=== PATIENT | male | born 1940 | race Caucasian/White ===

== ENCOUNTER 2018-05-28 14:21 | Inpatient (IN) | payer MEDICARE, OTHER, SELFPAY ==
[2018-05-28] VITALS (13 sets, daily range): BP systolic 114–212; BP diastolic 67–89; PULSE 78–106; RESP 18–28; TEMP 36.4–36.9; O2SAT 95–98; BMI 54.1
--- NOTE | 2018-05-28 14:39 | EKG12_ITS ---
Test Reason : SOB Blood Pressure : / mmHG Vent. Rate : 101 BPM Atrial Rate : 101 BPM P-R Int : 192 ms QRS Dur : 128 ms QT Int : 370 ms P-R-T Axes : 026 229 013 degrees QTc Int : 479 ms Sinus tachycardia Right bundle branch block Possible Lateral infarct , age undetermined Inferior infarct , age undetermined Abnormal ECG Confirmed by PAULINA HAMMOND, MATT ([id number]), news editor JUAN R ALLEN ([id number]) on 06/01/2018 1:22:56 PM Referred By: Burke Avitia Confirmed By:MATT GALLARDO MD
--- NOTE | 2018-05-28 14:51 | ED.DCSUM_ITS ---
- ER Visit Summary Date of Service: 05/28/18 Chief Complaint: Shortness of breath History of Present Illness: The patient is a [address] of CAD with prior MS. Patient states that he fell approximately 8 days ago. He slipped on ice on his steps injuring his right rib cage. He was actually doing okay and then 4 days ago he fell again injuring now his left rib cage and since that time is been more short of breath. Denies any chest pain other than the rib cage pain. No history of DVT or PE. No recent hospitalization or surgery. He has chronic swelling in both legs and is not new. He denies any fever or new cough. No hemoptysis. He has never had a DVT or PE. Physical Examination: Older male. Vital signs are stable. Pulse ox 96% on room air no hypoxia. HEENT exam unremarkable atraumatic. Neck nontender. Lungs clear to auscultation. Heart regular rhythm rate about 100. No murmur. Abdomen morbidly obese but soft. Nontender normal bowel sounds no peritoneal signs. Patient moving all 4 extremities. His chronic lymphedema both lower extremities. Calves are nontender. Peripheral edema is equal symmetrical. Neurologically he is awake and alert with no focal motor deficits. Moving all 4 extremities. He does have bruising on his right lower chest and upper abdomen. Test Results: Obvious rib fractures. No pneumothorax. There is a small left pleural effusion. With atelectasis. Cannot rule out infiltrate. Read both by myself and the radiologist. CBC shows a white count of 7. H&H of 13 and 42. No bands. Electrolytes are unremarkable other than creatinine 1.35. Patient has not been to this hospital for years I have no old labs or old EKG available for comparison. His troponin is normal. 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 Again I have no old EKG available for comparison. Emergency Department Course and Treatment: Patient be worked up for dyspnea. Multiple repeat exams patient is resting comfortable in bed. He will be ambulated to see how his pulse ox does without oxygen. He will also undergo a CTA of his chest clinically my suspicion for PE is very low. He does have risk factors due to his body habitus. I am more concerned with his shortness of breath and his left lower lobe pleural effusion on hope and the CAT scan can clarify that issue. Treatment Plan: I reviewed the patient's CT of his chest. He is got a moderate left pleural effusion most likely need to be drained. We are awaiting the official read to be turned over to him on the afternoon physicians. I will speak to the hospitalist about admission. Disposition: Admission Impression: Acute dyspnea Left lower pleural effusion This note was generated with [employer] dictation software. It may contain incorrect words, spelling, and punctuation that were not noted in review of the chart prior to signing ED Disposition - Plan for ED Patient: Chief Complaint: Shortness of Breath Referrals: [facility] Doctor,Out of [NON-STAFF] -
--- NOTE | 2018-05-28 15:00 | RAD_ITS ---
STUDY: X-RAY CHEST REASON FOR EXAM: Male, 77 years old. Chest pain. TECHNIQUE: PA and lateral views of the chest. COMPARISON: None. FINDINGS: Small left pleural effusion with left basilar atelectasis and/or infiltrate. Blunting of the right costophrenic angle. There is borderline cardiomegaly. Normal mediastinum and mary jane. Normal visualized pulmonary arteries. Normal visualized aortic arch and descending thoracic aorta. Normal visualized thoracic spine. Normal visualized ribs, clavicles, and shoulders. There is no demonstrated abnormality of the visualized soft tissue structures of the upper abdomen. RAD/Chest PA and Lateral IMPRESSION: Small left pleural effusion with underlying left basilar infiltration and/or atelectasis. Blunting of the right costophrenic angle. Electronically Signed: Grayson Keith MD at 15:18 EST Tel [phone], Service support ,
[2018-05-28 15:26] LABS: Absolute Lymphocyte Count 1.85 X10^3/ul (0.83-4.51); Absolute Neutrophil Count 4.7 X10^3/uL (2.0-7.7); Basophil# 0.02 X10^3/uL; Basophil% 0.3 % (0-1); Eosinophils% 7.7 % (0-5); Hematocrit 42.8 % (40-54); Hemoglobin 13.9 g/dl (13.0-16.5); Lymphocyte # 1.85 X10^3/ul (4.0); Lymphocyte % 23.8 % (19-41); Mean Corp Hgb Conc 32.5 g/gl (32-36); Mean Corpuscular Volume 107.8 fL (80-94); Mean Platelet Vol. 8.8 fl (6.2-12.0); Monocyte# 0.62 X10^3/uL; Neutrophil # 4.66 X10^3/uL (2.7-7.7); Neutrophil % 59.9 % (47-70); Platelet Count 201 K/mm3 (150-450); RBC Distribution Width CV 13.3 % (11.6-14.6); Red Blood Count 3.97 M/mm3 (4.6-6.2); White Blood Count 7.8 K/mm3 (4.4-11.0)
[2018-05-28 15:27] LABS: POSITIVE COUNT NO; POSITIVE DIFFERENTIAL NO; POSITIVE MORPHOLOGY NO
[2018-05-28 15:49] LABS: Anion Gap 3 (5-15); BUN 23 mg/dL (7-18); Calcium,Total 8.3 mg/dL (8.5-10.1); Chloride 106 mmol/L (98-107); Creatinine, Serum 1.35 mg/dL (0.70-1.30); EST Glomerular Filtration Rate 55 mL/min (>60); Est Glom Filt Rate - Afr Amer 66 mL/min (>60); Estimated Creatinine Clearance 45.04 ml/min; Glucose 116 mg/dL (74-106); Potassium 4.5 mmol/L (3.5-5.1); Sodium Level 139 mmol/L (136-145)
--- NOTE | 2018-05-28 15:55 | CT_ITS ---
STUDY: CTA CHEST REASON FOR EXAM: Male, 77 years old. Shortness of breath, left pleural effusion left-sided rib pain RADIATION DOSAGE (If Supplied By Facility): CTDIvol = ( 16.72 ) mGy, DLP = ( 657.99 ) mGycm TECHNIQUE: The examination was performed with the intravenous administration of 100CC ml of Isovue 370 contrast material. Post-processing of the angiographic images was performed, with multiplanar reformation and 3D reconstruction. Individualized dose optimization techniques were used for this CT. COMPARISON: None. FINDINGS: There is limited enhancement of the main pulmonary artery and right and left pulmonary arteries. There is limited enhancement of the bilateral peripheral pulmonary arteries. There is no demonstrated pulmonary embolism however, a filling defect could be present and overlooked in the distal vessels due to the suboptimal contrast.. Normal thoracic aorta and visualized great vessels. There is no demonstrated aortic dissection. Normal heart and pericardium. Normal mediastinum. Normal hilar regions. There is peribronchial thickening. The lungs are well expanded. Chronic interstitial changes noted in both lung robles with nonspecific left pleural thickening, and a free-flowing left pleural effusion. There is minimal bibasilar atelectasis. There is likely chronic elevation of the right hemidiaphragm. There are degenerative changes of thoracic spine. Limited cuts through the upper abdomen do not show a suspicious abnormality CT/CTA Chest W/WO Contrast IMPRESSION: No demonstrated PE, however, contrast bolus within the pulmonary arteries is not optimal No thoracic aortic aneurysm or dissection Chronic interstitial changes in both lung robles with nonspecific pleural thickening, free flowing left pleural effusion and minimal bibasilar atelectasis Degenerative bony changes Electronically Signed: Ruben Lieberman MD at 16:47 EST , Service support ,
[2018-05-28 15:59] LABS: BNP,B-Type NATRIURETIC PEPTIDE 40.2 pg/mL (0-100)
--- NOTE | 2018-05-28 18:10 | PCM.HP.STD ---
Problem List (1) Pleural effusion Status: Acute (2) Chronic venous stasis Status: Chronic (3) Morbid obesity Status: Chronic (4) MEGHANA (obstructive sleep apnea) Status: Chronic (5) Osteoarthritis Status: Chronic (6) NSAID-induced gastric ulcer Status: Chronic History of Present Illness Date of Admission: 05/28/18 Chief Complaint: SOB The patient is a 77 year old M with past medical history of morbid obesity, CAD with OK in 1994, osteoarthritis, NSAID-induced ulcer, obstructive sleep apnea, who presented to the emergency room with chief complaint of shortness of breath. He was found to be hypoxic with ambulation into the 80s, and found to have left-sided pleural effusion on chest x-ray. He denies history of congestive heart failure or cardiac disease. He has been progressively more short of breath times 3-4 days. He also has chest pain that started after falling. He states he fell slipping on ice on his right side about 9 days ago, and has left-sided chest pain from falling on steps onto his left side about 4 days ago. The shortness of breath started after the fall. He is short of breath with conversation and his O2 declines to 87% with conversation. He does not have a vendor relationship manager. He is compliant with nightly CPAP. He does have some BL LE swelling and stasis changes however he says this has been chronic for 15 years. Past Medical History Past Medical History (Chronic Problems): Chronic Problems Chronic venous stasis (Chronic) Morbid obesity (Chronic) MEGHANA (obstructive sleep apnea) (Chronic) Osteoarthritis (Chronic) NSAID-induced gastric ulcer (Chronic) Allergies cephalexin [From Keflex] Allergy (Verified 05/28/18 14:22) Rash Home Medications: Ambulatory Orders Medication Instructions Recorded Amoxicillin [Amoxil] 500 mg PO Q6H 05/28/18 Glucosamine/Chondr Gallardo A Sod 1 each PO BID 05/28/18 [Glucosamine-Chondroitin Tablet] Magnesium 500 mg PO DAILY 05/28/18 Multivitamins,Therapeutic 1 tablet PO DAILY 05/28/18 [Multivitamin] Naproxen Sodium [Aleve] 220 mg PO Q12H PRN PRN 05/28/18 buPROPion SR [Wellbutrin SR (150mg 150 mg PO DAILY 05/28/18 tablets)] Surgical History: total hip arthroplasty Psychiatric History: No pertinent psych hx Lives: Alone Smoking Status: Never smoker Tobacco Use: Non-smoker Alcohol: None Drugs: None - *Family History Maternal History Items: Diabetes Paternal History Items: Cancer - bladder Review of Systems Constitutional: Denies: Chills, Fever, Weight Change HEENT: Denies: Head Aches, Sinus Congestion, Sinus Drainage Cardiovascular: Reports: Chest Pain. Denies: Palpitations Respiratory: Reports: Shortness of Breath, Shortness of breath at rest, Shortness of breath upon exertion. Denies: Cough, Sputum production Gastrointestinal: Denies: Abdominal Pain, Nausea, Vomiting Genitourinary: Denies: Dysuria Musculoskeletal: Denies: Joint Pain, Joint Tenderness Skin: Denies: Rash, Wounds Neurological: Denies: Numbness, Tingling, Focal weakness Psychiatric: Denies: Anxiety, Depression, Homicidal Ideations, Suicidal Ideations Hematologic/ Lymphatic: Denies: Easy Bruising, Easy Bleeding VTE Information - Inpt Only VTE Present on Admission: No VTE Mechan Device Prophylaxis: SCD's VTE Pharm Prophylaxis ordered?: No Reason prophylaxis not ordered:: Medical Contraindication Patient Problems: Active and Suspected Problems Pleural effusion (Acute) - Physical Exam General: Alert, Oriented x3, Cooperative HEENT: Atraumatic, PERRLA, EOMI, Normocephalic Neck: Supple, No JVD, Negative Carotid Bruits Lungs: Diminished, Rales, Wheezes Cardiovascular: Regular rate, No murmurs Abdomen: Bowel Sounds Present, Soft, Non Tender, Obese Extremities: Capillary Refill Less than 3 Seconds, Edema Skin: No rashes, No breakdown, - - hyperpigmentation BL LE ankles Musculoskeletal: No Tenderness to Palpation of Joints or Extremities Neurological: Cranial nerves II-XII grossly intact Psych/Mental Status: Normal Affect, Appropriate Vital Signs Temp Pulse Resp BP Pulse Ox 97.6 F L 95 28 H 164/88 H 96 05/28/18 14:23 05/28/18 16:38 05/28/18 16:38 05/28/18 16:38 05/28/18 16:38 Oxygen Flow Rate (L/min) 2 Oxygen Delivery Method Nasal Cannula Weight: 356 lb Body Mass Index (BMI) 54.1 Laboratory Tests Past 24 Hrs 05/28/18 05/28/18 05/28/18 15:15 15:15 15:15 WBC 7.8 RBC 3.97 L Hgb 13.9 Hct 42.8 MCV 107.8 H MCH 35.0 H MCHC 32.5 RDW 13.3 RDW Differential 53.0 H Plt Count 201 MPV 8.8 Immature Gran % (Auto) 0.300 Neut % (Auto) 59.9 Lymph % (Auto) 23.8 [place] % (Auto) 8.0 Eos % (Auto) 7.7 H Baso % (Auto) 0.3 Absolute Neuts (auto) 4.7 Absolute Lymphs (auto) 1.85 Total Counted Not Reportable Sodium 139 Potassium 4.5 Chloride 106 Carbon Dioxide 30.0 Anion Gap 3 L BUN 23 H Creatinine 1.35 H Estim Creat Clear Calc 45.04 Est GFR (MDRD) Af Amer 66 Est GFR (MDRD) Non-Af 55 L BUN/Creatinine Ratio 17.0 Glucose 116 H Calcium 8.3 L Troponin I < 0.015 B-Natriuretic Peptide 40.2 Assessment/Plan All Active Problems Pleural effusion (Acute) 1. Pleural effusion - unclear etiology. May be post traumatic 2/2 fall onto that side 4 days ago when his symptoms started. He does become hypoxic with conversation and activity in the room. Pulmonary medicine will be consulted. Echocardiogram will be obtained in the AM. He will have a thoracentesis in the AM. Check serum LDH/protein, and fluid panel. Check AM PT and APTT. BNP is negative. Troponin is negative. 2. Hx CAD, OK 1994. He does not take asa or plavix. 3. HTN - severely elevated on arrival, trending down. prn hydralazine, trend and begin therapy if indicated. 4. MEGHANA - continue CPAP qhs he thinks his setting is 15. 5. Chronic venous stasis - compression hoses. 6. Morbid obesity - dietary eval 7. Osteoarthritis - still taking nsaids despite hx nsaid ulcer. Hold while here, no blood thinning agents with thora. 8. Depression - wellbutrin 9. Elevated BNP/Cr - probably some degree of CKD but we do not know what his baseline is. DVT ppx: SCDs, hold anticoagulation with plan for thora in AM. Discharge planning: Patient will undergo thoracentesis in the morning and may need to be held overnight for repeat chest x-ray the following morning. Will attempt to wean him off of oxygen after draining his pleural effusion, but he may need to go home with home oxygen. This patient was seen by Bharat Pelayo PA-C under the supervision of Doctor Avitia.
--- NOTE | 2018-05-28 18:35 | ECHOCS_ITS ---
Reason For Study: DYSPNEA/SOB Procedure This was a 2D Doppler, Color Flow transthoracic echocardiogram. The study was technically difficult. Exam performed portable in patient room. Left Ventricle Normal size and thickness. The estimated ejection fraction is 50-55 %. Stage 1 diastolic dysfunction. Septal motion consistent with IVCD. Mid-Lateral : Mildly hypokinetic. Right Ventricle Normal size and thickness. Normal systolic function. Atria Normal left atrium. Normal right atrium. Normal atrial septum. Mitral Valve The mitral valve is structurally normal. No prolapse or stenosis seen. Tricuspid Valve Normal tricuspid valve. Trivial tricuspid valve insufficiency. Right ventricular systolic pressure estimated to be 29 mmHg. Aortic Valve Normal aortic valve. Trisinus/trileaflet aortic valve. Pulmonic Valve Normal pulmonic valve. Great Vessels Normal aortic root. Mild atherosclerosis of the aortic arch. Normal inferior vena cava. Pericardium/Pleural No pericardial effusion. Medication Diluted definity 3ml given slow IV push to enhance endocardial definition. MMode/2D Measurements & Calculations Ao root diam: 3.6 cm LAV(MOD-bp): 24.2 ml LA dimension: 3.4 cm LVAd ap4: 25.0 cm2 LAV(MOD-bp) Indexed: 9.3 ml/m2 EDV(MOD-sp4): 67.5 ml LAV(MOD-sp2): 19.1 ml EDV(sp4-el): 70.2 ml LAV(MOD-sp4): 24.5 ml LVAs ap4: 13.9 cm2 ESV(MOD-sp4): 23.6 ml ESV(sp4-el): 24.8 ml EF(MOD-sp4): 65.0 % EF(sp4-el): 64.6 % SV(MOD-sp4): 43.9 ml SV(sp4-el): 45.4 ml LA A4 area: 12.2 cm2 RA A4 area: 10.6 cm2 Time Measurements MV dec time: 0.22 sec Doppler Measurements & Calculations MV E max rowdy: 64.8 cm/sec Lat Peak E' Rowdy: 8.4 cm/sec Med Peak E' Rowdy: 6.5 cm/sec MV A max rowdy: 119.3 cm/sec E/E' lat: 7.7 E/E' med: 10.0 MV E/A: 0.54 Ao V2 max: 146.4 cm/sec LV V1 max: 93.0 cm/sec PA V2 max: 102.1 cm/sec Ao max P.6 mmHg LV V1 max P.5 mmHg TR max rowdy: 245.6 cm/sec TR max P.1 mmHg Interpretation Summary The estimated ejection fraction is 50-55 %. Stage 1 diastolic dysfunction. Mid-Lateral : Mildly hypokinetic Trivial tricuspid valve insufficiency. Right ventricular systolic pressure estimated to be 29 mmHg. The study was technically difficult. Contrast injection was performed. There is no comparison study available. Ordering Physician: Burke Avitia Referring Physician: Burke Avitia Performed By: Kayce Bradley RDCS
[2018-05-28 19:16] LABS: International Normalized Ratio 1.1; Prothrombin Time (Protime)PT. 14.3 SECONDS (11.7-14.9)
[2018-05-28 19:17] LABS: Partial Thromboplast Time 33.6 Seconds (24.1-36.2)
--- NOTE | 2018-05-28 20:13 | CPS ---
Pt started on CPAP 15 which pt states is his home PAP setting
[2018-05-28] MEDS: Acetaminophen 325 MG Tablet 650 MG PO (21:39)
[2018-05-29] VITALS (16 sets, daily range): BP systolic 126–166; BP diastolic 38–82; PULSE 82–107; RESP 16–24; TEMP 36.8–37.2; O2SAT 94–98
--- NOTE | 2018-05-29 | ASPIG_PTH ---
PATIENT: AZAEL MAR LOC: MS3 U#:[id number] AGE/SX: 77/M ROOM: MS311 RE05/29/[address]: Dr. Brandi Jenkins DO : 1940 BED: 1 DIS: 05/30/2018 SPEC #: [id number] RECD: 05/29/18 10:27 STATUS: GEETHA KRISTY #: [id number] CROW: 05/29/18 00:[address]: Brandi Jenkins DEPT: CYTOLOGY RECD BY: Kvng Duncan ENTERED: 05/29/18 11:50 SP TYPE: ASP OUT OTHR DR: Dr. Prieto Shrestha, DO Dr. Burke Avitia, DO No Primary Care Phys Tissues: THORACIC FLUID Procedures: FNA Specimen Adequacy Pap Stain (control) Special Stain Group II Surgery Specimen Level IV Cell Block Cytology Other HEADER OPERATION: Ultrasound-guided left thoracentesis PRE-OP DIAGNOSIS: COPD TISSUE SUBMITTED: Thoracentesis fluid for cytology DIAGNOSIS CYTOLOGY Thoracentesis fluid for cytology (cytospin): Negative for malignant cells. Acute inflammation. AM:jo-ann 05/31/18 CYTOLOGY STUDY Slides are reviewed. CYTOLOGY GROSS Received is 65 ml of cloudy red fluid labeled with the patient's name and and designated per the requisition as thoracentesis. Submitted for cytology preparation including cell block. / 05/29/18 TC:2 CPT: 49734 , 42155
[2018-05-29] MEDS: Nystatin Powder 15gm Bottle 1 APPLIC TOPICAL ×2 (05:08→20:31)
[2018-05-29] MEDS: 0.9% NaCl Peripheral Flush Adult/Peds IV (05:09)
[2018-05-29] MEDS: buPROPion (XL) 300 MG TABLET.XL PO (09:17)
--- NOTE | 2018-05-29 10:10 | RAD_ITS ---
STUDY: X-RAY CHEST REASON FOR EXAM: Male, 77 years old. Status post left thoracentesis. TECHNIQUE: Inspiration expiration views. COMPARISON: Comparison is made with prior study dated May 28, 2018. FINDINGS: The patient is status post left thoracentesis. No evidence of pneumothorax. Mild residual pleural-parenchymal changes at the left lung base. RAD/Chest Insp/Exp 2 View IMPRESSION: Status post left thoracentesis. There is no evidence of pneumothorax. Mild residual pleural parenchymal changes at the left lung base. Electronically Signed: Grayson Keith MD at 13:56 EST Tel [phone], Service support ,
[2018-05-29 10:31] LABS: Cytology, Body Fluid / CSF SEE PATHOLOGY REPORT
--- NOTE | 2018-05-29 10:40 | CASEMGMT ---
RN CARMINA Face to Face with patient for initial transition planning/care coordination assessment. RN CM introduced self and role at [facility]. Patient lying in bed, alert and oriented. Patient willing to participate in assessment and is able to answer all questions appropriately. Care providers, pharmacy, and demographics verified. Patient wishes to discharge home, denies need for home health at this time. Patient states he has no further needs or concerns at this time. CM to follow for discharge planning needs that may arise. PCP: No PCP, CARMINA to provide list Specialists: None [facility]erred [facility]: [facility] Prescription Benefit: None Living Will/HPOA: None LNOK: Friend Living Arrangements: Patient lives alone in house with bed and bath on first floor. Independent at home. Has person to cook and clean. Transportation: Self/friend DME/HHC: Patient has cane, walker, and cpap. Will montior for need for home oxygen and nebulizer. Disposition Plan: Patient to discharge home with follow-up plans in place. Makayla MULLER, RN, CM
[2018-05-29 11:03] LABS: Body Fluid Mononuclear WBC # 1.172 10^3/uL; Body Fluid Mononuclear WBC % 40.2 %; Body Fluid Polynuclear WBC # 1.745 10^3/uL; Body Fluid Polynuclear WBC % 59.8 %; Body Fluid Total Cells Counted 2.918 10^3/ul; White Blood Count/Body Fluid 2.917 10^3/uL
[2018-05-29 11:28] LABS: Glucose, Body Fluid 88 mg/dL (40-70)
[2018-05-29 11:31] LABS: Appearance/Body Fluid TURBID; Auto B Fluid Analyzer BKGD Ct COUNTS W/IN LIMITS (W/IN LIMITS); Color/Body Fluid RED; Source- Body Fluid THORACENTESIS
[2018-05-29 11:45] LABS: LDH,Body Fluid 1535 Units/l (Not Establ.); Protein, Body Fluid 4.7 g/dL (Not Establ.)
--- NOTE | 2018-05-29 11:55 | CON.PCM_ITS ---
Reason for Consult Date of Consultation: 05/29/18 Reason for Consultation: Pleural effusion and obstructive sleep apnea History of Present Illness: The patient is a 77-year-old male, with a history as outlined below, who presented to the emergency department on May 28 with progressive shortness of breath after sustaining 2 separate falls on ice earlier in the week. The patient reports that he once fell on his left side and once on his right side. He states that his dyspnea began to worsen shortly after those falls. He denies the presence of a cough, fevers or chills. He does report a history of obstructive sleep apnea, for which he currently utilizes nocturnal CPAP therapy. He does believe that he has a pressure support of 15 cm of water. He does report compliance with its use. He does not currently follow with a dedicated sleep medicine specialist. He reports that his last polysomnogram occurred 3-4 years ago. On presentation to the emergency department, the patient was noted to be afebrile and hypertensive with a blood pressure of 212/89. He was, nevertheless, maintaining appropriate oxygen saturations on room air. Laboratory evaluation revealed no evidence of a leukocytosis. Chemistry profile did reveal an elevated creatinine of 1.35. Troponin and BNP were both negative. A CTA chest was obtained which revealed no evidence for PE. There was evidence of a moderate sized left sided pleural effusion. The patient was subsequently admitted to the medical surgical floor for further workup of his shortness of breath. Past Medical History Past Medical History (Chronic Problems): Chronic Problems Chronic venous stasis (Chronic) Morbid obesity (Chronic) MEGHANA (obstructive sleep apnea) (Chronic) Osteoarthritis (Chronic) NSAID-induced gastric ulcer (Chronic) Allergies cephalexin [From Keflex] Allergy (Verified 05/28/18 14:22) Rash Home Medications: Ambulatory Orders Medication Instructions Recorded Amoxicillin [Amoxil] 500 mg PO Q6H 05/28/18 Glucosamine/Chondr Gallardo A Sod 2 each PO DAILY 05/28/18 [Glucosamine-Chondroitin Tablet] Magnesium 500 mg PO DAILY 05/28/18 Multivitamins,Therapeutic 1 tablet PO DAILY 05/28/18 [Multivitamin] Naproxen Sodium [Aleve] 220 mg PO Q12H PRN PRN 05/28/18 buPROPion XL [Wellbutrin Xl] 300 mg PO DAILY 05/29/18 Surgical History: total hip arthroplasty Psychiatric History: No pertinent psych hx Lives: Alone Smoking Status: Never smoker Tobacco Use: Non-smoker Alcohol: None Drugs: None - *Family History Maternal History Items: Diabetes Paternal History Items: Cancer - bladder Review of Systems Constitutional: Denies: Chills, Fever, Night Sweats Eyes: Denies: Blurred vision, Double vision HEENT: Denies: Head Aches, Sinus Congestion, Sinus Drainage Cardiovascular: Denies: Chest Pain, Palpitations Respiratory: Reports: Shortness of Breath. Denies: Cough, Sputum production Gastrointestinal: Denies: Abdominal Pain, Nausea, Vomiting Genitourinary: Denies: Dysuria Musculoskeletal: Denies: Joint Pain, Joint Tenderness Skin: Denies: Rash, Wounds Neurological: Denies: Numbness, Tingling, Focal weakness Psychiatric: Denies: Anxiety, Depression, Homicidal Ideations, Suicidal Ideations Hematologic/ Lymphatic: Denies: Easy Bruising, Easy Bleeding Patient Problems: Active and Suspected Problems Pleural effusion (Acute) Objective: The patient's most recent lab work, culture data and imaging studies have all been personally reviewed. - Physical Exam General: Alert, Oriented x3, Cooperative, No apparent distress, - - Morbidly obese. Seated upright in bed. HEENT: Atraumatic, PERRLA, Normocephalic Oral: No Gingival or Mucosal Lesions/ Ulcerations Neck: Supple, No Nodes, Trachea Midline Lungs: No rhonchi, No wheeze, No rales, Diminished Cardiovascular: Regular rate, Regular Rhythm, Normal S1, Normal S2, No murmurs Abdomen: Bowel Sounds Present, Soft, Non Tender, Obese Extremities: No clubbing, No cyanosis, Edema Skin: No breakdown, - - Venous stasis dermatitis of the lower extremities present Musculoskeletal: No Muscle Wasting Lymphatic: No Cervical, Supraclavicular, or Inguinal Adenopathy Neurological: Cranial nerves II-XII grossly intact, Neuro grossly intact Psych/Mental Status: Alert and oriented to time, place, person, mood and affect Vital Signs Temp Pulse Resp BP Pulse Ox 37.1 C 85 18 141/74 H 94 05/29/18 11:44 05/29/18 11:44 05/29/18 11:44 05/29/18 11:44 05/29/18 11:44 Oxygen Flow Rate (L/min) [3] 1 Oxygen Flow Rate (L/min) [2] 1 Oxygen Flow Rate (L/min) [1 ( 1 Initial Baseline)] Oxygen Flow Rate (L/min) 1 Oxygen Delivery Method [3] Nasal Cannula Oxygen Delivery Method [2] Nasal Cannula Oxygen Delivery Method [1 ( Nasal Cannula Initial Baseline)] Oxygen Delivery Method Nasal Cannula Weight: 356 lb 0.745 oz Body Mass Index (BMI) 54.1 Intake and Output for Last 24 Hours 05/27/18 05/28/18 05/29/18 23:59 23:59 23:59 Intake Total 200 / 200 Balance 200 / 200 Laboratory Tests Past 24 Hrs 05/28/18 05/28/18 05/28/18 15:15 15:15 15:15 WBC 7.8 RBC 3.97 L Hgb 13.9 Hct 42.8 MCV 107.8 H MCH 35.0 H MCHC 32.5 RDW 13.3 RDW Differential 53.0 H Plt Count 201 MPV 8.8 Immature Gran % (Auto) 0.300 Neut % (Auto) 59.9 Lymph % (Auto) 23.8 [place] % (Auto) 8.0 Eos % (Auto) 7.7 H Baso % (Auto) 0.3 Absolute Neuts (auto) 4.7 Absolute Lymphs (auto) 1.85 Total Counted Not Reportable PT INR APTT Sodium 139 Potassium 4.5 Chloride 106 Carbon Dioxide 30.0 Anion Gap 3 L BUN 23 H Creatinine 1.35 H Estim Creat Clear Calc 45.04 Est GFR (MDRD) Af Amer 66 Est GFR (MDRD) Non-Af 55 L BUN/Creatinine Ratio 17.0 Glucose 116 H Calcium 8.3 L Troponin I < 0.015 B-Natriuretic Peptide 40.2 Fluid Source Fluid Color Fluid Appearance Fluid pH Fluid WBC Fluid RBC Fluid Tot Cell Count Fld Polynuclear WBCs # Fld Polynuclear WBCs % Fluid Mononuclear WBCs Fld Mononuclear WBCs % Fl Pathologist Comment Fluid Glucose Fluid Total Protein Fluid LDH Fluid Comment 2 Miscellaneous Cytology 05/28/18 05/29/18 05/29/18 15:15 09:50 09:50 WBC RBC Hgb Hct MCV MCH MCHC RDW RDW Differential Plt Count MPV Immature Gran % (Auto) Neut % (Auto) Lymph % (Auto) [place] % (Auto) Eos % (Auto) Baso % (Auto) Absolute Neuts (auto) Absolute Lymphs (auto) Total Counted PT 14.3 INR 1.1 APTT 33.6 Sodium Potassium Chloride Carbon Dioxide Anion Gap BUN Creatinine Estim Creat Clear Calc Est GFR (MDRD) Af Amer Est GFR (MDRD) Non-Af BUN/Creatinine Ratio Glucose Calcium Troponin I B-Natriuretic Peptide Fluid Source Fluid Color Fluid Appearance Fluid pH Pending Fluid WBC Fluid RBC Fluid Tot Cell Count Fld Polynuclear WBCs # Fld Polynuclear WBCs % Fluid Mononuclear WBCs Fld Mononuclear WBCs % Fl Pathologist Comment Fluid Glucose 88 H Fluid Total Protein Fluid LDH Fluid Comment 2 Miscellaneous Cytology 05/29/18 05/29/18 05/29/18 09:50 09:50 09:50 WBC RBC Hgb Hct MCV MCH MCHC RDW RDW Differential Plt Count MPV Immature Gran % (Auto) Neut % (Auto) Lymph % (Auto) [place] % (Auto) Eos % (Auto) Baso % (Auto) Absolute Neuts (auto) Absolute Lymphs (auto) Total Counted PT INR APTT Sodium Potassium Chloride Carbon Dioxide Anion Gap BUN Creatinine Estim Creat Clear Calc Est GFR (MDRD) Af Amer Est GFR (MDRD) Non-Af BUN/Creatinine Ratio Glucose Calcium Troponin I B-Natriuretic Peptide Fluid Source THORACENTESIS Fluid Color RED Fluid Appearance TURBID Fluid pH Fluid WBC 2.917 Fluid RBC 0.45481 Fluid Tot Cell Count 2.918 Fld Polynuclear WBCs # 1.745 Fld Polynuclear WBCs % 59.8 Fluid Mononuclear WBCs 1.172 Fld Mononuclear WBCs % 40.2 Fl Pathologist Comment May follow Fluid Glucose Fluid Total Protein 4.7 Fluid LDH 1535 Fluid Comment 2 SEE COMMENT Miscellaneous Cytology Pending Clinical Impression(s) from Imaging Studies Chest X-Ray 05/28/18 15:00 IMPRESSION: Small left pleural effusion with underlying left basilar infiltration and/or atelectasis. Blunting of the right costophrenic angle. Electronically Signed: Grayson Keith MD at 15:18 EST Tel [phone], Service support , Chest CTA 05/28/18 15:55 IMPRESSION: No demonstrated PE, however, contrast bolus within the pulmonary arteries is not optimal No thoracic aortic aneurysm or dissection Chronic interstitial changes in both lung robles with nonspecific pleural thickening, free flowing left pleural effusion and minimal bibasilar atelectasis Degenerative bony changes Electronically Signed: Ruben Lieberman MD at 16:47 EST , Service support , Thoracentesis Ultrasound 05/29/18 18:35 IMPRESSION: Ultrasound-guided left thoracentesis. Electronically Signed: Grayson Keith MD at 10:52 EST Tel [phone], Service support , Assessment/Plan All Active Problems Pleural effusion (Acute) RECOMMENDATIONS: 1. Agree with obtaining ultrasound-guided thoracentesis. 2. Wean supplemental oxygen to maintain saturations at or above 90%. 3. Encourage incentive spirometer use and mobilize patient as tolerated. 4. Continue nocturnal CPAP therapy. 5. Perform walking oximetry study prior to consideration for discharge from the hospital. IMPRESSIONS: 1. Shortness of breath/acute hypoxic respiratory insufficiency Likely secondary to underlying moderate sized left-sided pleural effusion. The patient did report 2 separate falls earlier in the week. This effusion may be related to trauma sustained as a consequence of those falls. Agree with obtaining an ultrasound-guided thoracentesis for further evaluation. No clinical suspicion for underlying pulmonary infectious process. Continue to wean supplemental oxygen as tolerated. Encourage aggressive incentive spirometer use and mobilize patient as tolerated. Perform walking oximetry study prior to consideration for discharge from the hospital. 2. History of obstructive sleep apnea The patient does report that his last polysomnogram occurred 3-4 years ago. He does report compliance with use of nocturnal CPAP therapy, with a presumptive pressure support of 15 cm of water. Recommend continuing this while inpatient. The patient can follow-up with us in the pulmonary medicine clinic on an outpatient basis with regards to his long-standing MEGHANA. This note was generated with [employer] dictation software. It may contain incorrect words, spelling, and punctuation that were not noted in checking the note before signing. Code Visit Inpatient E&M: 99804 Init Hosp L3
[2018-05-29 11:59] LABS: Body Fluid QC Type(s) BF1Q; Lymphocytes 23 %; Monocytes 1 %; Neutrophil (Segs) 21 %; Other Cell Type/BF 55 %
[2018-05-29 13:33] LABS: AST(SGOT) 22 U/L (15-37); Alanine Aminotransfer ALT/SGPT 29 U/L (16-61); Albumin, Serum 2.6 g/dL (3.2-5.0); Alkaline Phosphatase 67 U/L (45-117); Globulin 4.2 g/dL (2.2-4.2); LDH 212 U/L (87-241); Protein, Total 6.8 g/dL (6.4-8.2)
--- NOTE | 2018-05-29 13:45 | PCM.PROGNOTE ---
Patient Problems: Active and Suspected Problems Pleural effusion (Acute) Subjective: Pt still mildly SOB with light activity even moving around in bed. Some LLQ cp this AM. No cough. No fever or chills. LE edema unchanged. Tolerated CPAP overnight. - Physical Exam General: Alert, Oriented x3, Cooperative HEENT: Atraumatic, PERRLA, EOMI, Normocephalic Neck: Supple, No JVD, Negative Carotid Bruits Lungs: Diminished, Wheezes Cardiovascular: Regular rate, No murmurs Abdomen: Bowel Sounds Present, Soft, Non Tender Extremities: Capillary Refill Less than 3 Seconds, Edema - 1+ pitting edema Skin: No rashes, No breakdown, - - chronic LE stasis dermatitis Musculoskeletal: No Tenderness to Palpation of Joints or Extremities Neurological: Cranial nerves II-XII grossly intact Psych/Mental Status: Normal Affect, Appropriate, Alert and oriented to time, place, person, mood and affect Vital Signs Temp Pulse Resp BP Pulse Ox 98.8 F 85 18 141/74 H 94 05/29/18 11:44 05/29/18 11:44 05/29/18 11:44 05/29/18 11:44 05/29/18 11:44 Oxygen Flow Rate (L/min) [3] 1 Oxygen Flow Rate (L/min) [2] 1 Oxygen Flow Rate (L/min) [1 ( 1 Initial Baseline)] Oxygen Flow Rate (L/min) 1 Oxygen Delivery Method [3] Nasal Cannula Oxygen Delivery Method [2] Nasal Cannula Oxygen Delivery Method [1 ( Nasal Cannula Initial Baseline)] Oxygen Delivery Method Nasal Cannula Weight: 356 lb 0.745 oz Body Mass Index (BMI) 54.1 Intake and Output for Last 24 Hours 05/27/18 05/28/18 05/29/18 23:59 23:59 23:59 Intake Total 200 / 200 200 / 200 Balance 200 / 200 200 / 200 Microbiology Past 72 Hours 05/29/18 09:50 Gram Stain - Final Fluid - Thoracentesis Fluid Laboratory Tests Past 24 Hrs 05/28/18 05/28/18 05/28/18 15:15 15:15 15:15 WBC 7.8 RBC 3.97 L Hgb 13.9 Hct 42.8 MCV 107.8 H MCH 35.0 H MCHC 32.5 RDW 13.3 RDW Differential 53.0 H Plt Count 201 MPV 8.8 Immature Gran % (Auto) 0.300 Neut % (Auto) 59.9 Lymph % (Auto) 23.8 [place] % (Auto) 8.0 Eos % (Auto) 7.7 H Baso % (Auto) 0.3 Absolute Neuts (auto) 4.7 Absolute Lymphs (auto) 1.85 Total Counted Not Reportable PT INR APTT Sodium 139 Potassium 4.5 Chloride 106 Carbon Dioxide 30.0 Anion Gap 3 L BUN 23 H Creatinine 1.35 H Estim Creat Clear Calc 45.04 Est GFR (MDRD) Af Amer 66 Est GFR (MDRD) Non-Af 55 L BUN/Creatinine Ratio 17.0 Glucose 116 H Calcium 8.3 L Total Bilirubin Direct Bilirubin AST ALT Alkaline Phosphatase Lactate Dehydrogenase Troponin I < 0.015 B-Natriuretic Peptide 40.2 Total Protein Albumin Globulin Fluid Source Fluid Color Fluid Appearance Fluid pH Fluid WBC Fluid RBC Fluid Tot Cell Count Fld Polynuclear WBCs # Fld Polynuclear WBCs % Fluid Mononuclear WBCs Fld Mononuclear WBCs % Fluid Neutrophils Fluid Lymphocytes Fluid Monocytes Fluid Other Cells Fl Pathologist Comment Fluid Glucose Fluid Total Protein Fluid LDH Fluid Comment 2 Miscellaneous Cytology 05/28/18 05/29/18 05/29/18 15:15 09:50 09:50 WBC RBC Hgb Hct MCV MCH MCHC RDW RDW Differential Plt Count MPV Immature Gran % (Auto) Neut % (Auto) Lymph % (Auto) [place] % (Auto) Eos % (Auto) Baso % (Auto) Absolute Neuts (auto) Absolute Lymphs (auto) Total Counted PT 14.3 INR 1.1 APTT 33.6 Sodium Potassium Chloride Carbon Dioxide Anion Gap BUN Creatinine Estim Creat Clear Calc Est GFR (MDRD) Af Amer Est GFR (MDRD) Non-Af BUN/Creatinine Ratio Glucose Calcium Total Bilirubin Direct Bilirubin AST ALT Alkaline Phosphatase Lactate Dehydrogenase Troponin I B-Natriuretic Peptide Total Protein Albumin Globulin Fluid Source Fluid Color Fluid Appearance Fluid pH Pending Fluid WBC Fluid RBC Fluid Tot Cell Count Fld Polynuclear WBCs # Fld Polynuclear WBCs % Fluid Mononuclear WBCs Fld Mononuclear WBCs % Fluid Neutrophils Fluid Lymphocytes Fluid Monocytes Fluid Other Cells Fl Pathologist Comment Fluid Glucose 88 H Fluid Total Protein Fluid LDH Fluid Comment 2 Miscellaneous Cytology 05/29/18 05/29/18 05/29/18 09:50 09:50 09:50 WBC RBC Hgb Hct MCV MCH MCHC RDW RDW Differential Plt Count MPV Immature Gran % (Auto) Neut % (Auto) Lymph % (Auto) [place] % (Auto) Eos % (Auto) Baso % (Auto) Absolute Neuts (auto) Absolute Lymphs (auto) Total Counted PT INR APTT Sodium Potassium Chloride Carbon Dioxide Anion Gap BUN Creatinine Estim Creat Clear Calc Est GFR (MDRD) Af Amer Est GFR (MDRD) Non-Af BUN/Creatinine Ratio Glucose Calcium Total Bilirubin Direct Bilirubin AST ALT Alkaline Phosphatase Lactate Dehydrogenase Troponin I B-Natriuretic Peptide Total Protein Albumin Globulin Fluid Source THORACENTESIS Fluid Color RED Fluid Appearance TURBID Fluid pH Fluid WBC 2.917 Fluid RBC 0.50042 Fluid Tot Cell Count 2.918 Fld Polynuclear WBCs # 1.745 Fld Polynuclear WBCs % 59.8 Fluid Mononuclear WBCs 1.172 Fld Mononuclear WBCs % 40.2 Fluid Neutrophils 21 Fluid Lymphocytes 23 Fluid Monocytes 1 Fluid Other Cells 55 Fl Pathologist Comment May follow Fluid Glucose Fluid Total Protein 4.7 Fluid LDH 1535 Fluid Comment 2 SEE COMMENT Miscellaneous Cytology Pending 05/29/18 13:05 WBC RBC Hgb Hct MCV MCH MCHC RDW RDW Differential Plt Count MPV Immature Gran % (Auto) Neut % (Auto) Lymph % (Auto) [place] % (Auto) Eos % (Auto) Baso % (Auto) Absolute Neuts (auto) Absolute Lymphs (auto) Total Counted PT INR APTT Sodium Potassium Chloride Carbon Dioxide Anion Gap BUN Creatinine Estim Creat Clear Calc Est GFR (MDRD) Af Amer Est GFR (MDRD) Non-Af BUN/Creatinine Ratio Glucose Calcium Total Bilirubin 0.60 Direct Bilirubin 0.20 AST 22 ALT 29 Alkaline Phosphatase 67 Lactate Dehydrogenase 212 Troponin I B-Natriuretic Peptide Total Protein 6.8 Albumin 2.6 L Globulin 4.2 Fluid Source Fluid Color Fluid Appearance Fluid pH Fluid WBC Fluid RBC Fluid Tot Cell Count Fld Polynuclear WBCs # Fld Polynuclear WBCs % Fluid Mononuclear WBCs Fld Mononuclear WBCs % Fluid Neutrophils Fluid Lymphocytes Fluid Monocytes Fluid Other Cells Fl Pathologist Comment Fluid Glucose Fluid Total Protein Fluid LDH Fluid Comment 2 Miscellaneous Cytology Medical Necessity - Tobacco Use Smoking Status: Never smoker Tobacco Use: Non-smoker Assessment/Plan All Active Problems Pleural effusion (Acute) 1. Pleural effusion - unclear etiology. S/P thora today. Fluid studies pending. Presence of blood, inc. LDH, inc. white cells. Pulm following. Lights criteria: Exudative. Follow culture. 2. Hx CAD, [place] 1994. He does not take asa or plavix. 3. HTN - severely elevated on arrival, trending down. prn hydralazine, trend and begin therapy if indicated. 4. MEGHANA - compliant with CPAP 5. Chronic venous stasis - compression hoses. 6. Morbid obesity - dietary eval 7. Osteoarthritis - still taking nsaids despite hx nsaid ulcer. Hold while here, no blood thinning agents with thora. 8. Depression - wellbutrin 9. 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 10. Debility - difficulty ambulating, sitting up, and climbing stairs. DVT ppx: SCDs, hold anticoagulation with plan for thora in AM. Discharge planning: CXR in AM. PTOT evals This patient was seen by Bharat Pelayo PA-C under the supervision of Doctor Jenkins.
[2018-05-29] MEDS: Celecoxib 100 MG Capsule PO ×2 (14:03→20:31)
[2018-05-29 14:54] LABS: Pathologist Comment/Body Fluid Reviewed
--- NOTE | 2018-05-29 18:35 | US_ITS ---
PROCEDURE: ULTRASOUND GUIDED THORACENTESIS. DATE: May 29, 2018. INDICATION: Male, 77 years old. Left pleural effusion. PHYSICIAN: Grayson Keith M.D. PROCEDURE: The risks, benefits, and alternatives to the procedure were explained to the patient. The specific risks of bleeding, infection, and pneumothorax requiring chest tube insertion were discussed and accepted. Written informed consent was obtained. Ultrasonographic evaluation of the left lower pleural space was carried out. An adequate pocket was identified. The patient was placed in the sitting, upright position. The overlying skin was prepped and draped in sterile fashion. 1% lidocaine was administered subcutaneously for local anesthesia. Under ultrasound guidance, a 5 [place] thoracentesis needle/catheter system was advanced into the left posterior lower pleural fluid collection. Approximately 90 mL of bloody fluid was drained. The catheter was removed, and a sterile dressing was applied. A specimen was collected and sent to the laboratory for analysis, as requested by the referring clinician. The patient tolerated the procedure well. A chest x-ray was ordered. US/Thoracentesis W US IMPRESSION: Ultrasound-guided left thoracentesis. Electronically Signed: Grayson Keith MD at 10:52 EST Tel [phone], Service support ,
[2018-05-29] MEDS: HYDROcodone Bitartrate/Apap 5/325 Tablet PO (20:31)
[2018-05-30] VITALS (10 sets, daily range): BP systolic 127–159; BP diastolic 65–87; PULSE 83–96; RESP 18–20; TEMP 36.6–36.9; O2SAT 92–100
[2018-05-30] MEDS: Nystatin Powder 15gm Bottle 1 APPLIC TOPICAL (09:14)
[2018-05-30] MEDS: Celecoxib 100 MG Capsule PO (09:14)
[2018-05-30] MEDS: buPROPion (XL) 300 MG TABLET.XL PO (09:31)
--- NOTE | 2018-05-30 13:30 | DCINST_ITS ---
- Discharge Diagnoses Current Active Problems: Current Active and Chronic Problems Pleural effusion (Acute) Chronic venous stasis (Chronic) Morbid obesity (Chronic) MEGHANA (obstructive sleep apnea) (Chronic) Osteoarthritis (Chronic) NSAID-induced gastric ulcer (Chronic) You will use the following diet at home:: Calorie/Carbohydrate Controlled (specify 1200, 1400, etc) - 2000 júnior / day, Cardiac Your food should be the consistency of: Regular Your liquids should be the consistency of: Regular/Thin Discharge Activity: Return to Normal Activity Allergies/Adverse Reactions: Allergies cephalexin [From Keflex] Allergy (Verified 05/28/18 14:22) Rash Medications to take at Discharge Glucosamine/Chondr Gallardo A Sod [Glucosamine-Chondroitin Tablet] 2 each PO DAILY 05/28/18 Multivitamins,Therapeutic [Multivitamin] 1 tablet PO DAILY 05/28/18 buPROPion XL [Wellbutrin Xl] 300 mg PO DAILY 05/29/18 Celecoxib [Celebrex] 100 mg PO BID #28 capsule 05/30/18 The following prescriptions were given: Celecoxib [Celebrex] 100 mg PO BID #28 capsule Primary Care Physician: Romel Doctor,Out of [NON-STAFF] - Please follow up with your Primary Care Physician in: 1-2 weeks Test Results: Test results from this visit will be discussed in further detail at your follow- up appointment, if applicable. Please Follow Up With: Prieto Shrestha DO When: 2 weeks Proposed Discharge Date: 05/30/18
--- NOTE | 2018-05-30 13:31 | PCM.DC.SUM ---
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 Blunting of the right costophrenic angle. CT/CTA Chest W/WO Contrast IMPRESSION: No demonstrated PE, however, contrast bolus within the pulmonary arteries is not optimal No thoracic aortic aneurysm or dissection Chronic interstitial changes in both lung robles with nonspecific pleural thickening, free flowing left pleural effusion and minimal bibasilar atelectasis Degenerative bony changes Interpretation Summary The estimated ejection fraction is 50-55 %. Stage 1 diastolic dysfunction. Mid-Lateral : Mildly hypokinetic Trivial tricuspid valve insufficiency. Right ventricular systolic pressure estimated to be 29 mmHg. The study was technically difficult. Contrast injection was performed. There is no comparison study available. RAD/Chest Insp/Exp 2 View IMPRESSION: Status post left thoracentesis. There is no evidence of pneumothorax. Mild residual pleural parenchymal changes at the left lung base. US/Thoracentesis W US IMPRESSION: Ultrasound-guided left thoracentesis. 90 cc bloody fluid drained. Consults: [facility] - Pulmonary medicine Operations: None Procedures: 2-D Echocardiogram, Thoracentesis Summary of Care Provided: Hospital Course: The patient is a 77 year old M with past medical history of osteoarthritis, NSAID-induced ulcer, CKD stage III, hypertension, CAD with prior NH, morbid obesity, obstructive sleep apnea compliant with CPAP, who presented to the emergency room with chief complaint of shortness of breath. He is found to be hypoxic with activity in the 80s. He underwent a CT of the chest which showed a left-sided pleural effusion. Beta natruretic peptide was negative. He is not felt to have congestive heart failure. He was admitted for pleural effusion of unclear etiology. Pulmonary medicine was consulted. The following day he underwent a thoracentesis which revealed exudative pleural effusion which was bloody. The Gram stain was negative, and pathology indicates no malignant cells. Earlier in the week he had fallen twice and hurt his chest. It was felt that this was a traumatic pleural effusion, and not related to CHF or pna. An echocardiogram was obtained which findings as above. He was weaned off oxygen and was ambulatory in the room without increased oxygen demand. He had a follow up CXR with no pneumo. He was felt to be stable for discharge. He had been taking naproxen at home for ongoing osteoarthritis and was advised to discontinue this, and said he was placed on Mobic. I advised a calorie controlled cardiac diet at discharge to assist with weight loss. He needs to continue to use CPAP nightly as well, and to continue using the provided Incentive spirometer. He was advised to follow-up with pulmonary medicine in 1-2 weeks. He was advised to follow-up with his PCP in 1-2 weeks. This patient was seen by Bharat Pelayo PA-C under the supervision of Doctor Jenkins. [] Patient Problems: Active and Suspected Problems Pleural effusion (Acute) - Physical Exam General: Alert, Oriented x3, Cooperative HEENT: Atraumatic, PERRLA, EOMI, Normocephalic Neck: Supple, No JVD, Negative Carotid Bruits Lungs: Clear to auscultation, Normal air movement, Wheezes - faint wheeze Left side on expiration heard posteriorly. Cardiovascular: Regular rate, No murmurs Abdomen: Bowel Sounds Present, Soft, Non Tender Extremities: No edema, Capillary Refill Less than 3 Seconds Skin: No rashes, No breakdown Musculoskeletal: No Tenderness to Palpation of Joints or Extremities Neurological: Cranial nerves II-XII grossly intact Psych/Mental Status: Normal Affect, Appropriate Vital Signs Temp Pulse Resp BP Pulse Ox 98.5 F 88 18 144/75 H 92 05/30/18 09:10 05/30/18 09:59 05/30/18 09:10 05/30/18 09:10 05/30/18 12:39 Oxygen Flow Rate (L/min) [3] 1 Oxygen Flow Rate (L/min) [2] 1 Oxygen Flow Rate (L/min) [1 ( 1 Initial Baseline)] Oxygen Flow Rate (L/min) 2 Oxygen Delivery Method [3] Nasal Cannula Oxygen Delivery Method [2] Nasal Cannula Oxygen Delivery Method [1 ( Nasal Cannula Initial Baseline)] Oxygen Delivery Method Room Air Weight: 356 lb 0.745 oz Body Mass Index (BMI) 54.1 Intake and Output for Last 24 Hours 05/28/18 05/29/18 05/30/18 23:59 23:59 23:59 Intake Total 200 / 200 400 / 400 Balance 200 / 200 400 / 400 Microbiology Past 72 Hours 05/29/18 09:50 Gram Stain - Final Fluid - Thoracentesis Fluid Body Fluid Culture - Preliminary No growth-Final to follow Laboratory Tests Past 24 Hrs 05/29/18 05/29/18 09:50 13:05 Total Bilirubin 0.60 Direct Bilirubin 0.20 AST 22 ALT 29 Alkaline Phosphatase 67 Lactate Dehydrogenase 212 Total Protein 6.8 Albumin 2.6 L Globulin 4.2 Fl Pathologist Comment Reviewed Discharge Activity: Return to Normal Activity Home Medications: Medications to take at Discharge Glucosamine/Chondr Gallardo A Sod [Glucosamine-Chondroitin Tablet] 2 each PO DAILY 05/28/18 Multivitamins,Therapeutic [Multivitamin] 1 tablet PO DAILY 05/28/18 buPROPion XL [Wellbutrin Xl] 300 mg PO DAILY 05/29/18 Celecoxib [Celebrex] 100 mg PO BID #28 capsule 05/30/18 Following Prescrptions Were Given to Patient: Celecoxib [Celebrex] 100 mg PO BID #28 capsule Primary Care Physician: Romel Doctor,Out of [NON-STAFF] - Please follow up with your Primary Care Physician in: 1-2 weeks Please Follow Up With: Prieto Shrestha DO When: 2 weeks Medical Necessity - Tobacco Use Smoking Status: Never smoker Tobacco Use: Non-smoker Meaningful Use Info Meaningful Use Diagnoses (Choose all that apply): None applicable
--- NOTE | 2018-05-30 13:38 | DS.PCM_ITS ---
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 Blunting of the right costophrenic angle. CT/CTA Chest W/WO Contrast IMPRESSION: No demonstrated PE, however, contrast bolus within the pulmonary arteries is not optimal No thoracic aortic aneurysm or dissection Chronic interstitial changes in both lung robles with nonspecific pleural thickening, free flowing left pleural effusion and minimal bibasilar atelectasis Degenerative bony changes Interpretation Summary The estimated ejection fraction is 50-55 %. Stage 1 diastolic dysfunction. Mid-Lateral : Mildly hypokinetic Trivial tricuspid valve insufficiency. Right ventricular systolic pressure estimated to be 29 mmHg. The study was technically difficult. Contrast injection was performed. There is no comparison study available. RAD/Chest Insp/Exp 2 View IMPRESSION: Status post left thoracentesis. There is no evidence of pneumothorax. Mild residual pleural parenchymal changes at the left lung base. US/Thoracentesis W US IMPRESSION: Ultrasound-guided left thoracentesis. 90 cc bloody fluid drained. Consults: [facility] - Pulmonary medicine Operations: None Procedures: 2-D Echocardiogram, Thoracentesis Summary of Care Provided: Hospital Course: The patient is a 77 year old M with past medical history of osteoarthritis, NSAID-induced ulcer, CKD stage III, hypertension, CAD with prior MS, morbid obesity, obstructive sleep apnea compliant with CPAP, who presented to the emergency room with chief complaint of shortness of breath. He is found to be hypoxic with activity in the 80s. He underwent a CT of the chest which showed a left-sided pleural effusion. Beta natruretic peptide was negative. He is not felt to have congestive heart failure. He was admitted for pleural effusion of unclear etiology. Pulmonary medicine was consulted. The following day he underwent a thoracentesis which revealed exudative pleural effusion which was bloody. The Gram stain was negative, and pathology indicates no malignant cells. Earlier in the week he had fallen twice and hurt his chest. It was felt that this was a traumatic pleural effusion, and not related to CHF or pna. An echocardiogram was obtained which findings as above. He was weaned off oxygen and was ambulatory in the room without increased oxygen demand. He had a follow up CXR with no pneumo. He was felt to be stable for discharge. He had been taking naproxen at home for ongoing osteoarthritis and was advised to discontinue this, and said he was placed on Mobic. I advised a calorie controlled cardiac diet at discharge to assist with weight loss. He needs to continue to use CPAP nightly as well, and to continue using the provided Incentive spirometer. He was advised to follow-up with pulmonary medicine in 1-2 weeks. He was advised to follow-up with his PCP in 1-2 weeks. This patient was seen by Bharat Pelayo PA-C under the supervision of Doctor Jenkins. [] Patient Problems: Active and Suspected Problems Pleural effusion (Acute) - Physical Exam General: Alert, Oriented x3, Cooperative HEENT: Atraumatic, PERRLA, EOMI, Normocephalic Neck: Supple, No JVD, Negative Carotid Bruits Lungs: Clear to auscultation, Normal air movement, Wheezes - faint wheeze Left side on expiration heard posteriorly. Cardiovascular: Regular rate, No murmurs Abdomen: Bowel Sounds Present, Soft, Non Tender Extremities: No edema, Capillary Refill Less than 3 Seconds Skin: No rashes, No breakdown Musculoskeletal: No Tenderness to Palpation of Joints or Extremities Neurological: Cranial nerves II-XII grossly intact Psych/Mental Status: Normal Affect, Appropriate Vital Signs Temp Pulse Resp BP Pulse Ox 98.5 F 88 18 144/75 H 92 05/30/18 09:10 05/30/18 09:59 05/30/18 09:10 05/30/18 09:10 05/30/18 12:39 Oxygen Flow Rate (L/min) [3] 1 Oxygen Flow Rate (L/min) [2] 1 Oxygen Flow Rate (L/min) [1 ( 1 Initial Baseline)] Oxygen Flow Rate (L/min) 2 Oxygen Delivery Method [3] Nasal Cannula Oxygen Delivery Method [2] Nasal Cannula Oxygen Delivery Method [1 ( Nasal Cannula Initial Baseline)] Oxygen Delivery Method Room Air Weight: 356 lb 0.745 oz Body Mass Index (BMI) 54.1 Intake and Output for Last 24 Hours 05/28/18 05/29/18 05/30/18 23:59 23:59 23:59 Intake Total 200 / 200 400 / 400 Balance 200 / 200 400 / 400 Microbiology Past 72 Hours 05/29/18 09:50 Gram Stain - Final Fluid - Thoracentesis Fluid Body Fluid Culture - Preliminary No growth-Final to follow Laboratory Tests Past 24 Hrs 05/29/18 05/29/18 09:50 13:05 Total Bilirubin 0.60 Direct Bilirubin 0.20 AST 22 ALT 29 Alkaline Phosphatase 67 Lactate Dehydrogenase 212 Total Protein 6.8 Albumin 2.6 L Globulin 4.2 Fl Pathologist Comment Reviewed Discharge Activity: Return to Normal Activity Home Medications: Medications to take at Discharge Glucosamine/Chondr Gallardo A Sod [Glucosamine-Chondroitin Tablet] 2 each PO DAILY 05/28/18 Multivitamins,Therapeutic [Multivitamin] 1 tablet PO DAILY 05/28/18 buPROPion XL [Wellbutrin Xl] 300 mg PO DAILY 05/29/18 Celecoxib [Celebrex] 100 mg PO BID #28 capsule 05/30/18 Following Prescrptions Were Given to Patient: Celecoxib [Celebrex] 100 mg PO BID #28 capsule Primary Care Physician: Romel Doctor,Out of [NON-STAFF] - Please follow up with your Primary Care Physician in: 1-2 weeks Please Follow Up With: Prieto Shrestha DO When: 2 weeks Medical Necessity - Tobacco Use Smoking Status: Never smoker Tobacco Use: Non-smoker Meaningful Use Info Meaningful Use Diagnoses (Choose all that apply): None applicable
--- NOTE | 2018-05-30 14:29 | PCM.PROGNOTE ---
Patient Problems: Active and Suspected Problems Pleural effusion (Acute) Subjective: The patient was seen and examined at the bedside this morning. Events from the last 24 hours have been reviewed. The patient is currently afebrile, hemodynamically stable and maintaining appropriate oxygen saturations on room air. The patient did undergo an ultrasound-guided thoracentesis yesterday, with 90 mL's of bloody fluid noted to have been aspirated from the left hemithorax. The patient feels well today and is anxious for discharge home. Objective: The patient's most recent lab work, culture data and imaging studies have all been personally reviewed. - Physical Exam General: Alert, Oriented x3, Cooperative, No apparent distress HEENT: Atraumatic, PERRLA, Normocephalic Oral: Moist Mucosa, No Gingival or Mucosal Lesions/ Ulcerations Neck: Supple, No Nodes, Trachea Midline Lungs: No rhonchi, No wheeze, No rales, Diminished Cardiovascular: Regular rate, Regular Rhythm, Normal S1, Normal S2, No murmurs Abdomen: Bowel Sounds Present, Soft, Non Tender, Obese Extremities: No clubbing, No cyanosis, Edema Skin: - - Venous stasis dermatitis Musculoskeletal: No Tenderness to Palpation of Joints or Extremities, No Muscle Wasting Lymphatic: No Cervical, Supraclavicular, or Inguinal Adenopathy Neurological: Cranial nerves II-XII grossly intact, Neuro grossly intact Psych/Mental Status: Alert and oriented to time, place, person, mood and affect Vital Signs Temp Pulse Resp BP Pulse Ox 36.9 C 88 18 144/75 H 92 05/30/18 09:10 05/30/18 09:59 05/30/18 09:10 05/30/18 09:10 05/30/18 12:39 Oxygen Flow Rate (L/min) [3] 1 Oxygen Flow Rate (L/min) [2] 1 Oxygen Flow Rate (L/min) [1 ( 1 Initial Baseline)] Oxygen Flow Rate (L/min) 2 Oxygen Delivery Method [3] Nasal Cannula Oxygen Delivery Method [2] Nasal Cannula Oxygen Delivery Method [1 ( Nasal Cannula Initial Baseline)] Oxygen Delivery Method Room Air Weight: 356 lb 0.745 oz Body Mass Index (BMI) 54.1 Intake and Output for Last 24 Hours 05/28/18 05/29/18 05/30/18 23:59 23:59 23:59 Intake Total 200 / 200 400 / 400 Balance 200 / 200 400 / 400 Microbiology Past 72 Hours 05/29/18 09:50 Gram Stain - Final Fluid - Thoracentesis Fluid Body Fluid Culture - Preliminary No growth-Final to follow Laboratory Tests Past 24 Hrs 05/29/18 09:50 Fl Pathologist Comment Reviewed Clinical Impression(s) from Imaging Studies Chest X-Ray 05/28/18 15:00 IMPRESSION: Small left pleural effusion with underlying left basilar infiltration and/or atelectasis. Blunting of the right costophrenic angle. Electronically Signed: Grayson Keith MD at 15:18 EST Tel [phone], Service support , Chest CTA 05/28/18 15:55 IMPRESSION: No demonstrated PE, however, contrast bolus within the pulmonary arteries is not optimal No thoracic aortic aneurysm or dissection Chronic interstitial changes in both lung robles with nonspecific pleural thickening, free flowing left pleural effusion and minimal bibasilar atelectasis Degenerative bony changes Electronically Signed: Ruben Lieberman MD at 16:47 EST , Service support , Chest X-Ray 05/29/18 10:10 IMPRESSION: Status post left thoracentesis. There is no evidence of pneumothorax. Mild residual pleural parenchymal changes at the left lung base. Electronically Signed: Grayson Keith MD at 13:56 EST Tel [phone], Service support , Thoracentesis Ultrasound 05/29/18 18:35 IMPRESSION: Ultrasound-guided left thoracentesis. Electronically Signed: Grayson Keith MD at 10:52 EST Tel [phone], Service support , Medical Necessity - Tobacco Use Smoking Status: Never smoker Tobacco Use: Non-smoker Assessment/Plan All Active Problems Pleural effusion (Acute) RECOMMENDATIONS: 1. Perform walking oximetry study prior to consideration for discharge from the hospital. 2. Continue to encourage incentive spirometer use. 3. Continue nocturnal CPAP utilization. 4. Follow-up in the pulmonary medicine clinic in 2 weeks post discharge. IMPRESSIONS: 1. Shortness of breath/acute hypoxic respiratory insufficiency Likely secondary to underlying moderate sized left-sided pleural effusion. I suspect that this pleural effusion developed as the consequence of the patient's recent falls. He did undergo an ultrasound-guided thoracentesis which was noted to be bloody in nature. Pleural fluid analysis was consistent with exudative pleural effusion. Gram stain was negative for the presence of organisms. Low clinical index of suspicion for underlying pulmonary infectious process. Suspect that the effusion developed as a consequence of the injury sustained during the patient's falls. However, cytology is currently pending. Would plan to perform a walking oximetry study prior to consideration for discharge from the hospital. Continue to encourage incentive spirometer use. The patient can follow-up in the pulmonary medicine clinic in 2 weeks for further evaluation and to review the results of his cytology. 2. History of obstructive sleep apnea The patient does report that his last polysomnogram occurred 3-4 years ago. He does report compliance with use of nocturnal CPAP therapy, with a presumptive pressure support of 15 cm of water. Recommend continuing this while inpatient. The patient can follow-up with us in the pulmonary medicine clinic on an outpatient basis with regards to his long-standing MEGHANA. This note was generated with [employer] dictation software. It may contain incorrect words, spelling, and punctuation that were not noted in checking the note before signing. Code Visit Inpatient E&M: 60266 Subs Hosp L2
--- NOTE | 2018-05-30 14:34 | PN_ITS ---
Patient Problems: Active and Suspected Problems Pleural effusion (Acute) Subjective: The patient was seen and examined at the bedside this morning. Events from the last 24 hours have been reviewed. The patient is currently afebrile, hemodynamically stable and maintaining appropriate oxygen saturations on room air. The patient did undergo an ultrasound-guided thoracentesis yesterday, with 90 mL's of bloody fluid noted to have been aspirated from the left hemithorax. The patient feels well today and is anxious for discharge home. Objective: The patient's most recent lab work, culture data and imaging studies have all been personally reviewed. - Physical Exam General: Alert, Oriented x3, Cooperative, No apparent distress HEENT: Atraumatic, PERRLA, Normocephalic Oral: Moist Mucosa, No Gingival or Mucosal Lesions/ Ulcerations Neck: Supple, No Nodes, Trachea Midline Lungs: No rhonchi, No wheeze, No rales, Diminished Cardiovascular: Regular rate, Regular Rhythm, Normal S1, Normal S2, No murmurs Abdomen: Bowel Sounds Present, Soft, Non Tender, Obese Extremities: No clubbing, No cyanosis, Edema Skin: - - Venous stasis dermatitis Musculoskeletal: No Tenderness to Palpation of Joints or Extremities, No Muscle Wasting Lymphatic: No Cervical, Supraclavicular, or Inguinal Adenopathy Neurological: Cranial nerves II-XII grossly intact, Neuro grossly intact Psych/Mental Status: Alert and oriented to time, place, person, mood and affect Vital Signs Temp Pulse Resp BP Pulse Ox 36.9 C 88 18 144/75 H 92 05/30/18 09:10 05/30/18 09:59 05/30/18 09:10 05/30/18 09:10 05/30/18 12:39 Oxygen Flow Rate (L/min) [3] 1 Oxygen Flow Rate (L/min) [2] 1 Oxygen Flow Rate (L/min) [1 ( 1 Initial Baseline)] Oxygen Flow Rate (L/min) 2 Oxygen Delivery Method [3] Nasal Cannula Oxygen Delivery Method [2] Nasal Cannula Oxygen Delivery Method [1 ( Nasal Cannula Initial Baseline)] Oxygen Delivery Method Room Air Weight: 356 lb 0.745 oz Body Mass Index (BMI) 54.1 Intake and Output for Last 24 Hours 05/28/18 05/29/18 05/30/18 23:59 23:59 23:59 Intake Total 200 / 200 400 / 400 Balance 200 / 200 400 / 400 Microbiology Past 72 Hours 05/29/18 09:50 Gram Stain - Final Fluid - Thoracentesis Fluid Body Fluid Culture - Preliminary No growth-Final to follow Laboratory Tests Past 24 Hrs 05/29/18 09:50 Fl Pathologist Comment Reviewed Clinical Impression(s) from Imaging Studies Chest X-Ray 05/28/18 15:00 IMPRESSION: Small left pleural effusion with underlying left basilar infiltration and/or atelectasis. Blunting of the right costophrenic angle. Electronically Signed: Grayson Keith MD at 15:18 EST Tel [phone], Service support , Chest CTA 05/28/18 15:55 IMPRESSION: No demonstrated PE, however, contrast bolus within the pulmonary arteries is not optimal No thoracic aortic aneurysm or dissection Chronic interstitial changes in both lung robles with nonspecific pleural thickening, free flowing left pleural effusion and minimal bibasilar atelectasis Degenerative bony changes Electronically Signed: Ruben Lieberman MD at 16:47 EST , Service support , Chest X-Ray 05/29/18 10:10 IMPRESSION: Status post left thoracentesis. There is no evidence of pneumothorax. Mild residual pleural parenchymal changes at the left lung base. Electronically Signed: Grayson Keith MD at 13:56 EST Tel [phone], Service support , Thoracentesis Ultrasound 05/29/18 18:35 IMPRESSION: Ultrasound-guided left thoracentesis. Electronically Signed: Grayson Ketih MD at 10:52 EST Tel [phone], Service support , Medical Necessity - Tobacco Use Smoking Status: Never smoker Tobacco Use: Non-smoker Assessment/Plan All Active Problems Pleural effusion (Acute) RECOMMENDATIONS: 1. Perform walking oximetry study prior to consideration for discharge from the hospital. 2. Continue to encourage incentive spirometer use. 3. Continue nocturnal CPAP utilization. 4. Follow-up in the pulmonary medicine clinic in 2 weeks post discharge. IMPRESSIONS: 1. Shortness of breath/acute hypoxic respiratory insufficiency Likely secondary to underlying moderate sized left-sided pleural effusion. I suspect that this pleural effusion developed as the consequence of the patient's recent falls. He did undergo an ultrasound-guided thoracentesis which was noted to be bloody in nature. Pleural fluid analysis was consistent with exudative pleural effusion. Gram stain was negative for the presence of organisms. Low clinical index of suspicion for underlying pulmonary infectious process. Suspect that the effusion developed as a consequence of the injury sustained during the patient's falls. However, cytology is currently pending. Would plan to perform a walking oximetry study prior to consideration for discharge from the hospital. Continue to encourage incentive spirometer use. The patient can follow-up in the pulmonary medicine clinic in 2 weeks for further evaluation and to review the results of his cytology. 2. History of obstructive sleep apnea The patient does report that his last polysomnogram occurred 3-4 years ago. He does report compliance with use of nocturnal CPAP therapy, with a presumptive pressure support of 15 cm of water. Recommend continuing this while inpatient. The patient can follow-up with us in the pulmonary medicine clinic on an outpatient basis with regards to his long-standing MEGHANA. This note was generated with [employer] dictation software. It may contain incorrect words, spelling, and punctuation that were not noted in checking the note before signing. Code Visit Inpatient E&M: 27425 Subs Hosp L2
[2018-05-31 15:23] LABS: pH, Body Fluid 11254 7.4 (Not Estab.)
--- OUTSIDE RECORDS SUMMARY | 2018-08-30 07:57 | XMS RPT_ITS ---
:1940 Author Organization [facility] Support Name Relationship Address Phone S Unavailable Unavailable Unavailable TITUS MAR Unavailable [address] + [place] [address] S Unavailable Unavailable Unavailable TITUS MAR Unavailable Unavailable + [place] [address] S Unavailable Unavailable Unavailable TITUS MAR Unavailable [address] + [place] [address] S Unavailable Unavailable Unavailable TITUS MAR Unavailable [address] + [place] [address] S Unavailable Unavailable Unavailable TITUS MAR Unavailable Unavailable + [place] [address] S Unavailable Unavailable Unavailable TITUS MAR Unavailable [address] + [place] [address] S Unavailable Unavailable Unavailable TITUS MAR Unavailable Unavailable + [place] [address] S Unavailable Unavailable Unavailable TITUS MAR Unavailable . + [place] [address] S Unavailable Unavailable Unavailable TITUS MAR Unavailable Unavailable + [place] [address] S Unavailable Unavailable Unavailable TITUS MAR Unavailable . + [place] [address] S Unavailable Unavailable Unavailable TITUS MAR Unavailable Unavailable + [place] [address] S Unavailable Unavailable Unavailable TITUS MAR Unavailable . + [place] [address] S Unavailable Unavailable Unavailable TITUS MAR Unavailable Unavailable + [place] [address] S Unavailable Unavailable Unavailable MAR, TITUS Unavailable Unavailable + [place] [address] S Unavailable Unavailable Unavailable TITUS MAR Unavailable . + [place] [address] YAJAIRA LOWE Unavailable Unavailable + NOT GIVEN Unavailable Unavailable Unavailable Care Team Providers Name Role Phone LAW GARRISON Admitting Unavailable BLADIMIR, LAW J Attending Unavailable GARRISON, LAW J Primary Care Unavailable GARRISON, LAW J Consulting Unavailable PROVIDER, UNKNOWN Consulting Unavailable PROVIDER, UNKNOWN Consulting Unavailable PROVIDER, UNKNOWN Consulting Unavailable Primay Care Physicia, No Primary Care Unavailable Tereletsky, Burke Admitting Unavailable Tereletsky, Burke Referring Unavailable Sementi, Palma Attending Unavailable Prieto Shrestha D.O. Consulting Unavailable Tereletsky, Burke Admitting Unavailable Tereletsky, Burke Referring Unavailable Primay Care Physicia, No Primary Care Unavailable Tereletsky, Burke Consulting Unavailable Tereletsky, Burke Attending Unavailable Tereletsky, Burke Admitting Unavailable Prieto Shrestha D.O. Attending Unavailable Tereletsky, Burke Referring Unavailable Primay Care Physicia, No Primary Care Unavailable Prieto Shrestha D.O. Consulting Unavailable Sementi, Palma Consulting Unavailable Tereletsky, Burke Admitting Unavailable Tereletsky, Burke Referring Unavailable Primay Care Physicia, No Primary Care Unavailable Prieto Shrestha D.O. Consulting Unavailable Sementi, Palma Attending Unavailable Sementi, Palma Consulting Unavailable Tereletsky, Burke Admitting Unavailable Prieto Shrestha D.O. Attending Unavailable Tereletsky, Burke Referring Unavailable Primay Care Physicia, No Primary Care Unavailable Prieto Shrestha D.O. Consulting Unavailable Sementi, Palma Consulting Unavailable Sementi, Palma Attending Unavailable Tereletsky, Burke Admitting Unavailable Tereletsky, Burke Referring Unavailable Primay Care Physicia, No Primary Care Unavailable Prieto Shrestha D.O. Consulting Unavailable Sementi, Palma Consulting Unavailable Talia La Attending Unavailable Primay Care Physicia, No Referring Unavailable Primay Care Physicia, No Primary Care Unavailable Pako Welch Admitting Unavailable Sandiepong Pako Referring Unavailable Edna Coello Attending Unavailable Kevon Obrien Consulting Unavailable KamgPako Admitting Unavailable AgkeegangPako Attending Unavailable Rebekah Pako Referring Unavailable Primay Care Physicia, No Primary Care Unavailable Agyepong, Pako Consulting Unavailable Agyepong, Pako Admitting Unavailable Ashelfah, Ghasem Attending Unavailable Agyepong, Pako Referring Unavailable Primay Care Physicia, No Primary Care Unavailable Micah, Kevon Consulting Unavailable Ashelfah, Ghasem Consulting Unavailable Agyepong, Pako Admitting Unavailable Micah, Kevon Attending Unavailable Agyepong, Pako Referring Unavailable Primay Care Physicia, No Primary Care Unavailable Micah, Kevon Consulting Unavailable Ashelfah, Ghasem Consulting Unavailable Agyepong, Pako Admitting Unavailable Ashelfah, Ghasem Attending Unavailable Agyepong, Pako Referring Unavailable Primay Care Physicia, No Primary Care Unavailable Micah, Kevon Consulting Unavailable Ashelfah, Ghasem Consulting Unavailable Wilfred Jordan Attending Unavailable Sementi, Palma Referring Unavailable Agyepong, Pako Admitting Unavailable Micah, Kevon Attending Unavailable Agyepong, Pako Referring Unavailable Primay Care Physicia, No Primary Care Unavailable Micah, Kevon Consulting Unavailable Ashelfah, Ghasem Consulting Unavailable Talia La Attending Unavailable Primay Care Physicia, No Referring Unavailable PROBLEMS PROBLEMS DATE TYPE CONDITION / CODE ATTENDING STATUS SOURCE 07/03/2018 Unknown G47.33 - La, Active [facility] Obstructive sleep [facility] apnea (adult) Hospital (pediatric) / Repository G47.33(ICD-10) 06/14/2018 Unknown R06.02 - La, Active [facility] Shortness of [facility] breath / Hospital R06.02(ICD-10) Repository 06/14/2018 Unknown R06.2 - Wheezing La, Active [place] / R06.2(ICD-10) [facility] Repository 05/30/2018 Unknown J94.2 - Sementi, Active [facility] Hemothorax / [facility] J94.2(ICD-10) Hospital Repository 06/05/2018 Unknown S20.212A - Sementi, Active [facility] Contusion of left [facility] front wall of Hospital thorax, initial Repository encounter / S20.212A(ICD-10) 06/05/2018 Unknown J90 - Pleural Sementi, Active [facility] effusion, not [facility] classified / Repository J90(ICD-10) PROCEDURES PROCEDURES No Procedure Records FoundRESULTS RESULTS PULMONARY VISIT REPORT Observed: 07/03/2018 Status: F Source: [facility] 1:50 PM [facility] H[facility]PITAL REPOSITORY [facility] [address] [place] [address] OFFICE VISIT Date of Service: 07/03/18 MR#: [id number] Acct: [id number] Name: AZAEL MAR Rep #: [id number] : 1940 Provider: Talia La Age/Sex: 77/M Location: [place] Status: Signed Assessment AND Plan 1. MEGHANA (obstructive sleep apnea) G47.33 Plan Weight probably up 10-15 pounds. I suspect that his recurrent admissions and worsening heart failure are related to or at least worsened by suboptimal treatment for his obstructive sleep apnea. Discussed this with the patient, he is agreeable to additional testing. On CPAP now, would likely benefit from BiPAP. Get titration study to make sure we have his MEGHANA adequately treated. Keep previously scheduled F/U with [facility]. Orders Orders: 2. Pleural effusion J90 Plan Stable. No repeat testing at this time. Continue diuresis, keep previously scheduled follow-up. 3. Hypoxemia R09.02 Plan Patient has been highly encouraged to avoid hypoxic episodes. He has been instructed to add the additional tubing to his home oxygen concentrator to allow for him to ambulate to the restroom with his oxygen in place. He conveys understanding and is agreeable. He is currently using and benefiting from supplemental oxygen. Keep previously scheduled testing, keep previously scheduled follow-up. 4. Morbid obesity E66.01 Plan Continue to encourage weight loss. [facility] hospital f/u: Chief Complaint: Shortness of breath HPI Comments Details: This patient presents the office today to follow- up after recently being discharged from the hospital for recurrent left-sided pleural effusion/hemothorax and acute hypoxic respiratory failure. The patient is in a wheelchair, wearing nasal cannula oxygen area He states that he has mostly returned to baseline but continues to experience some shortness of breath. He also reports some mild bilateral lower extremity edema, much improved in comparison to what he had been suffering from 6-8 weeks ago. He is compliant with 40 mg of Lasix daily. He is wearing 2 L of nasal cannula oxygen continuously. He is compliant with CPAP at night. He states that it has been approximately 4 years since his last sleep study. He believes that he is approximately 10- 15 pounds heavier than he was when that sleep study was completed. He does experience multiple episodes of nocturia nightly. He wakes up with a significant dry mouth in the morning. He is unsure if he snores through the mask, as he lives alone. He is not currently napping. He does admit to occasionally falling asleep while watching TV. Currently he has an occasional dry cough, denies any sputum production or hemoptysis. He denies any wheezing, chest tightness, chest pain or palpitations. He denies any fever, chills or body aches. He does admit to significant shortness of breath on exertion when he removes his oxygen to use the restroom. Currently his oxygen tubing is not long enough to reach to his bathroom, he admits that he does have additional oxygen tubing that can be added. Hospital documentation was reviewed from his admission, admitted on June 20 - June 21, 2018. 20 pages of hospital documentation reviewed. Chest x-ray from June 19 showed moderate left pleural effusion with overlying atelectasis. Ultrasound guided thoracentesis completed on June 20, with a repeat chest x-ray that was negative for pneumothorax after completing the procedure. He was then discharged home on 40 of Lasix daily. Intake Vital Signs07/03/18 Body Mass Index (BMI) 50.7 07/03/18 Height 5 ft 8 in 07/03/18 Weight: 330 lb Intake Visit Reasons: hospital f/u Chief Complaint: SOB Accompanied by: Self Allergies cephalexin [From Keflex] Allergy (Verified 07/03/18 09:16) Rash Medications buPROPion XL [Wellbutrin Xl] 150 mg PO DAILY 05/29/18 [History Confirmed 07/03/18] Furosemide [Lasix] 40 mg PO DAILY #30 tab 06/21/18 [Rx Confirmed 07/03/18] Oxygen, Home [Home Oxygen] 2 lpm NASAL PRN PRN #1 unit 06/21/18 [Rx Confirmed 07/03/18] [facility] Medical History Pleural effusion (Acute) Chronic venous stasis (Chronic) Morbid obesity (Chronic) MEGHANA (obstructive sleep apnea) (Chronic) Osteoarthritis (Chronic) NSAID-induced gastric ulcer (Resolved) History of bleeding ulcers (Inactive) Surgical History History of hip replacement (Inactive) Social History Smoking Status: Never smoker RVSP RVSP: 29 mmHg Review of Systems Const CONSTITUTIONAL: Positive fatigue; negative anorexia, body ache, chills, daytime sleepiness, fever(s), night sweats, oral thrush, stops breathing during sleep, weight loss, sleeping in chair, weight loss, weight gain, frequent colds, seasonal allergies, other, headache(s) or orthopnea EETM Ear Nose Throat Mouth: Positive hearing normal; negative hoarseness, dry mouth in morning, change in vision, itchy eyes, eye pain, swallowing Difficulty, ear pain, headache(s), mouth pain, nasal congestion, nasal discharge, sinus pain, sinus pressure, sore throat, other, hard of hearing, nose bleed or post nasal drip Cardio Cardiovascular: Positive edema Location: lower extremity; negative chest pain, chest pain at rest, chest pain with activity, irregular heart rhythm, shortness of breath when lying down, palpitations, other or murmur Resp Respiratory: Positive as per HPI, shortness of breath shortness of breath: Positive with activity and cough cough: Positive productive (normally upon rising ) color: Positive thick and white; negative pain with cough, wheezing, chest congestion, chest tightness, pain on inspiration, inhalers, increase use of rescue inhalers, snoring, apnea or other Gastro Gastrointestional: Negative bloody stools, change in appetite, difficulty swallowing, reflux, hematemesis, melena stool, loose stool, constipation or other Genitourinary: Negative blood in urine, nocturia, pain with urination or other Musc Musculoskeletal: Negative body pain, back pain, neck pain or other Skin/Breast Skin/Breast: Negative dry skin, itching, unusual bruising, breast lump or other Neuro Neurological: Negative restless legs, confusion, weakness or other Psych Psychocological: Negative abnormal sleep pattern, anxiety, thoughts of hurting self/others, hopelessness or other Lymph Lymphatic: Negative easy bleeding, easy bruising, other or swollen lymph nodes Exam Const Constitutional: Positive conversant, cooperative, in no acute respiratory distress, well developed, well nourished, good hygiene, dyspenic and obese Head Head: Positive normocephalic and atraumatic; negative cyanosis of lips/distal nose Eyes Eye: Positive clear conjunctiva; negative nystagmus or scleral abnormality Ears Ear: Positive hearing normal and external ears normal; negative hard of hearing Nose Nose: Positive external nose normal and no nasal discharge; negative epistaxis Mouth Mouth: Positive oral mucosae normal, no lesions, good dentition and posterior oropharynx is adequate; negative post nasal drip, malodorous breath or oral thrush present Mallampati Score: II: Mallampati Score Neck Neck: Positive normal visual inspection, full ROM and trachea midline; negative lymphadenopathy, JVD or tender Chest Wall Chest: Positive normal inspection of the chest and symmetric chest movement; negative increased A/P diameter Resp lung sounds: Positive normal expiratory time, diminished, clear to auscultation and normal respiratory effort; negative rhonchi, rales, dullness to percussion or use of accessory muscles Cardio Cardiac: Positive regular rate, regular rhythm, S1 normal and S2 normal; negative murmur GI GI: Positive obese Genitourinary: Positive deferred Musc Musculoskeletal: Positive ROM normal and in a wheelchair; negative kyphosis or scoliosis Skin Pulmonary Skin Exam: Positive dermal atrophy and scaly Pulses Pulse: Yes pulses normal x4 extremities Extremities Extremities: Yes capillary refill normal, No clubbing, No cyanosis, Yes edema Location: lower extremity location: Bilateral chronic with vascular changes, pitting +1 Neuro Neurologic: Yes conversant, Yes no focal neuro deficits, Yes normal concentration, Yes understands questions, Yes cooperative, Yes normal cognition, Yes normal coordination, No tremor Lymph Lymphatic: No lymphadenopathy, No tenderness, No cervical adenopathy Psych Appearance: Positive grossly normal and eye contact Mental Status: Positive mental status grossly normal Mood: Positive congruent mood Affect: Positive normal affect Coding Level of Care Code Off vis,est,level 4 Diagnoses MEGHANA (obstructive sleep apnea) G47.33 Pleural effusion J90 Hypoxemia R09.02 Morbid obesity E66.01 07/03/18 1350 <Electronically signed by Talia COVARRUBIAS> Date Talia COVARRUBIAS Cosigner Signature: Date (if applicable) CC: PROFESSIONAL PROGRAMMER ANALYST-C Denae Lama 12 LEAD ELECTROCARDIOGRAM Observed: 06/25/2018 Status: F Source: [facility] 9:52 AM [facility] Cardi[facility] [address] [place] [address] 12 Lead EKG 06/19/18 1809 MR#: [id number] Acct: [id number] Name: AZAEL MAR Rep #: [id number] : 1940 77 From: Stu Flower MD Attending Dr: Edna Coello Status: DIS IN Ordering Dr: Broderick Rabago DO Date: 06/19/18 Location: [facility] Sex: M C Admitted: 06/19/18 Test Reason : SOB Blood Pressure : / mmHG Vent. Rate : 088 BPM Atrial Rate : 088 BPM P-R Int : 184 ms QRS Dur : 140 ms QT Int : 410 ms P-R-T Axes : 022 215 018 degrees QTc Int : 496 ms Normal sinus rhythm Right bundle branch block Inferior infarct , age undetermined Abnormal ECG Confirmed by PAULINA HAMMOND, STU ([id number]), primer expeditor and drier JUAN R ALLEN ([id number]) on 06/25/2018 9:52:34 AM Referred By: Pako Welch Confirmed By:STU FLOWER MD 06/25/18 0952 Date Stu Flower MD CC: No Primary Care Physician; Broderick Rabago DO; Edna Coello; Pako Welch MD Signed DISCHARGE SUMMARY Observed: 06/22/2018 Status: F Source: [facility] 11:10 AM [facility] Medical Records Department [address] [place] [address] Discharge Summary 06/21/18 1414 MR#: [id number] Acct: [id number] Name: AZAEL MAR Rep #: [id number] : 1940 77 From: Edna Coello MD PCP: Care Physician, No Primary Status: DIS IN Y Location: [facility] [id number] Discharge Date and Diagnosis Date of Admission: 06/20/18 Date of Discharge: 06/21/18 - Primary Discharge Diagnosis Active and Suspected Problems (Last Updated 06/20/18 @ 09:51 by Edna Coello MD) #1 recurrent left-sided pleural effusion/hemothorax, exudative effusion, attributed to traumatic effusion. #2 acute hypoxic respiratory failure. - Secondary Discharge Diagnosis Chronic Problems (Last Updated 06/20/18 @ 09:51 by Edna Coello MD) Chronic venous stasis (Chronic) Morbid obesity (Chronic) MEGHANA (obstructive sleep apnea) (Chronic) Osteoarthritis (Chronic) Hospital Course and Treatment Imaging Results: Clinical Impression(s) from Imaging Studies Chest X-Ray 06/19/18 17:48 IMPRESSION: Moderate left pleural effusion with overlying atelectasis. Electronically Signed: Erik Rea at 19:09 EST Tel , Service support , Thoracentesis Ultrasound 06/20/18 00:32 IMPRESSION: Ultrasound-guided left thoracentesis. Electronically Signed: Grayson Keith MD at 14:50 EST Tel [phone], Service support , Chest X-Ray 06/20/18 13:59 IMPRESSION: Status post left thoracentesis. There is no evidence of pneumothorax. Residual pleural parenchymal changes at the left lung base. Electronically Signed: Grayson Keith MD at 15:20 EST Tel [phone], Service support , Dr. Obrien, pulmonology. Operations: None Procedures: Thoracentesis Summary of Care Provided: Patient seen and examined on the day of discharge and appeared to be stable to be discharged home. He remains on oxygen, pulse ox dropped upon returning to the chair after he was taken for a walk. His other vital signs are stable. The patient is a 77 year old M admitted because of worsening shortness of breath and he was found to have recurrent transudate of left-sided pleural effusion/hemothorax complicated by acute hypoxic respiratory failure. This patient was admitted to the hospital in mid May, after a mechanical fall, found to have left-sided pleural effusion which was attributed to traumatic effusion, underwent thoracentesis that revealed exudative effusion and it was negative for malignant cells. On this admission, chest x- ray revealed reaccumulation of the left side pleural effusion but it was small amount. Patient underwent left-sided thoracentesis, 170 cc of bloody pleural fluid taken out. Pleural fluid for cytology repeated and was negative for malignant cells. Patient was treated with oxygen and he was given 1 dose of Lasix. During the last admission, 2D echocardiogram showed ejection fraction of 50-55%, stage I diastolic dysfunction, mild lateral hypokinesis and RVSP of 29. Patient had a history of obstructive sleep apnea and he has been on CPAP at home. His shortness of breath is likely not due to the reaccumulation of the left pleural effusion and it could be due to pulmonary hypertension secondary to history of obstructive sleep apnea although his RVSP was 29 on recent 2D echocardiogram. Pulmonology consulted and recommended to do CT scan chest as outpatient. Patient was taken for walking pulse oximeter and his pulse ox went down to 90% with ambulation and down to 86% with rest. Patient did qualify for home oxygen to be able to ambulate at home and do his daily activities. Patient discharged home in a stable medical condition, discharged on Lasix 40 mg p.o. daily, discharged on home oxygen as needed and with exertion, plan to follow-up with pulmonology in 2 weeks, CT scan chest will be done as outpatient upon follow-up and recommended follow-up with PCP in 1 week. - Physical Exam General: Alert, Oriented x3, Cooperative, - - Minimally short of breath. HEENT: Atraumatic, PERRLA, EOMI Oral: Moist Mucosa, No Gingival or Mucosal Lesions/ Ulcerations Neck: Supple, No JVD, Negative Carotid Bruits, Trachea Midline, Thyroid Normal Size and Texture Lungs: Clear to auscultation, No rhonchi, No wheeze, No rales, Diminished, - Cardiovascular: Regular rate, Regular Rhythm, Normal S1, Normal S2, PMI Normal Abdomen: Bowel Sounds Present, Soft, Non Tender, Non-Distended, No Hepato-splenomegaly, Obese Extremities: No clubbing, No cyanosis, Edema - Trace edema, stasis dermatitis. Skin: No rashes, No breakdown Lymphatic: No Cervical, Supraclavicular, or Inguinal Adenopathy Neurological: Cranial nerves II-XII grossly intact, Neuro grossly intact Psych/Mental Status: Normal Affect, Appropriate Vital Signs Temp Pulse Resp BP Pulse Ox 98.3 F 98 18 134/62 H 93 06/21/18 13:39 06/21/18 13:39 06/21/18 13:39 06/21/18 13:39 06/21/18 13:39 Oxygen Flow Rate (L/min) [3] 3 Oxygen Flow Rate (L/min) [2] 3 Oxygen Flow Rate (L/min) [1 ( 3 Initial Baseline)] Oxygen Flow Rate (L/min) [ 0 AMBULATING on Room Air] Oxygen Flow Rate (L/min) [At 0 REST on Room Air] Oxygen Flow Rate (L/min) 1 Oxygen Delivery Method [3] Nasal Cannula Oxygen Delivery Method [2] Nasal Cannula Oxygen Delivery Method [1 ( Nasal Cannula Initial Baseline)] Oxygen Delivery Method Room Air Weight: 333 lb 12.478 oz Body Mass Index (BMI) 50.7 Intake and Output for Last 24 Hours Intake Total 1496.2 / 1496.2 1528 / 1528 Output Total 170 / 170 550 / 550 Balance 1326.2 / 1326.2 978 / 978 Laboratory Tests Past 24 Hrs Sodium Discharge Activity: Return to Normal Activity Weight Bearing Status: Weight bearing as tolerated Call your doctor if you observe: Fever of 101 or Higher, Shortness of breath, Dizziness, Fainting spells, Swelling in the ankles, Increased palpitations (irregular heartbeat), Uncontrolled pain Home Medications: Medications to take at Discharge buPROPion XL [Wellbutrin Xl] 150 mg PO DAILY 05/29/18 Furosemide [Lasix] 40 mg PO DAILY #30 tablet 06/21/18 Oxygen, Home [Home Oxygen] 2 lpm NASAL PRN PRN #1 unit 06/21/18 Following Prescrptions Were Given to Patient: Furosemide [Lasix] 40 mg PO DAILY #30 tablet Oxygen, Home [Home Oxygen] 2 lpm NASAL PRN PRN #1 unit PRN Reason: exertion, SOB Primary Care Physician: Care Physician,No Primary [Primary Care Provider] - Please follow up with your Primary Care Physician in: 1 WEEK. Please Follow Up With: Kevon Obrien MD When: 2 weeks. Patient Instructions: Discharge Instructions: Using Oxygen at Home Disposition: Home Minutes spent on discharge:: 28 Patient Condition:: Stable Medical Necessity - Tobacco Use Smoking Status: Never smoker Meaningful Use Info Meaningful Use Diagnoses (Choose all that apply): None applicable Code Visit Inpatient E AND M: [id number] Disch Hosp 06/22/18 1110 <Electronically signed by Edna Coello MD> Date Edna Coello MD Cosigner Signature (if applicable): Date CC: No Primary Care Physician; Kevon Obrien MD; Edna Coello; PCP Signed DISCHARGE INSTRUCTION Observed: 06/21/2018 Status: F Source: [facility] 11:48 AM [facility] REPOSITORY [facility] Medical Records Department [address] [place] [address] Instructions for Home/Discharge Instructions 06/21/18 1146 MR#: [id number] Acct: [id number] Name: AZAEL MAR Rep #: [id number] : 1940 77 From: Edna Coello MD PCP: Care Physician, No Primary Status: ADM IN - Discharge Diagnoses Current Active Problems: Current Active and Chronic Problems (Last Updated 06/20/18 @ 09:51 by Edna Coello MD) Hypoxemia (Acute) Pleural effusion (Acute) You will use the following diet at home:: Regular Your food should be the consistency of: Regular Discharge Activity: Return to Normal Activity Weight Bearing Status: Weight bearing as tolerated Call your doctor if you observe: Fever of 101 or Higher, Shortness of breath, Dizziness, Fainting spells, Swelling in the ankles, Increased palpitations (irregular heartbeat), Uncontrolled pain Instructions: Discharge Instructions: Using Oxygen at Home Allergies/Adverse Reactions: Allergies cephalexin [From Keflex] Allergy (Verified 06/19/18 17:11) Rash Medications to take at Discharge buPROPion XL [Wellbutrin Xl] 150 mg PO DAILY 05/29/18 Furosemide [Lasix] 40 mg PO DAILY #30 tablet 06/21/18 Oxygen, Home [Home Oxygen] 2 lpm NASAL PRN PRN #1 unit 06/21/18 The following prescriptions were given: Furosemide [Lasix] 40 mg PO DAILY #30 tablet Oxygen, Home [Home Oxygen] 2 lpm NASAL PRN PRN #1 unit PRN Reason: exertion, SOB Primary Care Physician: Care Physician,No Primary [Primary Care Provider] - Please follow up with your Primary Care Physician in: 1 WEEK. Test Results: Test results from this visit will be discussed in further detail at your follow-up appointment, if applicable. Please Follow Up With: Kevon Obrien MD When: 2 weeks. 06/21/18 1148 <Electronically signed by Edna Coello MD> Date Edna Coello MD CC: No Primary Care Physician; Kevon Obrien MD Signed CONSULTATION Observed: 06/21/2018 Status: F Source: ULM 5:57 AM [facility] REPOSITORY [facility] Medical Records Department [address] [place] [address] Consultation 06/20/18 1453 MR#: [id number] Acct: [id number] Name: AZAEL MAR Bakari Rep #: [id number] : 1940 77 From: Kevon Obrien MD PCP: Care Physician, No Primary Status: ADM IN Location: [facility] [id number] Problem List (1) Hypoxemia Status: Acute (2) Pleural effusion Status: Acute (3) Chronic venous stasis Status: Chronic (4) Morbid obesity Status: Chronic (5) MEGHANA (obstructive sleep apnea) Status: Chronic (6) Osteoarthritis Status: Chronic (7) NSAID-induced gastric ulcer Status: Resolved Reason for Consult Date of Consultation: 06/20/18 Reason for Consultation: Shortness of breath History of Present Illness: The patient is a 77 year old M, with past medical history listed below, who presented to [facility] on 06/20/2018 secondary to progressive shortness of breath. Patient was recently admitted for similar type of presentation and found to have a pleural effusion following a fall on his left side. Patient states that he improved to the hospital course, but over the last 2-3 days has noted progressive worsening shortness of breath. Patient has had a dry cough since that time and feels that this is slightly improved in frequency, but is still present. During last hospitalization, patient did have significant diuresis, but the patient states his weight has been relatively stable over the course of this progression of shortness of breath. In the emergency room, patient was noted to be in sinus rhythm at 88 bpm. EKG was unchanged and chest x-ray showed a left pleural effusion. Patient was admitted to the floor after walking oximetry showed desaturation into the 80s on room air. While on the general medical floor, patient did have a thoracentesis with 170 mL's of bloody fluid drained. Patient states this did help his overall shortness of breath. Patient denies any chest pain, abdominal pain, nausea or vomiting. No fever or chills have been reported. No sinus congestion is been reported. Patient does not report any repeated falls or lower extremity edema. Patient has been diagnosed with obstructive sleep apnea in the past. Patient does have a home CPAP, but feels that his CPAP settings here are too high. Patient is reportedly compliant at home, but no complaints report was available for confirmation. Review of systems otherwise negative x10 systems. 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, T39.395A History of bleeding ulcers (Inactive) Z87.11 Allergies cephalexin [From Keflex] Allergy (Verified 06/19/18 17:11) Rash Home Medications: Ambulatory Orders Medication Instructions Recorded buPROPion XL [Wellbutrin Xl] 150 mg PO DAILY 05/29/18 Surgical History: Surgical History (Last Updated 06/20/18 @ 09:51 by Edna Coello MD) History of hip replacement (Inactive) Z96.649 Surgical History: total hip arthroplasty Psychiatric History: No pertinent psych hx Lives: Alone Smoking Status: Never smoker - *Family History Maternal History Items: Diabetes Paternal History Items: Cancer - bladder Review of Systems Comment: See HPI, otherwise negative x10 systems. Patient Problems: Active and Suspected Problems (Last Updated 06/20/18 @ 09:51 by Edna Coello MD) Hypoxemia (Acute) Pleural effusion (Acute) Objective: Patient did have an echocardiogram in May showing stage I diastolic dysfunction with an EF of 50-55%. At that time, patient's right ventricular systolic pressure was noted to be 29 mmHg. Patient did have some decreased focal wall motion abnormality. Previous thoracentesis did show a bloody exudate that was approximately 70 cc. Culture and cytology were negative at that time. CTA at that time showed a moderate left-sided pleural effusion. There was some areas of bronchial thickening noted. - Physical Exam General: Alert, Oriented x3, Cooperative, No apparent distress, Well developed, Well nourished, - - Morbidly obese HEENT: Atraumatic, PERRLA, EOMI, Normocephalic, - - No scleral icterus or injection noted. Oral: Moist Mucosa, No Gingival or Mucosal Lesions/ Ulcerations Neck: Supple, No JVD, No Nodes, Trachea Midline Lungs: No rhonchi, No wheeze, No rales, Diminished Cardiovascular: Regular rate, Regular Rhythm, Normal S1, Normal S2, No murmurs, No rub noted, No Gallop Abdomen: Bowel Sounds Present, Soft, Non Tender, Non-Distended, Obese Extremities: No clubbing, No cyanosis, Edema - 2+ LE Skin: No rashes, No breakdown Musculoskeletal: No Tenderness to Palpation of Joints or Extremities Lymphatic: No Cervical, Supraclavicular, or Inguinal Adenopathy Neurological: Cranial nerves II-XII grossly intact, Neuro grossly intact, Motor Exam 5/5 strength throughout Psych/Mental Status: Alert and oriented to time, place, person, mood and affect Vital Signs Temp Pulse Resp BP Pulse Ox 36.8 C 76 18 148/91 H 96 06/20/18 14:42 06/20/18 14:42 06/20/18 14:42 06/20/18 14:42 06/20/18 14:42 Oxygen Flow Rate (L/min) [3] 3 Oxygen Flow Rate (L/min) [2] 3 Oxygen Flow Rate (L/min) [1 ( 3 Initial Baseline)] Oxygen Flow Rate (L/min) 2 Oxygen Delivery Method [3] Nasal Cannula Oxygen Delivery Method [2] Nasal Cannula Oxygen Delivery Method [1 ( Nasal Cannula Initial Baseline)] Oxygen Delivery Method Nasal Cannula Weight: 151.4 kg Body Mass Index (BMI) 50.7 Intake and Output for Last 24 Hours Intake Total 75.2 / 75.2 Balance 75.2 / 75.2 Laboratory Tests Past 24 Hrs WBC 7.9 WBC RBC WBC RBC Hgb Hct MCV MCH MCHC RDW Clinical Impression(s) from Imaging Studies Chest X-Ray 06/19/18 17:48 IMPRESSION: Moderate left pleural effusion with overlying atelectasis. Electronically Signed: Erik Rea at 19:09 EST Tel , Service support , Thoracentesis Ultrasound 06/20/18 00:32 IMPRESSION: Ultrasound-guided left thoracentesis. Electronically Signed: Grayson Keith MD at 14:50 EST Tel [phone], Service support , Assessment/Plan All Active Problems (Last Updated 06/20/18 @ 09:51 by Edna Coello MD) Hypoxemia (Acute) Pleural effusion (Acute) NSAID-induced gastric ulcer (Resolved) RECOMMENDATIONS: 1. Await thoracentesis labs 2. Wean oxygen as tolerated 3. Consider gentle diuresis 4. Walking oximetry prior to discharge 5. Continue nocturnal CPAP IMPRESSIONS: 1. Shortness of breath/exertional hypoxemia Unclear etiology at this time. Patient did have 170 cc of bloody fluid removed from the chest. This would not account for exertional hypoxemia. Patient had a chest x-ray that appeared to be more congested than a pleural effusion. Patient may benefit from a mild diuresis. Wean oxygen as tolerated. Another possibility would be pulmonary hypertension. Will await thoracentesis labs before further recommendations. 2. MEGHANA/morbid obesity/chronic venous stasis/osteoarthritis Complicates care, management, recovery and prognosis. Continue with home CPAP. Code Visit Inpatient E AND M: [id number] Init Hosp L2 06/21/18 0557 <Electronically signed by Kevon Obrien MD> Date Kevon Obrien MD Cosigner Signature (if applicable): Date CC: No Primary Care Physician; Kevon Obrien MD; Pako Welch MD Signed BASIC METABOLIC Collected: 06/21/2018 Status: F Source: DARRYN PROFILE (BMP) 5:45 AM [facility] REPOSITORY TYPE CODE TESTS RESULT OUT OF RANGE REFERENCE UNITS LAB L501.0100 74-106 mg/dL High GLU 108 Result Comment: Fasting Glucose result from 100 to 125 mg/dL suggests IMPAIRED HOMEOSTASIS per A.D.A. criteria. Please note revised GLUCOSE reference range effective 2017. LAB L501.1000 7-18 mg/dL Normal BUN 17 LAB L501.1100 0.70-1.30 mg/dL High CREAT,SERUM 1.33 Result Comment: The validity of the calculated GFR AND GFRAA in patients over 70 years has not been determined. Clinical correlation is essential. LAB L501.1110 >60 mL/min Low EST GFR 55 Result Comment: Non- GFR Calc LAB L501.1115 >60 mL/min Normal EST GFR - AA 67 Result Comment: GFR Calc LAB L501.1255 ml/min Normal Estimated CRCL 45.71 LAB L501.1300 10-20 RATIO Normal BUN/CRE 12.8 LAB L501.2200 8.5-10 mg/dL Low .1 CA 7.7 LAB L501.5300 136-14 mmol/L Normal 5 NA 141 LAB L501.5600 3.5-5. mmol/L Normal 1 K 4.1 LAB L501.5900 98-107 mmol/L Normal CL 105 LAB L501.6100 21.0-3 mmol/L Normal 2.0 CO2 30.0 LAB L501.6200 5-15 Normal GAP 6 Performed By: #### L500.2500 #### [facility] [address] [place], [address] BNP,B-TYPE NATRIURETIC Collected: 06/21/2018 Status: F Source: DARRYN PEPTIDE 5:45 AM [facility] REPOSITORY Order Comment: Comments: From blood in the lab TYPE CODE TESTS RESULT OUT OF RANGE REFERENCE UNITS LAB L503.6620 0-100 pg/mL Normal B-TYPE 35.9 RENATO PEP Performed By: #### L503.6620 #### [facility] [address] [facility] [place], [address] CYTOLOGY, BODY FLUID / Collected: 06/20/2018 Status: F Source: DARRYN CSF 2:37 PM [facility] REPOSITORY Order Comment: Comments: Pleural Fluid from Left thoracentesis TYPE CODE TESTS RESULT OUT OF RANGE REFERENCE UNITS LAB L350.1000 SEE Normal PATHOLOGY CYTOLOGY,BF REPORT /CSF Result Comment: Specimen submitted to Anatomical Pathology Department for testing. Performed By: #### L350.1000 #### [facility] [address] [place], [address] BODY FLUID CELL Collected: 06/20/2018 Status: C Source: DARRYN COUNT+DIFF 2:15 PM [facility] REPOSITORY Order Comment: The reference range and other method performance specifications have not been established for this body fluid. The test must be integrated into the clinical context for interpretation. TYPE CODE TESTS RESULT OUT OF RANGE REFERENCE UNITS LAB L200.3380 10 3/ul Normal BFTC# 3.001 Result Comment: This is the Total Number of Nucleated Cell Types in the Body Fluid. LAB L200.3400 10 6/ul Normal RBC/BF 0.00907 LAB L200.3500 10 3/uL Normal 2.991 WBC/BF LAB L200.3510 % Normal 7.5 BF PMN WBC% LAB L200.3515 % Normal 92.5 BF MN WBC% LAB L200.3520 10 3/uL Normal 2.768 BF MN WBC# LAB L200.3525 10 3/uL Normal 0.223 BF PMN WBC# LAB L200.4400 Normal PATH COMM/BF Reviewed Result Comment: Negative for malignant cells. Please also correlate with corresponding cytology specimen [id number]. Prince Andino M.D. 06/22/18 AMENDED REPORT 06/22/18 1404 PATH COMM/BF previously reported as: May follow LAB L200.3100 THORACENTESIS Normal SOURCE/BF LAB L200.3200 COLOR/BF RED Normal LAB L200.3300 TURBID Normal APPEAR/BF LAB L200.3600 % PMN 16 Normal LAB L200.3700 % LYMPH 83 Normal LAB L200.3800 % MONO/BF 1 Normal LAB L200.4420 BFM 2ND SEE COMMENT Normal SPEC Result Comment: . INTERPRETATION OF RESULTS: Differentiation of transudate and exudate fluid: TRANSUDATE EXUDATE Color- Clear,straw colored Clear,turbid,bloody,purulent RBCs- Usually none to few Often present in high numbers WBCs- Usually none to few Often present in high numbers DIFF Few lymphocytes or Lymphocytes, neutrophils, and Count- mesothelial cells. polymorphonuclear cells . Performed By: #### L200.0200 #### [facility] [address] [place], [place], [address] (803) GLUCOSE, BODY FLUID Collected: 06/20/2018 Status: F Source: ULM 2:15 PM [facility] REPOSITORY TYPE CODE TESTS RESULT OUT OF RANGE REFERENCE UNITS LAB L503.0100 40-70 mg/dL High GLU,BF 86 Performed By: #### L503.0100, L504.0250 #### [facility] [address] [facility] [place], [address] LDH,BODY FLUID Collected: 06/20/2018 Status: F Source: ULM 2:15 PM [facility] REPOSITORY TYPE CODE TESTS RESULT OUT OF RANGE REFERENCE UNITS LAB L504.0250 Not Establ. Units/l Normal LDH,BF 601 Performed By: #### L503.0100, L504.0250 #### [facility] [address] [place] [place], [address] PROTEIN, BODY FLUID Collected: 06/20/2018 Status: F Source: ULM 2:15 PM [facility] REPOSITORY TYPE CODE TESTS RESULT OUT OF RANGE REFERENCE UNITS LAB L503.0300 Not Establ. g/dL Normal 4.7 PROTEIN,BF Performed By: #### L503.0300 #### [facility] [address] [place] [place], [address] CHEST INSP/EXP 2 VIEW Observed: 06/20/2018 Status: F Source: ULM 2:00 PM [facility] REPOSITORY [facility] Imaging Services [address] [place] [address] Chest Insp/Exp 2 View MR#: [id number] Acct: [id number] Name: AZAEL MAR Rep #: [id number] : 1940 77 From: Grayson Keith MD PCP: Care Physician, No Primary Status: ADM IN Study: Chest Insp/Exp 2 View Date of Exam: 06/20/18 Exam# [id number] Ordering Dr: Grayson Keith MD STUDY: X-RAY CHEST REASON FOR EXAM: Male, 77 years old. Status post left thoracentesis. TECHNIQUE: AP inspiration and expiration views. COMPARISON: Comparison is made with prior study dated June 19, 2018. FINDINGS: The patient is status post left thoracentesis. There is no evidence of pneumothorax. Mild residual pleural-parenchymal changes at the left lung base. Stable blunting of the right costophrenic angle. RAD/Chest Insp/Exp 2 View IMPRESSION: Status post left thoracentesis. There is no evidence of pneumothorax. Residual pleural parenchymal changes at the left lung base. Electronically Signed: Grayson Keith MD at 15:20 EST Tel [phone], Service support , CC: No Primary Care Physician; Grayson Keith MD Sports Activities Foul Judge: Signed PROTHROMBIN TIME W/INR Collected: 06/20/2018 Status: F Source: ULM 5:40 AM [facility] REPOSITORY TYPE CODE TESTS RESULT OUT OF RANGE REFERENCE UNITS LAB L300.4150 11.7-14.9 SECONDS Normal PROTIME 14.5 LAB L300.4200 Normal INR 1.1 Performed By: #### L300.3900 #### [facility] [address] [place], [place], [address] PROTEIN, TOTAL Collected: 06/20/2018 Status: F Source: DARRYN 5:40 AM [facility] REPOSITORY TYPE CODE TESTS RESULT OUT OF RANGE REFERENCE UNITS LAB L501.1500 6.4-8.2 g/dL Normal T PROT 6.9 LAB L501.1950 2.2-4.2 g/dL High GLOB 4.4 LAB L501.2000 0.9-2.4 RATIO Low A/G 0.6 Performed By: #### L001.0705, L500.2500, L504.2610 #### [facility] [address] [place], [place], [address] BASIC METABOLIC Collected: 06/20/2018 Status: F Source: ULM PROFILE (BMP) 5:40 AM [facility] REPOSITORY TYPE CODE TESTS RESULT OUT OF RANGE REFERENCE UNITS LAB L501.0100 74-106 mg/dL Normal GLU 89 Result Comment: Please note revised GLUCOSE reference range effective 2017. LAB L501.1000 7-18 mg/dL High BUN 20 LAB L501.1100 0.70-1.30 mg/dL High CREAT,SERUM 1.54 Result Comment: The validity of the calculated GFR AND GFRAA in patients over 70 years has not been determined. Clinical correlation is essential. LAB L501.1110 >60 mL/min Low EST GFR 47 Result Comment: Non- GFR Calc LAB L501.1115 >60 mL/min Low EST GFR - AA 57 Result Comment: GFR Calc LAB L501.1255 ml/min Normal Estimated CRCL 39.48 LAB L501.1300 10-20 RATIO Normal BUN/CRE 13.0 LAB L501.2200 8.5-10 mg/dL Low .1 CA 8.2 LAB L501.5300 136-14 mmol/L Normal 5 NA 142 LAB L501.5600 3.5-5. mmol/L Normal 1 K 4.6 LAB L501.5900 98-107 mmol/L Normal CL 104 LAB L501.6100 21.0-3 mmol/L Normal 2.0 CO2 29.0 LAB L501.6200 5-15 Normal GAP 9 Performed By: #### L001.0705, L500.2500, L504.2610 #### [facility] [address] [place], [address] LDH Collected: 06/20/2018 Status: F Source: ULM 5:40 AM [facility] REPOSITORY TYPE CODE TESTS RESULT OUT OF RANGE REFERENCE UNITS LAB L504.2610 87-241 U/L Normal LDH 194 Performed By: #### L001.0705, L500.2500, L504.2610 #### [facility] [address] [place], [address] PARTIAL THROMBOPLAST Collected: 06/20/2018 Status: F Source: ULM TIME 5:40 AM [facility] REPOSITORY Order Comment: Comments: From blood in the lab TYPE CODE TESTS RESULT OUT OF RANGE REFERENCE UNITS LAB L300.4310 24.1-36.2 Seconds Normal PTT 26.7 Performed By: #### L300.4310 #### [facility] [address] [place], [address] HISTORY AND PHYSICAL Observed: 06/20/2018 Status: F Source: ULM EXAM 4:47 AM [facility] REPOSITORY [facility] Medical Records Department [address] [place] [address] History and Physical 06/19/186 MR#: [id number] Acct: [id number] Name: AZAEL MAR Bakari Rep #: [id number] : 1940 77 From: Pako Welch MD PCP: Care Physician, No Primary Status: ADM IN Y Location: [facility] [id number] Problem List (1) Pleural effusion Status: Acute (2) MEGHANA (obstructive sleep apnea) Status: Chronic History of Present Illness Date of Admission: 06/20/18 Chief Complaint: shortness of breath The patient is a 77 year old M with a significant history of sleep apnea; and peptic ulcer disease who was admitted at our hospital on 05/28/2018 and discharged on 05/30/2018 after undergoing left sided thoracentesis for pleural effusion now presenting with persistent shortness of breath with exertion. Patient reported that his symptoms has been going on for about 5-6 weeks and after undergoing a previous thoracentesis as stated above his symptoms are still not resolved. Associated with his symptoms is lightheadedness and near syncope. Further he reports dry cough. Emergency department doctor reported that while at [facility] ED on room air patient's oxygen was 89%; and with walking to the emergency department his oxygen saturation dropped to 86-87%. Past Medical History Past Medical History (Chronic Problems): Chronic Problems (Last Reviewed 06/14/18 @ 14:12 by Talia La NP-C) Chronic venous stasis (Chronic) Morbid obesity (Chronic) MEGHANA (obstructive sleep apnea) (Chronic) Osteoarthritis (Chronic) NSAID-induced gastric ulcer (Chronic) Medical History: Medical History (Last Reviewed 06/20/18 @ 04:44 by Pako Welch MD) History of bleeding ulcers (Resolved) Z87.11 Pleural effusion (Acute) J90 Chronic venous stasis (Chronic) I87.8 Morbid obesity (Chronic) E66.01 MEGHANA (obstructive sleep apnea) (Chronic) G47.33 Osteoarthritis (Chronic) M19.90 NSAID-induced gastric ulcer (Chronic) K25.9, T39.395A Allergies cephalexin [From Keflex] Allergy (Verified 06/19/18 17:11) Rash Home Medications: Ambulatory Orders Medication Instructions Recorded buPROPion XL [Wellbutrin Xl] 150 mg PO DAILY 05/29/18 Surgical History: Surgical History (Last Reviewed 06/20/18 @ 04:44 by Pako Welch MD) History of hip replacement (Resolved) Z96.649 Surgical History: total hip arthroplasty Psychiatric History: No pertinent psych hx Lives: Alone Smoking Status: Never smoker - *Family History Maternal History Items: Diabetes Paternal History Items: Cancer - bladder Review of Systems Constitutional: Denies: Chills, Fever, Weight Change HEENT: Denies: Head Aches, Sinus Congestion, Sinus Drainage Cardiovascular: Reports: Light Headedness. Denies: Chest Pain, Palpitations Respiratory: Reports: Cough, Shortness of breath upon exertion. Denies: Shortness of breath at rest, Sputum production Gastrointestinal: Denies: Abdominal Pain, Nausea, Vomiting Genitourinary: Denies: Dysuria Musculoskeletal: Denies: Joint Pain, Joint Tenderness Skin: Denies: Rash, Wounds Neurological: Denies: Numbness, Tingling, Focal weakness Psychiatric: Denies: Anxiety, Depression, Homicidal Ideations, Suicidal Ideations Hematologic/ Lymphatic: Denies: Easy Bruising, Easy Bleeding VTE Information - Inpt Only VTE Present on Admission: No VTE Mechan Device Prophylaxis: SCD's VTE Pharm Prophylaxis ordered?: No Patient Problems: Active and Suspected Problems (Last Reviewed 06/14/18 @ 14:12 by Talia La NP-C) Hypoxemia (Acute) Pleural effusion (Acute) - Physical Exam General: Alert, Oriented x3, Cooperative HEENT: Atraumatic, PERRLA, EOMI, Normocephalic Neck: Supple, No JVD, Negative Carotid Bruits Lungs: Diminished - Bilateral lung robles Cardiovascular: Regular rate, No murmurs Abdomen: Bowel Sounds Present, Soft, Non Tender Extremities: No edema, Capillary Refill Less than 3 Seconds Skin: No rashes, No breakdown Musculoskeletal: No Tenderness to Palpation of Joints or Extremities Neurological: Neuro grossly intact Psych/Mental Status: Normal Affect, Appropriate Vital Signs Temp Pulse Resp BP Pulse Ox 97.8 F 87 16 154/68 H 96 06/19/18 21:00 06/19/18 21:00 06/19/18 21:00 06/19/18 21:00 06/19/18 21:38 Oxygen Flow Rate (L/min) 2 Oxygen Delivery Method Nasal Cannula Weight: 153.768 kg Body Mass Index (BMI) 51.5 Laboratory Tests Past 24 Hrs WBC 7.9 RBC 3.95 L Hgb 13.8 Hct 43.3 MCV 109.6 H MCH 34.9 H WBC RBC Hgb Hct MCV MCH MCHC RDW RDW Differential Assessment/Plan All Active Problems (Last Reviewed 06/14/18 @ 14:12 by Talia La NP-C) Hypoxemia (Acute) History of bleeding ulcers (Resolved) History of hip replacement (Resolved) Pleural effusion (Acute) The patient is a 77 year old M with a significant history of peptic ulcer disease who was admitted at our hospital on 05/28/2018 and discharged on 05/30/2018 after undergoing left sided thoracentesis for pleural effusion now presenting with persistence shortness of breath with exertion and found to have a recurrence of the left pleural effusion. Acute hypoxemic respiratory failure secondary recurrent left pleural effusion Emergency department doctor reported that was on room air patient was 89%; and with walking to the emergency department his oxygen saturation dropped to 86-87%. On his last admission on 05/28/2018 to 05/30/2018 patient had left-sided thoracentesis that showed exudative pleural effusion with negative cytology for malignancy. At that time his pleural effusion was attributed to a recent fall. Will order a repeat ultrasound thoracentesis of left lung. Pleural studies including cytology ordered. Consider CT scan after thoracentesis. Will order PT/INR and keep patient n.p.o. for preparation for thoracentesis. We will give him scheduled DuoNeb and as needed albuterol to see whether there is any benefit from it. Probable NILA His creatinine on admission was 1.50 On admission on 05/28/2018 his creatinine was 1.35. At that time there was no baseline creatinine to compare with. It is also possible that patient has CKD. We will start on gentle IV fluid especially as patient is going to be n.p.o. for test. Trend BMP. Obstructive sleep apnea CPAP continued. DVT prophylaxis SCD ordered. No chemoprophylaxis in view ordered ultrasound thoracentesis. Code Visit Inpatient E AND M: [id number] Init Hosp L3 06/20/18 0447 <Electronically signed by Pako Welch MD> Date Pako Welch MD Cosigner Signature: Date (if applicable) CC: No Primary Care Physician; Pako Welch MD Signed EMERGENCY DEPARTMENT Observed: 06/20/2018 Status: F Source: ULM SUMMARY 1:16 AM [facility] REPOSITORY [facility] Medical Records Department [address] [place] [address] Emergency Department Summary 06/20/18 0111 MR#: [id number] Acct: [id number] Name: AZAEL MAR Rep #: [id number] : 1940 77 From: Broderick Rabago DO PCP: Care Physician, No Primary Status: ADM IN - ER Visit Summary Date of Service: 06/20/18 Chief Complaint: Shortness of breath History of Present Illness: The patient is a 77 M who presents with shortness of breath that has been getting worse over the past couple weeks. Patient states his breathing is worse with any exertion. Patient admits to a cough but denies any sputum. Patient denies any fevers or chills. Patient denies any chest pain. Patient admits to some lightheadedness with coughing and with walking. Patient denies any nausea or vomiting. Patient denies any lower extremity edema. Physical Examination: Vital signs are stable. Patient is afebrile. Patient is in no acute distress. Oral mucosa is pink and moist. Neck is supple. Trachea is midline. There is no JVD noted. Heart was regular rate and rhythm. Lungs showed mild expiratory wheezing. There is good respiratory effort noted. Abdomen is soft. Bowel sounds are normal. There is no tenderness noted. Cranial nerves II through XII are intact. There are no focal motor or sensory deficits noted. Extremities showed trace edema of the lower extremities bilaterally. Pedal pulses are equal bilaterally. Test Results: EKG showed normal sinus rhythm with a rate of 88. There is a right bundle branch block pattern noted. There are no acute ST or T wave changes. This was unchanged compared to previous EKG dated 05/28/2018. PA and lateral chest x-ray shows a moderate effusion on the left. There is no other acute process noted. CBC and urinalysis were normal. Basic metabolic profile shows slightly elevated creatinine of 1.5 and a BUN of 19. The remaining labs are within normal limits. Emergency Department Course and Treatment: Patient was given a DuoNeb aerosol here. Patient was ambulated in the emergency department without oxygen and his oxygen saturations dropped to 87% on room air with ambulation. Case was discussed with Dr. Welch. He will be in to evaluate the patient and admit the patient to his service. Patient understood and was agreeable with the plan. All questions were answered. Disposition: Admit to hospital Impression: 1. Hypoxia 2. Left pleural effusion This note was generated with Signiant dictation software. It may contain incorrect words, spelling, and punctuation that were not noted in review of the chart prior to signing ED Disposition - Plan for ED Patient: Disposition: Acute Care Hospital [facility] Chief Complaint: Shortness of Breath Diagnosis: Pleural effusion, Hypoxemia What to do if you have Problems For any increased pain, shortness of breath, bleeding, nausea or vomiting, chest pain, or any unexpected problems, contact your Primary Care Provider. Call [facility] ([phone]) or report to the closest Emergency Room. Call 911 if necessary. 06/20/18 0116 <Electronically signed by Broderick Rabago DO> Date Broderick Rabago DO Cosigner Signature (If Indicated): Date CC: No Primary Care Physician THORACENTESIS W Observed: 06/20/2018 Status: F Source: ULM 12:33 AM [facility] REPOSITORY [facility] Imaging Services [address] [place] [id number] Thoracentesis W MR#: [id number] Acct: [id number] Name: AZAEL MAR Bakari Rep #: [id number] : 1940 M 77 From: Grayson Keith MD PCP: Care Physician, No Primary Status: ADM IN Study: Thoracentesis W Date of Exam: 06/20/18 Exam# [id number] Ordering Dr: Pako Welch MD PROCEDURE: ULTRASOUND GUIDED THORACENTESIS. DATE: June 20, 2018.. INDICATION: Male, 77 years old. Left pleural effusion. PHYSICIAN: Grayson Keith M.D. PROCEDURE: The risks, benefits, and alternatives to the procedure were explained to the patient. The specific risks of bleeding, infection, and pneumothorax requiring chest tube insertion were discussed and accepted. Written informed consent was obtained. Ultrasonographic evaluation of the left lower pleural space was carried out. An adequate pocket was identified. The patient was placed in the sitting, upright position. The overlying skin was prepped and draped in sterile fashion. 1% lidocaine was administered subcutaneously for local anesthesia. Under ultrasound guidance, a 5 Arabic thoracentesis needle/catheter system was advanced into the left posterior lower pleural fluid collection. Approximately 170 mL of bloody fluid was drained. The catheter was removed, and a sterile dressing was applied. A specimen was collected and sent to the laboratory for analysis, as requested by the referring clinician. The patient tolerated the procedure well. A chest x-ray was ordered. US/Thoracentesis W US IMPRESSION: Ultrasound-guided left thoracentesis. Electronically Signed: Grayson Keith MD at 14:50 EST Tel [phone], Service support , CC: No Primary Care Physician; Pako Welch MD Sports Activities Foul Judge: Signed FLUID/WASHING Observed: 06/20/2018 Status: F Source: DARRYN 12:00 AM [facility] REPOSITORY Patient: AZAEL MAR : 1940 (77/M) Acct Num: [id number] Phys: Edna Coello Unit Num: [id number] Loc: MS2 [id number] Specimen: [id number] Received: 06/20/18 - 1503 Spec Type: Fluid TISSUES 1 TISSUES: Pleural fluid, NOS COMMENT Clinical correlation and appropriate follow up are necessary. Please make reference to previous specimen ([id number]) thoracentesis fluid for cytology with diagnosis of negative for malignant cells. CYTOLOGY GROSS Received is 110 ml of red fluid labeled with the patient's name and and designated per the requisition as thoracentesis. Submitted for cytology preparation including cell block. / 06/20/18 TC:5 CPT: 98738, 01168 CYTOLOGY STUDY Slides are reviewed. The specimen predominantly consists of small lymphocytes, a few macrophages and mesothelial cells. DIAGNOSIS CYTOLOGY Thoracentesis fluid for cytology (cytospin and cell block): Negative for malignant cells. See cytology study and comment. SJ:jo-ann 06/21/18 HEADER OPERATION: Ultrasound-guided thoracentesis PRE-OP DIAGNOSIS: Left pleural effusion TISSUE SUBMITTED: Thoracentesis fluid for cytology Signed Prince Andino MD 06/21/18 <signature on file> Performed By: #### PFLU #### [facility] [address] [place], [place], [address] CYTOLOGY, BODY FLUID / Collected: 06/20/2018 Status: F Source: ULM CSF 12:00 AM [facility] REPOSITORY Order Comment: Comments: Pleural Fluid from Left thoracentesis TYPE CODE TESTS RESULT OUT OF RANGE REFERENCE UNITS LAB L350.1000 SEE Normal PATHOLOGY CYTOLOGY,BF REPORT /CSF Result Comment: Specimen submitted to Anatomical Pathology Department for testing. Performed By: #### L350.1000 #### [facility] [address] [place], [address] URINALYSIS, COMPLETE Collected: 06/19/2018 Status: F Source: DARRYN 7:30 PM [facility] REPOSITORY Order Comment: How was Urine Obtained? CLEAN CATCH TYPE CODE TESTS RESULT OUT OF RANGE REFERENCE UNITS LAB L400.3000 Yellow COLOR Normal Yellow LAB L400.3050 Clear Normal CLARITY Clear LAB L400.3200 Normal mg/dl Normal GLUCOSE, UR Normal LAB L400.3300 Negative mg/dL Normal BILIRUBIN URINE Negative LAB L400.3400 Negative mg/dl High 5 KETONE UR LAB L400.3465 1.002-1.030 Normal SP.GR. DIPSTX 1.025 LAB L400.3550 5.0 - 8.0 pH UR Normal 6.0 LAB L400.3600 Negative mg/dl PROT Normal DIPSTX Negative LAB L400.3700 Normal mg/dl Normal UROBILI Normal LAB L400.3750 Negative Normal NITRITE UR Negative LAB L400.3780 Negative /ul Normal OCCULT BLOOD-UR Negative LAB L400.3800 Negative /ul High LEUK 25 ESTERASE LAB L400.4050 0-5 /hpf WBC Normal 0-5 SEEN LAB L400.4100 0-5 /hpf 0 Normal RBC-UA SEEN LAB L400.4150 0-5 /hpf SQUAM 0 Normal EPI SEEN LAB L400.4300 None Seen /hpf Normal BACTERIA RARE LAB L400.4350 <or=2+ /hpf 0 Normal MUCUS, URINE SEEN Performed By: #### L400.0001 #### [facility] [address] [place], [address] CBC W/DIFF, AUTOMATED Collected: 06/19/2018 Status: F Source: ULM 6:05 PM [facility] REPOSITORY TYPE CODE TESTS RESULT OUT OF RANGE REFERENCE UNITS LAB L100.1000 4.4-11.0 K/mm3 Normal WBC 7.9 LAB L100.1200 4.6-6.2 M/mm3 Low RBC 3.95 LAB L100.1300 13.0-16.5 g/dl Normal HGB 13.8 LAB L100.1400 40-54 % Normal HCT 43.3 LAB L100.1500 80-94 fL High MCV 109.6 LAB L100.1600 27.0-32.0 pg High MCH 34.9 LAB L100.1700 32-36 g/gl Low MCHC 31.9 LAB L100.1810 11.6-14.6 % Normal RDW CV 13.7 LAB L100.1820 35.1-43.9 fl High RDW SD 54.6 LAB L100.1900 150-450 K/mm3 Normal PLT 208 LAB L100.2000 6.2-12.0 fl Normal MPV 8.8 LAB L100.2100 47-70 % Normal NEUT% 63.1 LAB L100.2200 19-41 % Normal LY% 22.6 LAB L100.2300 0-10 % Normal MONO% 10.0 LAB L100.2400 0-5 % Normal EO% 3.3 LAB L100.2500 0-1 % Normal BASO% 0.4 LAB L100.2550 0.0-0.9 % Normal IM GRAN % 0.600 Result Comment: IG% - Immature Granulocytes (promyelocytes, myelocytes and metamyelocytes) > 1% indicates that a LEFT SHIFT is Present. LAB L100.2620 2.0-7.7 X10 3/uL Normal Absolute Neut 5.0 LAB L100.2720 0.83-4.51 X10 3/ul Normal Absolute Lymph 1.78 Performed By: #### L100.0100 #### [facility] [address] [place], [place], [address] COMPREHENSIVE METABOLIC Collected: 06/19/2018 Status: F Source: [facility] 6:05 PM [facility] REPOSITORY TYPE CODE TESTS RESULT OUT OF RANGE REFERENCE UNITS LAB L501.0100 74-106 mg/dL High GLU 116 Result Comment: Fasting Glucose result from 100 to 125 mg/dL suggests IMPAIRED HOMEOSTASIS per A.D.A. criteria. Please note revised GLUCOSE reference range effective 2017. LAB L501.1000 7-18 mg/dL High BUN 19 LAB L501.1100 0.70-1.30 mg/dL High CREAT,SERUM 1.50 Result Comment: The validity of the calculated GFR AND GFRAA in patients over 70 years has not been determined. Clinical correlation is essential. LAB L501.1110 >60 mL/min Low EST GFR 48 Result Comment: Non- GFR Calc LAB L501.1115 >60 mL/min Low EST GFR - AA 58 Result Comment: GFR Calc LAB L501.1255 ml/min Normal Estimated CRCL 40.53 LAB L501.1300 10-20 RATIO Normal BUN/CRE 12.7 LAB L501.1500 6.4-8. g/dL Normal 2 T PROT 8.1 LAB L501.1800 3.2-5. g/dL Low 0 ALB 3.1 LAB L501.1950 2.2-4. g/dL High 2 GLOB 5.0 LAB L501.2000 0.9-2. RATIO Low 4 A/G 0.6 LAB L501.2200 8.5-10 mg/dL Normal .1 CA 8.5 LAB L501.4100 15-37 U/L Normal AST 31 LAB L501.4305 45-117 U/L Normal ALK P 70 LAB L501.4405 16-61 U/L Normal ALT 46 LAB L501.4600 0.20-1 mg/dL Normal .00 T BILI 0.70 LAB L501.5300 136-14 mmol/L Normal 5 NA 137 LAB L501.5600 3.5-5. mmol/L Normal 1 K 4.3 LAB L501.5900 98-107 mmol/L Normal CL 100 LAB L501.6100 21.0-3 mmol/L Normal 2.0 CO2 30.0 LAB L501.6200 5-15 Normal GAP 7 Performed By: #### L500.4050 #### [facility] [address] [place], [address] BNP,B-TYPE NATRIURETIC Collected: 06/19/2018 Status: F Source: ULM [place]PTIDE 6:05 PM [facility] REPOSITORY TYPE CODE TESTS RESULT OUT OF RANGE REFERENCE UNITS LAB L503.6620 0-100 pg/mL Normal B-TYPE 31.4 RENATO PEP Performed By: #### L503.6620 #### [facility] [address] [place], [address] TROPONIN-I Collected: 06/19/2018 Status: F Source: [place] 6:05 PM [facility] REPOSITORY TYPE CODE TESTS RESULT OUT OF RANGE REFERENCE UNITS LAB L501.4010 <0.045 ng/mL Normal < 0.015 TROPONIN-I Result Comment: TROPONIN-I EXPECTED VALUES <0.045 Negative 0.045 - 0.590 Consistent with Cardiac Damage > OR = 0.600 Critical Value Not every elevated troponin is indicative of PR. These values should be used with clinical judgement in examining the patient's clinical picture for diagnosis. To establish a diagnosis of PR versus myocardial injury, there must be a demonstrated rise and/or fall in the troponin values, in addition to ischemic symptoms, EKG changes, new regional wall motion abnormality, and/or angiographical evidence. PLEASE NOTE: REFERENCE RANGES EDITED 17 Performed By: #### L501.4010 #### [facility] [address] [place], [address] CHEST PA AND LATERAL Observed: 06/19/2018 Status: F Source: ULM 5:50 PM [facility] REPOSITORY [facility] Imaging Services [address] [place] [address] Chest PA and Lateral MR#: [id number] Acct: [id number] Name: AZAEL MAR Rep #: [id number] : 1940 M 77 From: Erik Rea MD PCP: Care Physician, No Primary Status: REG ER Study: Chest PA and Lateral Date of Exam: 06/19/18 Exam# [id number] Ordering Dr: Broderick Rabago DO STUDY: X-RAY CHEST REASON FOR EXAM: Male, 77 years old. Shortness of breath TECHNIQUE: Frontal and lateral views of the chest COMPARISON: 03/29/2018 FINDINGS: There is a moderate left pleural effusion with overlying atelectasis. The lungs are otherwise clear. There is no right-sided effusion. There is no pneumothorax. The heart is normal in size. The visualized osseous structures are within normal limits. RAD/Chest PA and Lateral IMPRESSION: Moderate left pleural effusion with overlying atelectasis. Electronically Signed: Erik Rea, at 19:09 EST Tel , Service support , CC: No Primary Care Physician; Broderick Rabago DO Sports Activities Foul Judge: Signed PULMONARY VISIT REPORT Observed: 06/14/2018 Status: F Source: ULM 2:21 PM [facility] REPOSITORY [facility] [address] [place] [address] OFFICE VISIT Date of Service: 06/14/18 MR#: [id number] Acct: [id number] Name: LYDIA MARJAMIE iVllegas Rep #: [id number] : 1940 Provider: Talia La Age/Sex: 77/M Location: [place] Status: Signed Assessment AND Plan 1. Pleural effusion J90 Plan Improving, quite possibly resolved. Most likely related, status post fall. Plan to obtain pulmonary function tests in 3 months and follow-up with Dr. Shrestha. 2. MEGHANA (obstructive sleep apnea) G47.33 Plan Patient is using and benefiting from Pap therapy. No indication for titration study at this time. Continue to encourage weight loss. Contact the office for any new or worsening symptoms in the meantime. Follow-up with Dr. Shrestha in 3 months. 3. Morbid obesity E66.01 Plan Encourage weight loss. Plan Detail Other Orders Orders: Other Medications Discontinued: albuterol sulfate Discontinued Reason: 2.5 mg (3 mL) Continuous Nebulization ONCER06.2 Office Medication has been Documented as 1 mL 0RF given Follow Up 3 Months (DMB) HPI HPI Comments Details: This is a 77 year old very pleasant M, here to follow up after a recent hospitalization at [facility], from May 28 - May 30, 2018 for pleural effusion secondary to fall/trauma. The hospital stay was relatively non-complicated 15 pages of hospital documentation was reviewed, and found to be significant for chest x-ray completed on May 28 showing small pleural effusions with underlying left basilar infiltration and/or atelectasis, blunting of the right costophrenic angle. CTA of the chest was completed on May 28 and showed, but did show chronic interstitial changes in both lung robles with nonspecific pleural thickening, free flowing left pleural effusion and minimal bibasilar atelectasis. Echocardiogram showed an EF of 50- 55% with stage I diastolic dysfunction and RVSP estimated to be 29 mmHg. A thoracentesis was completed on May 30, 2018,Pathology reviewed from thoracentesis completed on May 29, 2018, pathology shows negative for malignant cells and is consistent with acute inflammation. Upon discharge, the patient treated with Celebrex for his pain. Today, he presents in a wheelchair, on room air. He states that since hospital discharge he has noticed an improvement in his shortness of breath. His lower extremity edema has also been improving, his weight is down from 356 pounds down to 339 pounds. He is only experiencing shortness of breath with activity, denies any shortness of breath at rest or conversation. He has a dry cough that he describes as deep but nonproductive. He denies any sputum production or hemoptysis. He continues to have some pain with coughing, which he attributes to his fall. Denies any wheezing, chest tightness, or palpitations. He denies any fever, chills or body aches. He is compliant with CPAP. Denies any episodes of nocturia. He does feel rested upon arising in the morning. He denies any difficulties with snoring through the mask or air leaks. Intake Vital Signs06/14/18 Height 5 ft 8 in 06/14/18 Weight: 339 lb 06/14/18 Body Mass Index (BMI) 51.5 Intake Visit Reasons: Hospital [facility] [place] [place] Vendor: [employer] Accompanied by: Self Allergies cephalexin [From Keflex] Allergy (Verified 06/14/18 07:40) Rash Medications Glucosamine/Chondr Gallardo A Sod [Glucosamine-Chondroitin Tablet] 2 ea PO DAILY 05/28/18 [History Confirmed 06/14/18] Multivitamins,Therapeutic [Multivitamin] 1 tab PO DAILY 05/28/18 [History Confirmed 06/14/18] buPROPion XL [Wellbutrin Xl] 300 mg PO DAILY 05/29/18 [History Confirmed 06/14/18] [facility] Medical History History of bleeding ulcers (Resolved) Pleural effusion (Acute) Chronic venous stasis (Chronic) Morbid obesity (Chronic) MEGHANA (obstructive sleep apnea) (Chronic) Osteoarthritis (Chronic) NSAID-induced gastric ulcer (Chronic) Surgical History History of hip replacement (Resolved) Social History Smoking Status: Never smoker Review of Systems Const CONSTITUTIONAL: Positive fatigue and weight loss; negative anorexia, body ache, chills, daytime sleepiness, fever(s), night sweats, oral thrush, stops breathing during sleep, weight loss, sleeping in chair, weight gain, frequent colds, seasonal allergies, other, headache(s) or orthopnea EETM Ear Nose Throat Mouth: Positive hearing normal; negative hard of hearing, hoarseness, dry mouth in morning, change in vision, itchy eyes, eye pain, swallowing Difficulty, ear pain, nose bleed, headache(s), mouth pain, nasal congestion, nasal discharge, post nasal drip, sinus pain, sinus pressure, sore throat or other Cardio Cardiovascular: Positive edema Location: lower extremity Right/Left: Left, Right; negative chest pain, chest pain at rest, chest pain with activity, irregular heart rhythm, shortness of breath when lying down, palpitations, murmur or other Resp Respiratory: Positive as per HPI, shortness of breath shortness of breath: Positive with activity and cough cough: Positive productive color: Positive thick and white and non-productive; negative pain with cough, wheezing, chest congestion, chest tightness, pain on inspiration, inhalers, increase use of rescue inhalers, snoring, apnea or other Gastro Gastrointestional: Positive change in appetite; negative bloody stools, difficulty swallowing, reflux, hematemesis, melena stool, loose stool, constipation or other Genitourinary: Negative blood in urine, nocturia, pain with urination or other Musc Musculoskeletal: Negative body pain, back pain, neck pain or other Skin/Breast Skin/Breast: Positive dry skin; negative itching, unusual bruising, breast lump or other Neuro Neurological: Negative restless legs, confusion, weakness or other Psych Psychocological: Negative abnormal sleep pattern, anxiety, thoughts of hurting self/others, hopelessness or other Lymph Lymphatic: Negative easy bleeding, easy bruising, swollen lymph nodes or other Exam Const Constitutional: Positive conversant, cooperative, in no acute respiratory distress, well developed, well nourished, good hygiene, frail appearing, dyspenic and obese Head Head: Positive normocephalic and atraumatic; negative cyanosis of lips/distal nose Eyes Eye: Positive clear conjunctiva; negative nystagmus or scleral abnormality Ears Ear: Positive hearing normal and external ears normal; negative hard of hearing Nose Nose: Positive external nose normal and no nasal discharge; negative epistaxis Mouth Mouth: Positive oral mucosae normal, no lesions, good dentition and posterior oropharynx is adequate; negative post nasal drip, malodorous breath or oral thrush present Mallampati Score: II: Mallampati Score Neck Neck: Positive normal visual inspection, full ROM and trachea midline; negative lymphadenopathy, JVD or tender Chest Wall Chest: Positive normal inspection of the chest and symmetric chest movement; negative increased A/P diameter Resp lung sounds: Positive diminished, wheezes, normal expiratory time and increased work of breathing; negative rhonchi, rales, dullness to percussion or use of accessory muscles Cardio Cardiac: Positive regular rate, regular rhythm, S1 normal and S2 normal; negative murmur GI GI: Positive normal to inspection and obese; negative distended Genitourinary: Positive deferred Musc Musculoskeletal: Positive ROM normal and in a wheelchair; negative kyphosis or scoliosis Skin Pulmonary Skin Exam: Positive dermal atrophy and scaly Pulses Pulse: Yes pulses normal x4 extremities Extremities Extremities: Yes capillary refill normal, No clubbing, No cyanosis, Yes edema Location: lower extremity location: Bilateral chronic with vascular changes, pitting +3 Neuro Neurologic: Yes conversant, Yes no focal neuro deficits, Yes normal concentration, Yes understands questions, Yes cooperative, Yes normal cognition, Yes normal coordination, No tremor Lymph Lymphatic: No lymphadenopathy, No tenderness, No cervical adenopathy Psych Appearance: Positive grossly normal and eye contact Mental Status: Positive mental status grossly normal Mood: Positive congruent mood Affect: Positive normal affect Office Meds albuterol sulfate Performing Provider: MARCI Blankenship Administered by: Mahnaz Garcia on 06/14/18 09:51 Dose Route Admin Location Lot Number Expiration Date [place] 2.5 mg Continuous NebulINH [id number] 04/12/19 2639-6013-87 MYLAN ization Coding Level of Care Code Off vis,est,level 4 Diagnoses Pleural effusion J90 MEGHANA (obstructive sleep apnea) G47.33 Morbid obesity E66.01 06/14/18 1421 <Electronically signed by Talia COVARRUBIAS> Date Talia COVARRUBIAS Cosigner Signature: Date (if applicable) CC: DISCHARGE SUMMARY Observed: 06/05/2018 Status: F Source: [facility] 4:36 PM [facility] REPOSITORY [facility] Medical Records Department [address] [place] [address] Discharge Summary 05/30/18 1331 MR#: [id number] Acct: [id number] Name: AZAEL MAR Rep #: [id number] : 1940 77 From: Bharat LANGFORD PCP: Care Physician, No Primary Status: DIS IN Y Location: [place] [address] ADDENDUM by Palma Jenkins on 06/05/18 at 1635 Code Visit This patient was seen in conjunction with Bharat LANGFORD. I have independently interviewed and examined the patient and reviewed pertinent historical, laboratory and other data. Please refer to discharge summary note for details of this patient's presentation, findings and recommendations. I have reviewed Bharat's note and concur fully with documented findings. In brief, patient is a 77YO male admitted with left pleural effusion and left lateral chest pain after a fall. Patient underwent thoracentesis and removal of a bloody fluid that was a exudate. Culture of the fluid had no growth after 5 days. The etiology of the pleural effusion was most likely secondary to a recent fall with a hemothorax. He was afebrile for the duration of his hospital admission and white blood cell count and differential were within normal limits. Echocardiogram revealed a 50-55% ejection fraction with stage I diastolic dysfunction. Chest x-ray post thoracentesis revealed no evidence of pneumothorax. Cytology was negative for malignant cells. Physical examination: Alert and oriented x3, no apparent distress Lungs-clear to auscultation with diminished breath sounds Heart-regular rate and rhythm, no murmurs, no gallops Abdomen-obese, soft, nontender, bowel sounds present Assessment: 1. Left pleural effusion secondary to hemothorax secondary to recent fall with negative cytology and no growth on the thoracentesis fluid. I have discussed my assessment with Bharat and orders have been written. 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 Blunting of the right costophrenic angle. CT/CTA Chest W/WO Contrast IMPRESSION: No demonstrated PE, however, contrast bolus within the pulmonary arteries is not optimal No thoracic aortic aneurysm or dissection Chronic interstitial changes in both lung robles with nonspecific pleural thickening, free flowing left pleural effusion and minimal bibasilar atelectasis Degenerative bony changes Interpretation Summary The estimated ejection fraction is 50-55 %. Stage 1 diastolic dysfunction. Mid-Lateral : Mildly hypokinetic Trivial tricuspid valve insufficiency. Right ventricular systolic pressure estimated to be 29 mmHg. The study was technically difficult. Contrast injection was performed. There is no comparison study available. RAD/Chest Insp/Exp 2 View IMPRESSION: Status post left thoracentesis. There is no evidence of pneumothorax. Mild residual pleural parenchymal changes at the left lung base. US/Thoracentesis W US IMPRESSION: Ultrasound-guided left thoracentesis. 90 cc bloody fluid drained. Consults: [facility] - Pulmonary medicine Operations: None Procedures: 2-D Echocardiogram, Thoracentesis Summary of Care Provided: Hospital Course: The patient is a 77 year old M with past medical history of osteoarthritis, NSAID-induced ulcer, CKD stage III, hypertension, CAD with prior PR, morbid obesity, obstructive sleep apnea compliant with CPAP, who presented to the emergency room with chief complaint of shortness of breath. He is found to be hypoxic with activity in the 80s. He underwent a CT of the chest which showed a left-sided pleural effusion. Beta natruretic peptide was negative. He is not felt to have congestive heart failure. He was admitted for pleural effusion of unclear etiology. Pulmonary medicine was consulted. The following day he underwent a thoracentesis which revealed exudative pleural effusion which was bloody. The Gram stain was negative, and pathology indicates no malignant cells. Earlier in the week he had fallen twice and hurt his chest. It was felt that this was a traumatic pleural effusion, and not related to CHF or pna. An echocardiogram was obtained which findings as above. He was weaned off oxygen and was ambulatory in the room without increased oxygen demand. He had a follow up CXR with no pneumo. He was felt to be stable for discharge. He had been taking naproxen at home for ongoing osteoarthritis and was advised to discontinue this, and said he was placed on Mobic. I advised a calorie controlled cardiac diet at discharge to assist with weight loss. He needs to continue to use CPAP nightly as well, and to continue using the provided Incentive spirometer. He was advised to follow-up with pulmonary medicine in 1-2 weeks. He was advised to follow-up with his PCP in 1-2 weeks. This patient was seen by Bharat Pelayo PA-C under the supervision of Doctor Gregory. [] Patient Problems: Active and Suspected Problems Pleural effusion (Acute) - Physical Exam General: Alert, Oriented x3, Cooperative HEENT: Atraumatic, PERRLA, EOMI, Normocephalic Neck: Supple, No JVD, Negative Carotid Bruits Lungs: Clear to auscultation, Normal air movement, Wheezes - faint wheeze Left side on expiration heard posteriorly. Cardiovascular: Regular rate, No murmurs Abdomen: Bowel Sounds Present, Soft, Non Tender Extremities: No edema, Capillary Refill Less than 3 Seconds Skin: No rashes, No breakdown Musculoskeletal: No Tenderness to Palpation of Joints or Extremities Neurological: Cranial nerves II-XII grossly intact Psych/Mental Status: Normal Affect, Appropriate Vital Signs Temp Pulse Resp BP Pulse Ox 98.5 F 88 18 144/75 H 92 05/30/18 09:10 05/30/18 09:59 05/30/18 09:10 05/30/18 09:10 05/30/18 12:39 Oxygen Flow Rate (L/min) [3] 1 Oxygen Flow Rate (L/min) [2] 1 Oxygen Flow Rate (L/min) [1 ( 1 Initial Baseline)] Oxygen Flow Rate (L/min) 2 Oxygen Delivery Method [3] Nasal Cannula Oxygen Delivery Method [2] Nasal Cannula Oxygen Delivery Method [1 ( Nasal Cannula Initial Baseline)] Oxygen Delivery Method Room Air Weight: 356 lb 0.745 oz Body Mass Index (BMI) 54.1 Intake and Output for Last 24 Hours Intake Total 200 / 200 400 / 400 Balance 200 / 200 400 / 400 Microbiology Past 72 Hours 05/29/18 09:50 Gram Stain - Final Fluid - Thoracentesis Fluid Body Fluid Culture - Preliminary Laboratory Tests Past 24 Hrs Total Bilirubin 0.60 Discharge Activity: Return to Normal Activity Home Medications: Medications to take at Discharge Glucosamine/Chondr Gallardo A Sod [Glucosamine-Chondroitin Tablet] 2 each PO DAILY 05/28/18 Multivitamins,Therapeutic [Multivitamin] 1 tablet PO DAILY 05/28/18 buPROPion XL [Wellbutrin Xl] 300 mg PO DAILY 05/29/18 Celecoxib [Celebrex] 100 mg PO BID #28 capsule 05/30/18 Following Prescrptions Were Given to Patient: Celecoxib [Celebrex] 100 mg PO BID #28 capsule Primary Care Physician: [facility] Doctor,Out of [NON-STAFF] - Please follow up with your Primary Care Physician in: 1-2 weeks Please Follow Up With: Prieto Shrestha DO When: 2 weeks Medical Necessity - Tobacco Use Smoking Status: Never smoker Tobacco Use: Non-smoker Meaningful Use Info Meaningful Use Diagnoses (Choose all that apply): None applicable 05/30/18 1343 <Electronically signed by Bharat LANGFORD> Date Bharat LANGFORD 06/05/18 1630<Electronically signed by Koko Jenkins DO> Cosigner Signature (if applicable): Date Koko Jenkins DO CC: No Primary Care Physician; PRIMITIVO Pelayo; Palma Jenkins Signed 12 LEAD ELECTROCARDIOGRAM Observed: 06/01/2018 Status: F Source: [place] 1:23 PM [facility] REPOSITORY [facility] Cardiovascular Services [address] [place] [address] 12 Lead EKG 05/28/18 1450 MR#: [id number] Acct: [id number] Name: AZAEL MAR Rep #: [id number] : 1940 77 From: Stu Flower MD Attending Dr: Palma Jenkins Status: DIS IN Ordering Dr: Naveen Castro MD Date: 05/28/18 Location: [facility] Sex: M C Admitted: 05/29/18 Test Reason : SOB Blood Pressure : / mmHG Vent. Rate : 101 BPM Atrial Rate : 101 BPM P-R Int : 192 ms QRS Dur : 128 ms QT Int : 370 ms P-R-T Axes : 026 229 013 degrees QTc Int : 479 ms Sinus tachycardia Right bundle branch block Possible Lateral infarct , age undetermined Inferior infarct , age undetermined Abnormal ECG Confirmed by STU FLOWER MD ([id number]), primer expeditor and drier JUAN R ALLEN ([id number]) on 06/01/2018 1:22:56 PM Referred By: Burke Avitia Confirmed By:STU FLOWER MD 06/01/18 1322 Date Stu Flower MD CC: No Primary Care Physician; Palma Jenkins; Naveen Castro MD; Burke Avitia DO Signed DISCHARGE INSTRUCTION Observed: 05/30/2018 Status: C Source: [place] 2:19 PM [facility] REPOSITORY [facility] Medical Records Department [address] [place] [address] Instructions for Home/Discharge Instructions 05/30/18 1328 MR#: [id number] Acct: [id number] Name: AZAEL MAR Rep #: [id number] : 1940 77 From: Bharat LANGFORD PCP: Care Physician, No Primary Status: ADM IN ADDENDUM by Palma Jenkins on 05/30/18 at 1419 The number for the gentleman who does the grab bars is [phone]. His name is Ty Allen and he will bring what he needs to get the job done. Tell him that Dr. Jenkins and Henok from occupational Therapy referred you and explain your situation. Happy holidays. Follow up with Dr. Shrestha in 2 weeks. Date Koko Jenkins DO cc: No Primary Care Physician; Prieto Shrestha D.O. * Addendum - Discharge Diagnoses Current Active Problems: Current Active and Chronic Problems Pleural effusion (Acute) Chronic venous stasis (Chronic) Morbid obesity (Chronic) MEGHANA (obstructive sleep apnea) (Chronic) Osteoarthritis (Chronic) NSAID-induced gastric ulcer (Chronic) You will use the following diet at home:: Calorie/Carbohydrate Controlled (specify 1200, 1400, etc) - 2000 júnior / day, Cardiac Your food should be the consistency of: Regular Your liquids should be the consistency of: Regular/Thin Discharge Activity: Return to Normal Activity Allergies/Adverse Reactions: Allergies cephalexin [From Keflex] Allergy (Verified 05/28/18 14:22) Rash Medications to take at Discharge Glucosamine/Chondr Gallardo A Sod [Glucosamine-Chondroitin Tablet] 2 each PO DAILY 05/28/18 Multivitamins,Therapeutic [Multivitamin] 1 tablet PO DAILY 05/28/18 buPROPion XL [Wellbutrin Xl] 300 mg PO DAILY 05/29/18 Celecoxib [Celebrex] 100 mg PO BID #28 capsule 05/30/18 The following prescriptions were given: Celecoxib [Celebrex] 100 mg PO BID #28 capsule Primary Care Physician: [facility] Doctor,Out of [NON-STAFF] - Please follow up with your Primary Care Physician in: 1-2 weeks Test Results: Test results from this visit will be discussed in further detail at your follow-up appointment, if applicable. Please Follow Up With: Prieto Shrestha DO When: 2 weeks Proposed Discharge Date: 05/30/18 05/30/18 1330 <Electronically signed by Bharat LANGFORD> Date Bharat LANGFORD CC: No Primary Care Physician; Prieto Shrestha D.O. CONSULTATION Observed: 05/29/2018 Status: F Source: [place] 2:46 PM [facility] REPOSITORY [facility] Medical Records Department [address] [place] [address] Consultation 05/29/18 1150 MR#: [id number] Acct: [id number] Name: AZAEL MAR Rep #: [id number] : 1940 77 From: Prieto Shrestha DO PCP: Care Physician, No Primary Status: ADM NATALIE Y Location: [place] [address] Reason for Consult Date of Consultation: 05/29/18 Reason for Consultation: Pleural effusion and obstructive sleep apnea History of Present Illness: The patient is a 77-year-old male, with a history as outlined below, who presented to the emergency department on May 28 with progressive shortness of breath after sustaining 2 separate falls on ice earlier in the week. The patient reports that he once fell on his left side and once on his right side. He states that his dyspnea began to worsen shortly after those falls. He denies the presence of a cough, fevers or chills. He does report a history of obstructive sleep apnea, for which he currently utilizes nocturnal CPAP therapy. He does believe that he has a pressure support of 15 cm of water. He does report compliance with its use. He does not currently follow with a dedicated sleep medicine specialist. He reports that his last polysomnogram occurred 3-4 years ago. On presentation to the emergency department, the patient was noted to be afebrile and hypertensive with a blood pressure of 212/89. He was, nevertheless, maintaining appropriate oxygen saturations on room air. Laboratory evaluation revealed no evidence of a leukocytosis. Chemistry profile did reveal an elevated creatinine of 1.35. Troponin and BNP were both negative. A CTA chest was obtained which revealed no evidence for PE. There was evidence of a moderate sized left sided pleural effusion. The patient was subsequently admitted to the medical surgical floor for further workup of his shortness of breath. Past Medical History Past Medical History (Chronic Problems): Chronic Problems Chronic venous stasis (Chronic) Morbid obesity (Chronic) MEGHANA (obstructive sleep apnea) (Chronic) Osteoarthritis (Chronic) NSAID-induced gastric ulcer (Chronic) Allergies cephalexin [From Keflex] Allergy (Verified 05/28/18 14:22) Rash Home Medications: Ambulatory Orders Medication Instructions Recorded Amoxicillin [Amoxil] 500 mg PO Q6H 05/28/18 Glucosamine/Chondr Gallardo A Sod 2 each PO DAILY 05/28/18 [Glucosamine-Chondroitin Tablet] Magnesium 500 mg PO DAILY 05/28/18 Surgical History: total hip arthroplasty Psychiatric History: No pertinent psych hx Lives: Alone Smoking Status: Never smoker Tobacco Use: Non-smoker Alcohol: None Drugs: None - *Family History Maternal History Items: Diabetes Paternal History Items: Cancer - bladder Review of Systems Constitutional: Denies: Chills, Fever, Night Sweats Eyes: Denies: Blurred vision, Double vision HEENT: Denies: Head Aches, Sinus Congestion, Sinus Drainage Cardiovascular: Denies: Chest Pain, Palpitations Respiratory: Reports: Shortness of Breath. Denies: Cough, Sputum production Gastrointestinal: Denies: Abdominal Pain, Nausea, Vomiting Genitourinary: Denies: Dysuria Musculoskeletal: Denies: Joint Pain, Joint Tenderness Skin: Denies: Rash, Wounds Neurological: Denies: Numbness, Tingling, Focal weakness Psychiatric: Denies: Anxiety, Depression, Homicidal Ideations, Suicidal Ideations Hematologic/ Lymphatic: Denies: Easy Bruising, Easy Bleeding Patient Problems: Active and Suspected Problems Pleural effusion (Acute) Objective: The patient's most recent lab work, culture data and imaging studies have all been personally reviewed. - Physical Exam General: Alert, Oriented x3, Cooperative, No apparent distress, - - Morbidly obese. Seated upright in bed. HEENT: Atraumatic, PERRLA, Normocephalic Oral: No Gingival or Mucosal Lesions/ Ulcerations Neck: Supple, No Nodes, Trachea Midline Lungs: No rhonchi, No wheeze, No rales, Diminished Cardiovascular: Regular rate, Regular Rhythm, Normal S1, Normal S2, No murmurs Abdomen: Bowel Sounds Present, Soft, Non Tender, Obese Extremities: No clubbing, No cyanosis, Edema Skin: No breakdown, - - Venous stasis dermatitis of the lower extremities present Musculoskeletal: No Muscle Wasting Lymphatic: No Cervical, Supraclavicular, or Inguinal Adenopathy Neurological: Cranial nerves II-XII grossly intact, Neuro grossly intact Psych/Mental Status: Alert and oriented to time, place, person, mood and affect Vital Signs Temp Pulse Resp BP Pulse Ox 37.1 C 85 18 141/74 H 94 05/29/18 11:44 05/29/18 11:44 05/29/18 11:44 05/29/18 11:44 05/29/18 11:44 Oxygen Flow Rate (L/min) [3] 1 Oxygen Flow Rate (L/min) [2] 1 Oxygen Flow Rate (L/min) [1 ( 1 Initial Baseline)] Oxygen Flow Rate (L/min) 1 Oxygen Delivery Method [3] Nasal Cannula Oxygen Delivery Method [2] Nasal Cannula Oxygen Delivery Method [1 ( Nasal Cannula Initial Baseline)] Oxygen Delivery Method Nasal Cannula Weight: 356 lb 0.745 oz Body Mass Index (BMI) 54.1 Intake and Output for Last 24 Hours Intake Total 200 / 200 Balance 200 / 200 Laboratory Tests Past 24 Hrs WBC RBC Hgb WBC RBC Hgb Hct MCV MCH MCHC RDW RDW Differential Plt Count Clinical Impression(s) from Imaging Studies Chest X-Ray 05/28/18 15:00 IMPRESSION: Small left pleural effusion with underlying left basilar infiltration and/or atelectasis. Blunting of the right costophrenic angle. Electronically Signed: Grayson Keith MD at 15:18 EST Tel [phone], Service support , Chest CTA 05/28/18 15:55 IMPRESSION: No demonstrated PE, however, contrast bolus within the pulmonary arteries is not optimal No thoracic aortic aneurysm or dissection Chronic interstitial changes in both lung robles with nonspecific pleural thickening, free flowing left pleural effusion and minimal bibasilar atelectasis Degenerative bony changes Electronically Signed: Ruben Lieberman MD at 16:47 EST , Service support , Thoracentesis Ultrasound 05/29/18 18:35 IMPRESSION: Ultrasound-guided left thoracentesis. Electronically Signed: Grayson Keith MD at 10:52 EST Tel [phone], Service support , Assessment/Plan All Active Problems Pleural effusion (Acute) RECOMMENDATIONS: 1. Agree with obtaining ultrasound-guided thoracentesis. 2. Wean supplemental oxygen to maintain saturations at or above 90%. 3. Encourage incentive spirometer use and mobilize patient as tolerated. 4. Continue nocturnal CPAP therapy. 5. Perform walking oximetry study prior to consideration for discharge from the hospital. IMPRESSIONS: 1. Shortness of breath/acute hypoxic respiratory insufficiency Likely secondary to underlying moderate sized left-sided pleural effusion. The patient did report 2 separate falls earlier in the week. This effusion may be related to trauma sustained as a consequence of those falls. Agree with obtaining an ultrasound-guided thoracentesis for further evaluation. No clinical suspicion for underlying pulmonary infectious process. Continue to wean supplemental oxygen as tolerated. Encourage aggressive incentive spirometer use and mobilize patient as tolerated. Perform walking oximetry study prior to consideration for discharge from the hospital. 2. History of obstructive sleep apnea The patient does report that his last polysomnogram occurred 3-4 years ago. He does report compliance with use of nocturnal CPAP therapy, with a presumptive pressure support of 15 cm of water. Recommend continuing this while inpatient. The patient can follow-up with us in the pulmonary medicine clinic on an outpatient basis with regards to his long-standing MEGHANA. This note was generated with [employer]iant dictation software. It may contain incorrect words, spelling, and punctuation that were not noted in checking the note before signing. Code Visit Inpatient E AND M: 77123 Init Hosp L3 05/29/18 1446 <Electronically signed by Prieto Shrestha DO> Date Prieto Shrestha DO Cosigner Signature (if applicable): Date CC: No Primary Care Physician; Prieto Shrestha D.O.; Burke Avitia DO Signed ECHO, COMPLETE W/ Observed: 05/29/2018 Status: F Source: [facility] CONTRAST 1:59 PM [facility] REPOSITORY [facility] Cardiovascular Services [address] [place] [address] Echo Complete W/ Contrast 05/29/18 0823 MR#: [id number] Acct: [id number] Name: AZAEL MAR Rep #: [id number] : 1940 77 From: Wilfred Jordan MD Attending Dr: Palma Jenkins Status: ADM NATALIE Ordering Dr: Burke Avitia DO Date: 05/28/18 Location: [facility] Sex: M C Admitted: 05/28/18 Reason For Study: DYSPNEA/SOB Procedure This was a 2D Doppler, Color Flow transthoracic echocardiogram. The study was technically difficult. Exam performed portable in patient room. Left Ventricle Normal size and thickness. The estimated ejection fraction is 50-55 %. Stage 1 diastolic dysfunction. Septal motion consistent with IVCD. Mid-Lateral : Mildly hypokinetic. Right Ventricle Normal size and thickness. Normal systolic function. Atria Normal left atrium. Normal right atrium. Normal atrial septum. Mitral Valve The mitral valve is structurally normal. No prolapse or stenosis seen. Tricuspid Valve Normal tricuspid valve. Trivial tricuspid valve insufficiency. Right ventricular systolic pressure estimated to be 29 mmHg. Aortic Valve Normal aortic valve. Trisinus/trileaflet aortic valve. Pulmonic Valve Normal pulmonic valve. Great Vessels Normal aortic root. Mild atherosclerosis of the aortic arch. Normal inferior vena cava. Pericardium/Pleural No pericardial effusion. Medication Diluted definity 3ml given slow IV push to enhance endocardial definition. MMode/2D Measurements AND Calculations Ao root diam: 3.6 cm LAV(MOD-bp): 24.2 ml LA dimension: 3.4 cm LVAd ap4: 25.0 cm2 LAV(MOD-bp) Indexed: 9.3 ml/m2 EDV(MOD-sp4): 67.5 ml LAV(MOD-sp2): 19.1 ml EDV(sp4-el): 70.2 ml LAV(MOD-sp4): 24.5 ml LVAs ap4: 13.9 cm2 ESV(MOD-sp4): 23.6 ml ESV(sp4-el): 24.8 ml EF(MOD-sp4): 65.0 % EF(sp4-el): 64.6 % SV(MOD-sp4): 43.9 ml SV(sp4-el): 45.4 ml LA A4 area: 12.2 cm2 RA A4 area: 10.6 cm2 Time Measurements MV dec time: 0.22 sec Doppler Measurements AND Calculations MV E max rowdy: 64.8 cm/sec Lat Peak E' Rowdy: 8.4 cm/sec Med Peak E' Rowdy: 6.5 cm/sec MV A max rowdy: 119.3 cm/sec E/E' lat: 7.7 E/E' med: 10.0 MV E/A: 0.54 Ao V2 max: 146.4 cm/sec LV V1 max: 93.0 cm/sec PA V2 max: 102.1 cm/sec Ao max P.6 mmHg LV V1 max P.5 mmHg TR max rowdy: 245.6 cm/sec TR max P.1 mmHg Interpretation Summary The estimated ejection fraction is 50-55 %. Stage 1 diastolic dysfunction. Mid-Lateral : Mildly hypokinetic Trivial tricuspid valve insufficiency. Right ventricular systolic pressure estimated to be 29 mmHg. The study was technically difficult. Contrast injection was performed. There is no comparison study available. Ordering Physician: Burke Avitia Referring Physician: Burke Avitia Performed By: Kayce Bradley RDCS 05/29/18 1359 Date Wilfred Jordan MD CC: No Primary Care Physician; Palma Jenkins; Burke Avitia DO Date Dictated: 05/29/18822 Date Transcribed: 05/29/18 135 Sports Activities Foul Judge: Signed LIVER PROFILE Collected: 05/29/2018 Status: F Source: [place] 1:05 PM [facility] REPOSITORY TYPE CODE TESTS RESULT OUT OF RANGE REFERENCE UNITS LAB L501.1500 6.4-8.2 g/dL Normal T PROT 6.8 LAB L501.1800 3.2-5.0 g/dL Low ALB 2.6 LAB L501.1950 2.2-4.2 g/dL Normal GLOB 4.2 LAB L501.4100 15-37 U/L Normal AST 22 LAB L501.4305 45-117 U/L Normal ALK P 67 LAB L501.4405 16-61 U/L Normal ALT 29 LAB L501.4600 0.20-1.00 mg/dL Normal T BILI 0.60 LAB L501.4700 0.00-0.30 mg/dL Normal D BILI 0.20 Performed By: #### L500.3400, L504.2610 #### [facility] [address] [place], [address] LDH Collected: 05/29/2018 Status: F Source: [place] 1:05 PM [facility] REPOSITORY TYPE CODE TESTS RESULT OUT OF RANGE REFERENCE UNITS LAB L504.2610 87-241 U/L Normal LDH 212 Performed By: #### L500.3400, L504.2610 #### [facility] [address] [place], [address] CHEST INSP/EXP 2 VIEW Observed: 05/29/2018 Status: F Source: [place] 10:10 AM [facility] REPOSITORY [facility] Imaging Services [address] [place] [address] Chest Insp/Exp 2 View MR#: [id number] Acct: [id number] Name: AZAEL MAR Rep #: [id number] : 1940 M 77 From: Grayson Keith MD PCP: Care Physician, No Primary Status: ADM NATALIE Study: Chest Insp/Exp 2 View Date of Exam: 05/29/18 Exam# [id number] Ordering Dr: Grayson Keith MD STUDY: X-RAY CHEST REASON FOR EXAM: Male, 77 years old. Status post left thoracentesis. TECHNIQUE: Inspiration expiration views. COMPARISON: Comparison is made with prior study dated May 28, 2018. FINDINGS: The patient is status post left thoracentesis. No evidence of pneumothorax. Mild residual pleural-parenchymal changes at the left lung base. RAD/Chest Insp/Exp 2 View IMPRESSION: Status post left thoracentesis. There is no evidence of pneumothorax. Mild residual pleural parenchymal changes at the left lung base. Electronically Signed: Grayson Keith MD at 13:56 EST Tel [phone], Service support , CC: No Primary Care Physician; Grayson Keith MD Sports Activities Foul Judge: Signed BODY FLUID CELL Collected: 05/29/2018 Status: C Source: [facility] COUNT+DIFF 9:50 AM [facility] REPOSITORY Order Comment: The reference range and other method performance specifications have not been established for this body fluid. The test must be integrated into the clinical context for interpretation. TYPE CODE TESTS RESULT OUT OF RANGE REFERENCE UNITS LAB L200.3380 10 3/ul Normal BFTC# 2.918 Result Comment: This is the Total Number of Nucleated Cell Types in the Body Fluid. LAB L200.3400 10 6/ul Normal RBC/BF 0.87088 LAB L200.3500 10 3/uL Normal 2.917 WBC/BF LAB L200.3510 % Normal 59.8 BF PMN WBC% LAB L200.3515 % Normal 40.2 BF MN WBC% LAB L200.3520 10 3/uL Normal 1.172 BF MN WBC# LAB L200.3525 10 3/uL Normal 1.745 BF PMN WBC# LAB L200.4400 Normal PATH COMM/BF Reviewed Result Comment: Negative for malignant cells. Bloody specimen. Prince Andino M.D. 05/29/18 AMENDED REPORT 05/29/18 1453 PATH COMM/BF previously reported as: May follow LAB L200.3100 THORACENTESIS Normal SOURCE/BF LAB L200.3200 COLOR/BF RED Normal LAB L200.3300 TURBID Normal APPEAR/BF LAB L200.4420 BFM 2ND SEE COMMENT Normal SPEC Result Comment: . INTERPRETATION OF RESULTS: Differentiation of transudate and exudate fluid: TRANSUDATE EXUDATE Color- Clear,straw colored Clear,turbid,bloody,purulent RBCs- Usually none to few Often present in high numbers WBCs- Usually none to few Often present in high numbers DIFF Few lymphocytes or Lymphocytes, neutrophils, and Count- mesothelial cells. polymorphonuclear cells . LAB L200.3600 % Normal PMN 21 LAB L200.3700 % Normal LYMPH 23 LAB L200.3800 % Normal MONO/BF 1 LAB L200.4100 % Normal OTHER CELL/BF 55 Performed By: #### L200.0200 #### [facility] [address] [place], [address] #### L3800.0400 #### [facility] (refer to report for specific site) refer to report for address and phone number PH, BODY FLUID Collected: 05/29/2018 Status: F Source: DARRYN [id number] 9:50 AM [facility] REPOSITORY Order Comment: Specimen Source: THORACENTESIS TYPE CODE TESTS RESULT OUT OF RANGE REFERENCE UNITS LAB L3800.0400 Not Estab. Normal PHBF 7.4 99563 Result Comment: This test was developed and its performance characteristics determined by [facility]. It has not been cleared or approved by the Food and Drug Administration. Performed at: [address] [id number] [employer]: Jim Art MD, Phone: [phone] Performed By: #### L200.0200 #### [facility] [address] [place], [address] #### L3800.0400 #### [facility] (refer to report for specific site) refer to report for address and phone number GLUCOSE, BODY FLUID Collected: 05/29/2018 Status: F Source: ULM 9:50 AM [facility] REPOSITORY Order Comment: Specimen Source: THORACENTESIS TYPE CODE TESTS RESULT OUT OF RANGE REFERENCE UNITS LAB L503.0100 40-70 mg/dL High GLU,BF 88 Performed By: #### L503.0100 #### [facility] [address] [place], [address] PROTEIN, BODY FLUID Collected: 05/29/2018 Status: F Source: ULM 9:50 AM [facility] REPOSITORY Order Comment: Specimen Source: THORACENTESIS TYPE CODE TESTS RESULT OUT OF RANGE REFERENCE UNITS LAB L503.0300 Not Establ. g/dL Normal 4.7 PROTEIN,BF Performed By: #### L503.0300, L504.0250 #### [facility] [address] [place], [address] LDH,BODY FLUID Collected: 05/29/2018 Status: F Source: DARRYN 9:50 AM [facility] REPOSITORY Order Comment: Specimen Source: THORACENTESIS TYPE CODE TESTS RESULT OUT OF RANGE REFERENCE UNITS LAB L504.0250 Not Establ. Units/l Normal LDH,BF 1535 Performed By: #### L503.0300, L504.0250 #### [facility] [address] [place], [address] Observed: 05/29/2018 Status: F Source: ULM CULTURE, BODY FLUID 9:50 AM [facility] REPOSITORY Gram Stain Centrifuged Specimen? Culture performed on centrifuged specimen Gram Stain 4+ Red Blood Cells 2+ White Blood Cells No organisms seen Body Fluid Cult No growth aerobically. Cult, Anaerobic No growth in 5 days. Performed By: #### M100.1300, L350.1000 #### [facility] [address] [place], [address] CYTOLOGY, BODY FLUID / Collected: 05/29/2018 Status: F Source: ULM CSF 9:50 AM [facility] REPOSITORY TYPE CODE TESTS RESULT OUT OF RANGE REFERENCE UNITS LAB L350.1000 SEE Normal PATHOLOGY CYTOLOGY,BF REPORT /CSF Result Comment: Specimen submitted to Anatomical Pathology Department for testing. Performed By: #### M100.1300, L350.1000 #### [facility] [address] [place], [address] ASP RADIOLOGY (FLUID) Observed: 05/29/2018 Status: F Source: ULM 12:00 AM [facility] REPOSITORY Patient: AZAEL MAR : 1940 (77/M) Acct Num: [id number] Phys: PatcheriePalma Unit Num: [id number] Loc: [id number] [id number] Specimen: [id number] Received: 05/29/18 1027 Spec Type: ASP OUT TISSUES 1 TISSUES: THORACIC FLUID CYTOLOGY GROSS Received is 65 ml of cloudy red fluid labeled with the patient's name and and designated per the requisition as thoracentesis. Submitted for cytology preparation including cell block. / 05/29/18 TC:2 CPT: 35259 , 74589 CYTOLOGY STUDY Slides are reviewed. DIAGNOSIS CYTOLOGY Thoracentesis fluid for cytology (cytospin): Negative for malignant cells. Acute inflammation. AM:rg 05/31/18 HEADER OPERATION: Ultrasound-guided left thoracentesis PRE-OP DIAGNOSIS: COPD TISSUE SUBMITTED: Thoracentesis fluid for cytology Signed Darron Ballard DO 05/31/18 <signature on file> Performed By: #### HAY #### [facility] [address] [place], [address] HISTORY AND PHYSICAL Observed: 05/28/2018 Status: F Source: ULM EXAM 9:32 PM [facility] REPOSITORY [facility] Medical Records Department [address] [place] [address] History and Physical 05/28/18 1810 MR#: [id number] Acct: [id number] Name: AZAEL MAR Bakari Rep #: [id number] : 1940 77 From: Bharat LANGFORD PCP: Care Physician, No Primary Status: ADM NATALIE Y Location: [place] [address] ADDENDUM by Burke Avitia DO on 05/28/18 at 2132 Code Visit Patient was seen and examined in the emergergency room at [facility] independently of Bharat Pelayo, he came to the emergency room for evaluation of increased shortness of breath over the last 48 hours, he was concerned that he had undiagnosed broken ribs from 2 separate falls that he had sustained-1 9 days ago, the other one 4 days ago. The last one 4 days ago was on his left side, he states that he missed a step at home and fell. The first fall he sustained was 9 days ago on his right side as a result of stepping on black ice. Workup in the emergency room included labs which revealed a normal white blood cell count, chemistry panel was remarkable for a creatinine of 1.35, BUN of 23, and a glucose of 116. CTA of the chest was obtained which showed a significant left pleural effusion, no evidence of pulmonary emboli were noted and there was no evidence of any rib fractures. Patient's pulse ox on ambulation at room air was noted to be 85% per the emergency room. Physical exam: On examination he appeared in good health and spirits. Vital signs as documented. Skin warm and dry and without overt rashes. Neck without JVD. Lungs-breath sounds were distant at the left base, no rhonchi or wheezes were noted. Heart exam notable for regular rhythm, normal sounds and absence of murmurs, rubs or gallops. Abdomen unremarkable and without evidence of organomegaly, masses, or abdominal aortic enlargement. Patient is morbidly obese. Extremities-there is evidence of chronic stasis dermatitis with edematous changes over both lower legs. Neuro: Cranial nerves II through XII are grossly intact, no focal motor deficits were noted, sensation is intact to pinprick and light touch. Psych: Patient is alert and oriented x3 and is appropriate. He does not appear to be anxious or depressed. Patient will be placed and observation status on [facility] 3, he will undergo thoracentesis tomorrow morning on the left side for diagnostic and therapeutic purposes, I will have pulmonary medicine see the patient as he has not seen a physician regarding his sleep disorder and quite some time. Patient also states it is been years since he has had a sleep study performed. The etiology of the patient's left pleural effusion may be secondary to chest wall trauma on the left from his fall or it could be another etiology. I do not believe the patient has clinical congestive heart failure at this time. Have reviewed Bharat Pelayo's history and physical including his assessment and medical plan of care and endorse it. OBSV E AND M: [id number] Initial observation care L3 05/28/182131 <Electronically signed by Burke Avitia DO> Date Burke Avitia DO cc: No Primary Care Physician; PRIMITIVO Pelayo; Burke Avitia DO * Signed Problem List (1) Pleural effusion Status: Acute (2) Chronic venous stasis Status: Chronic (3) Morbid obesity Status: Chronic (4) MEGHANA (obstructive sleep apnea) Status: Chronic (5) Osteoarthritis Status: Chronic (6) NSAID-induced gastric ulcer Status: Chronic History of Present Illness Date of Admission: 05/28/18 Chief Complaint: SOB The patient is a 77 year old M with past medical history of morbid obesity, CAD with PR in 1994, osteoarthritis, NSAID-induced ulcer, obstructive sleep apnea, who presented to the emergency room with chief complaint of shortness of breath. He was found to be hypoxic with ambulation into the 80s, and found to have left-sided pleural effusion on chest x-ray. He denies history of congestive heart failure or cardiac disease. He has been progressively more short of breath times 3-4 days. He also has chest pain that started after falling. He states he fell slipping on ice on his right side about 9 days ago, and has left-sided chest pain from falling on steps onto his left side about 4 days ago. The shortness of breath started after the fall. He is short of breath with conversation and his O2 declines to 87% with conversation. He does not have a rehabilitation counsellor. He is compliant with nightly CPAP. He does have some BL LE swelling and stasis changes however he says this has been chronic for 15 years. Past Medical History Past Medical History (Chronic Problems): Chronic Problems Chronic venous stasis (Chronic) Morbid obesity (Chronic) MEGHANA (obstructive sleep apnea) (Chronic) Osteoarthritis (Chronic) NSAID-induced gastric ulcer (Chronic) Allergies cephalexin [From Keflex] Allergy (Verified 05/28/18 14:22) Rash Home Medications: Ambulatory Orders Medication Instructions Recorded Surgical History: total hip arthroplasty Psychiatric History: No pertinent psych hx Lives: Alone Smoking Status: Never smoker Tobacco Use: Non-smoker Alcohol: None Drugs: None - *Family History Maternal History Items: Diabetes Paternal History Items: Cancer - bladder Review of Systems Constitutional: Denies: Chills, Fever, Weight Change HEENT: Denies: Head Aches, Sinus Congestion, Sinus Drainage Cardiovascular: Reports: Chest Pain. Denies: Palpitations Respiratory: Reports: Shortness of Breath, Shortness of breath at rest, Shortness of breath upon exertion. Denies: Cough, Sputum production Gastrointestinal: Denies: Abdominal Pain, Nausea, Vomiting Genitourinary: Denies: Dysuria Musculoskeletal: Denies: Joint Pain, Joint Tenderness Skin: Denies: Rash, Wounds Neurological: Denies: Numbness, Tingling, Focal weakness Psychiatric: Denies: Anxiety, Depression, Homicidal Ideations, Suicidal Ideations Hematologic/ Lymphatic: Denies: Easy Bruising, Easy Bleeding VTE Information - Inpt Only VTE Present on Admission: No VTE Mechan Device Prophylaxis: SCD's VTE Pharm Prophylaxis ordered?: No Reason prophylaxis not ordered:: Medical Contraindication Patient Problems: Active and Suspected Problems Pleural effusion (Acute) - Physical Exam General: Alert, Oriented x3, Cooperative HEENT: Atraumatic, PERRLA, EOMI, Normocephalic Neck: Supple, No JVD, Negative Carotid Bruits Lungs: Diminished, Rales, Wheezes Cardiovascular: Regular rate, No murmurs Abdomen: Bowel Sounds Present, Soft, Non Tender, Obese Extremities: Capillary Refill Less than 3 Seconds, Edema Skin: No rashes, No breakdown, - - hyperpigmentation BL LE ankles Musculoskeletal: No Tenderness to Palpation of Joints or Extremities Neurological: Cranial nerves II-XII grossly intact Psych/Mental Status: Normal Affect, Appropriate Vital Signs Temp Pulse Resp BP Pulse Ox 97.6 F L 95 28 H 164/88 H 96 05/28/18 14:23 05/28/18 16:38 05/28/18 16:38 05/28/18 16:38 05/28/18 16:38 Oxygen Flow Rate (L/min) 2 Oxygen Delivery Method Nasal Cannula Weight: 356 lb Body Mass Index (BMI) 54.1 Laboratory Tests Past 24 Hrs Assessment/Plan All Active Problems Pleural effusion (Acute) 1. Pleural effusion - unclear etiology. May be post traumatic 2/2 fall onto that side 4 days ago when his symptoms started. He does become hypoxic with conversation and activity in the room. Pulmonary medicine will be consulted. Echocardiogram will be obtained in the AM. He will have a thoracentesis in the AM. Check serum LDH/protein, and fluid panel. Check AM PT and APTT. BNP is negative. Troponin is negative. 2. Hx CAD, PR 1994. He does not take asa or plavix. 3. HTN - severely elevated on arrival, trending down. prn hydralazine, trend and begin therapy if indicated. 4. MEGHANA - continue CPAP qhs he thinks his setting is 15. 5. Chronic venous stasis - compression hoses. 6. Morbid obesity - dietary eval 7. Osteoarthritis - still taking nsaids despite hx nsaid ulcer. Hold while here, no blood thinning agents with thora. 8. Depression - wellbutrin 9. Elevated BNP/Cr - probably some degree of CKD but we do not know what his baseline is. DVT ppx: SCDs, hold anticoagulation with plan for thora in AM. Discharge planning: Patient will undergo thoracentesis in the morning and may need to be held overnight for repeat chest x-ray the following morning. Will attempt to wean him off of oxygen after draining his pleural effusion, but he may need to go home with home oxygen. This patient was seen by Bharat Pelayo PA-C under the supervision of Doctor Adore. 05/28/181823 <Electronically signed by Bharat LANGFORD> Date Bharat LANGFORD 05/28/182110<Electronically signed by Burke Avitia DO> Cosigner Signature: Date (if applicable) Burke Avitia DO CC: No Primary Care Physician; PRIMITIVO Pelayo; Burke Avitia DO Signed THORACENTESIS W US Observed: 05/28/2018 Status: F Source: ULM 6:36 PM [facility] REPOSITORY [facility] Imaging Services [address] [place] [address] Thoracentesis W US MR#: [id number] Acct: [id number] Name: AZAEL MAR Rep #: [id number] : 1940 M 77 From: Gryason Keith MD PCP: Care Physician, No Primary Status: ADM NATALIE Study: Thoracentesis W US Date of Exam: 05/29/18 Exam# [id number] Ordering Dr: Burke Avitia DO PROCEDURE: ULTRASOUND GUIDED THORACENTESIS. DATE: May 29, 2018. INDICATION: Male, 77 years old. Left pleural effusion. PHYSICIAN: Grayson Keith M.D. PROCEDURE: The risks, benefits, and alternatives to the procedure were explained to the patient. The specific risks of bleeding, infection, and pneumothorax requiring chest tube insertion were discussed and accepted. Written informed consent was obtained. Ultrasonographic evaluation of the left lower pleural space was carried out. An adequate pocket was identified. The patient was placed in the sitting, upright position. The overlying skin was prepped and draped in sterile fashion. 1% lidocaine was administered subcutaneously for local anesthesia. Under ultrasound guidance, a 5 Arabic thoracentesis needle/catheter system was advanced into the left posterior lower pleural fluid collection. Approximately 90 mL of bloody fluid was drained. The catheter was removed, and a sterile dressing was applied. A specimen was collected and sent to the laboratory for analysis, as requested by the referring clinician. The patient tolerated the procedure well. A chest x-ray was ordered. US/Thoracentesis W US IMPRESSION: Ultrasound-guided left thoracentesis. Electronically Signed: Grayson Keith MD at 10:52 EST Tel [phone], Service support , CC: No Primary Care Physician; Burke Avitia DO Sports Activities Foul Judge: Signed EMERGENCY DEPARTMENT Observed: 05/28/2018 Status: F Source: ULM SUMMARY 4:45 PM [facility] REPOSITORY [facility] Medical Records Department [address] [place] [address] Emergency Department Summary 05/28/18 1444 MR#: [id number] Acct: [id number] Name: AAZEL MAR Bakari Rep #: [id number] : 1940 77 From: Naveen Castro MD PCP: Care Physician, No Primary Status: REG ER - ER Visit Summary Date of Service: 05/28/18 Chief Complaint: Shortness of breath History of Present Illness: The patient is a [address] [facility] with prior PR. Patient states that he fell approximately 8 days ago. He slipped on ice on his steps injuring his right rib cage. He was actually doing okay and then 4 days ago he fell again injuring now his left rib cage and since that time is been more short of breath. Denies any chest pain other than the rib cage pain. No history of DVT or PE. No recent hospitalization or surgery. He has chronic swelling in both legs and is not new. He denies any fever or new cough. No hemoptysis. He has never had a DVT or PE. Physical Examination: Older male. Vital signs are stable. Pulse ox 96% on room air no hypoxia. HEENT exam unremarkable atraumatic. Neck nontender. Lungs clear to auscultation. Heart regular rhythm rate about 100. No murmur. Abdomen morbidly obese but soft. Nontender normal bowel sounds no peritoneal signs. Patient moving all 4 extremities. His chronic lymphedema both lower extremities. Calves are nontender. Peripheral edema is equal symmetrical. Neurologically he is awake and alert with no focal motor deficits. Moving all 4 extremities. He does have bruising on his right lower chest and upper abdomen. Test Results: Obvious rib fractures. No pneumothorax. There is a small left pleural effusion. With atelectasis. Cannot rule out infiltrate. Read both by myself and the radiologist. CBC shows a white count of 7. H AND H of 13 and 42. No bands. Electrolytes are unremarkable other than creatinine 1.35. Patient has not been to this hospital for years I have no old labs or old EKG available for comparison. His troponin is normal. 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 Again I have no old EKG available for comparison. Emergency Department Course and Treatment: Patient be worked up for dyspnea. Multiple repeat exams patient is resting comfortable in bed. He will be ambulated to see how his pulse ox does without oxygen. He will also undergo a CTA of his chest clinically my suspicion for PE is very low. He does have risk factors due to his body habitus. I am more concerned with his shortness of breath and his left lower lobe pleural effusion on hope and the CAT scan can clarify that issue. Treatment Plan: I reviewed the patient's CT of his chest. He is got a moderate left pleural effusion most likely need to be drained. We are awaiting the official read to be turned over to him on the afternoon physicians. I will speak to the hospitalist about admission. Disposition: Admission Impression: Acute dyspnea Left lower pleural effusion This note was generated with [employer] software. It may contain incorrect words, spelling, and punctuation that were not noted in review of the chart prior to signing ED Disposition - Plan for ED Patient: Chief Complaint: Shortness of Breath Referrals: [facility] Doctor,Out of [NON-STAFF] - What to do if you have Problems For any increased pain, shortness of breath, bleeding, nausea or vomiting, chest pain, or any unexpected problems, contact your Primary Care Provider. Call [facility] ([phone]) or report to the closest Emergency Room. Call 911 if necessary. 05/28/18 1645 <Electronically signed by Naveen Castro MD> Date Naveen Castro MD Cosigner Signature (If Indicated): Date CC: No Primary Care Physician CTA CHEST W/WO Observed: 05/28/2018 Status: F Source: DARRYN CONTRAST 3:57 PM [facility] REPOSITORY [facility] Imaging Services [address] [place] [address] CTA Chest W/WO Contrast MR#: [id number] Acct: [id number] Name: AZAEL MAR Rep #: [id number] : 1940 M 77 From: Jerel Lieberman MD PCP: Care Physician, No Primary Status: REG ER Study: CTA Chest W/WO Contrast Date of Exam: 05/28/18 Exam# [id number] Ordering Dr: Naveen Castro MD STUDY: CTA CHEST REASON FOR EXAM: Male, 77 years old. Shortness of breath, left pleural effusion left-sided rib pain RADIATION DOSAGE (If Supplied By Facility): CTDIvol = ( 16.72 ) mGy, DLP = ( 657.99 ) mGycm TECHNIQUE: The examination was performed with the intravenous administration of 100CC ml of Isovue 370 contrast material. Post-processing of the angiographic images was performed, with multiplanar reformation and 3D reconstruction. Individualized dose optimization techniques were used for this CT. COMPARISON: None. FINDINGS: There is limited enhancement of the main pulmonary artery and right and left pulmonary arteries. There is limited enhancement of the bilateral peripheral pulmonary arteries. There is no demonstrated pulmonary embolism however, a filling defect could be present and overlooked in the distal vessels due to the suboptimal contrast.. Normal thoracic aorta and visualized great vessels. There is no demonstrated aortic dissection. Normal heart and pericardium. Normal mediastinum. Normal hilar regions. There is peribronchial thickening. The lungs are well expanded. Chronic interstitial changes noted in both lung robles with nonspecific left pleural thickening, and a free-flowing left pleural effusion. There is minimal bibasilar atelectasis. There is likely chronic elevation of the right hemidiaphragm. There are degenerative changes of thoracic spine. Limited cuts through the upper abdomen do not show a suspicious abnormality CT/CTA Chest W/WO Contrast IMPRESSION: No demonstrated PE, however, contrast bolus within the pulmonary arteries is not optimal No thoracic aortic aneurysm or dissection Chronic interstitial changes in both lung robles with nonspecific pleural thickening, free flowing left pleural effusion and minimal bibasilar atelectasis Degenerative bony changes Electronically Signed: Ruben Lieberman MD at 16:47 EST , Service support , CC: No Primary Care Physician; Naveen Castro MD Sports Activities Foul Judge: Signed CBC W/DIFF, AUTOMATED Collected: 05/28/2018 Status: F Source: DARRYN 3:15 PM [facility] REPOSITORY TYPE CODE TESTS RESULT OUT OF RANGE REFERENCE UNITS LAB L100.1000 4.4-11.0 K/mm3 Normal WBC 7.8 LAB L100.1200 4.6-6.2 M/mm3 Low RBC 3.97 LAB L100.1300 13.0-16.5 g/dl Normal HGB 13.9 LAB L100.1400 40-54 % Normal HCT 42.8 LAB L100.1500 80-94 fL High MCV 107.8 LAB L100.1600 27.0-32.0 pg High MCH 35.0 LAB L100.1700 32-36 g/gl Normal MCHC 32.5 LAB L100.1810 11.6-14.6 % Normal RDW CV 13.3 LAB L100.1820 35.1-43.9 fl High RDW SD 53.0 LAB L100.1900 150-450 K/mm3 Normal PLT 201 LAB L100.2000 6.2-12.0 fl Normal MPV 8.8 LAB L100.2100 47-70 % Normal NEUT% 59.9 LAB L100.2200 19-41 % Normal LY% 23.8 LAB L100.2300 0-10 % Normal MONO% 8.0 LAB L100.2400 0-5 % High EO% 7.7 LAB L100.2500 0-1 % Normal BASO% 0.3 LAB L100.2550 0.0-0.9 % Normal IM GRAN % 0.300 Result Comment: IG% - Immature Granulocytes (promyelocytes, myelocytes and metamyelocytes) > 1% indicates that a LEFT SHIFT is Present. LAB L100.2620 2.0-7.7 X10 3/uL Normal Absolute Neut 4.7 LAB L100.2720 0.83-4.51 X10 3/ul Normal Absolute Lymph 1.85 Performed By: #### L100.0100 #### [facility] [address] [place], [address] BASIC METABOLIC Collected: 05/28/2018 Status: F Source: ULM PROFILE ([facility]) 3:15 PM [facility] REPOSITORY TYPE CODE TESTS RESULT OUT OF RANGE REFERENCE UNITS LAB L501.0100 74-106 mg/dL High GLU 116 Result Comment: Fasting Glucose result from 100 to 125 mg/dL suggests IMPAIRED HOMEOSTASIS per A.D.A. criteria. Please note revised GLUCOSE reference range effective 2017. LAB L501.1000 7-18 mg/dL High BUN 23 LAB L501.1100 0.70-1.30 mg/dL High CREAT,SERUM 1.35 Result Comment: The validity of the calculated GFR AND GFRAA in patients over 70 years has not been determined. Clinical correlation is essential. LAB L501.1110 >60 mL/min Low EST GFR 55 Result Comment: Non- GFR Calc LAB L501.1115 >60 mL/min Normal EST GFR - AA 66 Result Comment: GFR Calc LAB L501.1255 ml/min Normal Estimated CRCL 45.04 LAB L501.1300 10-20 RATIO Normal BUN/CRE 17.0 LAB L501.2200 8.5-10 mg/dL Low .1 CA 8.3 LAB L501.5300 136-14 mmol/L Normal 5 NA 139 LAB L501.5600 3.5-5. mmol/L Normal 1 K 4.5 LAB L501.5900 98-107 mmol/L Normal CL 106 LAB L501.6100 21.0-3 mmol/L Normal 2.0 CO2 30.0 LAB L501.6200 5-15 Low GAP 3 Performed By: #### L500.2500, L501.4010 #### [facility] [address] [place], [place], [id number] TROPONIN-I Collected: 05/28/2018 Status: F Source: ULM 3:15 PM [facility] REPOSITORY TYPE CODE TESTS RESULT OUT OF RANGE REFERENCE UNITS LAB L501.4010 <0.045 ng/mL Normal < 0.015 TROPONIN-I Result Comment: TROPONIN-I EXPECTED VALUES <0.045 Negative 0.045 - 0.590 Consistent with Cardiac Damage > OR = 0.600 Critical Value Not every elevated troponin is indicative of PR. These values should be used with clinical judgement in examining the patient's clinical picture for diagnosis. To establish a diagnosis of PR versus myocardial injury, there must be a demonstrated rise and/or fall in the troponin values, in addition to ischemic symptoms, EKG changes, new regional wall motion abnormality, and/or angiographical evidence. PLEASE NOTE: REFERENCE RANGES EDITED 17 Performed By: #### L500.2500, L501.4010 #### [facility] [address] [place], [place], [id number] BNP,B-TYPE NATRIURETIC Collected: 05/28/2018 Status: F Source: ULM PEPTIDE 3:15 PM [facility] REPOSITORY TYPE CODE TESTS RESULT OUT OF RANGE REFERENCE UNITS LAB L503.6620 0-100 pg/mL Normal B-TYPE 40.2 RENATO PEP Performed By: #### L503.6620 #### [facility] [address] [place], [address] PROTHROMBIN TIME W/INR Collected: 05/28/2018 Status: F Source: ULM 3:15 PM [facility] REPOSITORY TYPE CODE TESTS RESULT OUT OF RANGE REFERENCE UNITS LAB L300.4150 11.7-14.9 SECONDS Normal PROTIME 14.3 LAB L300.4200 Normal INR 1.1 Performed By: #### L300.3900, L300.4310 #### [facility] [address] [place], [address] PARTIAL THROMBOPLAST Collected: 05/28/2018 Status: F Source: ULM TIME 3:15 PM [facility] REPOSITORY TYPE CODE TESTS RESULT OUT OF RANGE REFERENCE UNITS LAB L300.4310 24.1-36.2 Seconds Normal PTT 33.6 Performed By: #### L300.3900, L300.4310 #### [facility] [address] [place], [address] CHEST PA AND LATERAL Observed: 05/28/2018 Status: F Source: ULM 2:43 PM [facility] REPOSITORY [facility] Imaging Services [address] [place] [address] Chest PA and Lateral MR#: [id number] Acct: [id number] Name: AZAEL MAR Rep #: [id number] : 1940 M 77 From: Grayson Keith MD PCP: Care Physician, No Primary Status: REG ER Study: Chest PA and Lateral Date of Exam: 05/28/18 Exam# [id number] Ordering Dr: Naveen Castro MD STUDY: X-RAY CHEST REASON FOR EXAM: Male, 77 years old. Chest pain. TECHNIQUE: PA and lateral views of the chest. COMPARISON: None. FINDINGS: Small left pleural effusion with left basilar atelectasis and/or infiltrate. Blunting of the right costophrenic angle. There is borderline cardiomegaly. Normal mediastinum and mary jane. Normal visualized pulmonary arteries. Normal visualized aortic arch and descending thoracic aorta. Normal visualized thoracic spine. Normal visualized ribs, clavicles, and shoulders. There is no demonstrated abnormality of the visualized soft tissue structures of the upper abdomen. RAD/Chest PA and Lateral IMPRESSION: Small left pleural effusion with underlying left basilar infiltration and/or atelectasis. Blunting of the right costophrenic angle. Electronically Signed: Grayson Keith MD at 15:18 EST Tel [phone], Service support , CC: No Primary Care Physician; Naveen Castro MD Sports Activities Foul Judge: Signed ALLERGIES ALLERGIES DATE TYPE / CODE NAME / CODE REACTION SEVERITY SOURCE 07/03/2018 Drug cephalexin/F Rash Unknown [facility] Allergy/4160 101216461([facility] 23805(SNOMED NORM) Repository CT) Drug KEFLEX/03566 Moderate Gerardo Pomerene Allergy/4160 438(RXNORM) ([facility] [address]15(SNOMED Modifier) Repository CT) (Qualifier Value) ENCOUNTERS ENCOUNTERS ADMIT/DISCHARGE ACCOUNT ADMITTING ENCOUNTER LOCATION SOURCE NUMBER CLASS 07/03/2018/ [id number] Ambulatory BMSBuilding:B [place] 9 8 [place].[facility] Repository 06/19/2018/ [id number] [facility], Inpatient [place] Dar[place] [address] [facility] ing:HB1Doco: Repository JT346Sji: 1 06/19/2018 [id number] [facility] BMS[facility]:B [place] 5 Pako SHOOK.[facility] Repository 06/19/2018 [id number] [facility], [facility] BMSBuilding:B [place] 5 Pako SHOOK.[facility] Repository 06/19/2018 [id number] [facility], Ambulatory BMSBuilding:B [place] 0 Pako SHOOK.CF.[facility] Repository 06/19/2018 [id number] Agyepon, Ambulatory BMSBuilding:B Darryn 1 Pako SHOOK.[facility] Repository 06/19/2018 [id number] Agyepong, Ambulatory BMSBuilding:B [place] 4 Pako MS.CF.[facility] Repository 06/14/2018/ [id number] Ambulatory BMSBuilding:B [place] 9 1 MS.[facility] Repository 05/29/2018/ [id number] [place]re[place], Inpatient [place] 8 9 [place] Encounter [facility] Hospital ing:HA2Xisv: Repository [id number]: 1 05/29/2018 [id number] Tere[place]sky, Ambulatory BMSBuilding:B [place] 9 [place] MS.[facility] Repository 05/29/2018 [id number] Tere[place]sky, Ambulatory BMSBuilding:B [place] 0 [place] MS.CF.[facility] Repository 05/29/2018 [id number] Tereletsky, Ambulatory BMSBuilding:B [place] 6 [place] MS.[facility] Repository 05/29/2018 [id number] Ambulatory BMSBuilding:W [place] 5 [facility] Repository 05/28/2018 [id number] Tereletsky, Ambulatory BMSBuilding:B [place] 2 [place] MS.CF.[facility] Repository 05/28/2018 [id number] Tereletsky, Ambulatory BMSBuilding:B [place] 2 [place] MS.[facility] Repository 02/13/2018/ [id number] GARRISON, Ambulatory [address] Repository PAYERS PAYERS ENCOUNTER GUARANTOR PAYER SUBSCRIBER SOURCE 07/03/2018 AZAEL Villegas Primary AZAEL Cates [id number] N Insurance:MEDICARE [facility]: [facility] PART A BPolicy Number: [id number] Health [id number] [place]ository [place] [address]Kki: Date:2018-06-25 () 07/03/2018 Secondary AZAEL Cates [facility] Number: [id number] Hospital [id number] Repository Date:4144-94-15[address], [place] [address]UG: 07/03/2018 Tertiary NOT GIVENUNK [place] Insurance:SELF PAY [facility] Number: Effective Repository Date:2018-06-27 06/19/2018 AZAEL L Primary AZAEL L [place] [id number] N Insurance:MEDICARE [place]: Community JUNE PART A BPolicy Number: [id number] Health [id number] [place]ository [place] [address]Klg: Date:2018-06-19 () 06/19/2018 Secondary AZAEL L [place] Insurance:AARPPolicy SULLIVANDOB: Community Number: [id number] Hospital [id number] Repository Date:2141-95-22VY [address], [place] [address]RJ: 06/19/2018 Tertiary NOT GIVENUNK [place] Insurance:SELF PAY [facility] Number: Effective Repository Date:2018-06-19 06/19/2018 AZAEL L Primary AZAEL L [place] [id number] N Insurance:MEDICARE SULL[place]OB: Community JUNE PART A BPolicy Number: [id number] Health [id number] [place]ository [place] [address]Oye: Date:2018-06-19 () 06/19/2018 Secondary AZAEL L [place] Insurance:AARPPolicy SULLIVANDOB: Community Number: [id number] Hospital [id number] Repository Date:8034-02-60IR [address], [place] [address]GY: 06/19/2018 Tertiary NOT GIVENUNK [place] Insurance:SELF PAY [facility] Number: Effective Repository Date:2018-06-19 06/19/2018 AZAEL L Primary AZAEL L [place] [id number] N Insurance:MEDICARE [place]OB: Community JUNE PART A BPolicy Number: [id number] Health [id number] Repository [place] [address]Ilw: Date:2018-06-19 () 06/19/2018 Secondary AZAEL L [place] Insurance:AARPPolicy SULLIVANDOB: Community Number: [id number] Hospital [id number] Repository Date:8980-98-77YP [address], [place] [address]CF: 06/19/2018 Tertiary NOT GIVENUNK [place] Insurance:SELF PAY [facility] Number: Effective Repository Date:2018-06-19 06/19/2018 AZAEL L Primary AZAEL L [place] [id number] N Insurance:MEDICARE [place]OB: Community JUNE PART A BPolicy Number: [id number] Health [id number] [place]ository [place] [address]Rty: Date:2018-06-19 () 06/19/2018 Secondary AZAEL L [place] Insurance:AARPPolicy SULLIVANDOB: Community Number: [id number] Hospital [id number] Repository Date:3513-59-90[address], [place] [address]CR: 06/19/2018 Tertiary NOT GIVENUNK [place] Insurance:SELF PAY [facility] Number: Effective Repository Date:2018-06-19 06/19/2018 AZAEL L Primary AZAEL L [place] [id number] N Insurance:MEDICARE [place]OB: Community JUNE PART A BPolicy Number: [id number] Health [id number] Repository [place] [address]Fat: Date:2018-06-19 () 06/19/2018 Secondary AZAEL L [place] Insurance:AARPPolicy SULLIVANDOB: Community Number: [id number] Hospital [id number] Repository Date:7299-83-38EL [address], [place] [address]IX: 06/19/2018 Tertiary NOT GIVENUNK [place] Insurance:SELF PAY [facility] Number: Effective Repository Date:2018-06-19 06/19/2018 AZAEL L Primary AZAEL L [place] [id number] N Insurance:MEDICARE [place]OB: Community JUNE PART A BPolicy Number: [id number] Health [id number] [place]ository [place] [address]Ovp: Date:2018-06-19 () 06/19/2018 Secondary AZAEL L [place] Insurance:AARPPolicy SULLIVANDOB: Community Number: [id number] Hospital [id number] Repository Date:0251-10-35[address], [place] [address]PX: 06/19/2018 Tertiary NOT GIVENUNK [place] Insurance:SELF PAY [facility] Number: Effective Repository Date:2018-06-19 06/14/2018 AZAEL L Primary AZAEL L [place] [id number] N Insurance:MEDICARE [place]OB: Community JUNE PART A BPolicy Number: [id number] Health [id number] [place]ository [place] [address]Qsi: Date:2018-06-04 () 06/14/2018 Secondary AZAEL L [place] Insurance:AARPPolicy SULLIVANDOB: Community Number: [id number] Hospital [id number] Repository Date:0001-26-90HR [address], [place] [address]EB: 06/14/2018 Tertiary NOT GIVENUNK [place] Insurance:SELF PAY [facility] Number: Effective Repository Date:2018-06-11 05/29/2018 AZAEL L Primary AZAEL L [place] [id number] N Insurance:MEDICARE [place]ULL[place]OB: Community JUNE PART A BPolicy Number: [id number] Health [id number] [place]ository [place] [address]Jwe: Date:2018-05-28 () 05/29/2018 Secondary AZAEL L [place] Insurance:AARPPolicy SULLIVANDOB: Community Number: [id number] Hospital [id number] Repository Date:3680-73-54KI [address], [place] [address]HS: 05/29/2018 Tertiary NOT GIVENUNK [place] Insurance:SELF PAY [facility] Number: Effective Repository Date:2018-05-28 05/29/2018 AZAEL L Primary AZAEL L [place] [id number] N Insurance:MEDICARE [place]ULL[place]OB: Community JUNE PART A BPolicy Number: [id number] Health [id number] [place]ository [place] [address]Cvm: Date:2018-05-28 () 05/29/2018 Secondary AZAEL L [place] Insurance:AARPPolicy SULLIVANDOB: Community Number: [id number] Hospital [id number] Repository Date:0462-12-13KD [address], [place] [address]WM: 05/29/2018 Tertiary NOT GIVENUNK [place] Insurance:SELF PAY [facility] Number: Effective Repository Date:2018-05-29 05/29/2018 AZAEL L Primary AZAEL L [place] [id number] N Insurance:MEDICARE [place]OB: Community JUNE PART A BPolicy Number: [id number] Health [id number] [place]ository [place] [address]Aax: Date:2018-05-28 () 05/29/2018 Secondary AZAEL L [place] Insurance:AARPPolicy SULLIVANDOB: Community Number: [id number] Hospital [id number] Repository Date:3919-61-03SP [address], [place] [address]KY: 05/29/2018 Tertiary NOT GIVENUNK [place] Insurance:SELF PAY [facility] Number: Effective Repository Date:2018-05-29 05/29/2018 AZAEL L Primary AZAEL L [place] [id number] N Insurance:MEDICARE [place]OB: Community JUNE PART A BPolicy Number: [id number] Health [id number] Repository [place] [address]Akl: Date:2018-05-28 () 05/29/2018 Secondary AZAEL L [place] Insurance:AARPPolicy SULLIVANDOB: Community Number: [id number] Hospital [id number] Repository Date:5858-89-89GV [address], [place] [address]QT: 05/29/2018 Tertiary NOT GIVENUNK [place] Insurance:SELF PAY [facility]: Effective Repository Date:2018-05-29 05/29/2018 AZAEL L Primary AZAEL L [place] [id number] N Insurance:MEDICARE SULL[place]OB: Community JUNE PART A BPolicy Number: [id number] Health [id number] [place]ository [place] [address]Skp: Date:2018-05-28 () 05/29/2018 Secondary AZAEL L [place] Insurance:AARPPolicy SULLIVANDOB: Community Number: [id number] Hospital [id number] Repository Date:3420-83-02YX [address], [place] [address]TH: 05/29/2018 Tertiary NOT GIVENUNK [place] Insurance:SELF PAY [facility] Number: Effective Repository Date:2018-05-29 05/28/2018 AZAEL L Primary AZAEL L [place] [id number] N Insurance:MEDICARE [place]ULL[place]OB: Community JUNE PART A BPolicy Number: [id number] Health [id number] Repository [place] [address]Cst: Date:2018-05-28 () 05/28/2018 Secondary AZAEL L [place] Insurance:AARPPolicy SULLIVANDOB: Community Number: [id number] Hospital [id number] Repository Date:1139-92-23HR [address], [place] [address]AA: 05/28/2018 Tertiary NOT GIVENUNK [place] Insurance:SELF PAY [facility] INSURANCEPolicy Hospital Number: Effective Repository Date:2018-05-28 05/28/2018 AZAEL L Primary AZAEL L [place] [id number] N Insurance:[facility] PART A olicy Number: [id number], [id number] [place]ository [place] [address]Fle: Date:2018-05-28 () 05/28/2018 Secondary AZAEL L [place] Insurance:AARolicy [facility]: Community Number: [id number] Hospital [id number] Repository Date:9716-57-34ZU [address]PGYQLY, [place] [address]WO: 05/28/2018 Tertiary NOT GIVENUNK [place] Insurance:SELF PAY [facility] Number: Effective Repository Date:2018-05-28 02/13/2018 AZAEL Primary Insurance:AARP AZAEL [place] [facility] N Number: [id number] [facility] [id number] [facility] Repository #AMIL, Date: [facility] [phone] [phone]: ()
== END 2018-05-30 15:37 | disposition home or self-care (01) | DRG 187 ==
LOC: ED 15:11 → MS3 18:06
PROVIDERS: Admitting Provider Internal Medicine; Emergency Provider Emergency Medicine; Referring Provider Internal Medicine; Visit Provider Internal Medicine
DX: J90 Pleural effusion, not elsewhere classified (principal); Z68.43 Body mass index [BMI] 50.0-59.9, adult; E66.01 Morbid (severe) obesity due to excess calories; I25.10 Atherosclerotic heart disease of native coronary artery without angina pectoris; M19.90 Unspecified osteoarthritis, unspecified site; G47.33 Obstructive sleep apnea (adult) (pediatric); I25.2 Old myocardial infarction; I87.8 Other specified disorders of veins; F32.9 Major depressive disorder, single episode, unspecified; N18.3 Chronic kidney disease, stage 3 (moderate); I12.9 Hypertensive chronic kidney disease with stage 1 through stage 4 chronic kidney disease, or unspecified chronic kidney disease; W10.9XXA Fall (on) (from) unspecified stairs and steps, initial encounter; Y92.019 Unspecified place in single-family (private) house as the place of occurrence of the external cause
CPT/HCPCS: 32555; 36415; 71046; 71275; 80048; 80076; 82945; 83615; 83880; 83986; 84157; 84484; 85025; 85610; 85730; 87070; 87075; 87205; 88161; 88172; 88305; 88313; 89050; 93005; 93306; 94660; 97802; 99282; Q9957; Q9967; A4216; C8929

== ENCOUNTER 2018-06-19 17:07 | Inpatient (IN) | payer MEDICARE, OTHER, SELFPAY ==
[2018-06-14 08:52] VITALS: BMI 51.5
[2018-06-19] VITALS (12 sets, daily range): BP systolic 144–161; BP diastolic 68–92; PULSE 81–92; RESP 16–26; TEMP 36.4–36.6; O2SAT 93–98; BMI 51.5
--- NOTE | 2018-06-19 17:48 | EKG12_ITS ---
Test Reason : SOB Blood Pressure : / mmHG Vent. Rate : 088 BPM Atrial Rate : 088 BPM P-R Int : 184 ms QRS Dur : 140 ms QT Int : 410 ms P-R-T Axes : 022 215 018 degrees QTc Int : 496 ms Normal sinus rhythm Right bundle branch block Inferior infarct , age undetermined Abnormal ECG Confirmed by PAULINA HAMMOND, MATT ([id number]), commercial production editor JUAN R ALLEN ([id number]) on 06/25/2018 9:52:34 AM Referred By: Pako Welch Confirmed By:MATT GALLARDO MD
--- NOTE | 2018-06-19 17:48 | RAD_ITS ---
STUDY: X-RAY CHEST REASON FOR EXAM: Male, 77 years old. Shortness of breath TECHNIQUE: Frontal and lateral views of the chest COMPARISON: 03/29/2018 FINDINGS: There is a moderate left pleural effusion with overlying atelectasis. The lungs are otherwise clear. There is no right-sided effusion. There is no pneumothorax. The heart is normal in size. The visualized osseous structures are within normal limits. RAD/Chest PA and Lateral IMPRESSION: Moderate left pleural effusion with overlying atelectasis. Electronically Signed: Erik Rea, at 19:09 EST Tel , Service support ,
[2018-06-19] MEDS: Ipratropium/Albuterol Sulfate 3 ML AMPUL.NEB INHALATION (18:04)
[2018-06-19 18:13] LABS: Absolute Lymphocyte Count 1.78 X10^3/ul (0.83-4.51); Basophil# 0.03 X10^3/uL; Basophil% 0.4 % (0-1); Eosinophil# 0.26 X10^3/uL; Eosinophils% 3.3 % (0-5); Hematocrit 43.3 % (40-54); Hemoglobin 13.8 g/dl (13.0-16.5); Lymphocyte # 1.78 X10^3/ul (4.0); Lymphocyte % 22.6 % (19-41); Mean Corp Hgb Conc 31.9 g/gl (32-36); Mean Corpuscular Hgb 34.9 pg (27.0-32.0); Mean Corpuscular Volume 109.6 fL (80-94); Mean Platelet Vol. 8.8 fl (6.2-12.0); Monocyte# 0.79 X10^3/uL; Neutrophil # 4.96 X10^3/uL (2.7-7.7); Neutrophil % 63.1 % (47-70); POSITIVE COUNT NO; POSITIVE DIFFERENTIAL NO; POSITIVE MORPHOLOGY NO; Platelet Count 208 K/mm3 (150-450); RBC Distribution Width CV 13.7 % (11.6-14.6); RBC Distribution Width SD 54.6 fl (35.1-43.9); Red Blood Count 3.95 M/mm3 (4.6-6.2); White Blood Count 7.9 K/mm3 (4.4-11.0)
[2018-06-19 18:38] LABS: ALB/GLOB Ratio 0.6 RATIO (0.9-2.4); AST(SGOT) 31 U/L (15-37); Alanine Aminotransfer ALT/SGPT 46 U/L (16-61); Albumin, Serum 3.1 g/dL (3.2-5.0); Alkaline Phosphatase 70 U/L (45-117); Anion Gap 7 (5-15); BUN 19 mg/dL (7-18); BUN/Creat Ratio 12.7 RATIO (10-20); Calcium,Total 8.5 mg/dL (8.5-10.1); Chloride 100 mmol/L (98-107); EST Glomerular Filtration Rate 48 mL/min (>60); Est Glom Filt Rate - Afr Amer 58 mL/min (>60); Estimated Creatinine Clearance 40.53 ml/min; Glucose 116 mg/dL (74-106); Potassium 4.3 mmol/L (3.5-5.1); Protein, Total 8.1 g/dL (6.4-8.2); Sodium Level 137 mmol/L (136-145)
[2018-06-19 19:10] LABS: BNP,B-Type NATRIURETIC PEPTIDE 31.4 pg/mL (0-100)
[2018-06-19 19:41] LABS: Mucous, Urine 0 SEEN /hpf (<or=2+); Red Blood Cells-Urine 0 SEEN /hpf (0-5); Squamous Epithelial Cells - UA 0 SEEN /hpf (0-5)
[2018-06-19 19:44] LABS: Color, Urine Yellow (Yellow); Glucose, Dipstick Normal (Normal); Ketone-Dipstick 5 mg/dl (Negative); Leukocyte Esterase-Dipstick 25 /ul (Negative); Nitrite-Dipstick Negative (Negative); Occult Blood-Urine Negative /ul (Negative); Protein-Dipstick Negative (Negative); Specific Gravity, Urine 1.025 (1.002-1.030); Urine Bilirubin Dipstick Negative (Negative); Urine Clarity Clear (Clear); Urine Urobilinogen Normal (Normal)
[2018-06-19 20:04] LABS: Bacteria RARE /hpf (None Seen); White Blood Cells 0-5 SEEN /hpf (0-5)
--- NOTE | 2018-06-19 22:16 | HP.PCM_ITS ---
Problem List (1) Pleural effusion Status: Acute (2) MEGHANA (obstructive sleep apnea) Status: Chronic History of Present Illness Date of Admission: 06/20/18 Chief Complaint: shortness of breath The patient is a 77 year old M with a significant history of sleep apnea; and peptic ulcer disease who was admitted at our hospital on 05/28/2018 and discharged on 05/30/2018 after undergoing left sided thoracentesis for pleural effusion now presenting with persistent shortness of breath with exertion. Patient reported that his symptoms has been going on for about 5-6 weeks and after undergoing a previous thoracentesis as stated above his symptoms are still not resolved. Associated with his symptoms is lightheadedness and near syncope. Further he reports dry cough. Emergency department doctor reported that while at [facility] ED on room air patient's oxygen was 89%; and with walking to the emergency department his oxygen saturation dropped to 86-87%. Past Medical History Past Medical History (Chronic Problems): Chronic Problems (Last Reviewed 06/14/18 @ 14:12 by Talia La NP-C) Chronic venous stasis (Chronic) Morbid obesity (Chronic) MEGHANA (obstructive sleep apnea) (Chronic) Osteoarthritis (Chronic) NSAID-induced gastric ulcer (Chronic) Medical History: Medical History (Last Reviewed 06/20/18 @ 04:44 by Pako Welch MD) History of bleeding ulcers (Resolved) Z87.11 Pleural effusion (Acute) J90 Chronic venous stasis (Chronic) I87.8 Morbid obesity (Chronic) E66.01 MEGHANA (obstructive sleep apnea) (Chronic) G47.33 Osteoarthritis (Chronic) M19.90 NSAID-induced gastric ulcer (Chronic) K25.9, T39.395A Allergies cephalexin [From Keflex] Allergy (Verified 06/19/18 17:11) Rash Home Medications: Ambulatory Orders Medication Instructions Recorded buPROPion XL [Wellbutrin Xl] 150 mg PO DAILY 05/29/18 Surgical History: Surgical History (Last Reviewed 06/20/18 @ 04:44 by Pako Welch MD) History of hip replacement (Resolved) Z96.649 Surgical History: total hip arthroplasty Psychiatric History: No pertinent psych hx Lives: Alone Smoking Status: Never smoker - *Family History Maternal History Items: Diabetes Paternal History Items: Cancer - bladder Review of Systems Constitutional: Denies: Chills, Fever, Weight Change HEENT: Denies: Head Aches, Sinus Congestion, Sinus Drainage Cardiovascular: Reports: Light Headedness. Denies: Chest Pain, Palpitations Respiratory: Reports: Cough, Shortness of breath upon exertion. Denies: Shortness of breath at rest, Sputum production Gastrointestinal: Denies: Abdominal Pain, Nausea, Vomiting Genitourinary: Denies: Dysuria Musculoskeletal: Denies: Joint Pain, Joint Tenderness Skin: Denies: Rash, Wounds Neurological: Denies: Numbness, Tingling, Focal weakness Psychiatric: Denies: Anxiety, Depression, Homicidal Ideations, Suicidal Ideations Hematologic/ Lymphatic: Denies: Easy Bruising, Easy Bleeding VTE Information - Inpt Only VTE Present on Admission: No VTE Mechan Device Prophylaxis: SCD's VTE Pharm Prophylaxis ordered?: No Patient Problems: Active and Suspected Problems (Last Reviewed 06/14/18 @ 14:12 by Talia La NP-C) Hypoxemia (Acute) Pleural effusion (Acute) - Physical Exam General: Alert, Oriented x3, Cooperative HEENT: Atraumatic, PERRLA, EOMI, Normocephalic Neck: Supple, No JVD, Negative Carotid Bruits Lungs: Diminished - Bilateral lung robles Cardiovascular: Regular rate, No murmurs Abdomen: Bowel Sounds Present, Soft, Non Tender Extremities: No edema, Capillary Refill Less than 3 Seconds Skin: No rashes, No breakdown Musculoskeletal: No Tenderness to Palpation of Joints or Extremities Neurological: Neuro grossly intact Psych/Mental Status: Normal Affect, Appropriate Vital Signs Temp Pulse Resp BP Pulse Ox 97.8 F 87 16 154/68 H 96 06/19/18 21:00 06/19/18 21:00 06/19/18 21:00 06/19/18 21:00 06/19/18 21:38 Oxygen Flow Rate (L/min) 2 Oxygen Delivery Method Nasal Cannula Weight: 153.768 kg Body Mass Index (BMI) 51.5 Laboratory Tests Past 24 Hrs 06/19/18 06/19/18 06/19/18 18:05 18:05 18:05 WBC 7.9 RBC 3.95 L Hgb 13.8 Hct 43.3 MCV 109.6 H MCH 34.9 H MCHC 31.9 L RDW 13.7 RDW Differential 54.6 H Plt Count 208 MPV 8.8 Immature Gran % (Auto) 0.600 Neut % (Auto) 63.1 Lymph % (Auto) 22.6 [place] % (Auto) 10.0 Eos % (Auto) 3.3 Baso % (Auto) 0.4 Absolute Neuts (auto) 5.0 Absolute Lymphs (auto) 1.78 Total Counted Not Reportable Sodium 137 Potassium 4.3 Chloride 100 Carbon Dioxide 30.0 Anion Gap 7 BUN 19 H Creatinine 1.50 H Estim Creat Clear Calc 40.53 Est GFR (MDRD) Af Amer 58 L Est GFR (MDRD) Non-Af 48 L BUN/Creatinine Ratio 12.7 Glucose 116 H Calcium 8.5 Total Bilirubin 0.70 AST 31 ALT 46 Alkaline Phosphatase 70 B-Natriuretic Peptide 31.4 Total Protein 8.1 Albumin 3.1 L Globulin 5.0 H Albumin/Globulin Ratio 0.6 L Urine Color Urine Clarity Urine pH Ur Specific [place] Urine Protein Urine Glucose (UA) Urine Ketones Urine Occult Blood Urine Nitrite Urine Bilirubin Urine Urobilinogen Ur Leukocyte Esterase Urine RBC Urine WBC Ur Squamous Epith Cells Urine Bacteria Urine Mucus 06/19/18 19:30 WBC RBC Hgb Hct MCV MCH MCHC RDW RDW Differential Plt Count MPV Immature Gran % (Auto) Neut % (Auto) Lymph % (Auto) [place] % (Auto) Eos % (Auto) Baso % (Auto) Absolute Neuts (auto) Absolute Lymphs (auto) Total Counted Sodium Potassium Chloride Carbon Dioxide Anion Gap BUN Creatinine Estim Creat Clear Calc Est GFR (MDRD) Af Amer Est GFR (MDRD) Non-Af BUN/Creatinine Ratio Glucose Calcium Total Bilirubin AST ALT Alkaline Phosphatase B-Natriuretic Peptide Total Protein Albumin Globulin Albumin/Globulin Ratio Urine Color Yellow Urine Clarity Clear Urine pH 6.0 Ur Specific [place] 1.025 Urine Protein Negative Urine Glucose (UA) Normal Urine Ketones 5 H Urine Occult Blood Negative Urine Nitrite Negative Urine Bilirubin Negative Urine Urobilinogen Normal Ur Leukocyte Esterase 25 H Urine RBC 0 SEEN Urine WBC 0-5 SEEN Ur Squamous Epith Cells 0 SEEN Urine Bacteria RARE Urine Mucus 0 SEEN Assessment/Plan All Active Problems (Last Reviewed 06/14/18 @ 14:12 by Talia La, THUAN-C) Hypoxemia (Acute) History of bleeding ulcers (Resolved) History of hip replacement (Resolved) Pleural effusion (Acute) The patient is a 77 year old M with a significant history of peptic ulcer disease who was admitted at our hospital on 05/28/2018 and discharged on 05/30/2018 after undergoing left sided thoracentesis for pleural effusion now presenting with persistence shortness of breath with exertion and found to have a recurrence of the left pleural effusion. Acute hypoxemic respiratory failure secondary recurrent left pleural effusion Emergency department doctor reported that was on room air patient was 89%; and with walking to the emergency department his oxygen saturation dropped to 86- 87%. On his last admission on 05/28/2018 to 05/30/2018 patient had left-sided thoracentesis that showed exudative pleural effusion with negative cytology for malignancy. At that time his pleural effusion was attributed to a recent fall. Will order a repeat ultrasound thoracentesis of left lung. Pleural studies including cytology ordered. Consider CT scan after thoracentesis. Will order PT/INR and keep patient n.p.o. for preparation for thoracentesis. We will give him scheduled DuoNeb and as needed albuterol to see whether there is any benefit from it. Probable NILA His creatinine on admission was 1.50 On admission on 05/28/2018 his creatinine was 1.35. At that time there was no baseline creatinine to compare with. It is also possible that patient has CKD. We will start on gentle IV fluid especially as patient is going to be n.p.o. for test. Trend BMP. Obstructive sleep apnea CPAP continued. DVT prophylaxis SCD ordered. No chemoprophylaxis in view ordered ultrasound thoracentesis. Code Visit Inpatient E&M: 30309 Init Hosp L3
[2018-06-20] VITALS (16 sets, daily range): BP systolic 109–153; BP diastolic 67–91; PULSE 76–103; RESP 16–28; TEMP 36.1–36.8; O2SAT 92–99; BMI 50.7; BMI 50.8
--- NOTE | 2018-06-20 | FLU_PTH ---
PATIENT: AZAEL MAR LOC: MS2 U#:[id number] AGE/SX: 77/M ROOM: [facility] RE06/19/[address]: Dr. Edna Coello MD : [id number] BED: 1 DIS: 06/21/2018 SPEC #: [id number] RECD: 06/20/18 15:03 STATUS: GEETHA REChester #: [id number] CROW: 06/20/18 00:[address]: Edna Coello DEPT: CYTOLOGY RECD BY: Tim Franks ENTERED: 06/20/18 15:03 SP TYPE: Fluid OTHR DR: MD Dr. Pako Drummond MD No Primary Care Phys Tissues: Pleural fluid, NOS Procedures: Pap Stain (control) Special Stain Group II Surgery Specimen Level IV Cell Block Cytospin Fluid HEADER OPERATION: Ultrasound-guided thoracentesis PRE-OP DIAGNOSIS: Left pleural effusion TISSUE SUBMITTED: Thoracentesis fluid for cytology DIAGNOSIS CYTOLOGY Thoracentesis fluid for cytology (cytospin and cell block): Negative for malignant cells. See cytology study and comment. SJ:rg 06/21/18 COMMENT Clinical correlation and appropriate follow up are necessary. Please make reference to previous specimen ([id number]) thoracentesis fluid for cytology with diagnosis of negative for malignant cells. CYTOLOGY STUDY Slides are reviewed. The specimen predominantly consists of small lymphocytes, a few macrophages and mesothelial cells. CYTOLOGY GROSS Received is 110 ml of red fluid labeled with the patient's name and and designated per the requisition as thoracentesis. Submitted for cytology preparation including cell block. 06/20/18 TC:5 CPT: 64872, 19966
--- NOTE | 2018-06-20 00:32 | US_ITS ---
PROCEDURE: ULTRASOUND GUIDED THORACENTESIS. DATE: June 20, 2018.. INDICATION: Male, 77 years old. Left pleural effusion. PHYSICIAN: Grayson Keith M.D. PROCEDURE: The risks, benefits, and alternatives to the procedure were explained to the patient. The specific risks of bleeding, infection, and pneumothorax requiring chest tube insertion were discussed and accepted. Written informed consent was obtained. Ultrasonographic evaluation of the left lower pleural space was carried out. An adequate pocket was identified. The patient was placed in the sitting, upright position. The overlying skin was prepped and draped in sterile fashion. 1% lidocaine was administered subcutaneously for local anesthesia. Under ultrasound guidance, a 5 [place] thoracentesis needle/catheter system was advanced into the left posterior lower pleural fluid collection. Approximately 170 mL of bloody fluid was drained. The catheter was removed, and a sterile dressing was applied. A specimen was collected and sent to the laboratory for analysis, as requested by the referring clinician. The patient tolerated the procedure well. A chest x-ray was ordered. US/Thoracentesis W US IMPRESSION: Ultrasound-guided left thoracentesis. Electronically Signed: Grayson Keith MD at 14:50 EST Tel [phone], Service support ,
--- NOTE | 2018-06-20 01:16 | ED.DCSUM_ITS ---
- ER Visit Summary Date of Service: 06/20/18 Chief Complaint: Shortness of breath History of Present Illness: The patient is a 77 M who presents with shortness of breath that has been getting worse over the past couple weeks. Patient states his breathing is worse with any exertion. Patient admits to a cough but denies any sputum. Patient denies any fevers or chills. Patient denies any chest pain. Patient admits to some lightheadedness with coughing and with walking. Patient denies any nausea or vomiting. Patient denies any lower extremity edema. Physical Examination: Vital signs are stable. Patient is afebrile. Patient is in no acute distress. Oral mucosa is pink and moist. Neck is supple. Trachea is midline. There is no JVD noted. Heart was regular rate and rhythm. Lungs showed mild expiratory wheezing. There is good respiratory effort noted. Abdomen is soft. Bowel sounds are normal. There is no tenderness noted. Cranial nerves II through XII are intact. There are no focal motor or sensory deficits noted. Extremities showed trace edema of the lower extremities bilaterally. Pedal pulses are equal bilaterally. Test Results: EKG showed normal sinus rhythm with a rate of 88. There is a right bundle branch block pattern noted. There are no acute ST or T wave changes. This was unchanged compared to previous EKG dated 05/28/2018. PA and lateral chest x-ray shows a moderate effusion on the left. There is no other acute process noted. CBC and urinalysis were normal. Basic metabolic profile shows slightly elevated creatinine of 1.5 and a BUN of 19. The remaining labs are within normal limits. Emergency Department Course and Treatment: Patient was given a DuoNeb aerosol here. Patient was ambulated in the emergency department without oxygen and his oxygen saturations dropped to 87% on room air with ambulation. Case was discussed with Dr. Welch. He will be in to evaluate the patient and admit the patient to his service. Patient understood and was agreeable with the plan. All questions were answered. Disposition: Admit to hospital Impression: 1. Hypoxia 2. Left pleural effusion This note was generated with [employer]te[employer] software. It may contain incorrect words, spelling, and punctuation that were not noted in review of the chart prior to signing ED Disposition - Plan for ED Patient: Disposition: Acute Care Hospital [facility] Chief Complaint: Shortness of Breath Diagnosis: Pleural effusion, Hypoxemia
[2018-06-20] MEDS: 0.9% Normal Saline 1,000 ML 75 ML IV ×2 (04:53→19:15)
[2018-06-20 06:05] LABS: International Normalized Ratio 1.1; Prothrombin Time (Protime)PT. 14.5 SECONDS (11.7-14.9)
[2018-06-20 06:50] LABS: ALB/GLOB Ratio 0.6 RATIO (0.9-2.4); Anion Gap 9 (5-15); BUN 20 mg/dL (7-18); Calcium,Total 8.2 mg/dL (8.5-10.1); Chloride 104 mmol/L (98-107); Creatinine, Serum 1.54 mg/dL (0.70-1.30); EST Glomerular Filtration Rate 47 mL/min (>60); Est Glom Filt Rate - Afr Amer 57 mL/min (>60); Estimated Creatinine Clearance 39.48 ml/min; Globulin 4.4 g/dL (2.2-4.2); Glucose 89 mg/dL (74-106); LDH 194 U/L (87-241); Potassium 4.6 mmol/L (3.5-5.1); Protein, Total 6.9 g/dL (6.4-8.2); Sodium Level 142 mmol/L (136-145)
[2018-06-20] MEDS: Ipratropium/Albuterol Sulfate 3 ML AMPUL.NEB INHALATION ×4 (06:55→19:00)
--- NOTE | 2018-06-20 09:52 | PCM.PROGNOTE ---
Patient Problems: Active and Suspected Problems (Last Reviewed 06/20/18 @ 04:44 by Pako Welch MD) Hypoxemia (Acute) Pleural effusion (Acute) Subjective: Chief complaint: Follow-up after admission for recurrent pleural effusion, acute hypoxic respiratory failure and renal insufficiency. Patient seen and examined. No acute events overnight. He states that his breathing is almost the same, no significant improvement. Still complaining of cough without sputum production. Denies fever chills. Denied orthopnea, PND or leg edema. He is afebrile, blood pressure and heart rate are stable, pulse ox is 96% on 3 L. - Physical Exam General: Alert, Cooperative, - - Minimally short of breath. HEENT: Atraumatic, PERRLA, EOMI, Normocephalic Oral: Moist Mucosa, No Gingival or Mucosal Lesions/ Ulcerations Neck: Supple, No JVD, Negative Carotid Bruits, Trachea Midline, Thyroid Normal Size and Texture Lungs: No rales, Diminished, Rhonchi, Short of Breath, - - Markedly decreased breath sounds on the left base, scattered rhonchi. Cardiovascular: Regular rate, Regular Rhythm, Normal S1, Normal S2, PMI Normal Abdomen: Bowel Sounds Present, Soft, Non Tender, Non-Distended, No Hepato-splenomegaly, Obese Extremities: No clubbing, No cyanosis, Edema - Trace edema, stasis dermatitis. Skin: No rashes, No breakdown Lymphatic: No Cervical, Supraclavicular, or Inguinal Adenopathy Neurological: Cranial nerves II-XII grossly intact, Motor Exam 5/5 strength throughout Psych/Mental Status: Normal Affect, Appropriate, Alert and oriented to time, place, person, mood and affect Vital Signs Temp Pulse Resp BP Pulse Ox 98.0 F 89 18 140/72 H 96 06/20/18 07:45 06/20/18 07:45 06/20/18 07:45 06/20/18 07:45 06/20/18 07:45 Oxygen Flow Rate (L/min) 2 Oxygen Delivery Method Nasal Cannula Weight: 333 lb 12.478 oz Body Mass Index (BMI) 50.7 Intake and Output for Last 24 Hours 06/18/18 06/19/18 06/20/18 23:59 23:59 23:59 Intake Total 75.2 / 75.2 Balance 75.2 / 75.2 Laboratory Tests Past 24 Hrs 06/19/18 06/19/18 06/19/18 18:05 18:05 18:05 WBC 7.9 RBC 3.95 L Hgb 13.8 Hct 43.3 MCV 109.6 H MCH 34.9 H MCHC 31.9 L RDW 13.7 RDW Differential 54.6 H Plt Count 208 MPV 8.8 Immature Gran % (Auto) 0.600 Neut % (Auto) 63.1 Lymph % (Auto) 22.6 [place] % (Auto) 10.0 Eos % (Auto) 3.3 Baso % (Auto) 0.4 Absolute Neuts (auto) 5.0 Absolute Lymphs (auto) 1.78 Total Counted Not Reportable PT INR Sodium 137 Potassium 4.3 Chloride 100 Carbon Dioxide 30.0 Anion Gap 7 BUN 19 H Creatinine 1.50 H Estim Creat Clear Calc 40.53 Est GFR (MDRD) Af Amer 58 L Est GFR (MDRD) Non-Af 48 L BUN/Creatinine Ratio 12.7 Glucose 116 H Calcium 8.5 Total Bilirubin 0.70 AST 31 ALT 46 Alkaline Phosphatase 70 Lactate Dehydrogenase Troponin I B-Natriuretic Peptide 31.4 Total Protein 8.1 Albumin 3.1 L Globulin 5.0 H Albumin/Globulin Ratio 0.6 L Urine Color Urine Clarity Urine pH Ur Specific [place] Urine Protein Urine Glucose (UA) Urine Ketones Urine Occult Blood Urine Nitrite Urine Bilirubin Urine Urobilinogen Ur Leukocyte Esterase Urine RBC Urine WBC Ur Squamous Epith Cells Urine Bacteria Urine Mucus 06/19/18 06/19/18 06/20/18 18:05 19:30 05:40 WBC RBC Hgb Hct MCV MCH MCHC RDW RDW Differential Plt Count MPV Immature Gran % (Auto) Neut % (Auto) Lymph % (Auto) [place] % (Auto) Eos % (Auto) Baso % (Auto) Absolute Neuts (auto) Absolute Lymphs (auto) Total Counted PT INR Sodium 142 Potassium 4.6 Chloride 104 Carbon Dioxide 29.0 Anion Gap 9 BUN 20 H Creatinine 1.54 H Estim Creat Clear Calc 39.48 Est GFR (MDRD) Af Amer 57 L Est GFR (MDRD) Non-Af 47 L BUN/Creatinine Ratio 13.0 Glucose 89 Calcium 8.2 L Total Bilirubin AST ALT Alkaline Phosphatase Lactate Dehydrogenase 194 Troponin I < 0.015 B-Natriuretic Peptide Total Protein 6.9 Albumin Globulin 4.4 H Albumin/Globulin Ratio 0.6 L Urine Color Yellow Urine Clarity Clear Urine pH 6.0 Ur Specific [place] 1.025 Urine Protein Negative Urine Glucose (UA) Normal Urine Ketones 5 H Urine Occult Blood Negative Urine Nitrite Negative Urine Bilirubin Negative Urine Urobilinogen Normal Ur Leukocyte Esterase 25 H Urine RBC 0 SEEN Urine WBC 0-5 SEEN Ur Squamous Epith Cells 0 SEEN Urine Bacteria RARE Urine Mucus 0 SEEN 06/20/18 05:40 WBC RBC Hgb Hct MCV MCH MCHC RDW RDW Differential Plt Count MPV Immature Gran % (Auto) Neut % (Auto) Lymph % (Auto) [place] % (Auto) Eos % (Auto) Baso % (Auto) Absolute Neuts (auto) Absolute Lymphs (auto) Total Counted PT 14.5 INR 1.1 Sodium Potassium Chloride Carbon Dioxide Anion Gap BUN Creatinine Estim Creat Clear Calc Est GFR (MDRD) Af Amer Est GFR (MDRD) Non-Af BUN/Creatinine Ratio Glucose Calcium Total Bilirubin AST ALT Alkaline Phosphatase Lactate Dehydrogenase Troponin I B-Natriuretic Peptide Total Protein Albumin Globulin Albumin/Globulin Ratio Urine Color Urine Clarity Urine pH Ur Specific [place] Urine Protein Urine Glucose (UA) Urine Ketones Urine Occult Blood Urine Nitrite Urine Bilirubin Urine Urobilinogen Ur Leukocyte Esterase Urine RBC Urine WBC Ur Squamous Epith Cells Urine Bacteria Urine Mucus Clinical Impression(s) from Imaging Studies Chest X-Ray 06/19/18 17:48 IMPRESSION: Moderate left pleural effusion with overlying atelectasis. Electronically Signed: Erik Rona, at 19:09 EST Tel , Service support , Medical Necessity - Tobacco Use Smoking Status: Never smoker Assessment/Plan All Active Problems (Last Reviewed 06/20/18 @ 04:44 by Pako Welch MD) Hypoxemia (Acute) Pleural effusion (Acute) This is a 77 years old male patient admitted because of shortness of breath, found to have recurrent left-sided pleural effusion complicated by acute hypoxic respiratory failure as well as found to have renal insufficiency with unknown baseline kidney function. #1 recurrent left side pleural effusion: Patient was admitted on May 28, 2018 for mechanical fall, found to have left-sided pleural effusion, underwent thoracentesis that revealed exudative effusion which is attributed to traumatic effusion and it was negative for malignant cells. Also, pleural fluid culture showed no growth in 5 days at that time. Patient readmitted because of recurrent left-sided pleural effusion. Chest x-ray reviewed. Patient is on 3 L of oxygen, other vital signs are stable. During the recent admission, 2D echocardiogram done and showed ejection fraction of 50-55%, stage I diastolic dysfunction, mild lateral hypokinesis, RVSP of 29. Left-sided thoracentesis and pleural fluid analysis ordered. Plan: Pulmonology consult, continue same treatment. #2 acute hypoxic respiratory failure: Secondary to above. Reportedly, pulse ox dropped down to 86% on room air with ambulation in the ER. At this time, he is on 3 L. He reported no improvement. Will continue DuoNeb every 4 hours and albuterol as needed. #3 renal insufficiency: Unknown baseline creatinine. During the last admission on May, creatinine was 1.35. Admission creatinine is 1.50 and it went up to 1.54 today. Patient is on IV fluids. Plan: Obtain records from PCPs office, continue IV fluids, repeat BMP tomorrow morning. #4 obstructive sleep apnea: Continue CPAP at night. #5 history of gastric ulcers: No symptoms, no acute issues. He is not on PPI. #6 DVT prophylaxis: Subcu heparin. This note was generated with [employer] dictation software. It may contain incorrect words, spelling, and punctuation that were not noted in checking the note before signing. Code Visit Inpatient E&M: 57064 Subs Hosp L2
[2018-06-20 10:24] LABS: Partial Thromboplast Time 26.7 Seconds (24.1-36.2)
[2018-06-20] MEDS: buPROPion (XL) 150 MG TABLET.XL PO (10:56)
--- NOTE | 2018-06-20 13:00 | CASEMGMT ---
ADE GREWAL Re-admission note: Pt admitted [facility] 05/28/18 for Lt pleural effusion. Had thoracentesis completed and discharged home on 05/30/18 with instructions to follow up with PCP and with pulmonology, Dr Shrestha. Discharge instructions stated for pt to follow up with PCP as well. Pt did not have PCP last admission and was given list of PCP's at that time. Re-admitted 06/19/18 with pleural effusion. To room to talk with pt. Introduced self and role of ADE GREWAL. Pt states he was in for follow-up visit with Dr Shrestha last week but did not get established with PCP yet. He states he still has the local PCP list that he was given last admission and does not need further information. Pt states he does not wear home O2 and has no preference of [facility] if he would need to go home on oxygen. States does not have LW or HCPOA but is interested in talking with SW this admission. Given Advanced Directive information packet. SW, Noelle, notified. Noted Dr Jenkins provided information for grab bars on last admission and ADE GREWAL inquired about this with pt. Pt states he still has this contact information but has not followed-up on this yet. States he still plans to call to have these installed. PT/OT evals pending. Pt states does not feel that he needs HHC on discharge at this time but states he may be agreeable if recommended. He wants to wait and see how he feels/does after having thoracentesis and what therapy recommends. CM to follow for any discharge planning/needs that may arise. Ruby MULLER RN, CM
--- NOTE | 2018-06-20 13:59 | RAD_ITS ---
STUDY: X-RAY CHEST REASON FOR EXAM: Male, 77 years old. Status post left thoracentesis. TECHNIQUE: AP inspiration and expiration views. COMPARISON: Comparison is made with prior study dated June 19, 2018. FINDINGS: The patient is status post left thoracentesis. There is no evidence of pneumothorax. Mild residual pleural-parenchymal changes at the left lung base. Stable blunting of the right costophrenic angle. RAD/Chest Insp/Exp 2 View IMPRESSION: Status post left thoracentesis. There is no evidence of pneumothorax. Residual pleural parenchymal changes at the left lung base. Electronically Signed: Grayson Keith MD at 15:20 EST Tel [phone], Service support ,
[2018-06-20 14:41] LABS: Cytology, Body Fluid / CSF SEE PATHOLOGY REPORT
--- NOTE | 2018-06-20 14:53 | PCM.CONS.GEN ---
Problem List (1) Hypoxemia Status: Acute (2) Pleural effusion Status: Acute (3) Chronic venous stasis Status: Chronic (4) Morbid obesity Status: Chronic (5) MEGHANA (obstructive sleep apnea) Status: Chronic (6) Osteoarthritis Status: Chronic (7) NSAID-induced gastric ulcer Status: Resolved Reason for Consult Date of Consultation: 06/20/18 Reason for Consultation: Shortness of breath History of Present Illness: The patient is a 77 year old M, with past medical history listed below, who presented to [facility] on 06/20/2018 secondary to progressive shortness of breath. Patient was recently admitted for similar type of presentation and found to have a pleural effusion following a fall on his left side. Patient states that he improved to the hospital course, but over the last 2-3 days has noted progressive worsening shortness of breath. Patient has had a dry cough since that time and feels that this is slightly improved in frequency, but is still present. During last hospitalization, patient did have significant diuresis, but the patient states his weight has been relatively stable over the course of this progression of shortness of breath. In the emergency room, patient was noted to be in sinus rhythm at 88 bpm. EKG was unchanged and chest x-ray showed a left pleural effusion. Patient was admitted to the floor after walking oximetry showed desaturation into the 80s on room air. While on the general medical floor, patient did have a thoracentesis with 170 mL's of bloody fluid drained. Patient states this did help his overall shortness of breath. Patient denies any chest pain, abdominal pain, nausea or vomiting. No fever or chills have been reported. No sinus congestion is been reported. Patient does not report any repeated falls or lower extremity edema. Patient has been diagnosed with obstructive sleep apnea in the past. Patient does have a home CPAP, but feels that his CPAP settings here are too high. Patient is reportedly compliant at home, but no complaints report was available for confirmation. Review of systems otherwise negative x10 systems. 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, T39.395A History of bleeding ulcers (Inactive) Z87.11 Allergies cephalexin [From Keflex] Allergy (Verified 06/19/18 17:11) Rash Home Medications: Ambulatory Orders Medication Instructions Recorded buPROPion XL [Wellbutrin Xl] 150 mg PO DAILY 05/29/18 Surgical History: Surgical History (Last Updated 06/20/18 @ 09:51 by Edna Coello MD) History of hip replacement (Inactive) Z96.649 Surgical History: total hip arthroplasty Psychiatric History: No pertinent psych hx Lives: Alone Smoking Status: Never smoker - *Family History Maternal History Items: Diabetes Paternal History Items: Cancer - bladder Review of Systems Comment: See HPI, otherwise negative x10 systems. Patient Problems: Active and Suspected Problems (Last Updated 06/20/18 @ 09:51 by Edna Coello MD) Hypoxemia (Acute) Pleural effusion (Acute) Objective: Patient did have an echocardiogram in May showing stage I diastolic dysfunction with an EF of 50-55%. At that time, patient's right ventricular systolic pressure was noted to be 29 mmHg. Patient did have some decreased focal wall motion abnormality. Previous thoracentesis did show a bloody exudate that was approximately 70 cc. Culture and cytology were negative at that time. CTA at that time showed a moderate left-sided pleural effusion. There was some areas of bronchial thickening noted. - Physical Exam General: Alert, Oriented x3, Cooperative, No apparent distress, Well developed, Well nourished, - - Morbidly obese HEENT: Atraumatic, PERRLA, EOMI, Normocephalic, - - No scleral icterus or injection noted. Oral: Moist Mucosa, No Gingival or Mucosal Lesions/ Ulcerations Neck: Supple, No JVD, No Nodes, Trachea Midline Lungs: No rhonchi, No wheeze, No rales, Diminished Cardiovascular: Regular rate, Regular Rhythm, Normal S1, Normal S2, No murmurs, No rub noted, No Gallop Abdomen: Bowel Sounds Present, Soft, Non Tender, Non-Distended, Obese Extremities: No clubbing, No cyanosis, Edema - 2+ LE Skin: No rashes, No breakdown Musculoskeletal: No Tenderness to Palpation of Joints or Extremities Lymphatic: No Cervical, Supraclavicular, or Inguinal Adenopathy Neurological: Cranial nerves II-XII grossly intact, Neuro grossly intact, Motor Exam 5/5 strength throughout Psych/Mental Status: Alert and oriented to time, place, person, mood and affect Vital Signs Temp Pulse Resp BP Pulse Ox 36.8 C 76 18 148/91 H 96 06/20/18 14:42 06/20/18 14:42 06/20/18 14:42 06/20/18 14:42 06/20/18 14:42 Oxygen Flow Rate (L/min) [3] 3 Oxygen Flow Rate (L/min) [2] 3 Oxygen Flow Rate (L/min) [1 ( 3 Initial Baseline)] Oxygen Flow Rate (L/min) 2 Oxygen Delivery Method [3] Nasal Cannula Oxygen Delivery Method [2] Nasal Cannula Oxygen Delivery Method [1 ( Nasal Cannula Initial Baseline)] Oxygen Delivery Method Nasal Cannula Weight: 151.4 kg Body Mass Index (BMI) 50.7 Intake and Output for Last 24 Hours 06/18/18 06/19/18 06/20/18 23:59 23:59 23:59 Intake Total 75.2 / 75.2 Balance 75.2 / 75.2 Laboratory Tests Past 24 Hrs 06/19/18 06/19/18 06/19/18 18:05 18:05 18:05 WBC 7.9 RBC 3.95 L Hgb 13.8 Hct 43.3 MCV 109.6 H MCH 34.9 H MCHC 31.9 L RDW 13.7 RDW Differential 54.6 H Plt Count 208 MPV 8.8 Immature Gran % (Auto) 0.600 Neut % (Auto) 63.1 Lymph % (Auto) 22.6 [place] % (Auto) 10.0 Eos % (Auto) 3.3 Baso % (Auto) 0.4 Absolute Neuts (auto) 5.0 Absolute Lymphs (auto) 1.78 Total Counted Not Reportable PT INR APTT Sodium 137 Potassium 4.3 Chloride 100 Carbon Dioxide 30.0 Anion Gap 7 BUN 19 H Creatinine 1.50 H Estim Creat Clear Calc 40.53 Est GFR (MDRD) Af Amer 58 L Est GFR (MDRD) Non-Af 48 L BUN/Creatinine Ratio 12.7 Glucose 116 H Calcium 8.5 Total Bilirubin 0.70 AST 31 ALT 46 Alkaline Phosphatase 70 Lactate Dehydrogenase Troponin I B-Natriuretic Peptide 31.4 Total Protein 8.1 Albumin 3.1 L Globulin 5.0 H Albumin/Globulin Ratio 0.6 L Urine Color Urine Clarity Urine pH Ur Specific [place] Urine Protein Urine Glucose (UA) Urine Ketones Urine Occult Blood Urine Nitrite Urine Bilirubin Urine Urobilinogen Ur Leukocyte Esterase Urine RBC Urine WBC Ur Squamous Epith Cells Urine Bacteria Urine Mucus Fluid Source Fluid Color Fluid Appearance Fluid WBC Fluid RBC Fluid Tot Cell Count Fl Pathologist Comment Fluid Glucose Fluid Total Protein Fluid LDH Fluid Comment 2 Miscellaneous Cytology 06/19/18 06/19/18 06/20/18 18:05 19:30 05:40 WBC RBC Hgb Hct MCV MCH MCHC RDW RDW Differential Plt Count MPV Immature Gran % (Auto) Neut % (Auto) Lymph % (Auto) [place] % (Auto) Eos % (Auto) Baso % (Auto) Absolute Neuts (auto) Absolute Lymphs (auto) Total Counted PT INR APTT Sodium 142 Potassium 4.6 Chloride 104 Carbon Dioxide 29.0 Anion Gap 9 BUN 20 H Creatinine 1.54 H Estim Creat Clear Calc 39.48 Est GFR (MDRD) Af Amer 57 L Est GFR (MDRD) Non-Af 47 L BUN/Creatinine Ratio 13.0 Glucose 89 Calcium 8.2 L Total Bilirubin AST ALT Alkaline Phosphatase Lactate Dehydrogenase 194 Troponin I < 0.015 B-Natriuretic Peptide Total Protein 6.9 Albumin Globulin 4.4 H Albumin/Globulin Ratio 0.6 L Urine Color Yellow Urine Clarity Clear Urine pH 6.0 Ur Specific [place] 1.025 Urine Protein Negative Urine Glucose (UA) Normal Urine Ketones 5 H Urine Occult Blood Negative Urine Nitrite Negative Urine Bilirubin Negative Urine Urobilinogen Normal Ur Leukocyte Esterase 25 H Urine RBC 0 SEEN Urine WBC 0-5 SEEN Ur Squamous Epith Cells 0 SEEN Urine Bacteria RARE Urine Mucus 0 SEEN Fluid Source Fluid Color Fluid Appearance Fluid WBC Fluid RBC Fluid Tot Cell Count Fl Pathologist Comment Fluid Glucose Fluid Total Protein Fluid LDH Fluid Comment 2 Miscellaneous Cytology 06/20/18 06/20/18 06/20/18 05:40 05:40 14:15 WBC RBC Hgb Hct MCV MCH MCHC RDW RDW Differential Plt Count MPV Immature Gran % (Auto) Neut % (Auto) Lymph % (Auto) [place] % (Auto) Eos % (Auto) Baso % (Auto) Absolute Neuts (auto) Absolute Lymphs (auto) Total Counted PT 14.5 INR 1.1 APTT 26.7 Sodium Potassium Chloride Carbon Dioxide Anion Gap BUN Creatinine Estim Creat Clear Calc Est GFR (MDRD) Af Amer Est GFR (MDRD) Non-Af BUN/Creatinine Ratio Glucose Calcium Total Bilirubin AST ALT Alkaline Phosphatase Lactate Dehydrogenase Troponin I B-Natriuretic Peptide Total Protein Albumin Globulin Albumin/Globulin Ratio Urine Color Urine Clarity Urine pH Ur Specific [place] Urine Protein Urine Glucose (UA) Urine Ketones Urine Occult Blood Urine Nitrite Urine Bilirubin Urine Urobilinogen Ur Leukocyte Esterase Urine RBC Urine WBC Ur Squamous Epith Cells Urine Bacteria Urine Mucus Fluid Source Fluid Color Fluid Appearance Fluid WBC Fluid RBC Fluid Tot Cell Count Fl Pathologist Comment Fluid Glucose Pending Fluid Total Protein Fluid LDH Pending Fluid Comment 2 Miscellaneous Cytology 06/20/18 06/20/18 06/20/18 14:15 14:15 Unknown WBC RBC Hgb Hct MCV MCH MCHC RDW RDW Differential Plt Count MPV Immature Gran % (Auto) Neut % (Auto) Lymph % (Auto) [place] % (Auto) Eos % (Auto) Baso % (Auto) Absolute Neuts (auto) Absolute Lymphs (auto) Total Counted PT INR APTT Sodium Potassium Chloride Carbon Dioxide Anion Gap BUN Creatinine Estim Creat Clear Calc Est GFR (MDRD) Af Amer Est GFR (MDRD) Non-Af BUN/Creatinine Ratio Glucose Calcium Total Bilirubin AST ALT Alkaline Phosphatase Lactate Dehydrogenase Troponin I B-Natriuretic Peptide Total Protein Albumin Globulin Albumin/Globulin Ratio Urine Color Urine Clarity Urine pH Ur Specific [place] Urine Protein Urine Glucose (UA) Urine Ketones Urine Occult Blood Urine Nitrite Urine Bilirubin Urine Urobilinogen Ur Leukocyte Esterase Urine RBC Urine WBC Ur Squamous Epith Cells Urine Bacteria Urine Mucus Fluid Source Pending Fluid Color Pending Fluid Appearance Pending Fluid WBC Pending Fluid RBC Pending Fluid Tot Cell Count Pending Fl Pathologist Comment Pending Fluid Glucose Fluid Total Protein Pending Fluid LDH Fluid Comment 2 Pending Miscellaneous Cytology Pending Clinical Impression(s) from Imaging Studies Chest X-Ray 06/19/18 17:48 IMPRESSION: Moderate left pleural effusion with overlying atelectasis. Electronically Signed: Erik Rea, at 19:09 EST Tel , Service support , Thoracentesis Ultrasound 06/20/18 00:32 IMPRESSION: Ultrasound-guided left thoracentesis. Electronically Signed: Grayson Keith MD at 14:50 EST Tel [phone], Service support , Assessment/Plan All Active Problems (Last Updated 06/20/18 @ 09:51 by Edna Coello MD) Hypoxemia (Acute) Pleural effusion (Acute) NSAID-induced gastric ulcer (Resolved) RECOMMENDATIONS: 1. Await thoracentesis labs 2. Wean oxygen as tolerated 3. Consider gentle diuresis 4. Walking oximetry prior to discharge 5. Continue nocturnal CPAP IMPRESSIONS: 1. Shortness of breath/exertional hypoxemia Unclear etiology at this time. Patient did have 170 cc of bloody fluid removed from the chest. This would not account for exertional hypoxemia. Patient had a chest x-ray that appeared to be more congested than a pleural effusion. Patient may benefit from a mild diuresis. Wean oxygen as tolerated. Another possibility would be pulmonary hypertension. Will await thoracentesis labs before further recommendations. 2. MEGHANA/morbid obesity/chronic venous stasis/osteoarthritis Complicates care, management, recovery and prognosis. Continue with home CPAP. Code Visit Inpatient E&M: 31217 Init Hosp L2
[2018-06-20 15:15] LABS: Body Fluid Mononuclear WBC # 2.768 10^3/uL; Body Fluid Mononuclear WBC % 92.5 %; Body Fluid Polynuclear WBC # 0.223 10^3/uL; Body Fluid Polynuclear WBC % 7.5 %; Body Fluid Total Cells Counted 3.001 10^3/ul; White Blood Count/Body Fluid 2.991 10^3/uL
[2018-06-20 15:30] LABS: Glucose, Body Fluid 86 mg/dL (40-70); LDH,Body Fluid 601 Units/l (Not Establ.); Protein, Body Fluid 4.7 g/dL (Not Establ.)
[2018-06-20 17:27] LABS: Auto B Fluid Analyzer BKGD Ct COUNTS W/IN LIMITS (W/IN LIMITS)
[2018-06-20 17:28] LABS: Source- Body Fluid THORACENTESIS
[2018-06-20 17:29] LABS: Appearance/Body Fluid TURBID; Body Fluid QC Type(s) BF1; Color/Body Fluid RED; Lymphocytes 83 %; Monocytes 1 %; Neutrophil (Segs) 16 %
[2018-06-20] MEDS: Acetaminophen 325 MG Tablet 650 MG PO (17:30)
[2018-06-20] MEDS: Heparin Injection (Vial) 5,000 UNIT/ML VIAL 5000 UNIT SC (22:17)
--- NOTE | 2018-06-20 22:50 | CPS ---
PATIENT INFORMED RT THAT HIS PRESSURE WAS CHANGED TO 12 CMH20 BY DAY SHIFT RT DUE TO INABILITY OF PATIENT TO HANDLE PRESSURE.
[2018-06-21] VITALS (9 sets, daily range): BP systolic 134–144; BP diastolic 62–88; PULSE 77–98; RESP 16–18; TEMP 36.6–36.8; O2SAT 86–97
[2018-06-21] MEDS: Heparin Injection (Vial) 5,000 UNIT/ML VIAL 5000 UNIT SC (05:13)
[2018-06-21 06:39] LABS: Anion Gap 6 (5-15); BUN 17 mg/dL (7-18); BUN/Creat Ratio 12.8 RATIO (10-20); Calcium,Total 7.7 mg/dL (8.5-10.1); Chloride 105 mmol/L (98-107); Creatinine, Serum 1.33 mg/dL (0.70-1.30); EST Glomerular Filtration Rate 55 mL/min (>60); Est Glom Filt Rate - Afr Amer 67 mL/min (>60); Estimated Creatinine Clearance 45.71 ml/min; Glucose 108 mg/dL (74-106); Potassium 4.1 mmol/L (3.5-5.1); Sodium Level 141 mmol/L (136-145)
[2018-06-21] MEDS: Ipratropium/Albuterol Sulfate 3 ML AMPUL.NEB INHALATION ×3 (07:09→15:16)
--- NOTE | 2018-06-21 08:24 | PN_ITS ---
Patient Problems: Active and Suspected Problems (Last Updated 06/20/18 @ 09:51 by Edna Coello MD) Hypoxemia (Acute) Pleural effusion (Acute) Subjective: Chief complaint: Follow-up after admission for recurrent left-sided pleural effusion, acute hypoxic respiratory failure and renal insufficiency. Patient seen and examined. No acute events overnight. Today, he felt a little bit better, breathing a little bit easier, still having cough. Denies fever chills. Denies chest pain. Pulse ox is 95% on 1 L of oxygen, other vital signs are stable. - Physical Exam General: Alert, Oriented x3, Cooperative, No apparent distress HEENT: Atraumatic, PERRLA, EOMI, Normocephalic Oral: Moist Mucosa, No Gingival or Mucosal Lesions/ Ulcerations Neck: Supple, No JVD, Negative Carotid Bruits, Trachea Midline, Thyroid Normal Size and Texture Lungs: Clear to auscultation, No rhonchi, No wheeze, No rales, Diminished Cardiovascular: Regular rate, Regular Rhythm, Normal S1, Normal S2 Abdomen: Bowel Sounds Present, Soft, Non Tender, Non-Distended, No Hepato- splenomegaly, Obese Extremities: No clubbing, No cyanosis, Edema - Trace edema, stasis dermatitis. Skin: No rashes, No breakdown Lymphatic: No Cervical, Supraclavicular, or Inguinal Adenopathy Neurological: Cranial nerves II-XII grossly intact, Neuro grossly intact Psych/Mental Status: Normal Affect, Appropriate, Alert and oriented to time, place, person, mood and affect Vital Signs Temp Pulse Resp BP Pulse Ox 98.1 F 89 18 144/69 H 95 06/21/18 08:04 06/21/18 08:04 06/21/18 08:04 06/21/18 08:04 06/21/18 08:04 Oxygen Flow Rate (L/min) [3] 3 Oxygen Flow Rate (L/min) [2] 3 Oxygen Flow Rate (L/min) [1 ( 3 Initial Baseline)] Oxygen Flow Rate (L/min) 1.5 Oxygen Delivery Method [3] Nasal Cannula Oxygen Delivery Method [2] Nasal Cannula Oxygen Delivery Method [1 ( Nasal Cannula Initial Baseline)] Oxygen Delivery Method Nasal Cannula Weight: 333 lb 12.478 oz Body Mass Index (BMI) 50.7 Intake and Output for Last 24 Hours 06/19/18 06/20/18 06/21/18 23:59 23:59 23:59 Intake Total 1496.2 / 1496.2 1078 / 1078 Output Total 170 / 170 Balance 1326.2 / 1326.2 1078 / 1078 Laboratory Tests Past 24 Hrs 06/20/18 06/20/18 06/20/18 05:40 14:15 14:15 APTT 26.7 Sodium Potassium Chloride Carbon Dioxide Anion Gap BUN Creatinine Estim Creat Clear Calc Est GFR (MDRD) Af Amer Est GFR (MDRD) Non-Af BUN/Creatinine Ratio Glucose Calcium B-Natriuretic Peptide Fluid Source Fluid Color Fluid Appearance Fluid WBC Fluid RBC Fluid Tot Cell Count Fld Polynuclear WBCs # Fld Polynuclear WBCs % Fluid Mononuclear WBCs Fld Mononuclear WBCs % Fluid Neutrophils Fluid Lymphocytes Fluid Monocytes Fl Pathologist Comment Fluid Glucose 86 H Fluid Total Protein 4.7 Fluid LDH 601 Fluid Comment 2 Miscellaneous Cytology 06/20/18 06/20/18 06/21/18 14:15 Unknown 05:45 APTT Sodium 141 Potassium 4.1 Chloride 105 Carbon Dioxide 30.0 Anion Gap 6 BUN 17 Creatinine 1.33 H Estim Creat Clear Calc 45.71 Est GFR (MDRD) Af Amer 67 Est GFR (MDRD) Non-Af 55 L BUN/Creatinine Ratio 12.8 Glucose 108 H Calcium 7.7 L B-Natriuretic Peptide Fluid Source THORACENTESIS Fluid Color RED Fluid Appearance TURBID Fluid WBC 2.991 Fluid RBC 0.32532 Fluid Tot Cell Count 3.001 Fld Polynuclear WBCs # 0.223 Fld Polynuclear WBCs % 7.5 Fluid Mononuclear WBCs 2.768 Fld Mononuclear WBCs % 92.5 Fluid Neutrophils 16 Fluid Lymphocytes 83 Fluid Monocytes 1 Fl Pathologist Comment May follow Fluid Glucose Fluid Total Protein Fluid LDH Fluid Comment 2 SEE COMMENT Miscellaneous Cytology Pending 06/21/18 05:45 APTT Sodium Potassium Chloride Carbon Dioxide Anion Gap BUN Creatinine Estim Creat Clear Calc Est GFR (MDRD) Af Amer Est GFR (MDRD) Non-Af BUN/Creatinine Ratio Glucose Calcium B-Natriuretic Peptide Pending Fluid Source Fluid Color Fluid Appearance Fluid WBC Fluid RBC Fluid Tot Cell Count Fld Polynuclear WBCs # Fld Polynuclear WBCs % Fluid Mononuclear WBCs Fld Mononuclear WBCs % Fluid Neutrophils Fluid Lymphocytes Fluid Monocytes Fl Pathologist Comment Fluid Glucose Fluid Total Protein Fluid LDH Fluid Comment 2 Miscellaneous Cytology Medical Necessity - Tobacco Use Smoking Status: Never smoker Assessment/Plan All Active Problems (Last Updated 06/20/18 @ 09:51 by Edna Coello MD) Hypoxemia (Acute) Pleural effusion (Acute) NSAID-induced gastric ulcer (Resolved) This is a 77 years old male patient admitted because of shortness of breath, found to have recurrent left-sided pleural effusion complicated by acute hypoxic respiratory failure as well as found to have renal insufficiency with unknown baseline kidney function. #1 recurrent left side pleural effusion: Status post left-sided thoracentesis, only 170 cc of bloody fluid taken out. According to light's criteria, pleural fluid is exudative. Patient was admitted on May 28, 2018 for mechanical fall, found to have left-sided pleural effusion, underwent thoracentesis that revealed exudative effusion which is attributed to traumatic effusion and it was negative for malignant cells. Also, pleural fluid culture showed no growth in 5 days at that time. His shortness of breath could be due to pulmonary hypertension given his history of obstructive sleep apnea, mild CHF also cannot be ruled out. During the recent admission, 2D echocardiogram done and showed ejection fraction of 50-55%, stage I diastolic dysfunction, mild lateral hypokinesis, RVSP of 29. Pulmonology on the case. Plan: We will give 1 dose of IV Lasix, continue other treatments. #2 acute hypoxic respiratory failure: Probably multifactorial secondary to history of obstructive sleep apnea, probable pulmonary hypertension and also CHF, PE ruled out. Today, patient reported mild improvement of his symptoms, he is down to 1 L of oxygen. Plan as above. #3 renal insufficiency: Unknown baseline creatinine, this is probably chronic. During the last admission on May, creatinine was 1.35. Admission creatinine is 1.50, today's creatinine is 1.33, improved. #4 obstructive sleep apnea: Continue CPAP at night. #5 history of gastric ulcers: No symptoms, no acute issues. He is not on PPI. #6 DVT prophylaxis: Subcu heparin. This note was generated with [employer] software. It may contain incorrect words, spelling, and punctuation that were not noted in checking the note before signing. Code Visit Inpatient E&M: 23824 Subs Hosp L2
[2018-06-21] MEDS: Furosemide 40 MG/4 ML Vial IV (08:25)
[2018-06-21] MEDS: buPROPion (XL) 150 MG TABLET.XL PO (08:25)
[2018-06-21 08:53] LABS: BNP,B-Type NATRIURETIC PEPTIDE 35.9 pg/mL (0-100)
--- NOTE | 2018-06-21 10:23 | PCM.PROGNOTE ---
Patient Problems: Active and Suspected Problems (Last Updated 06/20/18 @ 09:51 by Edna Coello MD) Hypoxemia (Acute) Pleural effusion (Acute) Subjective: Patient did okay overnight. Patient continues to report dyspnea on exertion with therapy. Patient states he is able to walk approximately 20 feet before having significant issues in his legs and shortness of breath. Patient continues to have a dry cough. Patient denies any pain at the intervention site. Objective: Thoracentesis labs are consistent with an exudative lymphocytic effusion by both protein and LDH criteria - Physical Exam General: Alert, Oriented x3, Cooperative, No apparent distress, - - Morbidly obese. No conversational dyspnea noted. HEENT: Atraumatic, PERRLA, EOMI, Normocephalic, - - Cannula in place. No scleral icterus or injection noted. Oral: Moist Mucosa, No Gingival or Mucosal Lesions/ Ulcerations Neck: Supple, No JVD, No Nodes, Trachea Midline, - - Difficult to assess JVD secondary to body habitus Lungs: No rhonchi, No wheeze, No rales, Diminished Cardiovascular: Regular rate, Regular Rhythm, Normal S1, Normal S2, No murmurs, No rub noted, No Gallop Abdomen: Bowel Sounds Present, Soft, Non Tender, Non-Distended, Obese Extremities: No cyanosis, Capillary Refill Less than 3 Seconds, Edema Skin: No rashes, No breakdown Musculoskeletal: No Tenderness to Palpation of Joints or Extremities Lymphatic: No Cervical, Supraclavicular, or Inguinal Adenopathy Neurological: Cranial nerves II-XII grossly intact, Neuro grossly intact, Motor Exam 5/5 strength throughout Psych/Mental Status: Alert and oriented to time, place, person, mood and affect Vital Signs Temp Pulse Resp BP Pulse Ox 36.7 C 89 18 144/69 H 95 06/21/18 08:04 06/21/18 08:04 06/21/18 08:04 06/21/18 08:04 06/21/18 08:04 Oxygen Flow Rate (L/min) [3] 3 Oxygen Flow Rate (L/min) [2] 3 Oxygen Flow Rate (L/min) [1 ( 3 Initial Baseline)] Oxygen Flow Rate (L/min) 1 Oxygen Delivery Method [3] Nasal Cannula Oxygen Delivery Method [2] Nasal Cannula Oxygen Delivery Method [1 ( Nasal Cannula Initial Baseline)] Oxygen Delivery Method Nasal Cannula Weight: 151.4 kg Body Mass Index (BMI) 50.7 Intake and Output for Last 24 Hours 06/19/18 06/20/18 06/21/18 23:59 23:59 23:59 Intake Total 1496.2 / 1496.2 1078 / 1078 Output Total 170 / 170 Balance 1326.2 / 1326.2 1078 / 1078 Laboratory Tests Past 24 Hrs 06/20/18 06/20/18 06/20/18 05:40 14:15 14:15 APTT 26.7 Sodium Potassium Chloride Carbon Dioxide Anion Gap BUN Creatinine Estim Creat Clear Calc Est GFR (MDRD) Af Amer Est GFR (MDRD) Non-Af BUN/Creatinine Ratio Glucose Calcium B-Natriuretic Peptide Fluid Source Fluid Color Fluid Appearance Fluid WBC Fluid RBC Fluid Tot Cell Count Fld Polynuclear WBCs # Fld Polynuclear WBCs % Fluid Mononuclear WBCs Fld Mononuclear WBCs % Fluid Neutrophils Fluid Lymphocytes Fluid Monocytes Fl Pathologist Comment Fluid Glucose 86 H Fluid Total Protein 4.7 Fluid LDH 601 Fluid Comment 2 Miscellaneous Cytology 06/20/18 06/20/18 06/21/18 14:15 Unknown 05:45 APTT Sodium 141 Potassium 4.1 Chloride 105 Carbon Dioxide 30.0 Anion Gap 6 BUN 17 Creatinine 1.33 H Estim Creat Clear Calc 45.71 Est GFR (MDRD) Af Amer 67 Est GFR (MDRD) Non-Af 55 L BUN/Creatinine Ratio 12.8 Glucose 108 H Calcium 7.7 L B-Natriuretic Peptide Fluid Source THORACENTESIS Fluid Color RED Fluid Appearance TURBID Fluid WBC 2.991 Fluid RBC 0.89617 Fluid Tot Cell Count 3.001 Fld Polynuclear WBCs # 0.223 Fld Polynuclear WBCs % 7.5 Fluid Mononuclear WBCs 2.768 Fld Mononuclear WBCs % 92.5 Fluid Neutrophils 16 Fluid Lymphocytes 83 Fluid Monocytes 1 Fl Pathologist Comment May follow Fluid Glucose Fluid Total Protein Fluid LDH Fluid Comment 2 SEE COMMENT Miscellaneous Cytology Pending 06/21/18 05:45 APTT Sodium Potassium Chloride Carbon Dioxide Anion Gap BUN Creatinine Estim Creat Clear Calc Est GFR (MDRD) Af Amer Est GFR (MDRD) Non-Af BUN/Creatinine Ratio Glucose Calcium B-Natriuretic Peptide 35.9 Fluid Source Fluid Color Fluid Appearance Fluid WBC Fluid RBC Fluid Tot Cell Count Fld Polynuclear WBCs # Fld Polynuclear WBCs % Fluid Mononuclear WBCs Fld Mononuclear WBCs % Fluid Neutrophils Fluid Lymphocytes Fluid Monocytes Fl Pathologist Comment Fluid Glucose Fluid Total Protein Fluid LDH Fluid Comment 2 Miscellaneous Cytology Clinical Impression(s) from Imaging Studies Thoracentesis Ultrasound 06/20/18 00:32 IMPRESSION: Ultrasound-guided left thoracentesis. Electronically Signed: Grayson Keith MD at 14:50 EST Tel [phone], Service support , Chest X-Ray 06/20/18 13:59 IMPRESSION: Status post left thoracentesis. There is no evidence of pneumothorax. Residual pleural parenchymal changes at the left lung base. Electronically Signed: Grayson Keith MD at 15:20 EST Tel [phone], Service support , Medical Necessity - Tobacco Use Smoking Status: Never smoker Assessment/Plan All Active Problems (Last Updated 06/20/18 @ 09:51 by Edna Coello MD) Hypoxemia (Acute) Pleural effusion (Acute) NSAID-induced gastric ulcer (Resolved) RECOMMENDATIONS: 1. Likely obtain CT scan of the chest as an outpatient 2. Wean oxygen as tolerated 3. Consider gentle diuresis 4. Walking oximetry prior to discharge 5. Continue nocturnal CPAP 6. Await culture and cytology IMPRESSIONS: 1. Shortness of breath/exertional hypoxemia Unclear etiology at this time. Patient did have 170 cc of bloody fluid removed from the chest. This would not account for exertional hypoxemia. Discussed with hospitalist. Will obtain a walking oximetry to see if there is significant desaturation with exertion. Patient does appear to have some lower extremity edema and would benefit from diuretic therapy despite normalized BNP. Could consider a right heart catheterization for quantification and clarification of pulmonary artery pressures. Another possibility would be claudication, so ankle-brachial index may be helpful, but would defer to hospitalist. 2. MEGHANA/morbid obesity/chronic venous stasis/osteoarthritis Complicates care, management, recovery and prognosis. Continue with home CPAP. Code Visit Inpatient E&M: 62075 Subs Hosp L3
--- NOTE | 2018-06-21 10:29 | PN_ITS ---
Patient Problems: Active and Suspected Problems (Last Updated 06/20/18 @ 09:51 by Edna Coello MD) Hypoxemia (Acute) Pleural effusion (Acute) Subjective: Patient did okay overnight. Patient continues to report dyspnea on exertion with therapy. Patient states he is able to walk approximately 20 feet before having significant issues in his legs and shortness of breath. Patient continues to have a dry cough. Patient denies any pain at the intervention site. Objective: Thoracentesis labs are consistent with an exudative lymphocytic effusion by both protein and LDH criteria - Physical Exam General: Alert, Oriented x3, Cooperative, No apparent distress, - - Morbidly obese. No conversational dyspnea noted. HEENT: Atraumatic, PERRLA, EOMI, Normocephalic, - - Cannula in place. No scleral icterus or injection noted. Oral: Moist Mucosa, No Gingival or Mucosal Lesions/ Ulcerations Neck: Supple, No JVD, No Nodes, Trachea Midline, - - Difficult to assess JVD secondary to body habitus Lungs: No rhonchi, No wheeze, No rales, Diminished Cardiovascular: Regular rate, Regular Rhythm, Normal S1, Normal S2, No murmurs, No rub noted, No Gallop Abdomen: Bowel Sounds Present, Soft, Non Tender, Non-Distended, Obese Extremities: No cyanosis, Capillary Refill Less than 3 Seconds, Edema Skin: No rashes, No breakdown Musculoskeletal: No Tenderness to Palpation of Joints or Extremities Lymphatic: No Cervical, Supraclavicular, or Inguinal Adenopathy Neurological: Cranial nerves II-XII grossly intact, Neuro grossly intact, Motor Exam 5/5 strength throughout Psych/Mental Status: Alert and oriented to time, place, person, mood and affect Vital Signs Temp Pulse Resp BP Pulse Ox 36.7 C 89 18 144/69 H 95 06/21/18 08:04 06/21/18 08:04 06/21/18 08:04 06/21/18 08:04 06/21/18 08:04 Oxygen Flow Rate (L/min) [3] 3 Oxygen Flow Rate (L/min) [2] 3 Oxygen Flow Rate (L/min) [1 ( 3 Initial Baseline)] Oxygen Flow Rate (L/min) 1 Oxygen Delivery Method [3] Nasal Cannula Oxygen Delivery Method [2] Nasal Cannula Oxygen Delivery Method [1 ( Nasal Cannula Initial Baseline)] Oxygen Delivery Method Nasal Cannula Weight: 151.4 kg Body Mass Index (BMI) 50.7 Intake and Output for Last 24 Hours 06/19/18 06/20/18 06/21/18 23:59 23:59 23:59 Intake Total 1496.2 / 1496.2 1078 / 1078 Output Total 170 / 170 Balance 1326.2 / 1326.2 1078 / 1078 Laboratory Tests Past 24 Hrs 06/20/18 06/20/18 06/20/18 05:40 14:15 14:15 APTT 26.7 Sodium Potassium Chloride Carbon Dioxide Anion Gap BUN Creatinine Estim Creat Clear Calc Est GFR (MDRD) Af Amer Est GFR (MDRD) Non-Af BUN/Creatinine Ratio Glucose Calcium B-Natriuretic Peptide Fluid Source Fluid Color Fluid Appearance Fluid WBC Fluid RBC Fluid Tot Cell Count Fld Polynuclear WBCs # Fld Polynuclear WBCs % Fluid Mononuclear WBCs Fld Mononuclear WBCs % Fluid Neutrophils Fluid Lymphocytes Fluid Monocytes Fl Pathologist Comment Fluid Glucose 86 H Fluid Total Protein 4.7 Fluid LDH 601 Fluid Comment 2 Miscellaneous Cytology 06/20/18 06/20/18 06/21/18 14:15 Unknown 05:45 APTT Sodium 141 Potassium 4.1 Chloride 105 Carbon Dioxide 30.0 Anion Gap 6 BUN 17 Creatinine 1.33 H Estim Creat Clear Calc 45.71 Est GFR (MDRD) Af Amer 67 Est GFR (MDRD) Non-Af 55 L BUN/Creatinine Ratio 12.8 Glucose 108 H Calcium 7.7 L B-Natriuretic Peptide Fluid Source THORACENTESIS Fluid Color RED Fluid Appearance TURBID Fluid WBC 2.991 Fluid RBC 0.66338 Fluid Tot Cell Count 3.001 Fld Polynuclear WBCs # 0.223 Fld Polynuclear WBCs % 7.5 Fluid Mononuclear WBCs 2.768 Fld Mononuclear WBCs % 92.5 Fluid Neutrophils 16 Fluid Lymphocytes 83 Fluid Monocytes 1 Fl Pathologist Comment May follow Fluid Glucose Fluid Total Protein Fluid LDH Fluid Comment 2 SEE COMMENT Miscellaneous Cytology Pending 06/21/18 05:45 APTT Sodium Potassium Chloride Carbon Dioxide Anion Gap BUN Creatinine Estim Creat Clear Calc Est GFR (MDRD) Af Amer Est GFR (MDRD) Non-Af BUN/Creatinine Ratio Glucose Calcium B-Natriuretic Peptide 35.9 Fluid Source Fluid Color Fluid Appearance Fluid WBC Fluid RBC Fluid Tot Cell Count Fld Polynuclear WBCs # Fld Polynuclear WBCs % Fluid Mononuclear WBCs Fld Mononuclear WBCs % Fluid Neutrophils Fluid Lymphocytes Fluid Monocytes Fl Pathologist Comment Fluid Glucose Fluid Total Protein Fluid LDH Fluid Comment 2 Miscellaneous Cytology Clinical Impression(s) from Imaging Studies Thoracentesis Ultrasound 06/20/18 00:32 IMPRESSION: Ultrasound-guided left thoracentesis. Electronically Signed: Grayson Keith MD at 14:50 EST Tel [phone], Service support , Chest X-Ray 06/20/18 13:59 IMPRESSION: Status post left thoracentesis. There is no evidence of pneumothorax. Residual pleural parenchymal changes at the left lung base. Electronically Signed: Grayson Keith MD at 15:20 EST Tel [phone], Service support , Medical Necessity - Tobacco Use Smoking Status: Never smoker Assessment/Plan All Active Problems (Last Updated 06/20/18 @ 09:51 by Edna Coello MD) Hypoxemia (Acute) Pleural effusion (Acute) NSAID-induced gastric ulcer (Resolved) RECOMMENDATIONS: 1. Likely obtain CT scan of the chest as an outpatient 2. Wean oxygen as tolerated 3. Consider gentle diuresis 4. Walking oximetry prior to discharge 5. Continue nocturnal CPAP 6. Await culture and cytology IMPRESSIONS: 1. Shortness of breath/exertional hypoxemia Unclear etiology at this time. Patient did have 170 cc of bloody fluid removed from the chest. This would not account for exertional hypoxemia. Discussed with hospitalist. Will obtain a walking oximetry to see if there is significant desaturation with exertion. Patient does appear to have some lower extremity edema and would benefit from diuretic therapy despite normalized BNP. Could consider a right heart catheterization for quantification and clarification of pulmonary artery pressures. Another possibility would be claudication, so ankle-brachial index may be helpful, but would defer to hospitalist. 2. MEGHANA/morbid obesity/chronic venous stasis/osteoarthritis Complicates care, management, recovery and prognosis. Continue with home CPAP. Code Visit Inpatient E&M: 07617 Subs Hosp L3
--- NOTE | 2018-06-21 11:21 | NURSING ---
AMBULATED PT TO DOORWAY AFTER REMOVING O2 FOR PT TO GO TO BR- SATS NEVER DROPPED BELOW 92% BUT AFTER GETTING BACK TO HIS SHAIR HIS SATS DROPPED TO 86% BEFORE RECOVERING TO 93% PT WAS SOB ON THE WAY BACK FROM HIS WALK AND AFTER GETTING BACK TO CHAIR-O2 ASSESSMENTSA DONE IN COMPUTER- DR HURD AWARE
--- NOTE | 2018-06-21 11:48 | DCINST_ITS ---
- Discharge Diagnoses Current Active Problems: Current Active and Chronic Problems (Last Updated 06/20/18 @ 09:51 by Edna Coello MD) Hypoxemia (Acute) Pleural effusion (Acute) You will use the following diet at home:: Regular Your food should be the consistency of: Regular Discharge Activity: Return to Normal Activity Weight Bearing Status: Weight bearing as tolerated Call your doctor if you observe: Fever of 101 or Higher, Shortness of breath, Dizziness, Fainting spells, Swelling in the ankles, Increased palpitations (irregular heartbeat), Uncontrolled pain Instructions: Discharge Instructions: Using Oxygen at Home Allergies/Adverse Reactions: Allergies cephalexin [From Keflex] Allergy (Verified 06/19/18 17:11) Rash Medications to take at Discharge buPROPion XL [Wellbutrin Xl] 150 mg PO DAILY 05/29/18 Furosemide [Lasix] 40 mg PO DAILY #30 tablet 06/21/18 Oxygen, Home [Home Oxygen] 2 lpm NASAL PRN PRN #1 unit 06/21/18 The following prescriptions were given: Furosemide [Lasix] 40 mg PO DAILY #30 tablet Oxygen, Home [Home Oxygen] 2 lpm NASAL PRN PRN #1 unit PRN Reason: exertion, SOB Primary Care Physician: Care Physician,No Primary [Primary Care Provider] - Please follow up with your Primary Care Physician in: 1 WEEK. Test Results: Test results from this visit will be discussed in further detail at your follow- up appointment, if applicable. Please Follow Up With: Kevon Obrien MD When: 2 weeks.
--- NOTE | 2018-06-21 13:42 | CASEMGMT ---
SW assisted pt in completing LW/POA forms, gave patient the originals and copies, and placed a copy in the chart. JOYCELYN Saldaña, MACHINE [employer]
--- NOTE | 2018-06-21 14:13 | CASEMGMT ---
[employer] called to [employer]. Informed home oxygen is still being processed. Tank will be delivered when approved. Jewel MULLER RN ACM
--- NOTE | 2018-06-21 14:15 | DS.PCM_ITS ---
Discharge Date and Diagnosis Date of Admission: 06/20/18 Date of Discharge: 06/21/18 - Primary Discharge Diagnosis Active and Suspected Problems (Last Updated 06/20/18 @ 09:51 by Edna Coello MD) #1 recurrent left-sided pleural effusion/hemothorax, exudative effusion, attribu singh to traumatic effusion. #2 acute hypoxic respiratory failure. - Secondary Discharge Diagnosis Chronic Problems (Last Updated 06/20/18 @ 09:51 by Edna Coello MD) Chronic venous stasis (Chronic) Morbid obesity (Chronic) MEGHANA (obstructive sleep apnea) (Chronic) Osteoarthritis (Chronic) Hospital Course and Treatment Imaging Results: Clinical Impression(s) from Imaging Studies Chest X-Ray 06/19/18 17:48 IMPRESSION: Moderate left pleural effusion with overlying atelectasis. Electronically Signed: Erik Rea, at 19:09 EST Tel , Service support , Thoracentesis Ultrasound 06/20/18 00:32 IMPRESSION: Ultrasound-guided left thoracentesis. Electronically Signed: Grayson Keith MD at 14:50 EST Tel [phone], Service support , Chest X-Ray 06/20/18 13:59 IMPRESSION: Status post left thoracentesis. There is no evidence of pneumothorax. Residual pleural parenchymal changes at the left lung base. Electronically Signed: Grayson Keith MD at 15:20 EST Tel [phone], Service support , Dr. Obrien, pulmonology. Operations: None Procedures: Thoracentesis Summary of Care Provided: Patient seen and examined on the day of discharge and appeared to be stable to be discharged home. He remains on oxygen, pulse ox dropped upon returning to the chair after he was taken for a walk. His other vital signs are stable. The patient is a 77 year old M admitted because of worsening shortness of breath and he was found to have recurrent transudate of left-sided pleural effusion/hemothorax complicated by acute hypoxic respiratory failure. This patient was admitted to the hospital in mid May, after a mechanical fall, found to have left-sided pleural effusion which was attributed to traumatic effusion, underwent thoracentesis that revealed exudative effusion and it was negative for malignant cells. On this admission, chest x-ray revealed reaccumulation of the left side pleural effusion but it was small amount. Patient underwent left-sided thoracentesis, 170 cc of bloody pleural fluid taken out. Pleural fluid for cytology repeated and was negative for malignant cells. Patient was treated with oxygen and he was given 1 dose of Lasix. During the last admission, 2D echocardiogram showed ejection fraction of 50-55%, stage I diastolic dysfunction, mild lateral hypokinesis and RVSP of 29. Patient had a history of obstructive sleep apnea and he has been on CPAP at home. His shortness of breath is likely not due to the reaccumulation of the left pleural effusion and it could be due to pulmonary hypertension secondary to history of obstructive sleep apnea although his RVSP was 29 on recent 2D echocardiogram. Pulmonology consulted and recommended to do CT scan chest as outpatient. Patient was taken for walking pulse oximeter and his pulse ox went down to 90% with ambulation and down to 86% with rest. Patient did qualify for home oxygen to be able to ambulate at home and do his daily activities. Patient discharged home in a stable medical condition, discharged on Lasix 40 mg p.o. daily, discharged on home oxygen as needed and with exertion, plan to follow-up with pulmonology in 2 weeks, CT scan chest will be done as outpatient upon follow-up and recommended follow-up with PCP in 1 week. - Physical Exam General: Alert, Oriented x3, Cooperative, - - Minimally short of breath. HEENT: Atraumatic, PERRLA, EOMI Oral: Moist Mucosa, No Gingival or Mucosal Lesions/ Ulcerations Neck: Supple, No JVD, Negative Carotid Bruits, Trachea Midline, Thyroid Normal Size and Texture Lungs: Clear to auscultation, No rhonchi, No wheeze, No rales, Diminished, - Cardiovascular: Regular rate, Regular Rhythm, Normal S1, Normal S2, PMI Normal Abdomen: Bowel Sounds Present, Soft, Non Tender, Non-Distended, No Hepato- splenomegaly, Obese Extremities: No clubbing, No cyanosis, Edema - Trace edema, stasis dermatitis. Skin: No rashes, No breakdown Lymphatic: No Cervical, Supraclavicular, or Inguinal Adenopathy Neurological: Cranial nerves II-XII grossly intact, Neuro grossly intact Psych/Mental Status: Normal Affect, Appropriate Vital Signs Temp Pulse Resp BP Pulse Ox 98.3 F 98 18 134/62 H 93 06/21/18 13:39 06/21/18 13:39 06/21/18 13:39 06/21/18 13:39 06/21/18 13:39 Oxygen Flow Rate (L/min) [3] 3 Oxygen Flow Rate (L/min) [2] 3 Oxygen Flow Rate (L/min) [1 ( 3 Initial Baseline)] Oxygen Flow Rate (L/min) [ 0 AMBULATING on Room Air] Oxygen Flow Rate (L/min) [At 0 REST on Room Air] Oxygen Flow Rate (L/min) 1 Oxygen Delivery Method [3] Nasal Cannula Oxygen Delivery Method [2] Nasal Cannula Oxygen Delivery Method [1 ( Nasal Cannula Initial Baseline)] Oxygen Delivery Method Room Air Weight: 333 lb 12.478 oz Body Mass Index (BMI) 50.7 Intake and Output for Last 24 Hours 06/19/18 06/20/18 06/21/18 23:59 23:59 23:59 Intake Total 1496.2 / 1496.2 1528 / 1528 Output Total 170 / 170 550 / 550 Balance 1326.2 / 1326.2 978 / 978 Laboratory Tests Past 24 Hrs 06/20/18 06/20/18 06/20/18 14:15 14:15 14:15 Sodium Potassium Chloride Carbon Dioxide Anion Gap BUN Creatinine Estim Creat Clear Calc Est GFR (MDRD) Af Amer Est GFR (MDRD) Non-Af BUN/Creatinine Ratio Glucose Calcium B-Natriuretic Peptide Fluid Source THORACENTESIS Fluid Color RED Fluid Appearance TURBID Fluid WBC 2.991 Fluid RBC 0.42572 Fluid Tot Cell Count 3.001 Fld Polynuclear WBCs # 0.223 Fld Polynuclear WBCs % 7.5 Fluid Mononuclear WBCs 2.768 Fld Mononuclear WBCs % 92.5 Fluid Neutrophils 16 Fluid Lymphocytes 83 Fluid Monocytes 1 Fl Pathologist Comment May follow Fluid Glucose 86 H Fluid Total Protein 4.7 Fluid LDH 601 Fluid Comment 2 SEE COMMENT Miscellaneous Cytology 06/20/18 06/21/18 06/21/18 Unknown 05:45 05:45 Sodium 141 Potassium 4.1 Chloride 105 Carbon Dioxide 30.0 Anion Gap 6 BUN 17 Creatinine 1.33 H Estim Creat Clear Calc 45.71 Est GFR (MDRD) Af Amer 67 Est GFR (MDRD) Non-Af 55 L BUN/Creatinine Ratio 12.8 Glucose 108 H Calcium 7.7 L B-Natriuretic Peptide 35.9 Fluid Source Fluid Color Fluid Appearance Fluid WBC Fluid RBC Fluid Tot Cell Count Fld Polynuclear WBCs # Fld Polynuclear WBCs % Fluid Mononuclear WBCs Fld Mononuclear WBCs % Fluid Neutrophils Fluid Lymphocytes Fluid Monocytes Fl Pathologist Comment Fluid Glucose Fluid Total Protein Fluid LDH Fluid Comment 2 Miscellaneous Cytology Pending Discharge Activity: Return to Normal Activity Weight Bearing Status: Weight bearing as tolerated Call your doctor if you observe: Fever of 101 or Higher, Shortness of breath, Dizziness, Fainting spells, Swelling in the ankles, Increased palpitations (irregular heartbeat), Uncontrolled pain Home Medications: Medications to take at Discharge buPROPion XL [Wellbutrin Xl] 150 mg PO DAILY 05/29/18 Furosemide [Lasix] 40 mg PO DAILY #30 tablet 06/21/18 Oxygen, Home [Home Oxygen] 2 lpm NASAL PRN PRN #1 unit 06/21/18 Following Prescrptions Were Given to Patient: Furosemide [Lasix] 40 mg PO DAILY #30 tablet Oxygen, Home [Home Oxygen] 2 lpm NASAL PRN PRN #1 unit PRN Reason: exertion, SOB Primary Care Physician: Care Physician,No Primary [Primary Care Provider] - Please follow up with your Primary Care Physician in: 1 WEEK. Please Follow Up With: Kevon Obrien MD When: 2 weeks. Patient Instructions: Discharge Instructions: Using Oxygen at Home Disposition: Home Minutes spent on discharge:: 28 Patient Condition:: Stable Medical Necessity - Tobacco Use Smoking Status: Never smoker Meaningful Use Info Meaningful Use Diagnoses (Choose all that apply): None applicable Code Visit Inpatient E&M: 24034 Disch Hosp
[2018-06-22 14:05] LABS: Pathologist Comment/Body Fluid Reviewed
[2018-06-25 12:51] LABS: Cytology, Body Fluid / CSF SEE PATHOLOGY REPORT
== END 2018-06-21 16:10 | disposition home or self-care (01) | DRG 186 ==
LOC: ED 17:48 → MS2 23:27
PROVIDERS: Admitting Provider Hospitalist; Emergency Provider Emergency Medicine; Referring Provider Hospitalist; Visit Provider Hospitalist
DX: J90 Pleural effusion, not elsewhere classified (principal); J96.01 Acute respiratory failure with hypoxia; Z68.43 Body mass index [BMI] 50.0-59.9, adult; I87.8 Other specified disorders of veins; E66.01 Morbid (severe) obesity due to excess calories; G47.33 Obstructive sleep apnea (adult) (pediatric); M19.90 Unspecified osteoarthritis, unspecified site; Z87.11 Personal history of peptic ulcer disease
CPT/HCPCS: 32555; 36415; 71046; 80048; 80053; 81001; 82945; 83615; 83880; 84156; 84157; 84484; 85025; 85610; 85730; 88108; 88305; 88313; 89050; 93005; 94003; 94640; 94660; 97162; 97165; 97802; 99251; 99285; J7030; G0463; J1940

== ENCOUNTER → 2018-10-02 | Outpatient (CLI) | payer MEDICARE, OTHER, SELFPAY ==
[2018-06-14 08:52] VITALS: BMI 51.5
[2018-07-03 09:25] VITALS: BMI 50.7
--- NOTE | 2018-10-04 08:18 | PFT ---
INTRODUCTION: The patient is a 78-year-old male that presents for pulmonary function studies secondary to a diagnosis of shortness of breath. Respiratory therapy reports good patient effort. Bronchodilators were used during testing. INTERPRETATION: Forced expiration spirometry demonstrates no evidence of a large airways obstructive ventilatory defect. There was a partial, albeit technically nonsignificant, response to aerosolized bronchodilators. Spirograms are of fair quality and plateau gradually. Body plethysmography reveals a decreased TLC to 3.6 L, 59% of predicted, indicative of a severe restrictive ventilatory impairment. The remainder of the lung volumes are symmetrically reduced. Diffusing capacity by single breath CO is reduced at 46% of predicted. 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 There are no previous pulmonary function studies available for comparison.
== END | disposition home or self-care (01) ==
LOC: PSN 13:42
PROVIDERS: Referring Provider Nurse Practitioner Acute Care; Visit Provider Nurse Practitioner Acute Care
DX: R06.02 Shortness of breath (principal)
CPT/HCPCS: 94060; 94726; 94729

== ENCOUNTER → 2018-10-04 | Outpatient (CLI) | payer MEDICARE, OTHER, SELFPAY ==
[2018-06-14 08:52] VITALS: BMI 51.5
[2018-07-03 09:25] VITALS: BMI 50.7
[2018-10-04 14:11] VITALS: PULSE 101; PULSE 102; PULSE 103; PULSE 104; PULSE 114; PULSE 81; PULSE 92; O2SAT 87; O2SAT 90; O2SAT 91; O2SAT 92; O2SAT 94; O2SAT 95
--- NOTE | 2018-10-04 14:15 | CPS ---
Pt states that he wears oxygen at home and does not wear it when he leaves the house do his portable tank being too heavy. Called [facility] and spoke to nurse due to Talia being with patient and she stated they would send order to [facility] for smaller oxygen device.
--- NOTE | 2018-10-05 10:23 | WT_ITS ---
PSN 6 Minute Walk Test - 6 Minute Walk Test 6 Minute Walk Test: 6 Minute Walk Test PSN:6-Minute Walk Test Start: 10/04/18 14:10 Freq: Status: Active Protocol: RESP.6MINW Document 10/04/18 14:11 SMB (Rec: 10/04/18 14:18 SMB [id number]) 6 Minute Walk Test Date Performed 10/04/18 Time Performed 13:04 Height 5 ft 8 in Weight: 331 lb Weight in Pounds 331.[address]: Talia La Assistive device used: Walker Pre-test Oxygen Delivery Method Room Air Pulse Ox (%) 95 Pulse Rate (60-100 beats/min) 81 Dyspnea Alma Scale (0-10) 0 Exertion Alma Scale (6-20) 11 1st minute Oxygen Delivery Method Room Air Pulse Ox (%) 94 Pulse Rate (60-100 beats/min) 101 H Number of Rests Taken 1 2nd minute Oxygen Delivery Method Room Air Pulse Ox (%) 92 Pulse Rate (60-100 beats/min) 104 H Number of Rests Taken 1 3rd minute Oxygen Delivery Method Room Air Pulse Ox (%) 91 Pulse Rate (60-100 beats/min) 103 H 4th minute Oxygen Delivery Method Room Air Pulse Ox (%) 90 Pulse Rate (60-100 beats/min) 114 H Number of Rests Taken 1 5th minute Oxygen Flow Rate (L/min) (L/min) 2 Oxygen Delivery Method Nasal Cannula Pulse Ox (%) 87 Pulse Rate (60-100 beats/min) 103 H Number of Rests Taken 1 6th minute Oxygen Flow Rate (L/min) (L/min) 2 Oxygen Delivery Method Nasal Cannula Pulse Ox (%) 92 Pulse Rate (60-100 beats/min) 102 H Post-test Oxygen Flow Rate (L/min) (L/min) 2 Oxygen Delivery Method Nasal Cannula Pulse Ox (%) 94 Pulse Rate (60-100 beats/min) 92 Dyspnea Alma Scale (0-10) 2 Exertion Alma Scale (6-20) 12 10/04/18 14:15 Cardiopulmonary Services by Makayla Alvares Pt states that he wears oxygen at home and does not wear it when he leaves the house do his portable tank being too heavy. Called [facility] and spoke to nurse due to Talia being with patient and she stated they would send order to [employer] for smaller oxygen device. Initialized on 10/04/18 14:15 - END OF NOTE - Interpretation Interpretation: The patient ambulated feet over the course of 6 minutes beginning on room air with use of a walker. Pretesting oxygen saturation was noted to be 95% on room air. With ambulation, the jordon oxygen saturation was 87%. 2 L/min of supplemental oxygen was applied and the patient was able to complete the remaind er of the test while maintaining appropriate oxygen saturations. - Recommendations Recommendations: 2 L/min of supplemental oxygen should be utilized with exertion.
== END | disposition home or self-care (01) ==
LOC: PSN 12:57
PROVIDERS: Referring Provider Nurse Practitioner Acute Care; Visit Provider Nurse Practitioner Acute Care
DX: R06.02 Shortness of breath (principal)
CPT/HCPCS: 94618

== ENCOUNTER → 2018-10-15 | Outpatient (CLI) | payer MEDICARE, OTHER, SELFPAY ==
[2018-10-09 12:50] VITALS: BMI 51.3
--- NOTE | 2018-10-15 13:54 | CT_ITS ---
STUDY: CT CHEST WITHOUT CONTRAST REASON FOR EXAM: Male, 78 years old. Shortness of breath with exertion after fall June 2018 RADIATION DOSAGE (If Supplied By Facility): CTDIvol = ( 28.71 ) mGy, DLP = ( 903.42 ) mGycm TECHNIQUE: Transaxial imaging was performed without the administration of intravenous contrast material. Sagittal and coronal 2-D MPR Individualized dose optimization techniques were used for this CT. COMPARISON: Chest x-ray 06/20/2018, CT chest 05/28/2018, thoracentesis 06/20/2018. FINDINGS: Supraclavicular: No acute process. Body wall soft tissues: No acute process. Upper abdomen: Moderate pancreatic atrophy. No acute intracranial process. Osseous structures: Old bilateral rib fractures. Mild kyphoscoliosis, mild spondylosis, osteopenia. Mediastinal: Normal esophagus. No mass or lymphadenopathy. Aorta: Mild calcification of the valve leaflets and annulus. Nondilated aortic arch with mild atherosclerosis. Pulmonary arteries: Nondilated. Heart: No cardiomegaly or pericardial effusion. Lungs: Trace residual left layering pleural effusion, with mild left lung base atelectasis. Lingular mild bronchial wall thickening and interstitial scar, chronic. Right lung base minimal atelectasis. CT/Chest without Contrast IMPRESSION: Old bilateral rib fractures, acute at the time of the 05/28/2018 study. Minimal residual left pleural effusion and left lung base atelectasis. No other acute cardio prominent process is evident. Electronically Signed: Jordin Argueta MD at 14:26 EDT Tel , Service support ,
== END | disposition home or self-care (01) ==
LOC: CT 13:52
PROVIDERS: Referring Provider Internal Medicine Critical Care Medicine; Visit Provider Internal Medicine Critical Care Medicine
DX: J98.4 Other disorders of lung (principal)
CPT/HCPCS: 71250

== ENCOUNTER → 2019-08-05 10:55 | Outpatient (CLI) | payer MEDICARE, OTHER, SELFPAY ==
[2019-07-05 07:52] VITALS: BMI 52.1
[2019-08-05 11:00] VITALS: PULSE 100; PULSE 106; PULSE 109; PULSE 112; PULSE 115; PULSE 120; PULSE 125; PULSE 86; O2SAT 90; O2SAT 91; O2SAT 92; O2SAT 93; O2SAT 95; O2SAT 97
--- NOTE | 2019-08-05 11:34 | CPS ---
Patient pushed wheelchair as assistive device during part of the 6 minute testing, half without assistive device. After 6 minute coleen spO2 dropped to 88-87%.
--- NOTE | 2019-08-09 10:12 | WT_ITS ---
PSN 6 Minute Walk Test - 6 Minute Walk Test 6 Minute Walk Test: 6 Minute Walk Test PSN:6-Minute Walk Test Start: 08/05/19 11:28 Freq: Status: Active Protocol: RESP.6MINW Document 08/05/19 11:00 (Rec: 08/05/19 11:37 [id number]) 6 Minute Walk Test Date Performed 08/05/19 Time Performed 11:00 Height 5 ft 8 in Weight: 330 lb Weight in Pounds 330.[address]: Dr. Shrestha FIO2 (% Oxygen) 21 Pre-test Oxygen Delivery Method Room Air Pulse Ox (%) 97 Pulse Rate (60-100 beats/min) 86 Dyspnea Alma Scale (0-10) 0 Exertion Alma Scale (6-20) 6 1st minute Oxygen Delivery Method Room Air Pulse Ox (%) 92 Pulse Rate (60-100 beats/min) 109 H 2nd minute Oxygen Delivery Method Room Air Pulse Ox (%) 92 Pulse Rate (60-100 beats/min) 100 Number of Rests Taken 1 3rd minute Oxygen Delivery Method Room Air Pulse Ox (%) 93 Pulse Rate (60-100 beats/min) 112 H 4th minute Oxygen Delivery Method Room Air Pulse Ox (%) 92 Pulse Rate (60-100 beats/min) 115 H 5th minute Oxygen Delivery Method Room Air Pulse Ox (%) 91 Pulse Rate (60-100 beats/min) 120 H Number of Rests Taken 1 6th minute Oxygen Delivery Method Room Air Pulse Ox (%) 90 Pulse Rate (60-100 beats/min) 125 H Post-test Oxygen Delivery Method Room Air Pulse Ox (%) 95 Pulse Rate (60-100 beats/min) 106 H Dyspnea Alma Scale (0-10) 3 Exertion Alma Scale (6-20) 13 Full Laps Walked 5 08/05/19 11:34 Cardiopulmonary Services by Nancy Owen Patient pushed wheelchair as assistive device during part of the 6 minute testing, half without assistive device. After 6 minute coleen spO2 dropped to 88- 87%. Initialized on 08/05/19 11:34 - END OF NOTE - Interpretation Interpretation: The patient ambulated with the use of a wheelchair on room air. Pretesting oxygen saturation was noted to be 97% on room air. With ambulation, the jordon oxygen saturation was 90%. The patient did develop tachycardia with exertion. All of this will be consistent with a pulmonary limitation to exercise tolerance. - Recommendations Recommendations: There is no indication for the use of supplemental oxygen at this time. However, close interval follow-up is recommended, given the degree of oxygen desaturation noted during this study.
== END ==
PROVIDERS: Referring Provider Internal Medicine Critical Care Medicine; Visit Provider Internal Medicine Critical Care Medicine
DX: J96.11 Chronic respiratory failure with hypoxia (principal)
CPT/HCPCS: 94618

== ENCOUNTER → 2020-03-25 14:33 | Outpatient (CLI) ==
[2020-03-25 15:23] LABS: Absolute Lymphocyte Count 1.83 X10^3/uL (0.83-4.51); Absolute Neutrophil Count 3.6 X10^3/uL (2.0-7.7); Basophil# 0.05 X10^3/uL; Basophil% 0.8 % (0-1); Eosinophil# 0.29 X10^3/uL; Eosinophils% 4.6 % (0-5); Hematocrit 44.1 % (40-54); Hemoglobin 14.1 g/dL (13.0-16.5); Lymphocyte # 1.83 X10^3/ul (4.0); Mean Corpuscular Hgb 34.9 pg (27.0-32.0); Mean Corpuscular Volume 109.2 fL (80-94); Mean Platelet Vol. 9.5 fl (6.2-12.0); Monocyte# 0.51 X10^3/uL; Monocyte% 8.1 % (0-10); NRBC Flagged by Analyzer 0 % (0-5); Neutrophil % 56.9 % (47-70); Platelet Count 195 K/mm3 (150-450); RBC Distribution Width CV 13.4 % (11.6-14.6); RBC Distribution Width SD 54.6 fl (35.1-43.9); Red Blood Count 4.04 M/mm3 (4.6-6.2); White Blood Count 6.3 K/mm3 (4.4-11.0)
[2020-03-25 15:43] LABS: Hemoglobin A1c 5.6 % (3.8-5.6)
[2020-03-25 16:16] LABS: ALB/GLOB Ratio 0.7 RATIO (0.9-2.4); AST(SGOT) 22 U/L (15-37); Alanine Aminotransfer ALT/SGPT 22 U/L (16-61); Albumin, Serum 3.2 g/dL (3.2-5.0); Alkaline Phosphatase 54 U/L (45-117); Anion Gap 4 (5-15); BUN 26 mg/dL (7-18); BUN/Creat Ratio 17.4 RATIO (10-20); Calcium,Total 8.7 mg/dL (8.5-10.1); Chloride 105 mmol/L (98-107); Cholesterol 177 mg/dL (200); Creatinine, Serum 1.49 mg/dL (0.70-1.30); EST Glomerular Filtration Rate 48 mL/min (>60); Est Glom Filt Rate - Afr Amer 59 mL/min (>60); Globulin 4.7 g/dL (2.2-4.2); Glucose 109 mg/dL (74-106); High Density Lipoprotein 63 mg/dL; Potassium 4.4 mmol/L (3.5-5.1); Protein, Total 7.9 g/dL (6.4-8.2); Sodium Level 140 mmol/L (136-145); Thyroid Stim Hormone (TSH) 5.44 uIU/mL (0.358-3.74); Triglycerides 102 mg/dL; Very Low Density Lipoprotein 20 mg/dL (5-40)
[2020-03-26 09:43] LABS: T4 Free Direct 0.69 ng/dL (0.76-1.46)
[2020-03-26 11:08] LABS: Vitamin B12 687 pg/mL (211-911)
[2020-04-02 12:07] LABS: Testosterone, Free 2.66 ng/dL (5.00-21.00)
[2020-04-02 13:10] LABS: Testosterone, Total 148 ng/dL (264-916)
== END ==
PROVIDERS: Internal Medicine
DX: J98.4 Other disorders of lung (principal); M19.90 Unspecified osteoarthritis, unspecified site; E66.01 Morbid (severe) obesity due to excess calories; M10.9 Gout, unspecified; J96.11 Chronic respiratory failure with hypoxia; G47.33 Obstructive sleep apnea (adult) (pediatric); I87.8 Other specified disorders of veins; H26.9 Unspecified cataract; Z79.899 Other long term (current) drug therapy; R53.83 Other fatigue; R71.8 Other abnormality of red blood cells
CPT/HCPCS: 36415; 80053; 80061; 82607; 83036; 84402; 84403; 84439; 84443; 84481; 85025

== ENCOUNTER → 2020-04-21 16:15 | Outpatient (CLI) | payer MEDICARE, OTHER, SELFPAY ==
[2020-04-21 18:58] LABS: Thyroid Stim Hormone (TSH) 3.51 uIU/mL (0.358-3.74)
== END ==
PROVIDERS: PCP Internal Medicine; Referring Provider Internal Medicine; Visit Provider Internal Medicine
DX: E03.9 Hypothyroidism, unspecified (principal)
CPT/HCPCS: 36415; 84443

== ENCOUNTER → 2021-01-05 11:59 | Outpatient (CLI) | payer MEDICARE, OTHER, SELFPAY ==
[2021-01-05 10:22] VITALS: BMI 53.9
[2021-01-05 12:24] LABS: Bacteria 0 SEEN /hpf (None Seen); Mucous, Urine 0 SEEN /hpf (<or=2+); Red Blood Cells-Urine 0 SEEN /hpf (0-5); Squamous Epithelial Cells - UA 0 SEEN /hpf (0-5); White Blood Cells 0 SEEN /hpf (0-5)
[2021-01-05 15:16] LABS: Color, Urine Yellow (Yellow); Glucose, Dipstick Normal (Normal); Ketone-Dipstick Negative (Negative); Leukocyte Esterase-Dipstick Negative /ul (Negative); Nitrite-Dipstick Negative (Negative); Occult Blood-Urine Negative /ul (Negative); Protein-Dipstick 15 mg/dl (Negative); Specific Gravity, Urine 1.015 (1.002-1.030); Urine Bilirubin Dipstick Negative (Negative); Urine Clarity Clear (Clear); Urine Urobilinogen Normal (Normal)
[2021-01-05 15:18] LABS: Absolute Lymphocyte Count 3.06 X10^3/uL (0.83-4.51); Absolute Neutrophil Count 5.2 X10^3/uL (2.0-7.7); Basophil# 0.08 X10^3/uL; Basophil% 0.8 % (0-1); Eosinophil# 0.24 X10^3/uL; Eosinophils% 2.5 % (0-5); Hematocrit 43.9 % (40-54); Hemoglobin 13.6 g/dL (13.0-16.5); Lymphocyte # 3.06 X10^3/ul (0.83-4.51); Lymphocyte % 32.4 % (19-41); Mean Corpuscular Hgb 34.9 pg (27.0-32.0); Mean Corpuscular Volume 112.6 fL (80-94); Mean Platelet Vol. 9.3 fl (6.2-12.0); Monocyte# 0.83 X10^3/uL; Monocyte% 8.8 % (0-10); NRBC Flagged by Analyzer 0.2 % (0-5); Neutrophil # 5.16 X10^3/uL (2.7-7.7); Neutrophil % 54.9 % (47-70); Platelet Count 247 K/mm3 (150-450); RBC Distribution Width CV 13.9 % (11.6-14.6); RBC Distribution Width SD 57.8 fl (35.1-43.9); White Blood Count 9.4 K/mm3 (4.4-11.0)
[2021-01-05 15:39] LABS: ALB/GLOB Ratio 0.6 RATIO (0.9-2.4); AST(SGOT) 27 U/L (15-37); Alanine Aminotransfer ALT/SGPT 28 U/L (16-61); Albumin, Serum 3.2 g/dL (3.2-5.0); Alkaline Phosphatase 57 U/L (45-117); Anion Gap 8 (5-15); BUN 21 mg/dL (7-18); BUN/Creat Ratio 12.7 RATIO (10-20); Calcium,Total 8.8 mg/dL (8.5-10.1); Chloride 103 mmol/L (98-107); Creatinine, Serum 1.65 mg/dL (0.70-1.30); EST Glomerular Filtration Rate 43 mL/min (>60); Est Glom Filt Rate - Afr Amer 52 mL/min (>60); Globulin 5.4 g/dL (2.2-4.2); Glucose 115 mg/dL (74-106); Magnesium 2.4 mg/dL (1.6-2.6); PSA,Total - Annual Screen 0.12 ng/mL (0.00-4.00); Potassium 4.3 mmol/L (3.5-5.1); Prealbumin 18.5 mg/dL (20.0-40.0); Protein, Total 8.6 g/dL (6.4-8.2); Sodium Level 140 mmol/L (136-145); T4 Free Direct 0.59 ng/dL (0.76-1.46); Thyroid Stim Hormone (TSH) 9.02 uIU/mL (0.358-3.74)
[2021-01-07 08:42] LABS: Vitamin B12 685 pg/mL (211-911)
[2021-01-12 12:08] LABS: Testosterone, Free 2.93 ng/dL (5.00-21.00)
[2021-01-12 13:45] LABS: Testosterone, % Free 2.24 % (1.50-4.20); Testosterone, Total 131 ng/dL (264-916)
== END ==
PROVIDERS: PCP Internal Medicine; Referring Provider Internal Medicine; Visit Provider Internal Medicine
DX: E29.1 Testicular hypofunction (principal); R79.89 Other specified abnormal findings of blood chemistry; E03.9 Hypothyroidism, unspecified; J96.11 Chronic respiratory failure with hypoxia; I87.8 Other specified disorders of veins; E66.01 Morbid (severe) obesity due to excess calories; G47.33 Obstructive sleep apnea (adult) (pediatric); J90 Pleural effusion, not elsewhere classified; R35.0 Frequency of micturition; R39.9 Unspecified symptoms and signs involving the genitourinary system; R71.8 Other abnormality of red blood cells; T14.8XXA Other injury of unspecified body region, initial encounter; Z12.5 Encounter for screening for malignant neoplasm of prostate; I87.332 Chronic venous hypertension (idiopathic) with ulcer and inflammation of left lower extremity; I25.2 Old myocardial infarction; M19.90 Unspecified osteoarthritis, unspecified site; Z68.43 Body mass index [BMI] 50.0-59.9, adult; M10.9 Gout, unspecified; Z87.11 Personal history of peptic ulcer disease; E21.5 Disorder of parathyroid gland, unspecified; I87.2 Venous insufficiency (chronic) (peripheral)
CPT/HCPCS: 11042; 29580; 36415; 80053; 81001; 82607; 83735; 84134; 84153; 84402; 84403; 84439; 84443; 85025; 99213; G0103; G0463

== ENCOUNTER 2021-01-08 12:00 | Outpatient (RCR) | payer MEDICARE, OTHER, SELFPAY ==
[2020-12-31 16:20] VITALS: BMI 53.9
[2021-01-05 10:22] VITALS: BP 170/95; PULSE 104; TEMP 35.9; BMI 53.9
--- NOTE | 2021-01-05 13:37 | HP.PCM_ITS ---
History of Present Illness Date of Service: 01/05/21 Chief Complaint: Venous ulceration, left posterior calf History of Wound: This is a 80-year-old morbidly obese male who presents with a venous stasis ulceration on the left posterior calf, associated with severe venous stasis dermatitis involving the entire circumference of his left mid calf. The patient indicates that the ulceration and skin changes have been present for approximately 2 months. However, it appears as though the patient has a longstanding history of chronic venous disease. He is morbidly obese, with a BMI of over 50. At the instruction of his primary care physician, he has been using peroxide and iodine topically on the ulceration in recent weeks. The patient claims to sleep on a flat mattress at night. However, he is relatively immobile and inactive, sitting idly a good part of each day. He experiences swelling in his lower extremities bilaterally, more notable at the end of each day. He has been previously prescribed graduated compression stockings, but is unable to don the stockings. He is a , and lives alone. He has an aide who comes to his home twice weekly. [facility] Medical History (Updated 01/05/21 @ 13:[address] Romie Umanzor MD) Cataracts, bilateral Chronic venous hypertension w/ulcer and inflammation involv left side Chronic venous insufficiency Chronic venous stasis Gout History of bleeding ulcers History of gastric ulcer History of myocardial infarction Hyperpigmentation Hypogonadism Immobility Lipodermatosclerosis Lower extremity edema Morbid obesity Morbid obesity with BMI of 50.0-59.9, adult NSAID-induced gastric ulcer MEGHANA (obstructive sleep apnea) Osteoarthritis Parathyroid abnormality Pleural effusion Swelling of lower extremity Venous stasis dermatitis of left lower extremity Venous stasis ulcer Home Medications Oxygen, Home [Home Oxygen] 2 lpm NASAL PRN PRN #1 unit 06/21/18 [Rx Last Taken Unknown] arthrid PO 02/07/20 [History Last Taken Unknown] magnesium oxide 400 mg PO BID 02/07/20 [History Last Taken Unknown] multivitamin 1 cap PO DAILY 02/07/20 [History Last Taken Unknown] potassium chloride 20 mEq tablet,extended release 20 meq PO DAILY 02/07/20 [History Last Taken Unknown] pro bio slim PO 02/07/20 [History Last Taken Unknown] super eric prostate PO 02/07/20 [History Last Taken Unknown] antiarthritic combination no.2 900 mg tablet mg PO 03/25/20 [History Last Taken Unknown] testosterone 50 mg/5 gram (1 %) transdermal gel 1 packet TRANSDERMAL DAILY #30 tube 04/06/20 [Rx Last Taken Unknown] furosemide 20 mg tablet 10 mg PO DAILY PRN tab 06/30/20 [History Last Taken Unknown] levothyroxine 50 mcg tablet 50 mcg PO DAILY #90 tab 12/31/20 [Rx Last Taken Unknown] Allergy/AdvReac Type Severity Reaction Status Date / Time cephalexin [From Keflex] Allergy Rash Verified 06/30/20 13:39 Family History Father Colon cancer Alcoholism Sister Depression Brother Heart disease Mother Diabetes Surgical History Gastric ulcer Hip joint replacement status History of hip replacement Social History Smoking Status: Never smoker second hand exposure: No alcohol intake: never substance use type: does not use Vital Signs Vital Signs Vital Signs: 01/05/21 10:22 Temperature 96.7 F L Temperature Source Temporal Pulse Rate 104 H Blood Pressure 170/95 H Blood Pressure Mean 120 Blood Pressure Source Monitor Blood Pressure Position Semi-Fowlers Blood Pressure Location Left Arm Weight Body Mass Index (BMI) 53.9 Physical Exam Const alert, oriented x3, no apparent distress and well nourished Constitutional Narrative: The patient is morbidly obese. General Appearance: cooperative, comfortable, well kempt and well developed Orientation / Consciousness: awake, oriented to person, oriented to place and oriented to time HEENT normocephalic and head/scalp atraumatic Head and Scalp: normal to inspection, normocephalic and atraumatic External Ear: external ears normal Eyes PERRL and EOMs intact bilaterally General Eye: normal appearance of both eyes Resp normal respiratory effort, normal air movement, no retractions and no use of accessory muscles Effort and Inspection: able to speak in complete sentences Extremity no calf tenderness Extremity Narrative: Severe swelling and edema is noted bilaterally in the lower extremities. It is more pronounced in the left lower extremity. Severe, erythematous venous stasis dermatitis is noted circumferentially in the left mid calf. On the posterior left calf, there is an ulceration. There is a moderate amount of bioburden and some nonviable, necrotic tissue. Dimensions are documented elsewhere. Severe hyperpigmentation and lipodermatosclerosis are noted bilaterally in the gaiter areas. General Extremity: Negative for clubbing or cyanosis Skin Wound Narrative: There is an open wound on the left posterior calf, embedded within a large area of venous stasis dermatitis. Dimensions are documented elsewhere. There is a moderate amount of bioburden and nonviable, necrotic tissue is noted to be present. Neuro oriented x3, CN's II-XII intact bilaterally and moves all extremities Sensorium / Orientation: awake, alert, oriented to person, oriented to place and oriented to time Speech: speech normal Psych Appearance: grossly normal and appropriate Attitude: calm Activity / Motor Behavior: appropriate eye contact Speech: normal speech Mood & Affect: euthymic mood Thought Process: normal thought process Thought Content: normal thought content Attention / Concentration: attention grossly intact Debridement Note Debridement Note Post-Debridement Measurements and Additional Note: Post-Debridement Measurements/Treatment - Nurse 1 - General Ulcer Assessment Start: 01/05/21 10:22 Freq: Status: Active Protocol: JUAN Activity Type Activity Date Activity User E-Sign Co-Sign Detail Recorded Client Recorded Date Recorded By Document 01/05/21 10:22 EMMANUEL [id number] 01/05/21 10:44 EMMANUEL 01/05/21 10:22 - Today's Visit Information Type of service Initial Visit Arrival Mode Wheelchair Patient Identification Verified (Name & Yes ) Height and Weight Body Mass Index (BMI) 53.9 BMI Classification Obese Vital Signs Temperature (97.8 F-99.1 F) 96.7 F L Temperature Source Temporal Pulse Rate (60-100) 104 H Pulse Location Monitor Blood Pressure (90/60-120/80) 170/95 H Blood Pressure Mean 120 Source Monitor Position Semi-Fowlers Blood Pressure Location Left Arm History Since Last Visit- (Skip if this is Patient's initial visit) Have you changed medications since your No last visit? Any new allergies or adverse reactions No Had a fall/change in ADL's that may No increase risk of falls Signs or symptoms of abuse and/or No neglect since last visit Have you been in the hospital since your No last visit? Has dressing in place as prescribed No Has compression in place as prescribed N/A Has offloadiing in place as prescribed N/A Experienced any changes in pain level or No management Left Footwear Regular Shoe Right Footwear Regular Shoe Pain Scale: 0-10 Numeric Is Patient Pain Free? Yes Lower Extremity Assessment/ Foot Assessment/ Toe Nail Assessment Right -Popliteal Doppler Multiphasic -Posterior Tibial Doppler Monophasic -Dorsalis Pedis Doppler Multiphasic -Extremity Color Hemosiderin -Hair Growth on Legs No -Hair Growth on Toes No -Temperature of Extremity Warm -Capillary Refill Less than 3 Seconds -Dependent Rubor No -Blanched when Elevated No -Lipodermatosclerosis No -Foot Assessment Not Applicable -Other Deformity No -Prior Foot Ulcer No -Charcot Joint No -Prior Amputation No -Thick Yes -Discolored Yes -Deformed No -Improper Length & Hygeine No Left -Popliteal Doppler Monophasic -Posterior Tibial Doppler Monophasic -Dorsalis Pedis Doppler Multiphasic -Extremity Color Hemosiderin -Hair Growth on Legs No -Hair Growth on Toes No -Temperature of Extremity Warm -Capillary Refill Less than 3 Seconds -Dependent Rubor No -Blanched when Elevated No -Lipodermatosclerosis No -Other Deformity No -Prior Foot Ulcer No -Charcot Joint No -Prior Amputation No -Thick Yes -Discolored Yes -Deformed No -Improper Length & Hygeine No Neuropathy Assessment Feet - Top Side and Bottom <Entered> (a) (a) 1 - + 2 - + 3 - + 4 - + 5 - + WC - Nurse 1 - General Ulcer Measurement Start: 01/05/21 10:22 Freq: Status: Active Protocol: Activity Type Activity Date Activity User E-Sign Co-Sign Detail Recorded Client Recorded Date Recorded By Document 01/05/21 10:22 [email or web address] [id number] 01/05/21 10:44 EMMANUEL 01/05/21 10:22 Wound Center Nurse 1 #2 LLE Cluster -Current Size (cm) - Length 8.5 -Current Size (cm) - Width 20 -Current Size (cm) - Depth 0.1 -Total Square Cm 170.0 -Exudate Amt Medium -Exudate Type Serosanguineous -Wound Margin Distinct, Outline Attached -Granulation Amt Medium (34-66%) -Granulation Quality Red -Necrosis Amt Small (1-33%) -Necrotic Tissue Type Adherent Slough -Texture (Kaci-wound Skin Appearance) Assessed, Scarring -Moisture (Kaci-wound Skin Appearance) No Abnormality, Assessed -Color (Kaci-wound Skin Appearance) No Abnormality, Assessed -Temperature (Kaci-wound Skin No Abnormality Appearance) (Pt Warm) -Tenderness on Palpation (Kaci-wound No Skin Appearance) -Ulcer Cleansing Rinsed/ Irrigated with Saline -Foul Odor after Cleansing No -Anesthetic Used 5% Lidocaine Gel #1 LE Post -Current Size (cm) - Length 3 -Current Size (cm) - Width 1.9 -Current Size (cm) - Depth 0.2 -Total Square Cm 5.7 -Exudate Amt Medium -Exudate Type Serosanguineous -Wound Margin Distinct, Outline Attached -Granulation Amt Medium (34-66%) -Granulation Quality Red -Necrosis Amt Small (1-33%) -Necrotic Tissue Type Adherent Slough -Texture (Kaci-wound Skin Appearance) Assessed, Scarring -Moisture (Kaci-wound Skin Appearance) Assessed, Maceration -Color (Kaci-wound Skin Appearance) No Abnormality, Assessed -Temperature (Kaci-wound Skin No Abnormality Appearance) (Pt Warm) -Tenderness on Palpation (Kaci-wound No Skin Appearance) -Ulcer Cleansing Rinsed/ Irrigated with Saline -Foul Odor after Cleansing No -Anesthetic Used 5% Lidocaine Gel Right Calf (cm) 50.5 Right Ankle (cm) 30.8 Left Calf (cm) 61.8 Left Ankle (cm) 35.2 WC - Nurse 2 - General Ulcer CM Notes Start: 01/05/21 10:22 Freq: Status: Active Protocol: Activity Type Activity Date Activity User E-Sign Co-Sign Detail Recorded Client Recorded Date Recorded By Document 01/05/21 12:10 DIPAK [id number] 01/05/21 12:11 DIPAK 01/05/21 12:10 Wound Center Nurse 2 #1 LE Post -Time 11:02 -Correct Patient Yes -Correct Side, Site, Position Yes -Correct Procedure Yes -Procedure Performed Yes -Type of Procedure Debridement -Clinical Debridement Subcutaneous -Tissue Removed Subcutaneous -Post Debridement (cm) - Length 3.0 -Post Debridement (cm) - Width 1.9 -Post Debridement (cm) - Depth 0.2 -Total Square (Post) (cm) 5.70 -Area of Debridement (cm) - Length 3.0 -Area of Debridement (cm) - Width 1.9 -Total Square (Area) (cm) 5.70 -Tunneling No -Undermining/Tunneling No -Circular Undermining No -Wound/Ulcer Outcome Not Healed -Ulcer Cleansing Rinsed/ Irrigated with Saline -Foul Odor after Cleansing No -Bioengineered Tissue No -Bleeding Controlled with Pressure -Treatment Response Procedure Tolerated Well -Debridement - Subq, 1st 20sq cm Yes WC - Nurse 3 - General Ulcer D/C NN Start: 01/05/21 10:22 Freq: Status: Active Protocol: Activity Type Activity Date Activity User E-Sign Co-Sign Detail Recorded Client Recorded Date Recorded By Document 01/05/21 11:19 EMMANUEL [id number] 01/05/21 11:20 EMMANUEL 01/05/21 11:19 Wound Care Nurse 3 Left -Multi-Layered Wrap Application Unna Boot - Bilateral ($) -Unna Boots (Bilat) ($) 2 Pain Scale: 0-10 Numeric Is Patient Pain Free? Yes WC - Visit Discharge Discharge Condition Stable Ambulatory Status Wheelchair Transportation Private Auto Wound debrided: Left posterior calf Laterality: Left Type of Debridement: Excisional debridement Anesthesia Used: 5% Lidocaine Gel Depth: Down to and including healthy tissue and in the subcutaneous layer Percentage of wound debrided: 100 Instrument Used: 5mm curette Tissue Removed: Bioburden and necrotic tissue Severity: Fat Layer Exposed Amount of bleeding with debridement: Mild Bleeding Controlled with: Compression and gauze Patient tolerated procedure: Patient tolerated procedure well Assessment/Plan Assessment/Plan (1) Venous stasis ulcer: CODE(S): I83.009 - Varicose veins of unspecified lower extremity with ulcer of unspecified site; L97.909 - Non-pressure chronic ulcer of unspecified part of unspecified lower leg with unspecified severity (2) Chronic venous insufficiency: CODE(S): I87.2 - Venous insufficiency (chronic) (peripheral) (3) Chronic venous hypertension w/ulcer and inflammation involv left side: CODE(S): I87.332 - Chronic venous hypertension (idiopathic) with ulcer and inflammation of left lower extremity; L97.929 - Non-pressure chronic ulcer of unspecified part of left lower leg with unspecified severity (4) Venous stasis dermatitis of left lower extremity: CODE(S): I87.2 - Venous insufficiency (chronic) (peripheral) (5) Hyperpigmentation: CODE(S): L81.9 - Disorder of pigmentation, unspecified (6) Lipodermatosclerosis: CODE(S): I83.10 - Varicose veins of unspecified lower extremity with inflammation (7) Swelling of lower extremity: CODE(S): M79.89 - Other specified soft tissue disorders (8) Lower extremity edema: CODE(S): R60.0 - Localized edema (9) Morbid obesity with BMI of 50.0-59.9, adult: CODE(S): E66.01 - Morbid (severe) obesity due to excess calories; Z68.43 - Body mass index [BMI] 50.0-59.9, adult (10) Immobility: CODE(S): Z74.09 - Other reduced mobility (11) History of myocardial infarction: CODE(S): I25.2 - Old myocardial infarction (12) Hypothyroidism (acquired): CODE(S): E03.9 - Hypothyroidism, unspecified (13) MEGHANA (obstructive sleep apnea): CODE(S): G47.33 - Obstructive sleep apnea (adult) (pediatric) (14) Osteoarthritis: CODE(S): M19.90 - Unspecified osteoarthritis, unspecified site (15) Restrictive airway disease: CODE(S): J98.4 - Other disorders of lung (16) Chronic hypoxemic respiratory failure: CODE(S): J96.11 - Chronic respiratory failure with hypoxia (17) Gout: CODE(S): M10.9 - Gout, unspecified (18) History of gastric ulcer: CODE(S): Z87.11 - Personal history of peptic ulcer disease (19) Parathyroid abnormality: CODE(S): E21.5 - Disorder of parathyroid gland, unspecified (20) Hypogonadism: PLAN: This is a 80-year-old morbidly obese male who presents with chronic and severe bilateral lower extremity venous disease. He currently has profound venous stasis dermatitis affecting his left lower extremity, with a venous ulceration located on the posterior calf. He also manifests chronic changes in both lower extremities, namely swelling and edema, hyperpigmentation, and lipodermatosclerosis. Patient is morbidly obese. He is relatively inactive. Is limited by his chronic hypoxic respiratory failure, restrictive airway disease, and morbid obesity. While he does claim to sleep on a flat surface at night, he sits for the preponderance of each day, without much activity. We are to implement conservative treatment measures relative to his lower extremity presenting symptoms. We have had a lengthy discussion about the measures which will be of benefit. Leg elevation has been discussed in detail. His lower extremities are to be elevated as much as possible, to heart level, or higher. He is to avoid idle prolonged sitting. Activity has been encouraged, though is unlikely to be enhanced to any significant degree. Weight loss has also been recommended. We are to implement compression to the lower extremities bilaterally by means of Unna boots, which will be applied bilaterally, and changed twice weekly. Patient is to return in 1 week for reassessment. Routine laboratory studies are to be obtained, including a CBC, comprehensive metabolic profile, and a serum prealbumin. We will forego a venous duplex examination, as the patient is not currently a good candidate for procedural intervention. Total time: 70 minutes.
[2021-01-08 12:20] VITALS: BP 165/77; PULSE 98; RESP 18; TEMP 35.8; BMI 53.9
== END 2021-01-09 23:59 ==
LOC: WC 12:00
PROVIDERS: PCP Internal Medicine; Visit Provider Surgery
DX: I83.222 Varicose veins of left lower extremity with both ulcer of calf and inflammation (principal); L97.222 Non-pressure chronic ulcer of left calf with fat layer exposed; J96.11 Chronic respiratory failure with hypoxia; J45.909 Unspecified asthma, uncomplicated; E03.9 Hypothyroidism, unspecified; M10.9 Gout, unspecified; M19.90 Unspecified osteoarthritis, unspecified site; E29.1 Testicular hypofunction; G47.33 Obstructive sleep apnea (adult) (pediatric); E66.01 Morbid (severe) obesity due to excess calories; Z68.43 Body mass index [BMI] 50.0-59.9, adult; Z79.899 Other long term (current) drug therapy; I25.2 Old myocardial infarction; Z87.11 Personal history of peptic ulcer disease
CPT/HCPCS: 11042; 29580; 99213; G0463

== ENCOUNTER 2021-02-09 10:45 | Outpatient (RCR) | payer MEDICARE, OTHER, SELFPAY ==
[2021-01-10 00:40] VITALS: BP 165/77; PULSE 98; RESP 18; TEMP 35.8
[2021-01-12 11:03] VITALS: BP 164/86; PULSE 100; TEMP 36.4; BMI 53.9
--- NOTE | 2021-01-12 12:06 | PCM.WC.HP ---
History of Present Illness Date of Service: 01/12/21 Chief Complaint: Venous ulceration, left posterior calf History of Wound: This is a 80-year-old morbidly obese male who presented with a venous stasis ulceration on the left posterior calf, associated with severe venous stasis dermatitis involving the entire circumference of his left mid calf. The patient indicated that the ulceration and skin changes had been present for approximately 2 months. However, it appears as though the patient has a longstanding history of chronic venous disease. He is morbidly obese, with a BMI of over 50. At the instruction of his primary care physician, he had been using peroxide and iodine topically on the ulceration in recent weeks. The patient claims to sleep on a flat mattress at night. However, he is relatively immobile and inactive, sitting idly a good part of each day. He experiences swelling in his lower extremities bilaterally, more notable at the end of each day. He has been previously prescribed graduated compression stockings, but is unable to don the stockings. He is a , and lives alone. He has an aide who comes to his home twice weekly. [facility], [facility] Medical History Cataracts, bilateral Chronic venous hypertension w/ulcer and inflammation involv left side Chronic venous insufficiency Chronic venous stasis Gout History of bleeding ulcers History of gastric ulcer History of myocardial infarction Hyperpigmentation Hypogonadism Immobility Lipodermatosclerosis Lower extremity edema Morbid obesity Morbid obesity with BMI of 50.0-59.9, adult NSAID-induced gastric ulcer MEGHANA (obstructive sleep apnea) Osteoarthritis Parathyroid abnormality Pleural effusion Swelling of lower extremity Venous stasis dermatitis of left lower extremity Venous stasis ulcer Home Medications Oxygen, Home [Home Oxygen] 2 lpm NASAL PRN PRN #1 unit 06/21/18 [Rx Last Taken Unknown] arthrid PO 02/07/20 [History Last Taken Unknown] magnesium oxide 400 mg PO BID 02/07/20 [History Last Taken Unknown] multivitamin 1 cap PO DAILY 02/07/20 [History Last Taken Unknown] potassium chloride 20 mEq tablet,extended release 20 meq PO DAILY 02/07/20 [History Last Taken Unknown] pro bio slim PO 02/07/20 [History Last Taken Unknown] super eric prostate PO 02/07/20 [History Last Taken Unknown] antiarthritic combination no.2 900 mg tablet mg PO 03/25/20 [History Last Taken Unknown] testosterone 50 mg/5 gram (1 %) transdermal gel 1 packet TRANSDERMAL DAILY #30 tube 04/06/20 [Rx Last Taken Unknown] furosemide 20 mg tablet 10 mg PO DAILY PRN tab 06/30/20 [History Last Taken Unknown] levothyroxine 50 mcg tablet 50 mcg PO DAILY #90 tab 12/31/20 [Rx Last Taken Unknown] Allergy/AdvReac Type Severity Reaction Status Date / Time cephalexin [From Keflex] Allergy Rash Verified 06/30/20 13:39 Family History Father Colon cancer Alcoholism Sister Depression Brother Heart disease Mother Diabetes Surgical History Gastric ulcer Hip joint replacement status History of hip replacement Social History Smoking Status: Never smoker second hand exposure: No alcohol intake: never substance use type: does not use Vital Signs Vital Signs Vital Signs: 01/12/21 11:03 Temperature 97.6 F L Temperature Source Temporal Pulse Rate 100 Blood Pressure 164/86 H Blood Pressure Mean 112 Blood Pressure Source Monitor Blood Pressure Location Right Arm Weight Body Mass Index (BMI) 53.9 Physical Exam Narrative The patient is morbidly obese. Const alert, oriented x3, no apparent distress and well nourished General Appearance: cooperative, comfortable and well developed Orientation / Consciousness: awake, oriented to person, oriented to place and oriented to time HEENT normocephalic and head/scalp atraumatic Head and Scalp: normal to inspection, normocephalic and atraumatic External Ear: external ears normal Eyes PERRL and EOMs intact bilaterally General Eye: normal appearance of both eyes Resp normal respiratory effort, normal air movement, no retractions and no use of accessory muscles Effort and Inspection: able to speak in complete sentences Extremity no calf tenderness Extremity Narrative: Mild swelling and edema persist in the patient's lower extremities bilaterally. Chronic skin changes persist as well, namely mild, erythematous, inflammatory, stasis dermatitis and hyperpigmentation in the gaiter areas bilaterally. General Extremity: Negative for clubbing or cyanosis Skin Wound Narrative: The ulceration persists on the left posterior calf. There is no sign of infection or cellulitis. There is a moderate amount of bioburden. Dimensions are documented elsewhere. Neuro oriented x3, CN's II-XII intact bilaterally, moves all extremities and no focal motor deficits Psych Appearance: grossly normal and appropriate Attitude: calm Activity / Motor Behavior: appropriate eye contact Speech: normal speech Mood & Affect: euthymic mood Thought Process: normal thought process Thought Content: normal thought content Attention / Concentration: attention grossly intact Debridement Note Debridement Note Post-Debridement Measurements and Additional Note: Post-Debridement Measurements/Treatment - Nurse 1 - General Ulcer Assessment Start: 01/12/21 11:02 Freq: Status: Active Protocol: JUAN Activity Type Activity Date Activity User E-Sign Co-Sign Detail Recorded Client Recorded Date Recorded By Document 01/12/21 11:03 EMMANUEL [id number] 01/12/21 11:04 EMMANUEL 01/12/21 11:03 WC - Today's Visit Information Type of service Follow-up Visit (Physician/VICE PRESIDENT [facility]ENDING ) Arrival Mode Ambulatory Patient Identification Verified (Name & Yes ) Height and Weight Body Mass Index (BMI) 53.9 BMI Classification Obese Vital Signs Temperature (97.8 F-99.1 F) 97.6 F L Temperature Source Temporal Pulse Rate (60-100) 100 Pulse Location Monitor Blood Pressure (90/60-120/80) 164/86 H Blood Pressure Mean 112 Source Monitor Blood Pressure Location Right Arm History Since Last Visit- (Skip if this is Patient's initial visit) Have you changed medications since your No last visit? Any new allergies or adverse reactions No Had a fall/change in ADL's that may No increase risk of falls Signs or symptoms of abuse and/or No neglect since last visit Have you been in the hospital since your No last visit? Has dressing in place as prescribed Yes Has compression in place as prescribed Yes Has offloadiing in place as prescribed N/A Experienced any changes in pain level or No management Left Footwear Regular Shoe Right Footwear Regular Shoe Pain Scale: 0-10 Numeric Is Patient Pain Free? Yes - Nurse 1 - General Ulcer Measurement Start: 01/12/21 11:02 Freq: Status: Active Protocol: Activity Type Activity Date Activity User E-Sign Co-Sign Detail Recorded Client Recorded Date Recorded By Document 01/12/21 11:03 EMMANUEL [id number] 01/12/21 11:04 KR 01/12/21 11:03 Wound Center Nurse 1 Right Calf (cm) 56 Right Ankle (cm) 34 Left Calf (cm) 50.1 Left Ankle (cm) 29.8 WC - Nurse 3 - General Ulcer D/C NN Start: 01/12/21 11:02 Freq: Status: Active Protocol: Activity Type Activity Date Activity User E-Sign Co-Sign Detail Recorded Client Recorded Date Recorded By Document 01/12/21 12:00 LINNETTE [id number] 01/12/21 12:02 LINNETTE 01/12/21 12:00 Wound Care Nurse 3 #2 LLE Cluster -Ulcer Cleansing Rinsed/ Irrigated with Saline -Foul Odor after Cleansing No -Primary Dressing Applied Promogran -Promogran 1 #1 LE Post -Ulcer Cleansing Rinsed/ Irrigated with Saline -Foul Odor after Cleansing No -Primary Dressing Covered/Secured with Dry Gauze bilateral legs -Lotion applied to leg before No compression wrap -Multi-Layered Wrap Application Unna Boot - Bilateral ($) -Unna Boots (Bilat) ($) 1 Wound debrided: Left posterior calf Laterality: Left Type of Debridement: Excisional debridement Anesthesia Used: 5% Lidocaine Gel Depth: Down to and including healthy tissue and in the subcutaneous layer Percentage of wound debrided: 100 Instrument Used: 5mm curette Tissue Removed: Bioburden Severity: Fat Layer Exposed Amount of bleeding with debridement: Mild Bleeding Controlled with: Compression and gauze Patient tolerated procedure: Patient tolerated procedure well Assessment/Plan Assessment/Plan (1) Chronic venous hypertension w/ulcer and inflammation involv left side: CODE(S): I87.332 - Chronic venous hypertension (idiopathic) with ulcer and inflammation of left lower extremity; L97.929 - Non-pressure chronic ulcer of unspecified part of left lower leg with unspecified severity (2) Venous stasis ulcer: CODE(S): I83.009 - Varicose veins of unspecified lower extremity with ulcer of unspecified site; L97.909 - Non-pressure chronic ulcer of unspecified part of unspecified lower leg with unspecified severity (3) Venous stasis dermatitis of left lower extremity: CODE(S): I87.2 - Venous insufficiency (chronic) (peripheral) (4) Lower extremity edema: CODE(S): R60.0 - Localized edema (5) Swelling of lower extremity: CODE(S): M79.89 - Other specified soft tissue disorders (6) Chronic venous insufficiency: CODE(S): I87.2 - Venous insufficiency (chronic) (peripheral) (7) History of gastric ulcer: CODE(S): Z87.11 - Personal history of peptic ulcer disease (8) History of myocardial infarction: CODE(S): I25.2 - Old myocardial infarction (9) Immobility: CODE(S): Z74.09 - Other reduced mobility (10) Morbid obesity with BMI of 50.0-59.9, adult: CODE(S): E66.01 - Morbid (severe) obesity due to excess calories; Z68.43 - Body mass index [BMI] 50.0-59.9, adult (11) Lipodermatosclerosis: CODE(S): I83.10 - Varicose veins of unspecified lower extremity with inflammation (12) Hyperpigmentation: CODE(S): L81.9 - Disorder of pigmentation, unspecified (13) Lower urinary tract symptoms (LUTS): CODE(S): R39.9 - Unspecified symptoms and signs involving the genitourinary system (14) Gout: CODE(S): M10.9 - Gout, unspecified (15) Restrictive airway disease: CODE(S): J98.4 - Other disorders of lung (16) Morbid obesity: CODE(S): E66.01 - Morbid (severe) obesity due to excess calories (17) MEGHANA (obstructive sleep apnea): CODE(S): G47.33 - Obstructive sleep apnea (adult) (pediatric) (18) Osteoarthritis: CODE(S): M19.90 - Unspecified osteoarthritis, unspecified site (19) Hypogonadism: PLAN: This is a 80-year-old morbidly obese male who presented with chronic and severe bilateral lower extremity venous disease. He has profound venous stasis dermatitis affecting his left lower extremity, with a venous ulceration located on the posterior calf. He also manifests chronic changes in both lower extremities, namely swelling and edema, hyperpigmentation, and lipodermatosclerosis. Patient is morbidly obese. He is relatively inactive. He is limited by his chronic hypoxic respiratory failure, restrictive airway disease, and morbid obesity. While he does claim to sleep on a flat surface at night, he sits for the preponderance of each day, without much activity. We are to implement conservative treatment measures relative to his lower extremity presenting symptoms. We have had a lengthy discussion about the measures which will be of benefit. Leg elevation has been discussed in detail. His lower extremities are to be elevated as much as possible, to heart level, or higher. He is to avoid idle prolonged sitting. Activity has been encouraged, though is unlikely to be enhanced to any significant degree. Weight loss has also been recommended. We are to continue compression to the lower extremities bilaterally by means of Unna boots, which will be applied bilaterally, and changed twice weekly. Promogran is to be applied topically to the ulceration on the left posterior calf with each dressing change twice weekly. Patient is to return in 1 week for reassessment. Routine laboratory studies have been obtained, with results as follows: White blood count 9.4, hemoglobin 13.6, hematocrit 43.9, platelets 247,000, urinalysis unremarkable, glucose 115, BUN 21, creatinine 1.65, total protein 8.6, serum albumin 3.2, serum prealbumin 18.5, calcium 8.8, AST 27, alkaline phosphatase 57, ALT 28, total bilirubin 0.70, magnesium 2.4, sodium 140, potassium 4.3, chloride 103. The patient has been encouraged to augment his protein and nutritional intake. We will forego a venous duplex examination, as the patient is not currently a good candidate for procedural intervention. Total time: 29 minutes.
[2021-01-15 12:11] VITALS: BP 155/71; PULSE 93; RESP 21; TEMP 36.3; BMI 53.9
[2021-01-19 10:51] VITALS: BP 153/101; PULSE 90; TEMP 36.6; BMI 53.9
--- NOTE | 2021-01-19 13:07 | HP.PCM_ITS ---
History of Present Illness Date of Service: 01/19/21 Chief Complaint: Venous ulceration, left posterior calf History of Wound: This is a 80-year-old morbidly obese male who presented with a venous stasis ulceration on the left posterior calf, associated with severe venous stasis dermatitis involving the entire circumference of his left mid calf. The patient indicated that the ulceration and skin changes had been present for approximately 2 months. However, it appears as though the patient has a longstanding history of chronic venous disease. He is morbidly obese, with a BMI of over 50. At the instruction of his primary care physician, he had been using peroxide and iodine topically on the ulceration in recent weeks. The patient claims to sleep on a flat mattress at night. However, he is relatively immobile and inactive, sitting idly a good part of each day. He experiences swelling in his lower extremities bilaterally, more notable at the end of each day. He has been previously prescribed graduated compression stockings, but is unable to don the stockings. He is a , and lives alone. He has an aide who comes to his home twice weekly. [facility] Medical History Cataracts, bilateral Chronic venous hypertension w/ulcer and inflammation involv left side Chronic venous insufficiency Chronic venous stasis Gout History of bleeding ulcers History of gastric ulcer History of myocardial infarction Hyperpigmentation Hypogonadism Immobility Lipodermatosclerosis Lower extremity edema Morbid obesity Morbid obesity with BMI of 50.0-59.9, adult NSAID-induced gastric ulcer MEGHANA (obstructive sleep apnea) Osteoarthritis Parathyroid abnormality Pleural effusion Swelling of lower extremity Venous stasis dermatitis of left lower extremity Venous stasis ulcer Home Medications Oxygen, Home [Home Oxygen] 2 lpm NASAL PRN PRN #1 unit 06/21/18 [Rx Last Taken Unknown] arthrid PO 02/07/20 [History Last Taken Unknown] magnesium oxide 400 mg PO BID 02/07/20 [History Last Taken Unknown] multivitamin 1 cap PO DAILY 02/07/20 [History Last Taken Unknown] potassium chloride 20 mEq tablet,extended release 20 meq PO DAILY 02/07/20 [History Last Taken Unknown] pro bio slim PO 02/07/20 [History Last Taken Unknown] super eric prostate PO 02/07/20 [History Last Taken Unknown] antiarthritic combination no.2 900 mg tablet mg PO 03/25/20 [History Last Taken Unknown] testosterone 50 mg/5 gram (1 %) transdermal gel 1 packet TRANSDERMAL DAILY #30 tube 04/06/20 [Rx Last Taken Unknown] furosemide 20 mg tablet 10 mg PO DAILY PRN tab 06/30/20 [History Last Taken Unknown] levothyroxine 50 mcg tablet 50 mcg PO DAILY #90 tab 12/31/20 [Rx Last Taken Unknown] Allergy/AdvReac Type Severity Reaction Status Date / Time cephalexin [From Keflex] Allergy Rash Verified 06/30/20 13:39 Family History Father Colon cancer Alcoholism Sister Depression Brother Heart disease Mother Diabetes Surgical History Gastric ulcer Hip joint replacement status History of hip replacement Social History Smoking Status: Never smoker second hand exposure: No alcohol intake: never substance use type: does not use Vital Signs Vital Signs Vital Signs: 01/19/21 10:51 Temperature 97.8 F Temperature Source Temporal Pulse Rate 90 Blood Pressure 153/101 H Blood Pressure Mean 118 Blood Pressure Source Monitor Blood Pressure Position Sitting Blood Pressure Location Right Arm Weight Body Mass Index (BMI) 53.9 Physical Exam Const alert, oriented x3, no apparent distress and well nourished Constitutional Narrative: The patient is morbidly obese. General Appearance: cooperative, comfortable and well developed Orientation / Consciousness: awake, oriented to person, oriented to place and oriented to time HEENT normocephalic and head/scalp atraumatic Head and Scalp: normal to inspection, normocephalic and atraumatic External Ear: external ears normal Eyes PERRL and EOMs intact bilaterally General Eye: normal appearance of both eyes Resp normal respiratory effort, normal air movement, no retractions and no use of accessory muscles Effort and Inspection: able to speak in complete sentences Extremity no calf tenderness Extremity Narrative: Moderate swelling and edema persist in the patient's lower extremities bilaterally. Severe bilateral hyperpigmentation, dermatitis, and lipodermatosclerosis persist in the patient's gaiter areas bilaterally. General Extremity: Negative for clubbing or cyanosis Skin Wound Narrative: The ulceration of the left posterior calf persists, though is smaller in size. There is no sign of infection or cellulitis. Dimensions are documented elsewhere. There is a moderate amount of bioburden. Neuro oriented x3, CN's II-XII intact bilaterally and moves all extremities Sensorium / Orientation: awake, alert, oriented to person, oriented to place and oriented to time Speech: speech normal Psych Appearance: grossly normal and appropriate Attitude: calm Activity / Motor Behavior: appropriate eye contact Speech: normal speech Mood & Affect: euthymic mood Thought Process: normal thought process Thought Content: normal thought content Attention / Concentration: attention grossly intact Debridement Note Debridement Note Post-Debridement Measurements and Additional Note: Post-Debridement Measuremen ts/Treatment WC - Nurse 1 - General Ulcer Assessment Start: 01/12/21 11:02 Freq: Status: Active Protocol: JUAN Activity Type Activity Date Activity User E-Sign Co-Sign Detail Recorded Client Recorded Date Recorded By Document 01/12/21 11:03 KR [id number] 01/12/21 11:04 KR Document 01/15/21 12:11 ML [id number] 01/15/21 12:13 ML Document 01/19/21 10:51 KR [id number] 01/19/21 10:53 KR 01/12/21 01/15/21 01/19/21 11:03 12:11 10:51 - Today's Visit Information Type of service Follow-up Visit Nurse-only Follow-up Visit (Physician/JUNIOR SALES REPRESENTATIVE Visit (Physician/JUNIOR SALES REPRESENTATIVE ) ) Arrival Mode Ambulatory Wheelchair Transfer Assistance None Patient Identification Verified (Name & Yes Yes Yes ) Patient Requires Transmission-Based No Precautions Safety Precautions NA Height and Weight Body Mass Index (BMI) 53.9 53.9 53.9 BMI Classification Obese Obese Obese Vital Signs Temperature (97.8 F-99.1 F) 97.6 F L 97.3 F L 97.8 F Temperature Source Temporal Temporal Temporal Pulse Rate (60-100) 100 93 90 Pulse Location Monitor Monitor Monitor Respiratory Rate (12-18) 21 H Respiratory rate source Observation Blood Pressure (90/60-120/80) 164/86 H 155/71 H 153/101 H Blood Pressure Mean 112 99 118 Source Monitor Monitor Monitor Position Sitting Sitting Blood Pressure Location Right Arm Left Arm Right Arm History Since Last Visit- (Skip if this is Patient's initial visit) Have you changed medications since your No No last visit? Any new allergies or adverse reactions No No Had a fall/change in ADL's that may No No increase risk of falls Signs or symptoms of abuse and/or No No neglect since last visit Have you been in the hospital since your No No last visit? Has dressing in place as prescribed Yes Yes Has compression in place as prescribed Yes Yes Has offloadiing in place as prescribed N/A N/A Experienced any changes in pain level or No No management Left Footwear Regular Shoe Regular Shoe Right Footwear Regular Shoe Regular Shoe Pain Scale: 0-10 Numeric Is Patient Pain Free? Yes Yes - Nurse 1 - General Ulcer Measurement Start: 01/12/21 11:02 Freq: Status: Active Protocol: Activity Type Activity Date Activity User E-Sign Co-Sign Detail Recorded Client Recorded Date Recorded By Document 01/12/21 11:03 KR [id number] 01/12/21 11:04 KR Document 01/15/21 12:11 ML [id number] 01/15/21 12:13 ML Document 01/19/21 10:51 KR [id number] 01/19/21 10:53 KR 01/12/21 01/15/21 01/19/21 11:03 12:11 10:51 #2 LLE Cluster -Current Size (cm) - Length 0.1 -Current Size (cm) - Width 0.1 -Current Size (cm) - Depth 0.1 -Total Square Cm 0.01 -Exudate Amt None Present -Wound Margin Distinct, Outline Attached -Granulation Amt None Present (0 %) -Necrosis Amt None Present (0 %) -Texture (Kaci-wound Skin Appearance) Assessed, Localized Edema ,Scarring -Moisture (Kaci-wound Skin Appearance) Assessed,Dry/ Scaly -Color (Kaci-wound Skin Appearance) No Abnormality, Assessed -Temperature (Kaci-wound Skin No Abnormality Appearance) (Pt Warm) -Tenderness on Palpation (Kaci-wound No Skin Appearance) -Ulcer Cleansing Rinsed/ Irrigated with Saline -Foul Odor after Cleansing No -Anesthetic Used 4% Lidocaine Solution Wound Center Nurse 1 Right Calf (cm) 56 50.5 54 Right Ankle (cm) 34 33 27.3 Left Calf (cm) 50.1 45 58.5 Left Ankle (cm) 29.8 28.5 32.2 WC - Nurse 2 - General Ulcer CM Notes Start: 01/12/21 11:02 Freq: Status: Active Protocol: Activity Type Activity Date Activity User E-Sign Co-Sign Detail Recorded Client Recorded Date Recorded By Document 01/12/21 12:33 PL [id number] 01/12/21 12:34 PL Document 01/19/21 13:02 PL [id number] 01/19/21 13:03 PL 01/12/21 01/19/21 12:33 13:02 Wound Center Nurse 2 #2 LLE Cluster -Time 11:23 11:04 -Correct Patient Yes Yes -Correct Side, Site, Position Yes Yes -Correct Procedure Yes Yes -Procedure Performed Yes Yes -Type of Procedure Debridement Debridement -Clinical Debridement Subcutaneous Subcutaneous -Tissue Removed Subcutaneous Subcutaneous -Post Debridement (cm) - Length 3.0 2.5 -Post Debridement (cm) - Width 1.9 1.0 -Post Debridement (cm) - Depth 0.2 0.2 -Total Square (Post) (cm) 5.70 2.50 -Area of Debridement (cm) - Length 3.0 2.5 -Area of Debridement (cm) - Width 1.9 1.0 -Total Square (Area) (cm) 5.70 2.50 -Tunneling No No -Undermining/Tunneling No No -Circular Undermining No No -Wound/Ulcer Outcome Not Healed Not Healed -Ulcer Cleansing Rinsed/ Rinsed/ Irrigated with Irrigated with Saline Saline -Foul Odor after Cleansing No No -Bioengineered Tissue No No -Bleeding Controlled with Pressure Pressure -Treatment Response Procedure Procedure Tolerated Well Tolerated Well -Debridement - Subq, 1st 20sq cm Yes Yes WC - Nurse 3 - General Ulcer D/C NN Start: 01/12/21 11:02 Freq: Status: Active Protocol: Activity Type Activity Date Activity User E-Sign Co-Sign Detail Recorded Client Recorded Date Recorded By Document 01/12/21 12:00 AK [id number] 01/12/21 12:02 AK Document 01/15/21 12:11 ML [id number] 01/15/21 12:13 ML Document 01/19/21 11:49 KR [id number] 01/19/21 11:52 KR 01/12/21 01/15/21 01/19/21 12:00 12:11 11:49 Wound Care Nurse 3 #2 LLE Cluster -Ulcer Cleansing Rinsed/ Irrigated with Saline -Foul Odor after Cleansing No -Primary Dressing Applied Promogran Promogran -Primary Dressing Covered/Secured with Dry Gauze -Promogran 1 1 #1 LE Post -Ulcer Cleansing Rinsed/ Irrigated with Saline -Foul Odor after Cleansing No -Primary Dressing Covered/Secured with Dry Gauze bilateral legs -Lotion applied to leg before No compression wrap -Multi-Layered Wrap Application Unna Boot - Unna Boot - Unna Boot - Bilateral ($) Bilateral ($) Bilateral ($) -Unna Boots (Bilat) ($) 1 2 2 Vital Signs Temperature (97.8 F-99.1 F) 97.3 F L Temperature Source Temporal Pulse Rate (60-100) 93 Pulse Location Monitor Respiratory Rate (12-18) 21 H Respiratory rate source Observation Blood Pressure (90/60-120/80) 155/71 H Blood Pressure Mean 99 Source Monitor Position Sitting Blood Pressure Location Left Arm Pain Scale: 0-10 Numeric Is Patient Pain Free? Yes WC - Visit Discharge Discharge Condition Stable Ambulatory Status Wheelchair Transportation Private Auto Wound debrided: Left posterior calf Laterality: Left Type of Debridement: Excisional debridement Anesthesia Used: 5% Lidocaine Gel Depth: Down to and including healthy tissue and in the subcutaneous layer Percentage of wound debrided: 100 Instrument Used: 5mm curette Tissue Removed: Bioburden Severity: Fat Layer Exposed Amount of bleeding with debridement: Mild Bleeding Controlled with: Compression and gauze Patient tolerated procedure: Patient tolerated procedure well Assessment/Plan Assessment/Plan (1) Venous stasis ulcer: CODE(S): I83.009 - Varicose veins of unspecified lower extremity with ulcer of unspecified site; L97.909 - Non-pressure chronic ulcer of unspecified part of unspecified lower leg with unspecified severity QUALIFIERS: Venous stasis ulcer site: calf Varicose vein presence: without varicose veins Laterality: left Non-pressure ulcer stage: with fat layer exposed Qualified Code(s): I87.2 - Venous insufficiency (chronic) (peripheral); L97.222 - Non-pressure chronic ulcer of left calf with fat layer exposed (2) Chronic venous hypertension w/ulcer and inflammation involv left side: CODE(S): I87.332 - Chronic venous hypertension (idiopathic) with ulcer and inflammation of left lower extremity; L97.929 - Non-pressure chronic ulcer of unspecified part of left lower leg with unspecified severity (3) Venous stasis dermatitis of left lower extremity: CODE(S): I87.2 - Venous insufficiency (chronic) (peripheral) (4) Chronic venous insufficiency: CODE(S): I87.2 - Venous insufficiency (chronic) (peripheral) (5) Swelling of lower extremity: CODE(S): M79.89 - Other specified soft tissue disorders (6) Lower extremity edema: CODE(S): R60.0 - Localized edema (7) Hypogonadism: (8) History of gastric ulcer: CODE(S): Z87.11 - Personal history of peptic ulcer disease (9) History of myocardial infarction: CODE(S): I25.2 - Old myocardial infarction (10) Immobility: CODE(S): Z74.09 - Other reduced mobility (11) Morbid obesity with BMI of 50.0-59.9, adult: CODE(S): E66.01 - Morbid (severe) obesity due to excess calories; Z68.43 - Body mass index [BMI] 50.0-59.9, adult (12) Lipodermatosclerosis: CODE(S): I83.10 - Varicose veins of unspecified lower extremity with inflammation (13) Hyperpigmentation: CODE(S): L81.9 - Disorder of pigmentation, unspecified (14) Hypothyroidism (acquired): CODE(S): E03.9 - Hypothyroidism, unspecified (15) Gout: CODE(S): M10.9 - Gout, unspecified (16) Chronic hypoxemic respiratory failure: CODE(S): J96.11 - Chronic respiratory failure with hypoxia (17) Restrictive airway disease: CODE(S): J98.4 - Other disorders of lung (18) Chronic venous stasis: CODE(S): I87.8 - Other specified disorders of veins (19) Morbid obesity: CODE(S): E66.01 - Morbid (severe) obesity due to excess calories (20) MEGHANA (obstructive sleep apnea): CODE(S): G47.33 - Obstructive sleep apnea (adult) (pediatric) (21) Osteoarthritis: CODE(S): M19.90 - Unspecified osteoarthritis, unspecified site PLAN: This is a 80-year-old morbidly obese male who presented with chronic and severe bilateral lower extremity venous disease. He has profound venous stasis dermatitis affecting his left lower extremity, with a venous ulceration located on the left posterior calf. He also manifests chronic changes in both lower extremities, namely swelling and edema, hyperpigmentation, and lipodermatosclerosis. Patient is morbidly obese. He is relatively inactive. He is limited by his chronic hypoxic respiratory failure, restrictive airway disease, and morbid obesity. While he does claim to sleep on a flat s urface at night, he sits for the preponderance of each day, without much activity. We are to continue conservative treatment measures relative to his lower extremity presenting symptoms. We have had a lengthy discussion about the measures which will be of benefit. Leg elevation has been discussed in detail. His lower extremities are to be elevated as much as possible, to heart level, or higher. He is to avoid idle prolonged sitting. Activity has been encouraged, though is unlikely to be enhanced to any significant degree. Weight loss has also been recommended. We are to continue compression to the lower extremities bilaterally by means of Unna boots, which will be applied bilaterally, and changed twice weekly. Promogran is to be applied topically to the ulceration on the left posterior calf with each dressing change twice weekly. Patient is to return in 1 week for reassessment. Routine laboratory studies have been obtained, with results as follows: White blood count 9.4, hem oglobin 13.6, hematocrit 43.9, platelets 247,000, urinalysis unremarkable, glucose 115, BUN 21, creatinine 1.65, total protein 8.6, serum albumin 3.2, serum prealbumin 18.5, calcium 8.8, AST 27, alkaline phosphatase 57, ALT 28, total bilirubin 0.70, magnesium 2.4, sodium 140, potassium 4.3, chloride 103. The patient has been encouraged to augment his protein and nutritional intake. We will forego a venous duplex examination, as the patient is not currently a good candidate for procedural intervention. Total time: 28 minutes.
[2021-01-22 13:41] VITALS: BP 139/68; PULSE 103; TEMP 36.1; BMI 53.9
[2021-01-26 11:04] VITALS: BMI 53.9
--- NOTE | 2021-01-26 12:09 | HP.PCM_ITS ---
History of Present Illness Date of Service: 01/26/21 Chief Complaint: Venous ulceration, left posterior calf History of Wound: This is a 80-year-old morbidly obese male who presented with a venous stasis ulceration on the left posterior calf, associated with severe venous stasis dermatitis involving the entire circumference of his left mid calf. The patient indicated that the ulceration and skin changes had been present for approximately 2 months. However, it appears as though the patient has a longstanding history of chronic venous disease. He is morbidly obese, with a BMI of over 50. At the instruction of his primary care physician, he had been using peroxide and iodine topically on the ulceration in recent weeks. The patient claims to sleep on a flat mattress at night. However, he is relatively immobile and inactive, sitting idly a good part of each day. He experiences swelling in his lower extremities bilaterally, more notable at the end of each day. He has been previously prescribed graduated compression stockings, but is unable to don the stockings. He is a , and lives alone. He has an aide who comes to his home twice weekly. FORMERLY [facility], [facility] Medical History Cataracts, bilateral Chronic venous hypertension w/ulcer and inflammation involv left side Chronic venous insufficiency Chronic venous stasis Gout History of bleeding ulcers History of gastric ulcer History of myocardial infarction Hyperpigmentation Hypogonadism Immobility Lipodermatosclerosis Lower extremity edema Morbid obesity Morbid obesity with BMI of 50.0-59.9, adult NSAID-induced gastric ulcer MEGHANA (obstructive sleep apnea) Osteoarthritis Parathyroid abnormality Pleural effusion Swelling of lower extremity Venous stasis dermatitis of left lower extremity Venous stasis ulcer Home Medications Oxygen, Home [Home Oxygen] 2 lpm NASAL PRN PRN #1 unit 06/21/18 [Rx Last Taken Unknown] arthrid PO 02/07/20 [History Last Taken Unknown] magnesium oxide 400 mg PO BID 02/07/20 [History Last Taken Unknown] multivitamin 1 cap PO DAILY 02/07/20 [History Last Taken Unknown] potassium chloride 20 mEq tablet,extended release 20 meq PO DAILY 02/07/20 [History Last Taken Unknown] pro bio slim PO 02/07/20 [History Last Taken Unknown] super eric prostate PO 02/07/20 [History Last Taken Unknown] antiarthritic combination no.2 900 mg tablet mg PO 03/25/20 [History Last Taken Unknown] testosterone 50 mg/5 gram (1 %) transdermal gel 1 packet TRANSDERMAL DAILY #30 tube 04/06/20 [Rx Last Taken Unknown] furosemide 20 mg tablet 10 mg PO DAILY PRN tab 06/30/20 [History Last Taken Unknown] levothyroxine 50 mcg tablet 50 mcg PO DAILY #90 tab 12/31/20 [Rx Last Taken Unknown] Allergy/AdvReac Type Severity Reaction Status Date / Time cephalexin [From Keflex] Allergy Rash Verified 06/30/20 13:39 Family History Father Colon cancer Alcoholism Sister Depression Brother Heart disease Mother Diabetes Surgical History Gastric ulcer Hip joint replacement status History of hip replacement Social History Smoking Status: Never smoker second hand exposure: No alcohol intake: never substance use type: does not use Vital Signs Vital Signs Vital Signs: Weight Body Mass Index (BMI) 53.9 Physical Exam Narrative The patient is morbidly obese. Const alert, oriented x3, no apparent distress and well nourished General Appearance: cooperative, comfortable and well developed Orientation / Consciousness: awake, oriented to person, oriented to place and oriented to time Nutritional Appearance: morbidly obese HEENT normocephalic and head/scalp atraumatic Head and Scalp: normal to inspection, normocephalic and atraumatic External Ear: external ears normal Eyes PERRL and EOMs intact bilaterally General Eye: normal appearance of both eyes Resp normal respiratory effort, normal air movement, no retractions and no use of accessory muscles Effort and Inspection: able to speak in complete sentences Extremity no calf tenderness Extremity Narrative: Mild swelling and edema are noted in the patient's lower extremities bilaterally. The swelling and edema are more profound in the left lower extremity. Chronic hyperpigmentation and lipodermatosclerosis are noted bilaterally in the gaiter areas. General Extremity: Negative for clubbing or cyanosis Skin Wound Narrative: The ulceration persists in the left posterior calf. There is no sign of infection or cellulitis. There is a small amount of bioburden. Dimensions are documented elsewhere. Neuro oriented x3, CN's II-XII intact bilaterally and moves all extremities Sensorium / Orientation: awake, alert, oriented to person, oriented to place and oriented to time Speech: speech normal Psych Appearance: grossly normal and appropriate Attitude: calm Activity / Motor Behavior: appropriate eye contact Speech: normal speech Mood & Affect: euthymic mood Thought Process: normal thought process Thought Content: normal thought content Attention / Concentration: attention grossly intact Debridement Note Debridement Note Post-Debridement Measurements and Additional Note: Post-Debridement Measurements/Treatment - Nurse 1 - General Ulcer Assessment Start: 01/12/21 11:02 Freq: Status: Active Protocol: ALINA.LOWEXT Activity Type Activity Date Activity User E-Sign Co-Sign Detail Recorded Client Recorded Date Recorded By Document 01/12/21 11:03 KR [id number] 01/12/21 11:04 KR Document 01/15/21 12:11 ML [id number] 01/15/21 12:13 ML Document 01/19/21 10:51 KR [id number] 01/19/21 10:53 KR Document 01/22/21 13:41 AK Desktop 01/22/21 13:43 AK Document 01/26/21 11:04 AK [id number] 01/26/21 11:17 AK 01/12/21 01/15/21 01/19/21 11:03 12:11 10:51 - Today's Visit Information Type of service Follow-up Visit Nurse-only Follow-up Visit (Physician/ABSEILING INSTRUCTOR Visit (Physician/ABSEILING INSTRUCTOR ) ) Arrival Mode Ambulatory Wheelchair Transfer Assistance None Patient Identification Verified (Name & Yes Yes Yes ) Patient Requires Transmission-Based No Precautions Safety Precautions NA Height and Weight Body Mass Index (BMI) 53.9 53.9 53.9 BMI Classification Obese Obese Obese Vital Signs Temperature (97.8 F-99.1 F) 97.6 F L 97.3 F L 97.8 F Temperature Source Temporal Temporal Temporal Pulse Rate (60-100) 100 93 90 Pulse Location Monitor Monitor Monitor Respiratory Rate (12-18) 21 H Respiratory rate source Observation Blood Pressure (90/60-120/80) 164/86 H 155/71 H 153/101 H Blood Pressure Mean 112 99 118 Source Monitor Monitor Monitor Position Sitting Sitting Blood Pressure Location Right Arm Left Arm Right Arm History Since Last Visit- (Skip if this is Patient's initial visit) Have you changed medications since your No No last visit? Any new allergies or adverse reactions No No Had a fall/change in ADL's that may No No increase risk of falls Signs or symptoms of abuse and/or No No neglect since last visit Have you been in the hospital since your No No last visit? Has dressing in place as prescribed Yes Yes Has compression in place as prescribed Yes Yes Has offloadiing in place as prescribed N/A N/A Experienced any changes in pain level or No No management Left Footwear Regular Shoe Regular Shoe Right Footwear Regular Shoe Regular Shoe Pain Scale: 0-10 Numeric Is Patient Pain Free? Yes Yes 01/22/21 01/26/21 13:41 11:04 WC - Today's Visit Information Type of service Nurse-only Follow-up Visit Visit (Physician/ABSEILING INSTRUCTOR ) Arrival Mode Wheelchair Transfer Assistance Patient Identification Verified (Name & Yes Yes ) Patient Requires Transmission-Based Precautions Safety Precautions Height and Weight Body Mass Index (BMI) 53.9 53.9 BMI Classification Obese Obese Vital Signs Temperature (97.8 F-99.1 F) 97 F L Temperature Source Temporal Pulse Rate (60-100) 103 H Pulse Location Monitor Respiratory Rate (12-18) Respiratory rate source Blood Pressure (90/60-120/80) 139/68 H Blood Pressure Mean 91 Source Monitor Position Blood Pressure Location History Since Last Visit- (Skip if this is Patient's initial visit) Have you changed medications since your No No last visit? Any new allergies or adverse reactions No No Had a fall/change in ADL's that may No No increase risk of falls Signs or symptoms of abuse and/or No No neglect since last visit Have you been in the hospital since your No No last visit? Has dressing in place as prescribed Yes Yes Has compression in place as prescribed Yes Yes Has offloadiing in place as prescribed Yes Yes Experienced any changes in pain level or No management Left Footwear Regular Shoe Regular Shoe Right Footwear Regular Shoe Regular Shoe Pain Scale: 0-10 Numeric Is Patient Pain Free? - Nurse 1 - General Ulcer Measurement Start: 01/12/21 11:02 Freq: Status: Active Protocol: Activity Type Activity Date Activity User E-Sign Co-Sign Detail Recorded Client Recorded Date Recorded By Document 01/12/21 11:03 EMMANUEL [id number] 01/12/21 11:04 KR Document 01/15/21 12:11 ML [id number] 01/15/21 12:13 ML Document 01/19/21 10:51 KR [id number] 01/19/21 10:53 KR Document 01/22/21 13:41 AK Desktop 01/22/21 13:43 AK Document 01/26/21 11:04 AK [id number] 01/26/21 11:17 AK 01/12/21 01/15/21 01/19/21 11:03 12:11 10:51 #2 LLE Cluster -Current Size (cm) - Length 0.1 -Current Size (cm) - Width 0.1 -Current Size (cm) - Depth 0.1 -Total Square Cm 0.01 -Exudate Amt None Present -Exudate Type -Wound Margin Distinct, Outline Attached -Granulation Amt None Present (0 %) -Slough/Fibrin -Necrosis Amt None Present (0 %) -Necrotic Tissue Type -Texture (Kaci-wound Skin Appearance) Assessed, Localized Edema ,Scarring -Moisture (Kaci-wound Skin Appearance) Assessed,Dry/ Scaly -Color (Kaci-wound Skin Appearance) No Abnormality, Assessed -Temperature (Kaci-wound Skin No Abnormality Appearance) (Pt Warm) -Tenderness on Palpation (Kaci-wound No Skin Appearance) -Ulcer Cleansing Rinsed/ Irrigated with Saline -Foul Odor after Cleansing No -Anesthetic Used 4% Lidocaine Solution Wound Center Nurse 1 Right Calf (cm) 56 50.5 54 Point of measurement (cm from the medial instep) Right Ankle (cm) 34 33 27.3 Left Calf (cm) 50.1 45 58.5 Left Ankle (cm) 29.8 28.5 32.2 01/22/21 01/26/21 13:41 11:04 #2 LLE Cluster -Current Size (cm) - Length 3 -Current Size (cm) - Width 2 -Current Size (cm) - Depth 0.1 -Total Square Cm 6 -Exudate Amt -Exudate Type Serosanguineous -Wound Margin Thickened -Granulation Amt -Slough/Fibrin Yes -Necrosis Amt Medium (34-66%) -Necrotic Tissue Type Eschar -Texture (Kaci-wound Skin Appearance) Assessed, Localized Edema ,Scarring -Moisture (Kaci-wound Skin Appearance) Assessed,Dry/ Scaly -Color (Kaci-wound Skin Appearance) Assessed, Hemosiderin Staining -Temperature (Kaci-wound Skin No Abnormality Appearance) (Pt Warm) -Tenderness on Palpation (Kaci-wound No Skin Appearance) -Ulcer Cleansing Rinsed/ Irrigated with Saline -Foul Odor after Cleansing -Anesthetic Used 4% Lidocaine Solution Wound Center Nurse 1 Right Calf (cm) 49 Point of measurement (cm from the medial 49 instep) Right Ankle (cm) 27.2 39 Left Calf (cm) 53.1 50 Left Ankle (cm) 33 39.5 WC - Nurse 2 - General Ulcer CM Notes Start: 01/12/21 11:02 Freq: Status: Active Protocol: Activity Type Activity Date Activity User E-Sign Co-Sign Detail Recorded Client Recorded Date Recorded By Document 01/12/21 12:33 PL [id number] 01/12/21 12:34 PL Document 01/19/21 13:02 PL [id number] 01/19/21 13:03 PL 01/12/21 01/19/21 12:33 13:02 Wound Center Nurse 2 #2 LLE Cluster -Time 11:23 11:04 -Correct Patient Yes Yes -Correct Side, Site, Position Yes Yes -Correct Procedure Yes Yes -Procedure Performed Yes Yes -Type of Procedure Debridement Debridement -Clinical Debridement Subcutaneous Subcutaneous -Tissue Removed Subcutaneous Subcutaneous -Post Debridement (cm) - Length 3.0 2.5 -Post Debridement (cm) - Width 1.9 1.0 -Post Debridement (cm) - Depth 0.2 0.2 -Total Square (Post) (cm) 5.70 2.50 -Area of Debridement (cm) - Length 3.0 2.5 -Area of Debridement (cm) - Width 1.9 1.0 -Total Square (Area) (cm) 5.70 2.50 -Tunneling No No -Undermining/Tunneling No No -Circular Undermining No No -Wound/Ulcer Outcome Not Healed Not Healed -Ulcer Cleansing Rinsed/ Rinsed/ Irrigated with Irrigated with Saline Saline -Foul Odor after Cleansing No No -Bioengineered Tissue No No -Bleeding Controlled with Pressure Pressure -Treatment Response Procedure Procedure Tolerated Well Tolerated Well -Debridement - Subq, 1st 20sq cm Yes Yes WC - Nurse 3 - General Ulcer D/C NN Start: 01/12/21 11:02 Freq: Status: Active Protocol: Activity Type Activity Date Activity User E-Sign Co-Sign Detail Recorded Client Recorded Date Recorded By Document 01/12/21 12:00 AK [id number] 01/12/21 12:02 AK Document 01/15/21 12:11 ML [id number] 01/15/21 12:13 ML Document 01/19/21 11:49 KR [id number] 01/19/21 11:52 KR Document 01/22/21 13:41 AK Desktop 01/22/21 13:43 AK Document 01/26/21 11:38 BMF [id number] 01/26/21 11:39 BMF 01/12/21 01/15/21 01/19/21 12:00 12:11 11:49 Wound Care Nurse 3 #2 LLE Cluster -Ulcer Cleansing Rinsed/ Irrigated with Saline -Foul Odor after Cleansing No -Primary Dressing Applied Promogran Promogran -Other Dressing -Primary Dressing Covered/Secured with Dry Gauze -Promogran 1 1 #1 LE Post -Ulcer Cleansing Rinsed/ Irrigated with Saline -Foul Odor after Cleansing No -Primary Dressing Covered/Secured with Dry Gauze bilateral legs -Lotion applied to leg before No compression wrap -Multi-Layered Wrap Application Unna Boot - Unna Boot - Unna Boot - Bilateral ($) Bilateral ($) Bilateral ($) -Unna Boots (Bilat) ($) 1 2 2 Treatment Response Vital Signs Temperature (97.8 F-99.1 F) 97.3 F L Temperature Source Temporal Pulse Rate (60-100) 93 Pulse Location Monitor Respiratory Rate (12-18) 21 H Respiratory rate source Observation Blood Pressure (90/60-120/80) 155/71 H Blood Pressure Mean 99 Source Monitor Position Sitting Blood Pressure Location Left Arm Pain Scale: 0-10 Numeric Is Patient Pain Free? Yes WC - Visit Discharge Discharge Condition Stable Ambulatory Status Wheelchair Transportation Private Auto Clinical Summary of Care Provided 01/22/21 01/26/21 13:41 11:38 Wound Care Nurse 3 #2 LLE Cluster -Ulcer Cleansing Wound Cleanser Rinsed/ Irrigated with Saline -Foul Odor after Cleansing No No -Primary Dressing Applied Promogran Other -Other Dressing promogran, unna boot -Primary Dressing Covered/Secured with -Promogran 1 #1 LE Post -Ulcer Cleansing -Foul Odor after Cleansing -Primary Dressing Covered/Secured with bilateral legs -Lotion applied to leg before No compression wrap -Multi-Layered Wrap Application Unna Boot - Unna Boot - Bilateral ($) Bilateral ($) -Unna Boots (Bilat) ($) 1 1 Treatment Response Procedure Tolerated Well Vital Signs Temperature (97.8 F-99.1 F) 97 F L Temperature Source Temporal Pulse Rate (60-100) 103 H Pulse Location Monitor Respiratory Rate (12-18) Respiratory rate source Blood Pressure (90/60-120/80) 139/68 H Blood Pressure Mean 91 Source Monitor Position Blood Pressure Location Pain Scale: 0-10 Numeric Is Patient Pain Free? Yes WC - Visit Discharge Discharge Condition Stable Stable Ambulatory Status Ambulatory Wheelchair Transportation Private Auto Clinical Summary of Care Provided Yes Wound debrided: Left posterior calf Laterality: Left Type of Debridement: Excisional debridement Anesthesia Used: 5% Lidocaine Gel Depth: Down to and including healthy tissue and in the subcutaneous layer Percentage of wound debrided: 100 Instrument Used: 5mm curette Tissue Removed: Bioburden Severity: Fat Layer Exposed Amount of bleeding with debridement: Mild Bleeding Controlled with: Compression and gauze Patient tolerated procedure: Patient tolerated procedure well Assessment/Plan Assessment/Plan (1) Chronic venous hypertension w/ulcer and inflammation involv left side: CODE(S): I87.332 - Chronic venous hypertension (idiopathic) with ulcer and inflammation of left lower extremity; L97.929 - Non-pressure chronic ulcer of unspecified part of left lower leg with unspecified severity (2) Venous stasis dermatitis of left lower extremity: CODE(S): I87.2 - Venous insufficiency (chronic) (peripheral) (3) Venous stasis ulcer: CODE(S): I83.009 - Varicose veins of unspecified lower extremity with ulcer of unspecified site; L97.909 - Non-pressure chronic ulcer of unspecified part of unspecified lower leg with unspecified severity QUALIFIERS: Venous stasis ulcer site: calf Varicose vein presence: without varicose veins Laterality: left Non-pressure ulcer stage: with fat layer exposed Qualified Code(s): I87.2 - Venous insufficiency (chronic) (peripheral); L97.222 - Non-pressure chronic ulcer of left calf with fat layer exposed (4) Lower extremity edema: CODE(S): R60.0 - Localized edema (5) Swelling of lower extremity: CODE(S): M79.89 - Other specified soft tissue disorders (6) Hyperpigmentation: CODE(S): L81.9 - Disorder of pigmentation, unspecified (7) Lipodermatosclerosis: CODE(S): I83.10 - Varicose veins of unspecified lower extremity with inflammation (8) Hypogonadism: (9) History of gastric ulcer: CODE(S): Z87.11 - Personal history of peptic ulcer disease (10) History of myocardial infarction: CODE(S): I25.2 - Old myocardial infarction (11) Immobility: CODE(S): Z74.09 - Other reduced mobility (12) Morbid obesity with BMI of 50.0-59.9, adult: CODE(S): E66.01 - Morbid (severe) obesity due to excess calories; Z68.43 - Body mass index [BMI] 50.0-59.9, adult (13) Urinary frequency: CODE(S): R35.0 - Frequency of micturition (14) Hypothyroidism (acquired): CODE(S): E03.9 - Hypothyroidism, unspecified (15) Gout: CODE(S): M10.9 - Gout, unspecified (16) Chronic hypoxemic respiratory failure: CODE(S): J96.11 - Chronic respiratory failure with hypoxia (17) Restrictive airway disease: CODE(S): J98.4 - Other disorders of lung (18) Chronic venous stasis: CODE(S): I87.8 - Other specified disorders of veins (19) Morbid obesity: CODE(S): E66.01 - Morbid (severe) obesity due to excess calories (20) MEGHANA (obstructive sleep apnea): CODE(S): G47.33 - Obstructive sleep apnea (adult) (pediatric) (21) Osteoarthritis: CODE(S): M19.90 - Unspecified osteoarthritis, unspecified site PLAN: This is a 80-year-old morbidly obese male who presented with chronic and severe bilateral lower extremity venous disease. He has profound venous stasis dermatitis affecting his left lower extremity, with a venous ulceration located on the left posterior calf. He also manifests chronic changes in both lower extremities, namely swelling and edema, hyperpigmentation, and lipodermatosclerosis. Patient is morbidly obese. He is relatively inactive. He is limited by his chronic hypoxic respiratory failure, restrictive airway disease, and morbid obesity. While he does claim to sleep on a flat surface at night, he sits for the preponderance of each day, without much activity. We are to continue conservative treatment measures relative to his lower extremity presenting symptoms. We have had a lengthy discussion about the measures which will be of benefit. Leg elevation has been discussed in detail. His lower extremities are to be elevated as much as possible, to heart level, or higher. He is to avoid idle prolonged sitting. Activity has been encouraged, though is unlikely to be enhanced to any significant degree. Weight loss has also been recommended. We are to continue compression to the lower extremities bilaterally by means of Unna boots, which will be applied bilaterally, and changed twice weekly. Promogran is to be applied topically to the ulceration on the left posterior calf with each dressing change twice weekly. Patient is to return in 1 week for reassessment. Routine laboratory studies have been obtained, with results as follows: White blood count 9.4, hemoglobin 13.6, hematocrit 43.9, platelets 247,000, urinalysis unremarkable, glucose 115, BUN 21, creatinine 1.65, total protein 8.6, serum albumin 3.2, serum prealbumin 18.5, calcium 8.8, AST 27, alkaline phosphatase 57, ALT 28, total bilirubin 0.70, magnesium 2.4, sodium 140, potassium 4.3, chloride 103. The patient has been encouraged to augment his protein and nutritional intake. We will forego a venous duplex examination, as the patient is not currently a good candidate for procedural intervention. Total time: 29 minutes.
[2021-01-29 12:00] VITALS: BP 139/72; PULSE 101; TEMP 36.5; BMI 53.9
[2021-02-02 10:59] VITALS: BP 157/68; PULSE 97; RESP 18; TEMP 37; BMI 53.9
--- NOTE | 2021-02-02 13:50 | HP.PCM_ITS ---
History of Present Illness Date of Service: 02/02/21 Chief Complaint: Venous ulceration, left posterior calf History of Wound: This is a 80-year-old morbidly obese male who presented with a venous stasis ulceration on the left posterior calf, associated with severe venous stasis dermatitis involving the entire circumference of his left mid calf. The patient indicated that the ulceration and skin changes had been present for approximately 2 months. However, it appears as though the patient has a longstanding history of chronic venous disease. He is morbidly obese, with a BMI of over 50. At the instruction of his primary care physician, he had been using peroxide and iodine topically on the ulceration in recent weeks. The patient claims to sleep on a flat mattress at night. However, he is relatively immobile and inactive, sitting idly a good part of each day. He experiences swelling in his lower extremities bilaterally, more notable at the end of each day. He has been previously prescribed graduated compression stockings, but is unable to don the stockings. He is a , and lives alone. He has an aide who comes to his home twice weekly. [facility] Medical History Cataracts, bilateral Chronic venous hypertension w/ulcer and inflammation involv left side Chronic venous insufficiency Chronic venous stasis Gout History of bleeding ulcers History of gastric ulcer History of myocardial infarction Hyperpigmentation Hypogonadism Immobility Lipodermatosclerosis Lower extremity edema Morbid obesity Morbid obesity with BMI of 50.0-59.9, adult NSAID-induced gastric ulcer MEGHANA (obstructive sleep apnea) Osteoarthritis Parathyroid abnormality Pleural effusion Swelling of lower extremity Venous stasis dermatitis of left lower extremity Venous stasis ulcer Home Medications Oxygen, Home [Home Oxygen] 2 lpm NASAL PRN PRN #1 unit 06/21/18 [Rx Last Taken Unknown] arthrid PO 02/07/20 [History Last Taken Unknown] magnesium oxide 400 mg PO BID 02/07/20 [History Last Taken Unknown] multivitamin 1 cap PO DAILY 02/07/20 [History Last Taken Unknown] potassium chloride 20 mEq tablet,extended release 20 meq PO DAILY 02/07/20 [History Last Taken Unknown] pro bio slim PO 02/07/20 [History Last Taken Unknown] super eric prostate PO 02/07/20 [History Last Taken Unknown] antiarthritic combination no.2 900 mg tablet mg PO 03/25/20 [History Last Taken Unknown] testosterone 50 mg/5 gram (1 %) transdermal gel 1 packet TRANSDERMAL DAILY #30 tube 04/06/20 [Rx Last Taken Unknown] furosemide 20 mg tablet 10 mg PO DAILY PRN tab 06/30/20 [History Last Taken Unknown] levothyroxine 50 mcg tablet 50 mcg PO DAILY #90 tab 12/31/20 [Rx Last Taken Unknown] lisinopril 5 mg tablet 5 mg PO DAILY #30 tab 01/27/21 [Rx Last Taken Unknown] Allergy/AdvReac Type Severity Reaction Status Date / Time cephalexin [From Keflex] Allergy Rash Verified 01/27/21 15:48 Family History Father Colon cancer Alcoholism Sister Depression Brother Heart disease Mother Diabetes Surgical History Gastric ulcer Hip joint replacement status History of hip replacement Social History Smoking Status: Never smoker second hand exposure: No alcohol intake: never substance use type: does not use Vital Signs Vital Signs Vital Signs: 02/02/21 10:59 Temperature 98.6 F Temperature Source Temporal Pulse Rate 97 Respiratory Rate 18 Blood Pressure 157/68 H Blood Pressure Mean 97 Blood Pressure Source Monitor Blood Pressure Position Sitting Blood Pressure Location Left Forearm Oxygen Delivery Method Room Air Weight Body Mass Index (BMI) 53.9 Physical Exam Const alert, oriented x3, no apparent distress and well nourished Constitutional Narrative: The patient is morbidly obese. General Appearance: cooperative, comfortable and well developed Orientation / Consciousness: awake, oriented to person, oriented to place and oriented to time Nutritional Appearance: morbidly obese HEENT normocephalic and head/scalp atraumatic Head and Scalp: normal to inspection, normocephalic and atraumatic External Ear: external ears normal Eyes PERRL and EOMs intact bilaterally General Eye: normal appearance of both eyes Resp normal respiratory effort, normal air movement, no retractions and no use of accessory muscles Effort and Inspection: able to speak in complete sentences Extremity no calf tenderness Extremity Narrative: Mild bilateral swelling and edema are noted in the lower extremities. Chronic skin changes persist in the lower extremities bilaterally, namely hyperpigmentation and lipodermatosclerosis in the gaiter areas. General Extremity: Negative for clubbing or cyanosis Skin Wound Narrative: The ulceration in the left posterior calf persists. There is no sign of infection or cellulitis. Dimensions are documented elsewhere. There is a moderate amount of bioburden. Neuro oriented x3, CN's II-XII intact bilaterally and moves all extremities Sensorium / Orientation: awake, alert, oriented to person, oriented to place and oriented to time Psych Appearance: grossly normal and appropriate Attitude: calm Activity / Motor Behavior: appropriate eye contact Speech: normal speech Mood & Affect: euthymic mood Thought Process: normal thought process Thought Content: normal thought content Attention / Concentration: attention grossly intact Debridement Note Debridement Note Post-Debridement Measurements and Additional Note: Post-Debridement Measurements/Treatment - Nurse 1 - General Ulcer Assessment Start: 01/12/21 11:02 Freq: Status: Active Protocol: ALINA.JACOB Activity Type Activity Date Activity User E-Sign Co-Sign Detail Recorded Client Recorded Date Recorded By Document 01/12/21 11:03 KR [id number] 01/12/21 11:04 KR Document 01/15/21 12:11 ML [id number] 01/15/21 12:13 ML Document 01/19/21 10:51 KR [id number] 01/19/21 10:53 KR Document 01/22/21 13:41 AK Desktop 01/22/21 13:43 AK Document 01/26/21 11:04 AK [id number] 01/26/21 11:17 AK Document 01/29/21 12:00 KR [id number] 01/29/21 12:02 KR Document 02/02/21 10:59 BMF [id number] 02/02/21 11:13 [facility] 01/12/21 01/15/21 01/19/21 11:03 12:11 10:51 - Today's Visit Information Type of service Follow-up Visit Nurse-only Follow-up Visit (Physician/CLUB STEWARD Visit (Physician/CLUB STEWARD ) ) Arrival Mode Ambulatory Wheelchair Transfer Assistance None Transfer Assist (Other) Patient Identification Verified (Name & Yes Yes Yes ) Patient Requires Transmission-Based No Precautions Safety Precautions NA Height and Weight Body Mass Index (BMI) 53.9 53.9 53.9 BMI Classification Obese Obese Obese Vital Signs Temperature (97.8 F-99.1 F) 97.6 F L 97.3 F L 97.8 F Temperature Source Temporal Temporal Temporal Pulse Rate (60-100) 100 93 90 Pulse Location Monitor Monitor Monitor Respiratory Rate (12-18) 21 H Respiratory rate source Observation Oxygen Delivery Method Blood Pressure (90/60-120/80) 164/86 H 155/71 H 153/101 H Blood Pressure Mean 112 99 118 Source Monitor Monitor Monitor Position Sitting Sitting Blood Pressure Location Right Arm Left Arm Right Arm History Since Last Visit- (Skip if this is Patient's initial visit) Have you changed medications since your No No last visit? Any new allergies or adverse reactions No No Had a fall/change in ADL's that may No No increase risk of falls Signs or symptoms of abuse and/or No No neglect since last visit Have you been in the hospital since your No No last visit? Has dressing in place as prescribed Yes Yes Has compression in place as prescribed Yes Yes Has offloadiing in place as prescribed N/A N/A Experienced any changes in pain level or No No management Left Footwear Regular Shoe Regular Shoe Right Footwear Regular Shoe Regular Shoe Pain Scale: 0-10 Numeric Is Patient Pain Free? Yes Yes 01/22/21 01/26/21 01/29/21 13:41 11:04 12:00 WC - Today's Visit Information Type of service Nurse-only Follow-up Visit Nurse-only Visit (Physician/CLUB STEWARD Visit ) Arrival Mode Wheelchair Wheelchair Transfer Assistance Transfer Assist (Other) Patient Identification Verified (Name & Yes Yes Yes ) Patient Requires Transmission-Based Precautions Safety Precautions Height and Weight Body Mass Index (BMI) 53.9 53.9 53.9 BMI Classification Obese Obese Obese Vital Signs Temperature (97.8 F-99.1 F) 97 F L 97.7 F L Temperature Source Temporal Temporal Pulse Rate (60-100) 103 H 101 H Pulse Location Monitor Monitor Respiratory Rate (12-18) Respiratory rate source Oxygen Delivery Method Blood Pressure (90/60-120/80) 139/68 H 139/72 H Blood Pressure Mean 91 94 Source Monitor Monitor Position Semi-Fowlers Blood Pressure Location Right Arm History Since Last Visit- (Skip if this is Patient's initial visit) Have you changed medications since your No No last visit? Any new allergies or adverse reactions No No No Had a fall/change in ADL's that may No No No increase risk of falls Signs or symptoms of abuse and/or No No No neglect since last visit Have you been in the hospital since your No No No last visit? Has dressing in place as prescribed Yes Yes Yes Has compression in place as prescribed Yes Yes Yes Has offloadiing in place as prescribed Yes Yes N/A Experienced any changes in pain level or No No management Left Footwear Regular Shoe Regular Shoe Regular Shoe Right Footwear Regular Shoe Regular Shoe Regular Shoe Pain Scale: 0-10 Numeric Is Patient Pain Free? Yes 02/02/21 10:59 WC - Today's Visit Information Type of service Follow-up Visit (Physician/CLUB STEWARD ) Arrival Mode Wheelchair Transfer Assistance Other Transfer Assist (Other) STAND BY Patient Identification Verified (Name & Yes ) Patient Requires Transmission-Based No Precautions Safety Precautions Height and Weight Body Mass Index (BMI) 53.9 BMI Classification Obese Vital Signs Temperature (97.8 F-99.1 F) 98.6 F Temperature Source Temporal Pulse Rate (60-100) 97 Pulse Location Monitor Respiratory Rate (12-18) 18 Respiratory rate source Observation Oxygen Delivery Method Room Air Blood Pressure (90/60-120/80) 157/68 H Blood Pressure Mean 97 Source Monitor Position Sitting Blood Pressure Location Left Forearm History Since Last Visit- (Skip if this is Patient's initial visit) Have you changed medications since your Yes last visit? Any new allergies or adverse reactions No Had a fall/change in ADL's that may No increase risk of falls Signs or symptoms of abuse and/or No neglect since last visit Have you been in the hospital since your No last visit? Has dressing in place as prescribed Yes Has compression in place as prescribed Yes Has offloadiing in place as prescribed N/A Experienced any changes in pain level or No management Left Footwear Regular Shoe Right Footwear Regular Shoe Pain Scale: 0-10 Numeric Is Patient Pain Free? Yes - Nurse 1 - General Ulcer Measurement Start: 01/12/21 11:02 Freq: Status: Active Protocol: Activity Type Activity Date Activity User E-Sign Co-Sign Detail Recorded Client Recorded Date Recorded By Document 01/12/21 11:03 KR [id number] 01/12/21 11:04 KR Document 01/15/21 12:11 ML [id number] 01/15/21 12:13 ML Document 01/19/21 10:51 KR [id number] 01/19/21 10:53 KR Document 01/22/21 13:41 AK Desktop 01/22/21 13:43 AK Document 01/26/21 11:04 AK [id number] 01/26/21 11:17 AK Document 01/29/21 12:00 KR [id number] 01/29/21 12:02 KR Document 02/02/21 10:59 BMF [id number] 02/02/21 11:13 [facility] 01/12/21 01/15/21 01/19/21 11:03 12:11 10:51 #2 LLE Post -Current Size (cm) - Length 0.1 -Current Size (cm) - Width 0.1 -Current Size (cm) - Depth 0.1 -Total Square Cm 0.01 -Exudate Amt None Present -Exudate Type -Wound Margin Distinct, Outline Attached -Granulation Amt None Present (0 %) -Granulation Quality -Slough/Fibrin -Necrosis Amt None Present (0 %) -Necrotic Tissue Type -Texture (Kaci-wound Skin Appearance) Assessed, Localized Edema ,Scarring -Moisture (Kaci-wound Skin Appearance) Assessed,Dry/ Scaly -Color (Kaci-wound Skin Appearance) No Abnormality, Assessed -Temperature (Kaci-wound Skin No Abnormality Appearance) (Pt Warm) -Tenderness on Palpation (Kaci-wound No Skin Appearance) -Ulcer Cleansing Rinsed/ Irrigated with Saline -Foul Odor after Cleansing No -Anesthetic Used 4% Lidocaine Solution Wound Center Nurse 1 Lower Limb Edema Present Right Calf (cm) 56 50.5 54 Point of measurement (cm from the medial instep) Right Ankle (cm) 34 33 27.3 Left Calf (cm) 50.1 45 58.5 Left Ankle (cm) 29.8 28.5 32.2 01/22/21 01/26/21 01/29/21 13:41 11:04 12:00 #2 LLE Post -Current Size (cm) - Length 3 -Current Size (cm) - Width 2 -Current Size (cm) - Depth 0.1 -Total Square Cm 6 -Exudate Amt -Exudate Type Serosanguineous -Wound Margin Thickened -Granulation Amt -Granulation Quality -Slough/Fibrin Yes -Necrosis Amt Medium (34-66%) -Necrotic Tissue Type Eschar -Texture (Kaci-wound Skin Appearance) Assessed, Localized Edema ,Scarring -Moisture (Kaci-wound Skin Appearance) Assessed,Dry/ Scaly -Color (Kaci-wound Skin Appearance) Assessed, Hemosiderin Staining -Temperature (Kaci-wound Skin No Abnormality Appearance) (Pt Warm) -Tenderness on Palpation (Kaci-wound No Skin Appearance) -Ulcer Cleansing Rinsed/ Irrigated with Saline -Foul Odor after Cleansing -Anesthetic Used 4% Lidocaine Solution Wound Center Nurse 1 Lower Limb Edema Present Right Calf (cm) 49 47 Point of measurement (cm from the medial 49 instep) Right Ankle (cm) 27.2 39 27 Left Calf (cm) 53.1 50 48.7 Left Ankle (cm) 33 39.5 29.5 02/02/21 10:59 #2 LLE Post -Current Size (cm) - Length 1.9 -Current Size (cm) - Width 0.5 -Current Size (cm) - Depth 0.3 -Total Square Cm 0.95 -Exudate Amt Small -Exudate Type Serosanguineous -Wound Margin Distinct, Outline Attached -Granulation Amt Medium (34-66%) -Granulation Quality Red -Slough/Fibrin -Necrosis Amt None Present (0 %) -Necrotic Tissue Type -Texture (Kaci-wound Skin Appearance) Assessed, Scarring -Moisture (Kaci-wound Skin Appearance) Assessed,Dry/ Scaly -Color (Kaci-wound Skin Appearance) No Abnormality, Assessed -Temperature (Kaci-wound Skin No Abnormality Appearance) (Pt Warm) -Tenderness on Palpation (Kaci-wound No Skin Appearance) -Ulcer Cleansing SOAP AND WATER -Foul Odor after Cleansing No -Anesthetic Used 5% Lidocaine Gel Wound Center Nurse 1 Lower Limb Edema Present Yes Right Calf (cm) 52.3 Point of measurement (cm from the medial instep) Right Ankle (cm) 25.8 Left Calf (cm) 54.2 Left Ankle (cm) 28.5 WC - Nurse 2 - General Ulcer CM Notes Start: 01/12/21 11:02 Freq: Status: Active Protocol: Activity Type Activity Date Activity User E-Sign Co-Sign Detail Recorded Client Recorded Date Recorded By Document 01/12/21 12:33 PL [id number] 01/12/21 12:34 PL Document 01/19/21 13:02 PL [id number] 01/19/21 13:03 PL Document 01/26/21 12:25 PL [id number] 01/26/21 12:26 PL Document 02/02/21 12:19 PL [id number] 02/02/21 12:20 PL 01/12/21 01/19/21 01/26/21 12:33 13:02 12:25 Wound Center Nurse 2 #2 LLE Post -Time 11:23 11:04 11:20 -Correct Patient Yes Yes Yes -Correct Side, Site, Position Yes Yes Yes -Correct Procedure Yes Yes Yes -Procedure Performed Yes Yes Yes -Type of Procedure Debridement Debridement Debridement -Clinical Debridement Subcutaneous Subcutaneous Subcutaneous -Tissue Removed Subcutaneous Subcutaneous Subcutaneous -Post Debridement (cm) - Length 3.0 2.5 3.0 -Post Debridement (cm) - Width 1.9 1.0 2.0 -Post Debridement (cm) - Depth 0.2 0.2 0.1 -Total Square (Post) (cm) 5.70 2.50 6.00 -Area of Debridement (cm) - Length 3.0 2.5 3.0 -Area of Debridement (cm) - Width 1.9 1.0 2.0 -Total Square (Area) (cm) 5.70 2.50 6.00 -Tunneling No No No -Undermining/Tunneling No No No -Circular Undermining No No No -Wound/Ulcer Outcome Not Healed Not Healed Not Healed -Ulcer Cleansing Rinsed/ Rinsed/ Rinsed/ Irrigated with Irrigated with Irrigated with Saline Saline Saline -Foul Odor after Cleansing No No No -Bioengineered Tissue No No No -Bleeding Controlled with Pressure Pressure Pressure -Treatment Response Procedure Procedure Procedure Tolerated Well Tolerated Well Tolerated Well -Debridement - Subq, 1st 20sq cm Yes Yes Yes 02/02/21 12:19 Wound Center Nurse 2 #2 LLE Post -Time 11:29 -Correct Patient Yes -Correct Side, Site, Position Yes -Correct Procedure Yes -Procedure Performed Yes -Type of Procedure Debridement -Clinical Debridement Subcutaneous -Tissue Removed Subcutaneous -Post Debridement (cm) - Length 1.9 -Post Debridement (cm) - Width 0.5 -Post Debridement (cm) - Depth 0.3 -Total Square (Post) (cm) 0.95 -Area of Debridement (cm) - Length 1.9 -Area of Debridement (cm) - Width 0.5 -Total Square (Area) (cm) 0.95 -Tunneling No -Undermining/Tunneling No -Circular Undermining No -Wound/Ulcer Outcome Not Healed -Ulcer Cleansing Rinsed/ Irrigated with Saline -Foul Odor after Cleansing No -Bioengineered Tissue No -Bleeding Controlled with Pressure -Treatment Response Procedure Tolerated Well -Debridement - Subq, 1st 20sq cm Yes WC - Nurse 3 - General Ulcer D/C NN Start: 01/12/21 11:02 Freq: Status: Active Protocol: Activity Type Activity Date Activity User E-Sign Co-Sign Detail Recorded Client Recorded Date Recorded By Document 01/12/21 12:00 AK [id number] 01/12/21 12:02 AK Document 01/15/21 12:11 ML [id number] 01/15/21 12:13 ML Document 01/19/21 11:49 KR [id number] 01/19/21 11:52 KR Document 01/22/21 13:41 AK Desktop 01/22/21 13:43 AK Document 01/26/21 11:38 BMF [id number] 01/26/21 11:39 BMF Document 01/29/21 12:00 KR [id number] 01/29/21 12:02 KR Document 02/02/21 11:34 DL [id number] 02/02/21 11:36 DL Edit Result 02/02/21 11:34 DL (1) [id number] 02/02/21 11:37 DL (1) Notes: => Drsg/Unna boot applied per Alexis and Nessa Schroeder today. 01/12/21 01/15/21 01/19/21 12:00 12:11 11:49 Wound Care Nurse 3 #2 LLE Post -Ulcer Cleansing Rinsed/ Irrigated with Saline -Foul Odor after Cleansing No -Primary Dressing Applied Promogran Promogran -Other Dressing -Primary Dressing Covered/Secured with Dry Gauze -Promogran 1 1 #1 LE Post -Ulcer Cleansing Rinsed/ Irrigated with Saline -Foul Odor after Cleansing No -Primary Dressing Covered/Secured with Dry Gauze bilateral legs -Lotion applied to leg before No compression wrap -Multi-Layered Wrap Application Unna Boot - Unna Boot - Unna Boot - Bilateral ($) Bilateral ($) Bilateral ($) -Unna Boots (Bilat) ($) 1 2 2 Treatment Response Vital Signs Temperature (97.8 F-99.1 F) 97.3 F L Temperature Source Temporal Pulse Rate (60-100) 93 Pulse Location Monitor Respiratory Rate (12-18) 21 H Respiratory rate source Observation Blood Pressure (90/60-120/80) 155/71 H Blood Pressure Mean 99 Source Monitor Position Sitting Blood Pressure Location Left Arm Pain Scale: 0-10 Numeric Is Patient Pain Free? Yes WC - Visit Discharge Discharge Condition Stable Ambulatory Status Wheelchair Transportation Private Auto Accompanied by Clinical Summary of Care Provided Notes: 01/22/21 01/26/21 01/29/21 13:41 11:38 12:00 Wound Care Nurse 3 #2 LLE Post -Ulcer Cleansing Wound Cleanser Rinsed/ Irrigated with Saline -Foul Odor after Cleansing No No -Primary Dressing Applied Promogran Other -Other Dressing promogran, unna boot -Primary Dressing Covered/Secured with -Promogran 1 #1 LE Post -Ulcer Cleansing -Foul Odor after Cleansing -Primary Dressing Covered/Secured with bilateral legs -Lotion applied to leg before No compression wrap -Multi-Layered Wrap Application Unna Boot - Unna Boot - Unna Boot - Bilateral ($) Bilateral ($) Bilateral ($) -Unna Boots (Bilat) ($) 1 1 2 Treatment Response Procedure Tolerated Well Vital Signs Temperature (97.8 F-99.1 F) 97 F L 97.7 F L Temperature Source Temporal Temporal Pulse Rate (60-100) 103 H 101 H Pulse Location Monitor Monitor Respiratory Rate (12-18) Respiratory rate source Blood Pressure (90/60-120/80) 139/68 H 139/72 H Blood Pressure Mean 91 94 Source Monitor Monitor Position Semi-Fowlers Blood Pressure Location Right Arm Pain Scale: 0-10 Numeric Is Patient Pain Free? Yes Yes WC - Visit Discharge Discharge Condition Stable Stable Stable Ambulatory Status Ambulatory Wheelchair Wheelchair Transportation Private Auto Private Auto Accompanied by self Clinical Summary of Care Provided Yes Notes: 02/02/21 11:34 Wound Care Nurse 3 #2 LLE Post -Ulcer Cleansing Rinsed/ Irrigated with Saline -Foul Odor after Cleansing No -Primary Dressing Applied Promogran -Other Dressing -Primary Dressing Covered/Secured with Dry Gauze -Promogran 1 #1 LE Post -Ulcer Cleansing -Foul Odor after Cleansing -Primary Dressing Covered/Secured with bilateral legs -Lotion applied to leg before compression wrap -Multi-Layered Wrap Application Unna Boot - Bilateral ($) -Unna Boots (Bilat) ($) 1 Treatment Response Procedure Tolerated Well Vital Signs Temperature (97.8 F-99.1 F) Temperature Source Pulse Rate (60-100) Pulse Location Respiratory Rate (12-18) Respiratory rate source Blood Pressure (90/60-120/80) Blood Pressure Mean Source Position Blood Pressure Location Pain Scale: 0-10 Numeric Is Patient Pain Free? Yes WC - Visit Discharge Discharge Condition Stable Ambulatory Status Ambulatory Transportation Private Auto Accompanied by Clinical Summary of Care Provided Notes: Drsg/Unna boot applied per Shady Santana and Nessa Schroeder today . Wound debrided: Left posterior calf Laterality: Left Type of Debridement: Excisional debridement Anesthesia Used: 5% Lidocaine Gel Depth: Down to and including healthy tissue and in the subcutaneous layer Percentage of wound debrided: 100 Instrument Used: 5mm curette Tissue Removed: Bioburden Severity: Fat Layer Exposed Amount of bleeding with debridement: Mild Bleeding Controlled with: Compression and gauze Patient tolerated procedure: Patient tolerated procedure well Assessment/Plan Assessment/Plan (1) Venous stasis ulcer: CODE(S): I83.009 - Varicose veins of unspecified lower extremity with ulcer of unspecified site; L97.909 - Non-pressure chronic ulcer of unspecified part of unspecified lower leg with unspecified severity QUALIFIERS: Venous stasis ulcer site: calf Varicose vein presence: without varicose veins Laterality: left Non-pressure ulcer stage: with fat layer exposed Qualified Code(s): I87.2 - Venous insufficiency (chronic) (peripheral); L97.222 - Non-pressure chronic ulcer of left calf with fat layer exposed (2) Chronic venous hypertension w/ulcer and inflammation involv left side: CODE(S): I87.332 - Chronic venous hypertension (idiopathic) with ulcer and inflammation of left lower extremity; L97.929 - Non-pressure chronic ulcer of unspecified part of left lower leg with unspecified severity (3) Chronic venous insufficiency: CODE(S): I87.2 - Venous insufficiency (chronic) (peripheral) (4) Venous stasis dermatitis of left lower extremity: CODE(S): I87.2 - Venous insufficiency (chronic) (peripheral) (5) Chronic venous stasis: CODE(S): I87.8 - Other specified disorders of veins (6) Lower extremity edema: CODE(S): R60.0 - Localized edema (7) Swelling of lower extremity: CODE(S): M79.89 - Other specified soft tissue disorders (8) Hypogonadism: (9) History of gastric ulcer: CODE(S): Z87.11 - Personal history of peptic ulcer disease (10) History of myocardial infarction: CODE(S): I25.2 - Old myocardial infarction (11) Immobility: CODE(S): Z74.09 - Other reduced mobility (12) Morbid obesity with BMI of 50.0-59.9, adult: CODE(S): E66.01 - Morbid (severe) obesity due to excess calories; Z68.43 - Body mass index [BMI] 50.0-59.9, adult (13) Lipodermatosclerosis: CODE(S): I83.10 - Varicose veins of unspecified lower extremity with inflammation (14) Urinary frequency: CODE(S): R35.0 - Frequency of micturition (15) Hypothyroidism (acquired): CODE(S): E03.9 - Hypothyroidism, unspecified (16) Gout: CODE(S): M10.9 - Gout, unspecified (17) Chronic hypoxemic respiratory failure: CODE(S): J96.11 - Chronic respiratory failure with hypoxia (18) Restrictive airway disease: CODE(S): J98.4 - Other disorders of lung (19) Hypoxemia: CODE(S): R09.02 - Hypoxemia (20) Morbid obesity: CODE(S): E66.01 - Morbid (severe) obesity due to excess calories (21) MEGHANA (obstructive sleep apnea): CODE(S): G47.33 - Obstructive sleep apnea (adult) (pediatric) (22) Osteoarthritis: CODE(S): M19.90 - Unspecified osteoarthritis, unspecified site (23) Hyperpigmentation: CODE(S): L81.9 - Disorder of pigmentation, unspecified PLAN: This is a 80-year-old morbidly obese male who presented with chronic and severe bilateral lower extremity venous disease. He has profound venous stasis dermatitis affecting his left lower extremity, with a venous ulceration located on the left posterior calf. He also manifests chronic changes in both lower extremities, namely swelling and edema, hyperpigmentation, and lipodermatosclerosis. Patient is morbidly obese. He is relatively inactive. He is limited by his chronic hypoxic respiratory failure, restrictive airway disease, and morbid obesity. While he does claim to sleep on a flat surface at night, he sits for the preponderance of each day, without much activity. We are to continue conservative treatment measures relative to his lower extremity presenting symptoms. We have had a lengthy discussion about the measures which will be of benefit. Leg elevation has been discussed in detail. His lower extremities are to be elevated as much as possible, to heart level, or higher. He is to avoid idle prolonged sitting. Activity has been encouraged, though is unlikely to be enhanced to any significant degree. Weight loss has also been recommended. We are to continue compression to the lower extremities bilaterally by means of [place] boots, which will be applied bilaterally, and changed twice weekly. Promogran is to be applied topically to the ulceration on the left posterior calf with each dressing change twice weekly. Patient is to return in 1 week for reassessment. Routine laboratory studies have been obtained, with results as follows: White blood count 9.4, hemoglobin 13.6, hematocrit 43.9, platelets 247,000, urinalysis unremarkable, glucose 115, BUN 21, creatinine 1.65, total protein 8.6, serum albumin 3.2, serum prealbumin 18.5, calcium 8.8, AST 27, alkaline phosphatase 57, ALT 28, total bilirubin 0.70, magnesium 2.4, sodium 140, potassium 4.3, chloride 103. The patient has been encouraged to augment his protein and nutritional intake. We will forego a venous duplex examination, as the patient is not currently a good candidate for procedural intervention. Total time: 28 minutes.
[2021-02-05 12:33] VITALS: BP 145/72; PULSE 101; TEMP 36.7; BMI 53.9
[2021-02-09 11:47] VITALS: BP 181/79; PULSE 80; TEMP 36.1; BMI 53.9
--- NOTE | 2021-02-09 14:46 | PCM.WC.HP ---
History of Present Illness Date of Service: 02/09/21 Chief Complaint: Venous ulceration, left posterior calf History of Wound: This is a 80-year-old morbidly obese male who presented with a venous stasis ulceration on the left posterior calf, associated with severe venous stasis dermatitis involving the entire circumference of his left mid calf. The patient indicated that the ulceration and skin changes had been present for approximately 2 months. However, it appears as though the patient has a longstanding history of chronic venous disease. He is morbidly obese, with a BMI of over 50. At the instruction of his primary care physician, he had been using peroxide and iodine topically on the ulceration in recent weeks. The patient claims to sleep on a flat mattress at night. However, he is relatively immobile and inactive, sitting idly a good part of each day. He experiences swelling in his lower extremities bilaterally, more notable at the end of each day. He has been previously prescribed graduated compression stockings, but is unable to don the stockings. He is a , and lives alone. He has an aide who comes to his home twice weekly. [facility] Medical History Cataracts, bilateral Chronic venous hypertension w/ulcer and inflammation involv left side Chronic venous insufficiency Chronic venous stasis Gout History of bleeding ulcers History of gastric ulcer History of myocardial infarction Hyperpigmentation Hypogonadism Immobility Lipodermatosclerosis Lower extremity edema Morbid obesity Morbid obesity with BMI of 50.0-59.9, adult NSAID-induced gastric ulcer MEGHANA (obstructive sleep apnea) Osteoarthritis Parathyroid abnormality Pleural effusion Swelling of lower extremity Venous stasis dermatitis of left lower extremity Venous stasis ulcer Home Medications Oxygen, Home [Home Oxygen] 2 lpm NASAL PRN PRN #1 unit 06/21/18 [Rx Last Taken Unknown] arthrid PO 02/07/20 [History Last Taken Unknown] magnesium oxide 400 mg PO BID 02/07/20 [History Last Taken Unknown] multivitamin 1 cap PO DAILY 02/07/20 [History Last Taken Unknown] potassium chloride 20 mEq tablet,extended release 20 meq PO DAILY 02/07/20 [History Last Taken Unknown] pro bio slim PO 02/07/20 [History Last Taken Unknown] super eric prostate PO 02/07/20 [History Last Taken Unknown] antiarthritic combination no.2 900 mg tablet mg PO 03/25/20 [History Last Taken Unknown] testosterone 50 mg/5 gram (1 %) transdermal gel 1 packet TRANSDERMAL DAILY #30 tube 04/06/20 [Rx Last Taken Unknown] furosemide 20 mg tablet 10 mg PO DAILY PRN tab 06/30/20 [History Last Taken Unknown] levothyroxine 50 mcg tablet 50 mcg PO DAILY #90 tab 12/31/20 [Rx Last Taken Unknown] lisinopril 5 mg tablet 5 mg PO DAILY #30 tab 01/27/21 [Rx Last Taken Unknown] Allergy/AdvReac Type Severity Reaction Status Date / Time cephalexin [From Keflex] Allergy Rash Verified 01/27/21 15:48 Family History Father Colon cancer Alcoholism Sister Depression Brother Heart disease Mother Diabetes Surgical History Gastric ulcer Hip joint replacement status History of hip replacement Social History Smoking Status: Never smoker second hand exposure: No alcohol intake: never substance use type: does not use Vital Signs Vital Signs Vital Signs: 02/09/21 11:47 Temperature 97.0 F L Temperature Source Temporal Pulse Rate 80 Blood Pressure 181/79 H Blood Pressure Mean 113 Blood Pressure Source Monitor Blood Pressure Position Semi-Fowlers Blood Pressure Location Right Arm Weight Body Mass Index (BMI) 53.9 Physical Exam Const alert, oriented x3, no apparent distress and well nourished Constitutional Narrative: The patient is morbidly obese. General Appearance: cooperative, comfortable and well developed Orientation / Consciousness: awake, oriented to person, oriented to place and oriented to time HEENT normocephalic and head/scalp atraumatic Head and Scalp: normal to inspection, normocephalic and atraumatic External Ear: external ears normal Eyes PERRL and EOMs intact bilaterally General Eye: normal appearance of both eyes Resp normal respiratory effort, normal air movement, no retractions and no use of accessory muscles Effort and Inspection: able to speak in complete sentences Extremity no calf tenderness Extremity Narrative: Slight swelling and edema are noted in the patient's left lower extremity. Mild dermatitic changes and lipodermatosclerosis are also noted in the gaiter area of the left lower extremity. General Extremity: Negative for clubbing or cyanosis Skin Wound Narrative: The ulceration on the left posterior calf persists. It is slightly smaller in size. Dimensions are documented elsewhere. There is no sign of infection or cellulitis. There is a moderate amount of bioburden. Neuro oriented x3, CN's II-XII intact bilaterally and moves all extremities Sensorium / Orientation: awake, alert, oriented to person, oriented to place and oriented to time Psych Appearance: grossly normal and appropriate Attitude: calm Activity / Motor Behavior: appropriate eye contact Speech: normal speech Mood & Affect: euthymic mood Thought Process: normal thought process Thought Content: normal thought content Attention / Concentration: attention grossly intact Debridement Note Debridement Note Post-Debridement Measurements and Additional Note: Post-Debridement Measurements/Treatment - Nurse 1 - General Ulcer Assessment Start: 01/12/21 11:02 Freq: Status: Active Protocol: ALINA.JACOB Activity Type Activity Date Activity User E-Sign Co-Sign Detail Recorded Client Recorded Date Recorded By Document 01/12/21 11:03 KR [id number] 01/12/21 11:04 KR Document 01/15/21 12:11 ML [id number] 01/15/21 12:13 ML Document 01/19/21 10:51 KR [id number] 01/19/21 10:53 KR Document 01/22/21 13:41 AK Desktop 01/22/21 13:43 AK Document 01/26/21 11:04 AK [id number] 01/26/21 11:17 AK Document 01/29/21 12:00 KR [id number] 01/29/21 12:02 KR Document 02/02/21 10:59 BMF [id number] 02/02/21 11:13 BMF Document 02/05/21 12:33 KR [id number] 02/05/21 12:34 KR Document 02/09/21 11:47 KR [id number] 02/09/21 12:00 KR 01/12/21 01/15/21 01/19/21 11:03 12:11 10:51 - Today's Visit Information Type of service Follow-up Visit Nurse-only Follow-up Visit (Physician/HAUL TRUCK DRIVER Visit (Physician/HAUL TRUCK DRIVER ) ) Arrival Mode Ambulatory Wheelchair Transfer Assistance None Transfer Assist (Other) Patient Identification Verified (Name & Yes Yes Yes ) Patient Requires Transmission-Based No Precautions Safety Precautions NA Height and Weight Body Mass Index (BMI) 53.9 53.9 53.9 BMI Classification Obese Obese Obese Vital Signs Temperature (97.8 F-99.1 F) 97.6 F L 97.3 F L 97.8 F Temperature Source Temporal Temporal Temporal Pulse Rate (60-100) 100 93 90 Pulse Location Monitor Monitor Monitor Respiratory Rate (12-18) 21 H Respiratory rate source Observation Oxygen Delivery Method Blood Pressure (90/60-120/80) 164/86 H 155/71 H 153/101 H Blood Pressure Mean 112 99 118 Source Monitor Monitor Monitor Position Sitting Sitting Blood Pressure Location Right Arm Left Arm Right Arm History Since Last Visit- (Skip if this is Patient's initial visit) Have you changed medications since your No No last visit? Any new allergies or adverse reactions No No Had a fall/change in ADL's that may No No increase risk of falls Signs or symptoms of abuse and/or No No neglect since last visit Have you been in the hospital since your No No last visit? Has dressing in place as prescribed Yes Yes Has compression in place as prescribed Yes Yes Has offloadiing in place as prescribed N/A N/A Experienced any changes in pain level or No No management Left Footwear Regular Shoe Regular Shoe Right Footwear Regular Shoe Regular Shoe Pain Scale: 0-10 Numeric Is Patient Pain Free? Yes Yes 01/22/21 01/26/21 01/29/21 13:41 11:04 12:00 - Today's Visit Information Type of service Nurse-only Follow-up Visit Nurse-only Visit (Physician/HAUL TRUCK DRIVER Visit ) Arrival Mode Wheelchair Wheelchair Transfer Assistance Transfer Assist (Other) Patient Identification Verified (Name & Yes Yes Yes ) Patient Requires Transmission-Based Precautions Safety Precautions Height and Weight Body Mass Index (BMI) 53.9 53.9 53.9 BMI Classification Obese Obese Obese Vital Signs Temperature (97.8 F-99.1 F) 97 F L 97.7 F L Temperature Source Temporal Temporal Pulse Rate (60-100) 103 H 101 H Pulse Location Monitor Monitor Respiratory Rate (12-18) Respiratory rate source Oxygen Delivery Method Blood Pressure (90/60-120/80) 139/68 H 139/72 H Blood Pressure Mean 91 94 Source Monitor Monitor Position Semi-Fowlers Blood Pressure Location Right Arm History Since Last Visit- (Skip if this is Patient's initial visit) Have you changed medications since your No No last visit? Any new allergies or adverse reactions No No No Had a fall/change in ADL's that may No No No increase risk of falls Signs or symptoms of abuse and/or No No No neglect since last visit Have you been in the hospital since your No No No last visit? Has dressing in place as prescribed Yes Yes Yes Has compression in place as prescribed Yes Yes Yes Has offloadiing in place as prescribed Yes Yes N/A Experienced any changes in pain level or No No management Left Footwear Regular Shoe Regular Shoe Regular Shoe Right Footwear Regular Shoe Regular Shoe Regular Shoe Pain Scale: 0-10 Numeric Is Patient Pain Free? Yes 02/02/21 02/05/21 02/09/21 10:59 12:33 11:47 WC - Today's Visit Information Type of service Follow-up Visit Follow-up Visit Follow-up Visit (Physician/HAUL TRUCK DRIVER (Physician/HAUL TRUCK DRIVER (Physician/HAUL TRUCK DRIVER ) ),Nurse-only ) Visit Arrival Mode Wheelchair Wheelchair Ambulatory Transfer Assistance Other Transfer Assist (Other) STAND BY Patient Identification Verified (Name & Yes Yes Yes ) Patient Requires Transmission-Based No Precautions Safety Precautions Height and Weight Body Mass Index (BMI) 53.9 53.9 53.9 BMI Classification Obese Obese Obese Vital Signs Temperature (97.8 F-99.1 F) 98.6 F 98.0 F 97.0 F L Temperature Source Temporal Temporal Temporal Pulse Rate (60-100) 97 101 H 80 Pulse Location Monitor Monitor Monitor Respiratory Rate (12-18) 18 Respiratory rate source Observation Oxygen Delivery Method Room Air Blood Pressure (90/60-120/80) 157/68 H 145/72 H 181/79 H Blood Pressure Mean 97 96 113 Source Monitor Monitor Monitor Position Sitting Sitting Semi-Fowlers Blood Pressure Location Left Forearm Left Arm Right Arm History Since Last Visit- (Skip if this is Patient's initial visit) Have you changed medications since your Yes No No last visit? Any new allergies or adverse reactions No No No Had a fall/change in ADL's that may No No No increase risk of falls Signs or symptoms of abuse and/or No No No neglect since last visit Have you been in the hospital since your No No No last visit? Has dressing in place as prescribed Yes Yes Yes Has compression in place as prescribed Yes Yes Yes Has offloadiing in place as prescribed N/A N/A N/A Experienced any changes in pain level or No No No management Left Footwear Regular Shoe Regular Shoe Regular Shoe Right Footwear Regular Shoe Regular Shoe Regular Shoe Pain Scale: 0-10 Numeric Is Patient Pain Free? Yes Yes Yes WC - Nurse 1 - General Ulcer Measurement Start: 01/12/21 11:02 Freq: Status: Active Protocol: Activity Type Activity Date Activity User E-Sign Co-Sign Detail Recorded Client Recorded Date Recorded By Document 01/12/21 11:03 KR [id number] 01/12/21 11:04 KR Document 01/15/21 12:11 ML [id number] 01/15/21 12:13 ML Document 01/19/21 10:51 KR [id number] 01/19/21 10:53 KR Document 01/22/21 13:41 AK Desktop 01/22/21 13:43 AK Document 01/26/21 11:04 AK [id number] 01/26/21 11:17 AK Document 01/29/21 12:00 KR [id number] 01/29/21 12:02 KR Document 02/02/21 10:59 BMF [id number] 02/02/21 11:13 BMF Document 02/05/21 12:33 KR [id number] 02/05/21 12:34 KR Document 02/09/21 11:47 KR [id number] 02/09/21 12:00 KR 01/12/21 01/15/21 01/19/21 11:03 12:11 10:51 #2 LLE Post -Current Size (cm) - Length 0.1 -Current Size (cm) - Width 0.1 -Current Size (cm) - Depth 0.1 -Total Square Cm 0.01 -Photo Taken -Undermining/Tunneling -Circular Undermining -Exudate Amt None Present -Exudate Type -Wound Margin Distinct, Outline Attached -Granulation Amt None Present (0 %) -Granulation Quality -Slough/Fibrin -Necrosis Amt None Present (0 %) -Necrotic Tissue Type -Structure Exposed -Texture (Kaci-wound Skin Appearance) Assessed, Localized Edema ,Scarring -Moisture (Kaci-wound Skin Appearance) Assessed,Dry/ Scaly -Color (Kaci-wound Skin Appearance) No Abnormality, Assessed -Temperature (Kaci-wound Skin No Abnormality Appearance) (Pt Warm) -Tenderness on Palpation (Kaci-wound No Skin Appearance) -Ulcer Cleansing Rinsed/ Irrigated with Saline -Foul Odor after Cleansing No -Anesthetic Used 4% Lidocaine Solution Wound Center Nurse 1 Lower Limb Edema Present Right Calf (cm) 56 50.5 54 Point of measurement (cm from the medial instep) Right Ankle (cm) 34 33 27.3 Left Calf (cm) 50.1 45 58.5 Left Ankle (cm) 29.8 28.5 32.2 01/22/21 01/26/21 01/29/21 13:41 11:04 12:00 #2 LLE Post -Current Size (cm) - Length 3 -Current Size (cm) - Width 2 -Current Size (cm) - Depth 0.1 -Total Square Cm 6 -Photo Taken -Undermining/Tunneling -Circular Undermining -Exudate Amt -Exudate Type Serosanguineous -Wound Margin Thickened -Granulation Amt -Granulation Quality -Slough/Fibrin Yes -Necrosis Amt Medium (34-66%) -Necrotic Tissue Type Eschar -Structure Exposed -Texture (Kaci-wound Skin Appearance) Assessed, Localized Edema ,Scarring -Moisture (Kaci-wound Skin Appearance) Assessed,Dry/ Scaly -Color (Kaci-wound Skin Appearance) Assessed, Hemosiderin Staining -Temperature (Kaci-wound Skin No Abnormality Appearance) (Pt Warm) -Tenderness on Palpation (Kaci-wound No Skin Appearance) -Ulcer Cleansing Rinsed/ Irrigated with Saline -Foul Odor after Cleansing -Anesthetic Used 4% Lidocaine Solution Wound Center Nurse 1 Lower Limb Edema Present Right Calf (cm) 49 47 Point of measurement (cm from the medial 49 instep) Right Ankle (cm) 27.2 39 27 Left Calf (cm) 53.1 50 48.7 Left Ankle (cm) 33 39.5 29.5 02/02/21 02/05/21 02/09/21 10:59 12:33 11:47 #2 LLE Post -Current Size (cm) - Length 1.9 1 -Current Size (cm) - Width 0.5 0.8 -Current Size (cm) - Depth 0.3 0.1 -Total Square Cm 0.95 0.8 -Photo Taken No -Undermining/Tunneling No -Circular Undermining No -Exudate Amt Small None Present -Exudate Type Serosanguineous -Wound Margin Distinct, Distinct, Outline Outline Attached Attached -Granulation Amt Medium (34-66%) Medium (34-66%) -Granulation Quality Red [place] -Slough/Fibrin -Necrosis Amt None Present (0 Large (67-100%) %) -Necrotic Tissue Type -Structure Exposed N/A -Texture (Kaci-wound Skin Appearance) Assessed, Assessed,Not Scarring Assessed, Scarring -Moisture (Kaci-wound Skin Appearance) Assessed,Dry/ No Abnormality, Scaly Assessed -Color (Kaci-wound Skin Appearance) No Abnormality, Assessed, Assessed Hemosiderin Staining -Temperature (Kaci-wound Skin No Abnormality No Abnormality Appearance) (Pt Warm) (Pt Warm) -Tenderness on Palpation (Kaci-wound No No Skin Appearance) -Ulcer Cleansing SOAP AND WATER Rinsed/ Irrigated with Saline -Foul Odor after Cleansing No No -Anesthetic Used 5% Lidocaine 5% Lidocaine Gel Gel Wound Center Nurse 1 Lower Limb Edema Present Yes Right Calf (cm) 52.3 49 45 Point of measurement (cm from the medial instep) Right Ankle (cm) 25.8 29.5 26 Left Calf (cm) 54.2 52 45 Left Ankle (cm) 28.5 28.5 28 WC - Nurse 2 - General Ulcer CM Notes Start: 01/12/21 11:02 Freq: Status: Active Protocol: Activity Type Activity Date Activity User E-Sign Co-Sign Detail Recorded Client Recorded Date Recorded By Document 01/12/21 12:33 PL [id number] 01/12/21 12:34 PL Document 01/19/21 13:02 PL [id number] 01/19/21 13:03 PL Document 01/26/21 12:25 PL [id number] 01/26/21 12:26 PL Document 02/02/21 12:19 PL [id number] 02/02/21 12:20 PL Document 02/09/21 13:24 PL [id number] 02/09/21 13:25 PL 01/12/21 01/19/21 01/26/21 12:33 13:02 12:25 Wound Center Nurse 2 #2 LLE Post -Time 11:23 11:04 11:20 -Correct Patient Yes Yes Yes -Correct Side, Site, Position Yes Yes Yes -Correct Procedure Yes Yes Yes -Procedure Performed Yes Yes Yes -Type of Procedure Debridement Debridement Debridement -Clinical Debridement Subcutaneous Subcutaneous Subcutaneous -Tissue Removed Subcutaneous Subcutaneous Subcutaneous -Post Debridement (cm) - Length 3.0 2.5 3.0 -Post Debridement (cm) - Width 1.9 1.0 2.0 -Post Debridement (cm) - Depth 0.2 0.2 0.1 -Total Square (Post) (cm) 5.70 2.50 6.00 -Area of Debridement (cm) - Length 3.0 2.5 3.0 -Area of Debridement (cm) - Width 1.9 1.0 2.0 -Total Square (Area) (cm) 5.70 2.50 6.00 -Tunneling No No No -Undermining/Tunneling No No No -Circular Undermining No No No -Wound/Ulcer Outcome Not Healed Not Healed Not Healed -Ulcer Cleansing Rinsed/ Rinsed/ Rinsed/ Irrigated with Irrigated with Irrigated with Saline Saline Saline -Foul Odor after Cleansing No No No -Bioengineered Tissue No No No -Bleeding Controlled with Pressure Pressure Pressure -Treatment Response Procedure Procedure Procedure Tolerated Well Tolerated Well Tolerated Well -Debridement - Subq, 1st 20sq cm Yes Yes Yes 02/02/21 02/09/21 12:19 13:24 Wound Center Nurse 2 #2 LLE Post -Time 11:29 12:08 -Correct Patient Yes Yes -Correct Side, Site, Position Yes Yes -Correct Procedure Yes Yes -Procedure Performed Yes Yes -Type of Procedure Debridement Debridement -Clinical Debridement Subcutaneous Subcutaneous -Tissue Removed Subcutaneous Subcutaneous -Post Debridement (cm) - Length 1.9 1.0 -Post Debridement (cm) - Width 0.5 0.8 -Post Debridement (cm) - Depth 0.3 0.1 -Total Square (Post) (cm) 0.95 0.80 -Area of Debridement (cm) - Length 1.9 1.0 -Area of Debridement (cm) - Width 0.5 0.8 -Total Square (Area) (cm) 0.95 0.80 -Tunneling No No -Undermining/Tunneling No No -Circular Undermining No No -Wound/Ulcer Outcome Not Healed Not Healed -Ulcer Cleansing Rinsed/ Rinsed/ Irrigated with Irrigated with Saline Saline -Foul Odor after Cleansing No No -Bioengineered Tissue No No -Bleeding Controlled with Pressure -Treatment Response Procedure Tolerated Well -Debridement - Subq, 1st 20sq cm Yes Yes WC - Nurse 3 - General Ulcer D/C NN Start: 01/12/21 11:02 Freq: Status: Active Protocol: Activity Type Activity Date Activity User E-Sign Co-Sign Detail Recorded Client Recorded Date Recorded By Document 01/12/21 12:00 AK [id number] 01/12/21 12:02 AK Document 01/15/21 12:11 ML [id number] 01/15/21 12:13 ML Document 01/19/21 11:49 KR [id number] 01/19/21 11:52 KR Document 01/22/21 13:41 AK Desktop 01/22/21 13:43 AK Document 01/26/21 11:38 BMF [id number] 01/26/21 11:39 BMF Document 01/29/21 12:00 KR [id number] 01/29/21 12:02 KR Document 02/02/21 11:34 DL [id number] 02/02/21 11:36 DL Edit Result 02/02/21 11:34 DL (1) [id number] 02/02/21 11:37 DL Document 02/05/21 12:33 KR [id number] 02/05/21 12:34 KR Document 02/09/21 12:21 DL [id number] 02/09/21 12:23 DL (1) Notes: => Drsg/Unna boot applied per Alexis and Nessa Schroeder today. 01/12/21 01/15/21 01/19/21 12:00 12:11 11:49 Wound Care Nurse 3 #2 LLE Post -Ulcer Cleansing Rinsed/ Irrigated with Saline -Foul Odor after Cleansing No -Primary Dressing Applied Promogran Promogran -Other Dressing -Primary Dressing Covered/Secured with Dry Gauze -Promogran 1 1 #1 LE Post -Ulcer Cleansing Rinsed/ Irrigated with Saline -Foul Odor after Cleansing No -Primary Dressing Covered/Secured with Dry Gauze bilateral legs -Lotion applied to leg before No compression wrap -Multi-Layered Wrap Application Unna Boot - Unna Boot - Unna Boot - Bilateral ($) Bilateral ($) Bilateral ($) -Unna Boots (Bilat) ($) 1 2 2 Treatment Response Vital Signs Temperature (97.8 F-99.1 F) 97.3 F L Temperature Source Temporal Pulse Rate (60-100) 93 Pulse Location Monitor Respiratory Rate (12-18) 21 H Respiratory rate source Observation Blood Pressure (90/60-120/80) 155/71 H Blood Pressure Mean 99 Source Monitor Position Sitting Blood Pressure Location Left Arm Pain Scale: 0-10 Numeric Is Patient Pain Free? Yes WC - Visit Discharge Discharge Condition Stable Ambulatory Status Wheelchair Transportation Private Auto Accompanied by Clinical Summary of Care Provided Notes: 01/22/21 01/26/21 01/29/21 13:41 11:38 12:00 Wound Care Nurse 3 #2 LLE Post -Ulcer Cleansing Wound Cleanser Rinsed/ Irrigated with Saline -Foul Odor after Cleansing No No -Primary Dressing Applied Promogran Other -Other Dressing promogran, unna boot -Primary Dressing Covered/Secured with -Promogran 1 #1 LE Post -Ulcer Cleansing -Foul Odor after Cleansing -Primary Dressing Covered/Secured with bilateral legs -Lotion applied to leg before No compression wrap -Multi-Layered Wrap Application Unna Boot - Unna Boot - Unna Boot - Bilateral ($) Bilateral ($) Bilateral ($) -Unna Boots (Bilat) ($) 1 1 2 Treatment Response Procedure Tolerated Well Vital Signs Temperature (97.8 F-99.1 F) 97 F L 97.7 F L Temperature Source Temporal Temporal Pulse Rate (60-100) 103 H 101 H Pulse Location Monitor Monitor Respiratory Rate (12-18) Respiratory rate source Blood Pressure (90/60-120/80) 139/68 H 139/72 H Blood Pressure Mean 91 94 Source Monitor Monitor Position Semi-Fowlers Blood Pressure Location Right Arm Pain Scale: 0-10 Numeric Is Patient Pain Free? Yes Yes WC - Visit Discharge Discharge Condition Stable Stable Stable Ambulatory Status Ambulatory Wheelchair Wheelchair Transportation Private Auto Private Auto Accompanied by self Clinical Summary of Care Provided Yes Notes: 02/02/21 02/05/21 02/09/21 11:34 12:33 12:21 Wound Care Nurse 3 #2 LLE Post -Ulcer Cleansing Rinsed/ Rinsed/ Irrigated with Irrigated with Saline Saline -Foul Odor after Cleansing No No -Primary Dressing Applied Promogran -Other Dressing promagran -Primary Dressing Covered/Secured with Dry Gauze Dry Gauze Dry Gauze -Promogran 1 #1 LE Post -Ulcer Cleansing -Foul Odor after Cleansing -Primary Dressing Covered/Secured with bilateral legs -Lotion applied to leg before compression wrap -Multi-Layered Wrap Application Unna Boot - Unna Boot - Unna Boot - Bilateral ($) Bilateral ($) Bilateral ($) -Unna Boots (Bilat) ($) 1 2 2 Treatment Response Procedure Procedure Tolerated Well Tolerated Well Vital Signs Temperature (97.8 F-99.1 F) 98.0 F Temperature Source Temporal Pulse Rate (60-100) 101 H Pulse Location Monitor Respiratory Rate (12-18) Respiratory rate source Blood Pressure (90/60-120/80) 145/72 H Blood Pressure Mean 96 Source Monitor Position Sitting Blood Pressure Location Left Arm Pain Scale: 0-10 Numeric Is Patient Pain Free? Yes Yes Yes WC - Visit Discharge Discharge Condition Stable Stable Ambulatory Status Ambulatory Ambulatory Transportation Private Auto Accompanied by Clinical Summary of Care Provided Notes: Drsg/Unna boot applied per Shady Santana and Nessa Schroeder today . Wound debrided: Left posterior calf Laterality: Left Type of Debridement: Excisional debridement Anesthesia Used: 5% Lidocaine Gel Depth: Down to and including healthy tissue and in the subcutaneous layer Percentage of wound debrided: 100 Instrument Used: 5mm curette Tissue Removed: Bioburden Severity: Fat Layer Exposed Amount of bleeding with debridement: Mild Bleeding Controlled with: Compression and gauze Patient tolerated procedure: Patient tolerated procedure well Assessment/Plan Assessment/Plan (1) Venous stasis ulcer: CODE(S): I83.009 - Varicose veins of unspecified lower extremity with ulcer of unspecified site; L97.909 - Non-pressure chronic ulcer of unspecified part of unspecified lower leg with unspecified severity QUALIFIERS: Venous stasis ulcer site: calf Varicose vein presence: without varicose veins Laterality: left Non-pressure ulcer stage: with fat layer exposed Qualified Code(s): I87.2 - Venous insufficiency (chronic) (peripheral); L97.222 - Non-pressure chronic ulcer of left calf with fat layer exposed (2) Venous stasis dermatitis of left lower extremity: CODE(S): I87.2 - Venous insufficiency (chronic) (peripheral) (3) Lipodermatosclerosis: CODE(S): I83.10 - Varicose veins of unspecified lower extremity with inflammation (4) Swelling of lower extremity: CODE(S): M79.89 - Other specified soft tissue disorders (5) Lower extremity edema: CODE(S): R60.0 - Localized edema (6) Hypogonadism: (7) History of gastric ulcer: CODE(S): Z87.11 - Personal history of peptic ulcer disease (8) History of myocardial infarction: CODE(S): I25.2 - Old myocardial infarction (9) Immobility: CODE(S): Z74.09 - Other reduced mobility (10) Morbid obesity with BMI of 50.0-59.9, adult: CODE(S): E66.01 - Morbid (severe) obesity due to excess calories; Z68.43 - Body mass index [BMI] 50.0-59.9, adult (11) Hyperpigmentation: CODE(S): L81.9 - Disorder of pigmentation, unspecified (12) Chronic venous hypertension w/ulcer and inflammation involv left side: CODE(S): I87.332 - Chronic venous hypertension (idiopathic) with ulcer and inflammation of left lower extremity; L97.929 - Non-pressure chronic ulcer of unspecified part of left lower leg with unspecified severity (13) Chronic venous insufficiency: CODE(S): I87.2 - Venous insufficiency (chronic) (peripheral) (14) Hypothyroidism (acquired): CODE(S): E03.9 - Hypothyroidism, unspecified (15) Gout: CODE(S): M10.9 - Gout, unspecified (16) Chronic hypoxemic respiratory failure: CODE(S): J96.11 - Chronic respiratory failure with hypoxia (17) Restrictive airway disease: CODE(S): J98.4 - Other disorders of lung (18) Morbid obesity: CODE(S): E66.01 - Morbid (severe) obesity due to excess calories (19) Chronic venous stasis: CODE(S): I87.8 - Other specified disorders of veins (20) Osteoarthritis: CODE(S): M19.90 - Unspecified osteoarthritis, unspecified site (21) MEGHANA (obstructive sleep apnea): CODE(S): G47.33 - Obstructive sleep apnea (adult) (pediatric) PLAN: This is a 80-year-old morbidly obese male who presented with chronic and severe bilateral lower extremity venous disease. He has profound venous stasis dermatitis affecting his left lower extremity, with a venous ulceration located on the left posterior calf. He also manifests chronic changes in both lower extremities, namely swelling and edema, hyperpigmentation, and lipodermatosclerosis. Patient is morbidly obese. He is relatively inactive. He is limited by his chronic hypoxic respiratory failure, restrictive airway disease, and morbid obesity. While he does claim to sleep on a flat surface at night, he sits for the preponderance of each day, without much activity. We are to continue conservative treatment measures relative to his lower extremity presenting symptoms. We have had a lengthy discussion about the measures which will be of benefit. Leg elevation has been discussed in detail. His lower extremities are to be elevated as much as possible, to heart level, or higher. He is to avoid idle prolonged sitting. Activity has been encouraged, though is unlikely to be enhanced to any significant degree. Weight loss has also been recommended. We are to continue compression to the lower extremities bilaterally by means of Unna boots, which will be applied bilaterally, and changed twice weekly. Promogran is to be applied topically to the ulceration on the left posterior calf with each dressing change twice weekly. Patient is to return in 1 week for reassessment. Routine laboratory studies have been obtained, with results as follows: White blood count 9.4, hemoglobin 13.6, hematocrit 43.9, platelets 247,000, urinalysis unremarkable, glucose 115, BUN 21, creatinine 1.65, total protein 8.6, serum albumin 3.2, serum prealbumin 18.5, calcium 8.8, AST 27, alkaline phosphatase 57, ALT 28, total bilirubin 0.70, magnesium 2.4, sodium 140, potassium 4.3, chloride 103. The patient has been encouraged to augment his protein and nutritional intake. We will forego a venous duplex examination, as the patient is not currently a good candidate for procedural intervention. Total time: 29 minutes.
== END 2021-02-09 23:59 ==
LOC: WC 10:45
PROVIDERS: PCP Internal Medicine; Visit Provider Surgery
DX: I87.332 Chronic venous hypertension (idiopathic) with ulcer and inflammation of left lower extremity (principal); L97.222 Non-pressure chronic ulcer of left calf with fat layer exposed; I87.2 Venous insufficiency (chronic) (peripheral); J96.11 Chronic respiratory failure with hypoxia; L81.9 Disorder of pigmentation, unspecified; R60.0 Localized edema; E29.1 Testicular hypofunction; R35.0 Frequency of micturition; E03.9 Hypothyroidism, unspecified; J45.909 Unspecified asthma, uncomplicated; M10.9 Gout, unspecified; M19.90 Unspecified osteoarthritis, unspecified site; G47.33 Obstructive sleep apnea (adult) (pediatric); E66.01 Morbid (severe) obesity due to excess calories; Z68.43 Body mass index [BMI] 50.0-59.9, adult; I25.2 Old myocardial infarction; Z87.11 Personal history of peptic ulcer disease
CPT/HCPCS: 11042; 29580

== ENCOUNTER 2021-02-23 11:30 | Outpatient (RCR) | payer MEDICARE, OTHER, SELFPAY ==
[2021-02-10 00:41] VITALS: BP 181/79; PULSE 80; RESP 18; TEMP 36.1; BMI 53.9
[2021-02-12 12:39] VITALS: RESP 22; TEMP 36.4; BMI 53.9
[2021-02-16 13:05] VITALS: BP 180/75; PULSE 80; RESP 18; TEMP 36.3; BMI 53.9
[2021-02-19 12:04] VITALS: BP 144/77; PULSE 107; RESP 18; TEMP 36.4; BMI 53.9
[2021-02-23 11:53] VITALS: BP 186/74; PULSE 73; TEMP 36.6; BMI 53.9
--- NOTE | 2021-02-23 12:27 | HP.PCM_ITS ---
History of Present Illness Date of Service: 02/23/21 Chief Complaint: Venous ulceration, left posterior calf History of Wound: This is a 80-year-old morbidly obese male who presented with a venous stasis ulceration on the left posterior calf, associated with severe venous stasis dermatitis involving the entire circumference of his left mid calf. The patient indicated that the ulceration and skin changes had been present for approximately 2 months. However, it appears as though the patient has a longstanding history of chronic venous disease. He is morbidly obese, with a BMI of over 50. At the instruction of his primary care physician, he had been using peroxide and iodine topically on the ulceration in recent weeks. The patient claims to sleep on a flat mattress at night. However, he is relatively immobile and inactive, sitting idly a good part of each day. He experiences swelling in his lower extremities bilaterally, more notable at the end of each day. He has been previously prescribed graduated compression stockings, but is unable to don the stockings. He is a , and lives alone. He has an aide who comes to his home twice weekly. [facility] Medical History Cataracts, bilateral Chronic venous hypertension w/ulcer and inflammation involv left side Chronic venous insufficiency Chronic venous stasis Gout History of bleeding ulcers History of gastric ulcer History of myocardial infarction Hyperpigmentation Hypogonadism Immobility Lipodermatosclerosis Lower extremity edema Morbid obesity Morbid obesity with BMI of 50.0-59.9, adult NSAID-induced gastric ulcer MEGHANA (obstructive sleep apnea) Osteoarthritis Parathyroid abnormality Pleural effusion Swelling of lower extremity Venous stasis dermatitis of left lower extremity Venous stasis ulcer Home Medications Oxygen, Home [Home Oxygen] 2 lpm NASAL PRN PRN #1 unit 06/21/18 [Rx Last Taken Unknown] arthrid PO 02/07/20 [History Last Taken Unknown] magnesium oxide 400 mg PO BID 02/07/20 [History Last Taken Unknown] multivitamin 1 cap PO DAILY 02/07/20 [History Last Taken Unknown] potassium chloride 20 mEq tablet,extended release 20 meq PO DAILY 02/07/20 [History Last Taken Unknown] pro bio slim PO 02/07/20 [History Last Taken Unknown] super eric prostate PO 02/07/20 [History Last Taken Unknown] antiarthritic combination no.2 900 mg tablet mg PO 03/25/20 [History Last Taken Unknown] testosterone 50 mg/5 gram (1 %) transdermal gel 1 packet TRANSDERMAL DAILY #30 tube 04/06/20 [Rx Last Taken Unknown] furosemide 20 mg tablet 10 mg PO DAILY PRN tab 06/30/20 [History Last Taken Unknown] levothyroxine 50 mcg tablet 50 mcg PO DAILY #90 tab 12/31/20 [Rx Last Taken Unknown] lisinopril 5 mg tablet 5 mg PO DAILY #30 tab 01/27/21 [Rx Last Taken Unknown] Allergy/AdvReac Type Severity Reaction Status Date / Time cephalexin [From Keflex] Allergy Rash Verified 02/12/21 13:48 Family History Father Colon cancer Alcoholism Sister Depression Brother Heart disease Mother Diabetes Surgical History Gastric ulcer Hip joint replacement status History of hip replacement Social History second hand exposure: No alcohol intake: never substance use type: does not use Vital Signs Vital Signs Vital Signs: 02/23/21 11:53 Temperature 97.8 F Temperature Source Temporal Pulse Rate 73 Blood Pressure 186/74 H Blood Pressure Mean 111 Blood Pressure Source Monitor Blood Pressure Position Semi-Fowlers Blood Pressure Location Right Arm Weight Body Mass Index (BMI) 53.9 Physical Exam Const alert, oriented x3, no apparent distress and well nourished Constitutional Narrative: The patient is morbidly obese. General Appearance: cooperative, comfortable and well developed Orientation / Consciousness: awake, oriented to person, oriented to place and oriented to time HEENT normocephalic and head/scalp atraumatic Head and Scalp: normal to inspection, normocephalic and atraumatic External Ear: external ears normal Eyes PERRL and EOMs intact bilaterally General Eye: normal appearance of both eyes Resp normal respiratory effort, normal air movement, no retractions and no use of ac cessory muscles Effort and Inspection: able to speak in complete sentences Extremity no calf tenderness Extremity Narrative: Only slight swelling and edema are noted bilaterally in the patient's lower extremities. Bilateral lipodermatosclerosis and hyperpigmentation are noted in the gaiter areas. The severe dermatitic changes which have been previously noted are largely resolved bilaterally. General Extremity: Negative for clubbing or cyanosis Skin Wound Narrative: The ulceration on the patient's left posterior calf is completely healed and epithelialized. Neuro oriented x3, CN's II-XII intact bilaterally and moves all extremities Sensorium / Orientation: awake, alert, oriented to person, oriented to place and oriented to time Psych Appearance: grossly normal and appropriate Attitude: calm Activity / Motor Behavior: appropriate eye contact Speech: normal speech Mood & Affect: euthymic mood Thought Process: normal thought process Thought Content: normal thought content Attention / Concentration: attention grossly intact Debridement Note Debridement Note No debridement was completed: No debridement was completed today Post-Debridement Measurements and Additional Note: Post-Debridement Measurements/Treatment - Nurse 1 - General Ulcer Assessment Start: 02/12/21 12:38 Freq: Status: Active Protocol: [email or web address].[email or web address] Activity Type Activity Date Activity User E-Sign Co-Sign Detail Recorded Client Recorded Date Recorded By Document 02/12/21 12:39 DL [id number] 02/12/21 12:42 DL Document 02/16/21 13:05 PL [id number] 02/18/21 06:32 PL Document 02/19/21 12:04 RB [id number] 02/19/21 12:13 RB Document 02/23/21 11:53 KR [id number] 02/23/21 11:58 KR 02/12/21 02/16/21 02/19/21 12:39 13:05 12:04 - Today's Visit Information Type of service Nurse-only Nurse-only Follow-up Visit Visit Visit (Physician/[facility] ) Arrival Mode Wheelchair Wheelchair Wheelchair Transfer Assistance Manual None None Transfer Assist (Other) x1 Patient Identification Verified (Name & Yes Yes Yes ) Patient Requires Transmission-Based No No Precautions Height and Weight Body Mass Index (BMI) 53.9 53.9 53.9 BMI Classification Obese Obese Obese Vital Signs Temperature (97.8 F-99.1 F) 97.5 F L 97.4 F L 97.5 F L Temperature Source Temporal Temporal Temporal Pulse Rate (60-100) 80 107 H Pulse Location Monitor Respiratory Rate (12-18) 22 H 18 18 Respiratory rate source Observation Observation Blood Pressure (90/60-120/80) 180/75 H 144/77 H Blood Pressure Mean 110 99 Source Monitor Position Semi-Fowlers Blood Pressure Location Left Arm History Since Last Visit- (Skip if this is Patient's initial visit) Have you changed medications since your No No No last visit? Any new allergies or adverse reactions No No No Had a fall/change in ADL's that may No No No increase risk of falls Signs or symptoms of abuse and/or No No neglect since last visit Have you been in the hospital since your No No No last visit? Has dressing in place as prescribed Yes Yes Yes Has compression in place as prescribed Yes Yes Yes Has offloadiing in place as prescribed N/A N/A No Experienced any changes in pain level or No No No management Left Footwear Right Footwear Pain Scale: 0-10 Numeric Is Patient Pain Free? Yes Yes 02/23/21 11:53 WC - Today's Visit Information Type of service Initial Visit Arrival Mode Wheelchair Transfer Assistance Transfer Assist (Other) Patient Identification Verified (Name & Yes ) Patient Requires Transmission-Based Precautions Height and Weight Body Mass Index (BMI) 53.9 BMI Classification Obese Vital Signs Temperature (97.8 F-99.1 F) 97.8 F Temperature Source Temporal Pulse Rate (60-100) 73 Pulse Location Monitor Respiratory Rate (12-18) Respiratory rate source Blood Pressure (90/60-120/80) 186/74 H Blood Pressure Mean 111 Source Monitor Position Semi-Fowlers Blood Pressure Location Right Arm History Since Last Visit- (Skip if this is Patient's initial visit) Have you changed medications since your No last visit? Any new allergies or adverse reactions No Had a fall/change in ADL's that may No increase risk of falls Signs or symptoms of abuse and/or No neglect since last visit Have you been in the hospital since your No last visit? Has dressing in place as prescribed Yes Has compression in place as prescribed Yes Has offloadiing in place as prescribed N/A Experienced any changes in pain level or No management Left Footwear Regular Shoe Right Footwear Regular Shoe Pain Scale: 0-10 Numeric Is Patient Pain Free? Yes - Nurse 1 - General Ulcer Measurement Start: 02/12/21 12:38 Freq: Status: Active Protocol: Activity Type Activity Date Activity User E-Sign Co-Sign Detail Recorded Client Recorded Date Recorded By Document 02/12/21 12:39 DL [id number] 02/12/21 12:42 DL Document 02/19/21 12:04 RB [id number] 02/19/21 12:13 RB Document 02/23/21 11:53 KR [id number] 02/23/21 11:58 KR 02/12/21 02/19/21 02/23/21 12:39 12:04 11:53 Wound Center Nurse 1 #2 LLE Post -Combined with other wound No -Current Size (cm) - Length 1 -Current Size (cm) - Width 0.8 -Current Size (cm) - Depth 0.1 -Total Square Cm 0.8 -Photo Taken No No -Tunneling No -Undermining/Tunneling No -Circular Undermining No -Change in Wound Grade/Stage No -Exudate Amt None Present None Present -Wound Margin Distinct, Distinct, Outline Outline Attached Attached -Granulation Amt Large (67-100%) Medium (34-66%) -Granulation Quality [place] N/A -Slough/Fibrin Yes -Necrosis Amt None Present (0 Medium (34-66%) %) -Necrotic Tissue Type Eschar -Structure Exposed N/A N/A -Texture (Kaci-wound Skin Appearance) Scarring Assessed, Scarring -Moisture (Kaci-wound Skin Appearance) No Abnormality No Abnormality, Assessed -Color (Kaci-wound Skin Appearance) Hemosiderin No Abnormality, Staining Assessed -Temperature (Kaci-wound Skin No Abnormality No Abnormality Appearance) (Pt Warm) (Pt Warm) -Tenderness on Palpation (Kaci-wound No No Skin Appearance) -Ulcer Cleansing Wound Cleanser Rinsed/ Irrigated with Saline -Foul Odor after Cleansing No No -Anesthetic Used 4% Lidocaine Solution Lower Limb Edema Present Yes Right Calf (cm) 47 48 48 Right Ankle (cm) 26.2 26.5 28.1 Left Calf (cm) 49 51 49.8 Left Ankle (cm) 29 29 30 WC - Nurse 3 - General Ulcer D/C NN Start: 02/12/21 12:38 Freq: Status: Active Protocol: Activity Type Activity Date Activity User E-Sign Co-Sign Detail Recorded Client Recorded Date Recorded By Document 02/12/21 12:39 DL [id number] 02/12/21 12:42 DL Document 02/16/21 13:05 PL [id number] 02/18/21 06:32 PL Document 02/19/21 12:04 RB [id number] 02/19/21 12:13 RB 02/12/21 02/16/21 02/19/21 12:39 13:05 12:04 Vital Signs Temperature (97.8 F-99.1 F) 97.5 F L 97.4 F L 97.5 F L Temperature Source Temporal Temporal Temporal Pulse Rate (60-100) 80 107 H Pulse Location Monitor Respiratory Rate (12-18) 22 H 18 18 Respiratory rate source Observation Observation Blood Pressure (90/60-120/80) 180/75 H 144/77 H Blood Pressure Mean 110 99 Source Monitor Position Semi-Fowlers Blood Pressure Location Left Arm Pain Scale: 0-10 Numeric Is Patient Pain Free? Yes Yes Wound Care Nurse 3 #2 LLE Post -Ulcer Cleansing Wound Cleanser Rinsed/ Irrigated with Saline -Foul Odor after Cleansing No No -Other Dressing promagran Promogran promogran -Primary Dressing Covered/Secured with Dry Gauze Dry Gauze Bilateral -Multi-Layered Wrap Application Unna Boot - Unna Boot - Bilateral ($) Bilateral ($) -Unna Boots (Bilat) ($) 2 2 Right -Multi-Layered Wrap Application Unna Boot - Bilateral ($) -Unna Boots (Bilat) ($) 1 Treatment Response Procedure Procedure Tolerated Well Tolerated Well WC - Visit Discharge Discharge Condition Stable Stable Stable Ambulatory Status Ambulatory, Wheelchair Wheelchair Wheelchair Transportation Private Auto Private Auto Private Auto Medication Reconcilliation completed & No provided to patient/care provider Clinical Summary of Care Provided Yes Assessment/Plan Assessment/Plan (1) Venous stasis ulcer: CODE(S): I83.009 - Varicose veins of unspecified lower extremity with ulcer of unspecified site; L97.909 - Non-pressure chronic ulcer of unspecified part of unspecified lower leg with unspecified severity QUALIFIERS: Venous stasis ulcer site: calf Varicose vein presence: without varicose veins Laterality: left Non-pressure ulcer stage: with fat layer exposed Qualified Code(s): I87.2 - Venous insufficiency (chronic) (peripheral); L97.222 - Non-pressure chronic ulcer of left calf with fat layer exposed (2) Chronic venous hypertension w/ulcer and inflammation involv left side: CODE(S): I87.332 - Chronic venous hypertension (idiopathic) with ulcer and inflammation of left lower extremity; L97.929 - Non-pressure chronic ulcer of unspecified part of left lower leg with unspecified severity (3) Venous stasis dermatitis of left lower extremity: CODE(S): I87.2 - Venous insufficiency (chronic) (peripheral) (4) Chronic venous insufficiency: CODE(S): I87.2 - Venous insufficiency (chronic) (peripheral) (5) Swelling of lower extremity: CODE(S): M79.89 - Other specified soft tissue disorders (6) Lower extremity edema: CODE(S): R60.0 - Localized edema (7) Hypogonadism: (8) History of gastric ulcer: CODE(S): Z87.11 - Personal history of peptic ulcer disease (9) History of myocardial infarction: CODE(S): I25.2 - Old myocardial infarction (10) Immobility: CODE(S): Z74.09 - Other reduced mobility (11) Morbid obesity with BMI of 50.0-59.9, adult: CODE(S): E66.01 - Morbid (severe) obesity due to excess calories; Z68.43 - Body mass index [BMI] 50.0-59.9, adult (12) Lipodermatosclerosis: CODE(S): I83.10 - Varicose veins of unspecified lower extremity with inflammation (13) Hyperpigmentation: CODE(S): L81.9 - Disorder of pigmentation, unspecified (14) Hypothyroidism (acquired): CODE(S): E03.9 - Hypothyroidism, unspecified (15) Gout: CODE(S): M10.9 - Gout, unspecified (16) Chronic hypoxemic respiratory failure: CODE(S): J96.11 - Chronic respiratory failure with hypoxia (17) Restrictive airway disease: CODE(S): J98.4 - Other disorders of lung (18) Chronic venous stasis: CODE(S): I87.8 - Other specified disorders of veins (19) Morbid obesity: CODE(S): E66.01 - Morbid (severe) obesity due to excess calories (20) MEGHANA (obstructive sleep apnea): CODE(S): G47.33 - Obstructive sleep apnea (adult) (pediatric) (21) Osteoarthritis: CODE(S): M19.90 - Unspecified osteoarthritis, unspecified site PLAN: This is a 80-year-old morbidly obese male who presented with chronic and severe bilateral lower extremity venous disease. He has profound venous stasis dermatitis affecting his left lower extremity, with a venous ulceration located on the left posterior calf. He also manifests chronic changes in both lower extremities, namely swelling and edema, hyperpigmentation, and lipodermatosclerosis. Patient is morbidly obese. He is relatively inactive. He is limited by his chronic hypoxic respiratory failure, restrictive airway disease, and morbid obesity. While he does claim to sleep on a flat surface at night, he sits for the preponderance of each day, without much activity. We are to continue conservative treatment measures relative to his lower extremity presenting symptoms. We have had a lengthy discussion about the measures which will be of benefit. Leg elevation has been discussed in detail. His lower extremities are to be elevated as much as possible, to heart level, or higher. He is to avoid idle prolonged sitting. Activity has been encouraged, though is unlikely to be enhanced to any significant degree. Weight loss has also been recommended. As of today's visit, the venous ulceration on the left posterior calf is now completely healed and epithelialized. We are to continue compression to the lower extremities bilaterally by means of Tubigrip's, which will be a short-term implementation. Arrangements are to be made for the patient to be fitted for and to receive CircAid compression garments for both lower extremities. The patient is to return in 2 weeks to assure that he continues to implement the conservative treatment measures that have been repeatedly discussed, which include efforts at weight loss, leg elevation, avoidance of idle standing and sitting, active lifestyle, and the maintenance of compression to both lower extremities. Total time: 29 minutes.
== END 2021-03-11 23:59 ==
LOC: WC 11:30
PROVIDERS: PCP Internal Medicine; Visit Provider Surgery
DX: Z09 Encounter for follow-up examination after completed treatment for conditions other than malignant neoplasm (principal); R60.0 Localized edema; J96.11 Chronic respiratory failure with hypoxia; E03.9 Hypothyroidism, unspecified; M10.9 Gout, unspecified; M19.90 Unspecified osteoarthritis, unspecified site; E29.1 Testicular hypofunction; G47.33 Obstructive sleep apnea (adult) (pediatric); E66.01 Morbid (severe) obesity due to excess calories; Z68.43 Body mass index [BMI] 50.0-59.9, adult; Z99.81 Dependence on supplemental oxygen; Z79.890 Hormone replacement therapy; Z79.899 Other long term (current) drug therapy; Z87.11 Personal history of peptic ulcer disease; I25.2 Old myocardial infarction
CPT/HCPCS: 29580; 99213; G0463

== ENCOUNTER 2021-03-16 10:50 | Outpatient (RCR) | payer MEDICARE, OTHER, SELFPAY ==
[2021-03-12 00:32] VITALS: BP 186/74; PULSE 73; RESP 18; TEMP 36.6; BMI 53.9
[2021-03-16 10:49] VITALS: BP 148/83; PULSE 90; RESP 24; TEMP 36.4; BMI 53.9
--- NOTE | 2021-03-16 11:11 | HP.PCM_ITS ---
History of Present Illness Date of Service: 03/16/21 Chief Complaint: Venous ulceration, left posterior calf History of Wound: This is a 80-year-old morbidly obese male who presented with a venous stasis ulceration on the left posterior calf, associated with severe venous stasis dermatitis involving the entire circumference of his left mid calf. The patient indicated that the ulceration and skin changes had been present for approximately 2 months. However, it appears as though the patient has a longstanding history of chronic venous disease. He is morbidly obese, with a BMI of over 50. At the instruction of his primary care physician, he had been using peroxide and iodine topically on the ulceration in recent weeks. The patient claims to sleep on a flat mattress at night. However, he is relatively immobile and inactive, sitting idly a good part of each day. He experiences swelling in his lower extremities bilaterally, more notable at the end of each day. He has been previously prescribed graduated compression stockings, but is unable to don the stockings. He is a , and lives alone. He has an aide who comes to his home twice weekly. [facility] Medical History Cataracts, bilateral Chronic venous hypertension w/ulcer and inflammation involv left side Chronic venous insufficiency Chronic venous stasis Gout History of bleeding ulcers History of gastric ulcer History of myocardial infarction Hyperpigmentation Hypogonadism Immobility Lipodermatosclerosis Lower extremity edema Morbid obesity Morbid obesity with BMI of 50.0-59.9, adult NSAID-induced gastric ulcer MEGHANA (obstructive sleep apnea) Osteoarthritis Parathyroid abnormality Pleural effusion Swelling of lower extremity Venous stasis dermatitis of left lower extremity Venous stasis ulcer Home Medications Oxygen, Home [Home Oxygen] 2 lpm NASAL PRN PRN #1 unit 06/21/18 [Rx Last Taken Unknown] arthrid PO 02/07/20 [History Last Taken Unknown] magnesium oxide 400 mg PO BID 02/07/20 [History Last Taken Unknown] multivitamin 1 cap PO DAILY 02/07/20 [History Last Taken Unknown] potassium chloride 20 mEq tablet,extended release 20 meq PO DAILY 02/07/20 [History Last Taken Unknown] pro bio slim PO 02/07/20 [History Last Taken Unknown] super eric prostate PO 02/07/20 [History Last Taken Unknown] antiarthritic combination no.2 900 mg tablet mg PO 03/25/20 [History Last Taken Unknown] testosterone 50 mg/5 gram (1 %) transdermal gel 1 packet TRANSDERMAL DAILY #30 tube 04/06/20 [Rx Last Taken Unknown] furosemide 20 mg tablet 10 mg PO DAILY PRN tab 06/30/20 [History Last Taken Unknown] levothyroxine 50 mcg tablet 50 mcg PO DAILY #90 tab 12/31/20 [Rx Last Taken Unknown] lisinopril 5 mg tablet 5 mg PO DAILY #30 tab 01/27/21 [Rx Last Taken Unknown] Allergy/AdvReac Type Severity Reaction Status Date / Time cephalexin [From Keflex] Allergy Rash Verified 02/12/21 13:48 Family History Father Colon cancer Alcoholism Sister Depression Brother Heart disease Mother Diabetes Surgical History Gastric ulcer Hip joint replacement status History of hip replacement Social History second hand exposure: No alcohol intake: never substance use type: does not use Vital Signs Vital Signs Vital Signs: 03/16/21 10:49 Temperature 97.5 F L Temperature Source Temporal Pulse Rate 90 Respiratory Rate 24 H Blood Pressure 148/83 H Blood Pressure Mean 104 Blood Pressure Source Monitor Weight Body Mass Index (BMI) 53.9 Physical Exam Const alert, oriented x3, no apparent distress and well nourished Constitutional Narrative: The patient is morbidly obese. General Appearance: cooperative, comfortable and well developed Orientation / Consciousness: awake, oriented to person, oriented to place and oriented to time HEENT normocephalic and head/scalp atraumatic Head and Scalp: normal to inspection, normocephalic and atraumatic External Ear: external ears normal Eyes PERRL and EOMs intact bilaterally General Eye: normal appearance of both eyes Resp normal respiratory effort, normal air movement, no retractions and no use of accessory muscles Effort and Inspection: able to speak in complete sentences Extremity no calf tenderness Extremity Narrative: Only slight swelling and edema are noted in the patient's left lower extremity. General Extremity: Negative for clubbing or cyanosis Skin Wound Narrative: There are no open wounds or ulcerations in the patient's left lower extremity. The prior ulceration is completely healed and epithelialized. Neuro oriented x3, CN's II-XII intact bilaterally and moves all extremities Sensorium / Orientation: awake, alert, oriented to person, oriented to place and oriented to time Psych Appearance: grossly normal and appropriate Attitude: calm Activity / Motor Behavior: appropriate eye contact Speech: normal speech Mood & Affect: euthymic mood Thought Process: normal thought process Thought Content: normal thought content Attention / Concentration: attention grossly intact Debridement Note Debridement Note No debridement was completed: No debridement was completed today (There are no open wounds or ulcerations.) Post-Debridement Measurements and Additional Note: Post-Debridement Measurements/Treatment WC - Nurse 1 - General Ulcer Assessment Start: 03/16/21 10:49 Freq: Status: Active Protocol: JUAN Activity Type Activity Date Activity User E-Sign Co-Sign Detail Recorded Client Recorded Date Recorded By Document 03/16/21 10:49 DL [id number] 03/16/21 10:51 DL 03/16/21 10:49 WC - Today's Visit Information Type of service Follow-up Visit (Physician/[facility] ) Arrival Mode Ambulatory Transfer Assistance Stretcher Patient Identification Verified (Name & Yes ) Patient Requires Transmission-Based No Precautions Height and Weight Body Mass Index (BMI) 53.9 BMI Classification Obese Vital Signs Temperature (97.8 F-99.1 F) 97.5 F L Temperature Source Temporal Pulse Rate (60-100) 90 Pulse Location Monitor Respiratory Rate (12-18) 24 H Respiratory rate source Observation Blood Pressure (90/60-120/80) 148/83 H Blood Pressure Mean 104 Source Monitor History Since Last Visit- (Skip if this is Patient's initial visit) Have you changed medications since your No last visit? Any new allergies or adverse reactions No Had a fall/change in ADL's that may No increase risk of falls Signs or symptoms of abuse and/or No neglect since last visit Have you been in the hospital since your No last visit? Has dressing in place as prescribed Yes Has compression in place as prescribed Yes Has offloadiing in place as prescribed N/A Experienced any changes in pain level or No management Pain Scale: 0-10 Numeric Is Patient Pain Free? Yes - Nurse 1 - General Ulcer Measurement Start: 03/16/21 10:49 Freq: Status: Active Protocol: Activity Type Activity Date Activity User E-Sign Co-Sign Detail Recorded Client Recorded Date Recorded By Document 03/16/21 10:49 DL [id number] 03/16/21 10:51 DL 03/16/21 10:49 Wound Center Nurse 1 Left Calf (cm) 53 Left Ankle (cm) 27.8 Assessment/Plan Assessment/Plan (1) Lower extremity edema: CODE(S): R60.0 - Localized edema (2) Swelling of lower extremity: CODE(S): M79.89 - Other specified soft tissue disorders (3) Chronic venous hypertension w/ulcer and inflammation involv left side: CODE(S): I87.332 - Chronic venous hypertension (idiopathic) with ulcer and inflammation of left lower extremity; L97.929 - Non-pressure chronic ulcer of unspecified part of left lower leg with unspecified severity (4) Chronic venous insufficiency: CODE(S): I87.2 - Venous insufficiency (chronic) (peripheral) (5) History of gastric ulcer: CODE(S): Z87.11 - Personal history of peptic ulcer disease (6) History of myocardial infarction: CODE(S): I25.2 - Old myocardial infarction (7) Immobility: CODE(S): Z74.09 - Other reduced mobility (8) Morbid obesity with BMI of 50.0-59.9, adult: CODE(S): E66.01 - Morbid (severe) obesity due to excess calories; Z68.43 - Body mass index [BMI] 50.0-59.9, adult (9) Venous stasis ulcer: CODE(S): I83.009 - Varicose veins of unspecified lower extremity with ulcer of unspecified site; L97.909 - Non-pressure chronic ulcer of unspecified part of unspecified lower leg with unspecified severity QUALIFIERS: Venous stasis ulcer site: calf Varicose vein presence: without varicose veins Laterality: left Non-pressure ulcer stage: with fat layer exposed Qualified Code(s): I87.2 - Venous insufficiency (chronic) (peripheral); L97.222 - Non-pressure chronic ulcer of left calf with fat layer exposed (10) Lipodermatosclerosis: CODE(S): I83.10 - Varicose veins of unspecified lower extremity with inflammation (11) Hyperpigmentation: CODE(S): L81.9 - Disorder of pigmentation, unspecified (12) Venous stasis dermatitis of left lower extremity: CODE(S): I87.2 - Venous insufficiency (chronic) (peripheral) (13) Urinary frequency: CODE(S): R35.0 - Frequency of micturition (14) Hypothyroidism (acquired): CODE(S): E03.9 - Hypothyroidism, unspecified (15) Gout: CODE(S): M10.9 - Gout, unspecified (16) Chronic hypoxemic respiratory failure: CODE(S): J96.11 - Chronic respiratory failure with hypoxia (17) Restrictive airway disease: CODE(S): J98.4 - Other disorders of lung (18) Chronic venous stasis: CODE(S): I87.8 - Other specified disorders of veins (19) Morbid obesity: CODE(S): E66.01 - Morbid (severe) obesity due to excess calories (20) MEGHANA (obstructive sleep apnea): CODE(S): G47.33 - Obstructive sleep apnea (adult) (pediatric) (21) Osteoarthritis: CODE(S): M19.90 - Unspecified osteoarthritis, unspecified site (22) Hypogonadism: PLAN: This is a 80-year-old morbidly obese male who presented with chronic and severe bilateral lower extremity venous disease. He had profound venous stasis dermatitis affecting his left lower extremity, with a venous ulcer ation located on the left posterior calf. He also manifests chronic changes in both lower extremities, namely swelling and edema, hyperpigmentation, and lipodermatosclerosis. The patient is morbidly obese. He is relatively inactive. He is limited by his chronic hypoxic respiratory failure, restrictive airway disease, and morbid obesity. While he does claim to sleep on a flat surface at night, he sits for the preponderance of each day, without much activity. The ulcerations in the patient's lower extremity are now completely healed and epithelialized. We are to continue conservative treatment measures relative to his lower extremity presenting symptoms. We have had a lengthy discussion about the measures which will be of benefit. Leg elevation has been discussed in detail. His lower extremities are to be elevated as much as possible, to heart level, or higher. He is to avoid idle prolonged sitting. Activity has been encouraged, though is unlikely to be enhanced to any signif icant degree. Weight loss has also been recommended. As of today's visit, the venous ulceration on the left posterior calf is now completely healed and epithelialized. We are to continue compression to the lower extremities bilaterally by means of CircAid Velcro compression garments, which have been obtained by the patient. He has been properly instructed in the appropriate means of application. The patient is to be discharged, and will follow-up henceforth on an as-needed basis. The patient is to continue with conservative treatment measures, which include efforts at weight loss, leg elevation, avoidance of idle standing and sitting, active lifestyle, and the maintenance of compression to both lower extremities. Total time: 28 minutes.
== END 2021-03-16 11:43 | disposition home or self-care (01) ==
LOC: WC 10:50
PROVIDERS: PCP Internal Medicine; Visit Provider Surgery
DX: Z09 Encounter for follow-up examination after completed treatment for conditions other than malignant neoplasm (principal); I87.2 Venous insufficiency (chronic) (peripheral); J96.11 Chronic respiratory failure with hypoxia; J98.8 Other specified respiratory disorders; J98.4 Other disorders of lung; M10.9 Gout, unspecified; G47.33 Obstructive sleep apnea (adult) (pediatric); M19.90 Unspecified osteoarthritis, unspecified site; R60.0 Localized edema; R35.0 Frequency of micturition; E29.1 Testicular hypofunction; E66.01 Morbid (severe) obesity due to excess calories; Z68.43 Body mass index [BMI] 50.0-59.9, adult; Z79.890 Hormone replacement therapy; Z79.899 Other long term (current) drug therapy; I25.2 Old myocardial infarction; Z87.11 Personal history of peptic ulcer disease
CPT/HCPCS: 99213; G0463

== ENCOUNTER → 2021-03-16 11:32 | Outpatient (CLI) | payer MEDICARE, OTHER, SELFPAY ==
[2021-03-16 12:52] LABS: Anion Gap 5 (5-15); BUN 27 mg/dL (7-18); BUN/Creat Ratio 17.9 RATIO (10-20); Chloride 104 mmol/L (98-107); Creatinine, Serum 1.51 mg/dL (0.70-1.30); EST Glomerular Filtration Rate 48 mL/min (>60); Est Glom Filt Rate - Afr Amer 58 mL/min (>60); Free T3 2.2 pg/mL (2.18-3.98); Glucose 109 mg/dL (74-106); Potassium 4.7 mmol/L (3.5-5.1); Sodium Level 139 mmol/L (136-145); T4 Free Direct 0.83 ng/dL (0.76-1.46); Thyroid Stim Hormone (TSH) 2.84 uIU/mL (0.358-3.74)
== END ==
PROVIDERS: PCP Internal Medicine; Referring Provider Internal Medicine; Visit Provider Internal Medicine
DX: E03.9 Hypothyroidism, unspecified (principal); R60.0 Localized edema; M79.89 Other specified soft tissue disorders; E66.01 Morbid (severe) obesity due to excess calories; Z68.43 Body mass index [BMI] 50.0-59.9, adult; Z74.09 Other reduced mobility; Z09 Encounter for follow-up examination after completed treatment for conditions other than malignant neoplasm; I87.2 Venous insufficiency (chronic) (peripheral); J96.11 Chronic respiratory failure with hypoxia; J98.8 Other specified respiratory disorders; J98.4 Other disorders of lung; M10.9 Gout, unspecified; G47.33 Obstructive sleep apnea (adult) (pediatric); M19.90 Unspecified osteoarthritis, unspecified site; R35.0 Frequency of micturition; E29.1 Testicular hypofunction; Z79.890 Hormone replacement therapy; Z79.899 Other long term (current) drug therapy; I25.2 Old myocardial infarction; Z87.11 Personal history of peptic ulcer disease
CPT/HCPCS: 36415; 80048; 84439; 84443; 84481; 99213; G0463

== ENCOUNTER 2021-07-01 15:53 | Outpatient (CLI) | payer MEDICARE, OTHER, SELFPAY ==
[2021-07-01 17:42] LABS: Free T3 1.9 pg/mL (2.18-3.98); T4 Free Direct 0.81 ng/dL (0.76-1.46); Thyroid Stim Hormone (TSH) 2.78 uIU/mL (0.358-3.74)
[2021-07-01 17:54] LABS: Vitamin D,25 Hydroxy 28.5 ng/mL
== END 2021-07-01 23:59 | disposition short-term general hospital (02) ==
LOC: BIMLAB 15:54
PROVIDERS: PCP Internal Medicine; Referring Provider Internal Medicine; Visit Provider Internal Medicine
DX: E03.9 Hypothyroidism, unspecified (principal); E55.9 Vitamin D deficiency, unspecified
CPT/HCPCS: 36415; 82306; 84439; 84443; 84481

== ENCOUNTER 2021-07-09 13:45 | Outpatient (RCR) | payer MEDICARE, OTHER, SELFPAY ==
[2021-07-06 13:20] VITALS: BP 147/75; PULSE 105; RESP 20; TEMP 36.6; BMI 49.4
--- NOTE | 2021-07-06 14:10 | HP.PCM_ITS ---
History of Present Illness Date of Service: 07/06/21 Chief Complaint: Venous ulceration, left medial calf History of Wound: This is a 80-year-old morbidly obese male with chronic venous disease. He has previously been treated at our facility for a venous ulceration on the left posterior calf. He was treated by conservative means from December through March 2021, resulting in successful healing of his ulceration. At the time of his discharge in March 2021, patient was provided with advisement as to the appropriate long-term management relative to his chronic venous disease. These measures included, but were not limited to, weight loss, leg elevation, avoidance of idle standing and sitting, active lifestyle, etc. In addition, the patient had been provided prescriptions for graduated compression stockings and Velcro compression garments for the lower extremities, which she had obtained, and was advised to wear daily. It appears as though the patient has been reasonably compliant with recommended measures since that time. In fact, the patient has lost approximately 30 pounds in recent months, and his BMI is now 49.4, which is slightly decreased from previously. The patient appears committed to continued weight loss. Approximately 3 weeks prior to his current presentation, the patient noted what looked like some loose dry skin on his left medial calf. He grabbed and pulled out it, which resulted in an open ulceration, which has failed to heal. He has been using Aquacel Extra topically. He presents now for definitive evaluation and management. Review of the patient's prior medical records indicate that he has suffered from chronic, long-term swelling and edema in his lower extremities bilaterally, as well as hyperpigmentation and lipodermatosclerosis in the gaiter areas bilaterally. He is a , and lives alone. The patient has difficulty in donning his compression devices, but has assistance in this regard from acquaintances at least every other day. [facility] Medical History Cataracts, bilateral Chronic venous hypertension w/ulcer and inflammation involv left side Chronic venous insufficiency Chronic venous stasis Gout History of bleeding ulcers History of gastric ulcer History of myocardial infarction Hyperpigmentation Hypogonadism Immobility Lipodermatosclerosis Lower extremity edema Morbid obesity Morbid obesity with BMI of 50.0-59.9, adult NSAID-induced gastric ulcer MEGHANA (obstructive sleep apnea) Osteoarthritis Parathyroid abnormality Pleural effusion Swelling of lower extremity Venous stasis dermatitis of left lower extremity Venous stasis ulcer Home Medications Oxygen, Home [Home Oxygen] 2 lpm NASAL PRN PRN #1 unit 06/21/18 [Rx Last Taken Unknown] magnesium oxide 400 mg PO DAILY 02/07/20 [History Last Taken Unknown] multivitamin 1 cap PO DAILY 02/07/20 [History Last Taken Unknown] potassium chloride 20 mEq tablet,extended release 20 meq PO DAILY 02/07/20 [History Last Taken Unknown] pro bio slim PO DAILY 02/07/20 [History Last Taken Unknown] antiarthritic combination no.2 900 mg tablet 1,800 mg PO DAILY 03/25/20 [History Last Taken Unknown] testosterone 50 mg/5 gram (1 %) transdermal gel 1 packet TRANSDERMAL DAILY #30 tube 04/06/20 [Rx Last Taken Unknown] levothyroxine 50 mcg tablet 50 mcg PO DAILY #90 tab 12/31/20 [Rx Last Taken Unknown] lisinopril 5 mg tablet 5 mg PO DAILY #90 tab 04/27/21 [Rx Last Taken Unknown] hydrocolloid dressing 6 X 6 #5 ea 07/01/21 [Rx Last Taken Unknown] Allergy/AdvReac Type Severity Reaction Status Date / Time cephalexin [From Keflex] Allergy Rash Verified 07/06/21 13:35 Family History Father Colon cancer Alcoholism Sister Depression Brother Heart disease Mother Diabetes Surgical History Gastric ulcer Hip joint replacement status History of hip replacement Social History Smoking Status: Never smoker second hand exposure: No alcohol intake: never substance use type: does not use Vital Signs Vital Signs Vital Signs: 07/06/21 13:20 Temperature 97.8 F Temperature Source Temporal Pulse Rate 105 H Respiratory Rate 20 H Blood Pressure 147/75 H Blood Pressure Mean 99 Blood Pressure Source Monitor Blood Pressure Position Sitting Blood Pressure Location Left Forearm Oxygen Delivery Method Room Air Weight Weight: 325 lb Body Mass Index (BMI) 49.4 Physical Exam Const alert, oriented x3, no apparent distress and well nourished Constitutional Narrative: The patient is morbidly obese. General Appearance: cooperative, comfortable, well kempt and well developed Orientation / Consciousness: awake, oriented to person, oriented to place and oriented to time HEENT normocephalic and head/scalp atraumatic Head and Scalp: normal to inspection, normocephalic and atraumatic External Ear: external ears normal Eyes PERRL and EOMs intact bilaterally General Eye: normal appearance of both eyes Resp normal respiratory effort, normal air movement, no retractions and no use of accessory muscles Effort and Inspection: able to speak in complete sentences Extremity no calf tenderness Extremity Narrative: Mild swelling and edema are noted in the patient's lower extremities bilaterally. Circumferential hyperpigmentation is noted in the gaiter areas bilaterally. The hyperpigmentation is more severe in the left lower extremity. General Extremity: Negative for clubbing or cyanosis Skin Wound Narrative: Very superficial ulceration is noted on the left medial calf. Dimensions are documented elsewhere. The ulceration is generally pink and healthy in appearance, with no sign of infection, cellulitis, or significant bioburden or necrotic material. Neuro oriented x3, CN's II-XII intact bilaterally and moves all extremities Sensorium / Orientation: awake, alert, oriented to person, oriented to place and oriented to time Psych Appearance: grossly normal and appropriate Attitude: calm Activity / Motor Behavior: appropriate eye contact Speech: normal speech Mood & Affect: euthymic mood Thought Process: normal thought process Thought Content: normal thought content Attention / Concentration: attention grossly intact Debridement Note Debridement Note No debridement was completed: No debridement was completed today (Debridement was not performed today due to the rather superficial nature of the patient's ulceration, and the fact that the ulceration is generally pink and healthy in appearance, with active granulation tissue. There is a notable absence of necrotic material or significant bioburden.) Post-Debridement Measurements and Additional Note: Post-Debridement Measurements/Treatment ALINA - Nurse 1 - General Ulcer Assessment Start: 07/06/21 12:50 Freq: Status: Active Protocol: JUAN Activity Type Activity Date Activity User E-Sign Co-Sign Detail Recorded Client Recorded Date Recorded By Document 07/06/21 13:20 MW [id number] 07/06/21 13:35 MW 07/06/21 13:20 - Today's Visit Information Type of service Initial Visit Arrival Mode Ambulatory Transfer Assistance None Accompanied by self Patient Identification Verified (Name & Yes ) Patient Requires Transmission-Based No Precautions Safety Precautions Fall Prevention Height and Weight Height 5 ft 8 in Weight 325 lb Weight in Pounds 325.0 lbs Body Mass Index (BMI) 49.4 BMI Classification Obese BSA - Brady 2.51 Vital Signs Temperature (97.8 F-99.1 F) 97.8 F Temperature Source Temporal Pulse Rate (60-100) 105 H Pulse Location Monitor Respiratory Rate (12-18) 20 H Respiratory rate source Observation Oxygen Delivery Method Room Air Blood Pressure (90/60-120/80) 147/75 H Blood Pressure Mean 99 Source Monitor Position Sitting Blood Pressure Location Left Forearm History Since Last Visit- (Skip if this is Patient's initial visit) Left Footwear Regular Shoe Right Footwear Regular Shoe Pain Scale: 0-10 Numeric Is Patient Pain Free? Yes Communication Assessment Preferred language Sinhala Meter Supervisor Required No Able to Read Yes Able to Write Yes Communication Tools None Caregiver Communication Skills No Impairment Impairment Right Hearing Abillity Normal Left Hearing Abillity Normal Visual Assistive Devices Glasses Teaching Assessment Preferences Verbal,Written, Audio/Visual, Demonstration Barriers to Learning None Readiness To Learn Excellent Willingness to Engage in Self Management High Activies Readiness to Engage in Self Management High Activities Anxiety Level Calm Cooperation Cooperative Perception Coherent Interest in Health Problem Asks Questions Education Importance Acknowledges Need Does Patient Smoke tobacco or other No substances Smoking Status Never smoker Is Patient Diabetic No Functional Assessment Recent Decline in Ability to Perform Denies Any Declines Assistive Device With Patient Yes List Device(s) with Patient wheelchair Culture/Muslim/Custodian Athletic Equipment Cultural/Muslim Needs that may affect No Treatment Plan Would you allow our hospital data collection technician to No meet you for the purpose of spiritual/ emotional support? Custodian Athletic Equipment to contact place of jehovah's witness No Teaching: Wound Center Welcome to the Wound Care Center English FULLER - Nurse 1 - General Ulcer Measurement Start: 07/06/21 12:50 Freq: Status: Active Protocol: Activity Type Activity Date Activity User E-Sign Co-Sign Detail Recorded Client Recorded Date Recorded By Document 07/06/21 13:20 MW [id number] 07/06/21 13:35 MW 07/06/21 13:20 Wound Center Nurse 1 #3- L MEDIAL LE SKIN TEAR -Combined with other wound No -Current Size (cm) - Length 2.1 -Current Size (cm) - Width 2.5 -Current Size (cm) - Depth 0.1 -Total Square Cm 5.25 -Date of Last Picture (Recall this 07/06/21 field) -Photo Taken Yes -Epithelialization None Present -Tunneling No -Undermining/Tunneling No -Circular Undermining No -Exudate Amt Medium -Exudate Type Serosanguineous -Wound Margin Flat & Intact -Granulation Amt Medium (34-66%) -Granulation Quality Red -Slough/Fibrin Yes -Necrosis Amt Medium (34-66%) -Necrotic Tissue Type Adherent Slough -Texture (Kaci-wound Skin Appearance) Assessed, Scarring -Moisture (Kaci-wound Skin Appearance) Assessed -Color (Kaci-wound Skin Appearance) Assessed, Erythema -Temperature (Kaci-wound Skin No Abnormality Appearance) (Pt Warm) -Tenderness on Palpation (Kaci-wound No Skin Appearance) -Ulcer Cleansing Soap and Water -Foul Odor after Cleansing No -Anesthetic Used 4% Lidocaine Solution Lower Limb Edema Present Yes Right Calf (cm) 48.4 Right Ankle (cm) 26.2 Left Calf (cm) 50.5 Left Ankle (cm) 28 Assessment/Plan Assessment/Plan (1) Chronic venous hypertension w/ulcer and inflammation involv left side: CODE(S): I87.332 - Chronic venous hypertension (idiopathic) with ulcer and inflammation of left lower extremity; L97.929 - Non-pressure chronic ulcer of unspecified part of left lower leg with unspecified severity (2) Venous stasis ulcer: CODE(S): I83.009 - Varicose veins of unspecified lower extremity with ulcer of unspecified site; L97.909 - Non-pressure chronic ulcer of unspecified part of unspecified lower leg with unspecified severity QUALIFIERS: Venous stasis ulcer site: calf Varicose vein presence: without varicose veins Laterality: left Non-pressure ulcer stage: with fat layer exposed Qualified Code(s): I87.2 - Venous insufficiency (c hronic) (peripheral); L97.222 - Non-pressure chronic ulcer of left calf with fat layer exposed (3) Venous stasis dermatitis of left lower extremity: CODE(S): I87.2 - Venous insufficiency (chronic) (peripheral) (4) Chronic venous stasis: CODE(S): I87.8 - Other specified disorders of veins (5) Chronic venous insufficiency: CODE(S): I87.2 - Venous insufficiency (chronic) (peripheral) (6) Lower extremity edema: CODE(S): R60.0 - Localized edema (7) Swelling of lower extremity: CODE(S): M79.89 - Other specified soft tissue disorders (8) History of gastric ulcer: CODE(S): Z87.11 - Personal history of peptic ulcer disease (9) History of myocardial infarction: CODE(S): I25.2 - Old myocardial infarction (10) Immobility: CODE(S): Z74.09 - Other reduced mobility (11) Lipodermatosclerosis: CODE(S): I83.10 - Varicose veins of unspecified lower extremity with inflammation (12) Hyperpigmentation: CODE(S): L81.9 - Disorder of pigmentation, unspecified (13) Hypothyroidism (acquired): CODE(S): E03.9 - Hypothyroidism, unspecified (14) Urinary frequency: CODE(S): R35.0 - Frequency of micturition (15) Gout: CODE(S): M10.9 - Gout, unspecified (16) Restrictive airway disease: CODE(S): J98.4 - Other disorders of lung (17) Morbid obesity: CODE(S): E66.01 - Morbid (severe) obesity due to excess calories (18) MEGHANA (obstructive sleep apnea): CODE(S): G47.33 - Obstructive sleep apnea (adult) (pediatric) (19) Osteoarthritis: CODE(S): M19.90 - Unspecified osteoarthritis, unspecified site (20) Hypogonadism: PLAN: This is a 80-year-old morbidly obese male with a longstanding history of chronic venous disease in his lower extremities bilaterally. He has been previously treated at our facility for a venous ulceration on the left posterior calf. Healing was achieved by means of conservative treatment measures, and the patient has been implementing conservative treatment measures since last seen at our facility in March 2021. However, he presents now with an ulceration on the left medial calf, seemingly related to his venous disease. We are to redouble our efforts at conservative treatment measures. These are to include leg elevation, avoidance of idle standing and sitting, active lifestyle, weight loss, etc. Compression is to be continued to the right lower extremity by means of graduated compression stockings worn daily. We are to implement compression to the left lower extremity by means of an Unna boot, which will be applied twice weekly at the wound care facility. In addition, with each application of the Unna boot, we are to apply Aquacel topically to the ulceration. Patient is to return in 1 week for reassessment. The patient appears committed to continued weight loss, which has been encouraged. He has lost approximately 30 pounds in recent months. Leg elevation has been discussed in detail. His lower extremities are to be elevated as much as possible, to heart level, or higher. He is to avoid idle prolonged sitting. Activity has been encouraged, though is unlikely to be enhanced to any significant degree. Total time: 29 minutes.
[2021-07-09 14:08] VITALS: BP 146/71; PULSE 85; RESP 18; TEMP 36.1; BMI 49.4
== END 2021-07-12 23:59 ==
LOC: WC 13:45
PROVIDERS: PCP Internal Medicine; Visit Provider Surgery
DX: I87.332 Chronic venous hypertension (idiopathic) with ulcer and inflammation of left lower extremity (principal); L97.222 Non-pressure chronic ulcer of left calf with fat layer exposed; E66.01 Morbid (severe) obesity due to excess calories; Z68.42 Body mass index [BMI] 45.0-49.9, adult; R35.0 Frequency of micturition; M10.9 Gout, unspecified; Z74.09 Other reduced mobility; E03.9 Hypothyroidism, unspecified; R60.0 Localized edema; G47.33 Obstructive sleep apnea (adult) (pediatric); J98.4 Other disorders of lung; M19.90 Unspecified osteoarthritis, unspecified site; I25.2 Old myocardial infarction; Z79.890 Hormone replacement therapy; Z79.899 Other long term (current) drug therapy
CPT/HCPCS: 29580; 99213; G0463

== ENCOUNTER 2021-07-13 09:37 | Outpatient (RCR) | payer MEDICARE, OTHER, SELFPAY ==
[2021-07-13 00:50] VITALS: BP 146/71; PULSE 85; RESP 18; TEMP 36.1; BMI 49.4
[2021-07-13 09:46] VITALS: BP 119/68; PULSE 82; TEMP 36; BMI 49.4
--- NOTE | 2021-07-13 12:21 | PCM.WC.HP ---
History of Present Illness Date of Service: 07/13/21 Chief Complaint: Venous ulceration, left medial calf History of Wound: This is a 80-year-old morbidly obese male with chronic venous disease. He has previously been treated at our facility for a venous ulceration on the left posterior calf. He was treated by conservative means from December through March 2021, resulting in successful healing of his ulceration. At the time of his discharge in March 2021, patient was provided with advisement as to the appropriate long-term management relative to his chronic venous disease. These measures included, but were not limited to, weight loss, leg elevation, avoidance of idle standing and sitting, active lifestyle, etc. In addition, the patient had been provided prescriptions for graduated compression stockings and Velcro compression garments for the lower extremities, which she had obtained, and was advised to wear daily. It appears as though the patient has been reasonably compliant with recommended measures since that time. In fact, the patient has lost approximately 30 pounds in recent months, and his BMI is now 49.4, which is slightly decreased from previously. The patient appears committed to continued weight loss. Approximately 3 weeks prior to his current presentation, the patient noted what looked like some loose dry skin on his left medial calf. He grabbed and pulled out it, which resulted in an open ulceration, which has failed to heal. He has been using Aquacel Extra topically. He presents now for definitive evaluation and management. Review of the patient's prior medical records indicate that he has suffered from chronic, long-term swelling and edema in his lower extremities bilaterally, as well as hyperpigmentation and lipodermatosclerosis in the gaiter areas bilaterally. He is a , and lives alone. The patient has difficulty in donning his compression devices, but has assistance in this regard from acquaintances at least every other day. [facility] Medical History Cataracts, bilateral Chronic venous hypertension w/ulcer and inflammation involv left side Chronic venous insufficiency Chronic venous stasis Gout History of bleeding ulcers History of gastric ulcer History of myocardial infarction Hyperpigmentation Hypogonadism Immobility Lipodermatosclerosis Lower extremity edema Morbid obesity Morbid obesity with BMI of 50.0-59.9, adult NSAID-induced gastric ulcer MEGHANA (obstructive sleep apnea) Osteoarthritis Parathyroid abnormality Pleural effusion Swelling of lower extremity Venous stasis dermatitis of left lower extremity Venous stasis ulcer Home Medications Oxygen, Home [Home Oxygen] 2 lpm NASAL PRN PRN #1 unit 06/21/18 [Rx Last Taken Unknown] magnesium oxide 400 mg PO DAILY 02/07/20 [History Last Taken Unknown] multivitamin 1 cap PO DAILY 02/07/20 [History Last Taken Unknown] potassium chloride 20 mEq tablet,extended release 20 meq PO DAILY 02/07/20 [History Last Taken Unknown] pro bio slim PO DAILY 02/07/20 [History Last Taken Unknown] antiarthritic combination no.2 900 mg tablet 1,800 mg PO DAILY 03/25/20 [History Last Taken Unknown] testosterone 50 mg/5 gram (1 %) transdermal gel 1 packet TRANSDERMAL DAILY #30 tube 04/06/20 [Rx Last Taken Unknown] levothyroxine 50 mcg tablet 50 mcg PO DAILY #90 tab 12/31/20 [Rx Last Taken Unknown] lisinopril 5 mg tablet 5 mg PO DAILY #90 tab 04/27/21 [Rx Last Taken Unknown] hydrocolloid dressing 6 X 6 #5 ea 07/01/21 [Rx Last Taken Unknown] Allergy/AdvReac Type Severity Reaction Status Date / Time cephalexin [From Keflex] Allergy Rash Verified 07/06/21 13:35 Family History Father Colon cancer Alcoholism Sister Depression Brother Heart disease Mother Diabetes Surgical History Gastric ulcer Hip joint replacement status History of hip replacement Social History Smoking Status: Never smoker second hand exposure: No alcohol intake: never substance use type: does not use Vital Signs Vital Signs Vital Signs: 07/13/21 00:50 07/13/21 09:46 Temperature 97 F L 96.8 F L Temperature Source Temporal Pulse Rate 85 82 Respiratory Rate 18 Blood Pressure 146/71 H 119/68 Blood Pressure Mean 96 85 Blood Pressure Source Monitor Blood Pressure Location Left Arm Weight Weight: 325 lb Body Mass Index (BMI) 49.4 Physical Exam Const alert, oriented x3, no apparent distress and well nourished Constitutional Narrative: The patient is morbidly obese General Appearance: cooperative and well developed Orientation / Consciousness: awake, oriented to person, oriented to place and oriented to time HEENT normocephalic and head/scalp atraumatic Head and Scalp: normal to inspection, normocephalic and atraumatic External Ear: external ears normal Eyes PERRL and EOMs intact bilaterally General Eye: normal appearance of both eyes Resp normal respiratory effort, normal air movement, no retractions and no use of accessory muscles Effort and Inspection: able to speak in complete sentences Extremity no calf tenderness Extremity Narrative: There is no significant swelling or edema in the patient's lower extremities. Lipodermatosclerosis and hyperpigmentation are noted bilaterally in the gaiter areas. General Extremity: Negative for clubbing or cyanosis Skin Wound Narrative: The ulceration on the left medial calf is now completely healed and epithelialized. Neuro oriented x3, CN's II-XII intact bilaterally and moves all extremities Sensorium / Orientation: awake, alert, oriented to person, oriented to place and oriented to time Psych Appearance: grossly normal and appropriate Attitude: calm Activity / Motor Behavior: appropriate eye contact Speech: normal speech Mood & Affect: euthymic mood Thought Process: normal thought process Thought Content: normal thought content Attention / Concentration: attention grossly intact Debridement Note Debridement Note No debridement was completed: No debridement was completed today (The patient's ulceration is now completely healed and epithelialized.) Post-Debridement Measurements and Additional Note: Post-Debridement Measurements/Treatment - Nurse 1 - General Ulcer Assessment Start: 07/13/21 09:46 Freq: Status: Active Protocol: .LOWMANINDERT Activity Type Activity Date Activity User E-Sign Co-Sign Detail Recorded Client Recorded Date Recorded By Document 07/13/21 09:46 RI [id number] 07/13/21 09:49 LINNETTE 07/13/21 09:46 - Today's Visit Information Type of service Follow-up Visit (Physician/SEWING MACHINE ATTACHMENT TESTER ) Arrival Mode Wheelchair Patient Identification Verified (Name & Yes ) Patient Requires Transmission-Based No Precautions Safety Precautions NA Height and Weight Body Mass Index (BMI) 49.4 BMI Classification Obese Vital Signs Temperature (97.8 F-99.1 F) 96.8 F L Temperature Source Temporal Pulse Rate (60-100) 82 Pulse Location Monitor Blood Pressure (90/60-120/80) 119/68 Blood Pressure Mean 85 Source Monitor History Since Last Visit- (Skip if this is Patient's initial visit) Have you changed medications since your No last visit? Any new allergies or adverse reactions No Had a fall/change in ADL's that may No increase risk of falls Signs or symptoms of abuse and/or No neglect since last visit Have you been in the hospital since your No last visit? Has dressing in place as prescribed Yes Has compression in place as prescribed Yes Has offloadiing in place as prescribed N/A Experienced any changes in pain level or No management Left Footwear Regular Shoe Right Footwear Regular Shoe Pain Scale: 0-10 Numeric Is Patient Pain Free? Yes WC - Nurse 1 - General Ulcer Measurement Start: 07/13/21 09:46 Freq: Status: Active Protocol: Activity Type Activity Date Activity User E-Sign Co-Sign Detail Recorded Client Recorded Date Recorded By Document 07/13/21 09:46 LINNETTE [id number] 07/13/21 09:49 AK 07/13/21 09:46 Wound Center Nurse 1 #3- L MEDIAL LE SKIN TEAR -Combined with other wound No -Current Size (cm) - Length 0 -Current Size (cm) - Width 0 -Current Size (cm) - Depth 0 -Total Square Cm 0 -Date of Last Picture (Recall this 07/13/21 field) -Photo Taken Yes -Tunneling No -Undermining/Tunneling No -Circular Undermining No -Change in Wound Grade/Stage No -Exudate Amt None Present -Granulation Amt None Present (0 %) -Granulation Quality N/A -Slough/Fibrin No -Necrosis Amt None Present (0 %) -Texture (Kaci-wound Skin Appearance) No Abnormality, Assessed -Moisture (Kaci-wound Skin Appearance) No Abnormality, Assessed -Color (Kaci-wound Skin Appearance) Assessed, Hemosiderin Staining -Temperature (Kaci-wound Skin No Abnormality Appearance) (Pt Warm) -Tenderness on Palpation (Kaci-wound No Skin Appearance) -Ulcer Cleansing Soap and Water -Foul Odor after Cleansing No Lower Limb Edema Present No Left Calf (cm) 46.5 Left Ankle (cm) 26.3 Assessment/Plan Assessment/Plan (1) Chronic venous hypertension w/ulcer and inflammation involv left side: CODE(S): I87.332 - Chronic venous hypertension (idiopathic) with ulcer and inflammation of left lower extremity; L97.929 - Non-pressure chronic ulcer of unspecified part of left lower leg with unspecified severity (2) Venous stasis ulcer: CODE(S): I83.009 - Varicose veins of unspecified lower extremity with ulcer of unspecified site; L97.909 - Non-pressure chronic ulcer of unspecified part of unspecified lower leg with unspecified severity QUALIFIERS: Venous stasis ulcer site: calf Varicose vein presence: without varicose veins Laterality: left Non-pressure ulcer stage: with fat layer exposed Qualified Code(s): I87.2 - Venous insufficiency (chronic) (peripheral); L97.222 - Non-pressure chronic ulcer of left calf with fat layer exposed (3) Chronic venous insufficiency: CODE(S): I87.2 - Venous insufficiency (chronic) (peripheral) (4) Swelling of lower extremity: CODE(S): M79.89 - Other specified soft tissue disorders (5) Lower extremity edema: CODE(S): R60.0 - Localized edema (6) Hypogonadism: (7) History of gastric ulcer: CODE(S): Z87.11 - Personal history of peptic ulcer disease (8) History of myocardial infarction: CODE(S): I25.2 - Old myocardial infarction (9) Morbid obesity with BMI of 50.0-59.9, adult: CODE(S): E66.01 - Morbid (severe) obesity due to excess calories; Z68.43 - Body mass index [BMI] 50.0-59.9, adult (10) Lipodermatosclerosis: CODE(S): I83.10 - Varicose veins of unspecified lower extremity with inflammation (11) Hyperpigmentation: CODE(S): L81.9 - Disorder of pigmentation, unspecified (12) Venous stasis dermatitis of left lower extremity: CODE(S): I87.2 - Venous insufficiency (chronic) (peripheral) (13) Hypothyroidism (acquired): CODE(S): E03.9 - Hypothyroidism, unspecified (14) Gout: CODE(S): M10.9 - Gout, unspecified (15) Restrictive airway disease: CODE(S): J98.4 - Other disorders of lung (16) Chronic venous stasis: CODE(S): I87.8 - Other specified disorders of veins (17) Morbid obesity: CODE(S): E66.01 - Morbid (severe) obesity due to excess calories (18) MEGHANA (obstructive sleep apnea): CODE(S): G47.33 - Obstructive sleep apnea (adult) (pediatric) (19) Osteoarthritis: CODE(S): M19.90 - Unspecified osteoarthritis, unspecified site PLAN: This is a 80-year-old morbidly obese male with a longstanding history of chronic venous disease in his lower extremities bilaterally. He has been previously treated at our facility for a venous ulceration on the left posterior calf. Healing was achieved by means of conservative treatment measures, and the patient has been implementing conservative treatment measures since last seen at our facility in March 2021. However, he presented again with an ulceration on the left medial calf, seemingly related to his venous disease. We redoubled efforts at conservative treatment measures. These included leg elevation, avoidance of idle standing and sitting, active lifestyle, weight loss, compression, etc. the patient is now completely healed and epithelialized, and is to be discharged, with follow-up on an as-needed basis. He has been urged to continue with the conservative treatment measures which have been previously implemented. Total time: 26 minutes
== END 2021-07-13 13:08 | disposition home or self-care (01) ==
LOC: WC 09:37
PROVIDERS: PCP Internal Medicine; Visit Provider Surgery
DX: Z09 Encounter for follow-up examination after completed treatment for conditions other than malignant neoplasm (principal); E66.01 Morbid (severe) obesity due to excess calories; Z68.42 Body mass index [BMI] 45.0-49.9, adult; I87.2 Venous insufficiency (chronic) (peripheral); M19.90 Unspecified osteoarthritis, unspecified site; J98.4 Other disorders of lung; M10.9 Gout, unspecified; R60.0 Localized edema; G47.33 Obstructive sleep apnea (adult) (pediatric); E03.9 Hypothyroidism, unspecified; I83.90 Asymptomatic varicose veins of unspecified lower extremity; I25.2 Old myocardial infarction; Z79.890 Hormone replacement therapy; Z79.899 Other long term (current) drug therapy
CPT/HCPCS: 99213; G0463

== ENCOUNTER → 2023-05-17 | Outpatient (CLI) | payer MEDICARE, OTHER, SELFPAY ==
[2023-05-17 12:22] LABS: Absolute Lymphocyte Count 1.59 X10^3/uL (0.83-4.51); Absolute Neutrophil Count 3.5 X10^3/uL (2.0-7.7); Basophil# 0.06 X10^3/uL; Eosinophil# 0.24 X10^3/uL; Eosinophils% 4.1 % (0-5); Hematocrit 44.7 % (40-54); Hemoglobin 14.2 g/dL (13.0-16.5); Lymphocyte # 1.59 X10^3/ul (0.83-4.51); Lymphocyte % 27.2 % (19-41); Mean Corp Hgb Conc 31.8 g/dL (32-36); Mean Corpuscular Hgb 35.2 pg (27.0-32.0); Mean Corpuscular Volume 110.9 fL (80-94); Mean Platelet Vol. 9.3 fl (6.2-12.0); Monocyte# 0.48 X10^3/uL; Monocyte% 8.2 % (0-10); NRBC Flagged by Analyzer 0 % (0-5); Neutrophil # 3.47 X10^3/uL (2.7-7.7); Neutrophil % 59.3 % (47-70); Platelet Count 224 K/mm3 (150-450); RBC Distribution Width CV 13.9 % (11.6-14.6); RBC Distribution Width SD 57.5 fl (35.1-43.9); Red Blood Count 4.03 M/mm3 (4.6-6.2); White Blood Count 5.9 K/mm3 (4.4-11.0)
[2023-05-17 12:49] LABS: Vitamin D,25 Hydroxy 31.9 ng/mL
[2023-05-17 12:59] LABS: ALB/GLOB Ratio 0.6 RATIO (0.9-2.4); AST(SGOT) 24 U/L (15-37); Alanine Aminotransfer ALT/SGPT 27 U/L (16-61); Albumin, Serum 3.2 g/dL (3.2-5.0); Alkaline Phosphatase 51 U/L (45-117); Anion Gap 5 (5-15); BUN 27 mg/dL (7-18); BUN/Creat Ratio 18.8 RATIO (10-20); Calcium,Total 8.9 mg/dL (8.5-10.1); Chloride 107 mmol/L (98-107); Cholesterol 185 mg/dL (200); Creatinine, Serum 1.44 mg/dL (0.70-1.30); EST Glomerular Filtration Rate 50 mL/min (>60); Est Glom Filt Rate - Afr Amer 60 mL/min (>60); Free T3 2.1 pg/mL (2.18-3.98); Glucose 111 mg/dL (74-106); High Density Lipoprotein 63 mg/dL; PSA,Total - Annual Screen 0.19 ng/mL (0.00-4.00); Potassium 5.1 mmol/L (3.5-5.1); Protein, Total 8.2 g/dL (6.4-8.2); Sodium Level 140 mmol/L (136-145); T4 Free Direct 0.81 ng/dL (0.76-1.46); Thyroid Stim Hormone (TSH) 2.47 uIU/mL (0.358-3.74); Triglycerides 108 mg/dL; Very Low Density Lipoprotein 22 mg/dL (5-40)
== END | disposition home or self-care (01) ==
LOC: BIMLAB 11:26
PROVIDERS: PCP Internal Medicine; Referring Provider Internal Medicine; Visit Provider Internal Medicine
DX: E55.9 Vitamin D deficiency, unspecified (principal); J96.11 Chronic respiratory failure with hypoxia; E66.01 Morbid (severe) obesity due to excess calories; Z68.43 Body mass index [BMI] 50.0-59.9, adult; Z74.09 Other reduced mobility; R35.0 Frequency of micturition; G47.33 Obstructive sleep apnea (adult) (pediatric); M19.90 Unspecified osteoarthritis, unspecified site; E03.9 Hypothyroidism, unspecified; Z13.220 Encounter for screening for lipoid disorders; Z12.5 Encounter for screening for malignant neoplasm of prostate
CPT/HCPCS: 36415; 80053; 80061; 82306; 84153; 84439; 84443; 84481; 85025; G0103

== ENCOUNTER → 2023-11-29 | Outpatient (CLI) | payer MEDICARE, OTHER, SELFPAY ==
[2023-11-29 12:21] LABS: Absolute Lymphocyte Count 2.04 X10^3/uL (0.83-4.51); Absolute Neutrophil Count 4.1 X10^3/uL (2.0-7.7); Basophil# 0.04 X10^3/uL; Basophil% 0.6 % (0-1); Eosinophil# 0.16 X10^3/uL; Eosinophils% 2.3 % (0-5); Hematocrit 40.6 % (40-54); Hemoglobin 12.6 g/dL (13.0-16.5); Lymphocyte # 2.04 X10^3/ul (0.83-4.51); Lymphocyte % 28.8 % (19-41); Mean Corpuscular Volume 112.8 fL (80-94); Mean Platelet Vol. 9.5 fl (6.2-12.0); Monocyte# 0.72 X10^3/uL; Monocyte% 10.2 % (0-10); NRBC Flagged by Analyzer 0 % (0-5); Neutrophil # 4.09 X10^3/uL (2.7-7.7); Neutrophil % 57.7 % (47-70); Platelet Count 171 K/mm3 (150-450); RBC Distribution Width CV 13.2 % (11.6-14.6); RBC Distribution Width SD 55.4 fl (35.1-43.9); White Blood Count 7.1 K/mm3 (4.4-11.0)
[2023-11-29 13:01] LABS: Vitamin B12 704 pg/mL (211-911); Vitamin D,25 Hydroxy 29.1 ng/mL
[2023-11-29 13:34] LABS: ALB/GLOB Ratio 0.8 RATIO (0.9-2.4); AST(SGOT) 27 U/L (15-37); Alanine Aminotransfer ALT/SGPT 23 U/L (16-61); Albumin, Serum 3.3 g/dL (3.2-5.0); Alkaline Phosphatase 42 U/L (45-117); Anion Gap 6 (5-15); BUN 29 mg/dL (7-18); BUN/Creat Ratio 20.1 RATIO (10-20); Calcium,Total 8.8 mg/dL (8.5-10.1); Chloride 105 mmol/L (98-107); Creatinine, Serum 1.44 mg/dL (0.70-1.30); EST Glomerular Filtration Rate 50 mL/min (>60); Est Glom Filt Rate - Afr Amer 60 mL/min (>60); Globulin 4.3 g/dL (2.2-4.2); Glucose 118 mg/dL (74-106); Magnesium 2.3 mg/dL (1.6-2.6); Potassium 4.9 mmol/L (3.5-5.1); Protein, Total 7.6 g/dL (6.4-8.2); Sodium Level 140 mmol/L (136-145); T4 Free Direct 0.77 ng/dL (0.76-1.46); Thyroid Stim Hormone (TSH) 3.29 uIU/mL (0.358-3.74)
== END | disposition home or self-care (01) ==
LOC: BIMLAB 11:41
PROVIDERS: PCP Internal Medicine; Visit Provider Internal Medicine
DX: E66.01 Morbid (severe) obesity due to excess calories (principal); J96.11 Chronic respiratory failure with hypoxia; Z68.43 Body mass index [BMI] 50.0-59.9, adult; E03.9 Hypothyroidism, unspecified; G47.33 Obstructive sleep apnea (adult) (pediatric); M19.90 Unspecified osteoarthritis, unspecified site; J98.4 Other disorders of lung; E55.9 Vitamin D deficiency, unspecified; E53.8 Deficiency of other specified B group vitamins
CPT/HCPCS: 36415; 80053; 82306; 82607; 83735; 84439; 84443; 84481; 85025

== ENCOUNTER → 2024-01-30 | Outpatient (CLI) | payer MEDICARE, OTHER, SELFPAY ==
[2024-01-30 16:55] LABS: Absolute Lymphocyte Count 2.62 X10^3/uL (0.83-4.51); Absolute Neutrophil Count 2.7 X10^3/uL (2.0-7.7); Basophil# 0.05 X10^3/uL; Basophil% 0.8 % (0-1); Eosinophil# 0.37 X10^3/uL; Eosinophils% 5.7 % (0-5); Hematocrit 40.1 % (40-54); Hemoglobin 12.6 g/dL (13.0-16.5); Lymphocyte # 2.62 X10^3/ul (0.83-4.51); Lymphocyte % 40.3 % (19-41); Mean Corp Hgb Conc 31.4 g/dL (32-36); Mean Corpuscular Hgb 35.5 pg (27.0-32.0); Mean Platelet Vol. 9.4 fl (6.2-12.0); Monocyte# 0.71 X10^3/uL; Monocyte% 10.9 % (0-10); NRBC Flagged by Analyzer 0 % (0-5); Neutrophil # 2.72 X10^3/uL (2.7-7.7); Neutrophil % 41.8 % (47-70); Platelet Count 173 K/mm3 (150-450); RBC Distribution Width CV 12.8 % (11.6-14.6); RBC Distribution Width SD 53.9 fl (35.1-43.9); Red Blood Count 3.55 M/mm3 (4.6-6.2); White Blood Count 6.5 K/mm3 (4.4-11.0)
== END | disposition home or self-care (01) ==
PROVIDERS: PCP Internal Medicine; Visit Provider Nurse Practitioner
DX: E03.9 Hypothyroidism, unspecified (principal)
CPT/HCPCS: 36415; 85025